=== PATIENT | male | born 1965 | race Hispanic/Latino ===

== ENCOUNTER 2017-06-21 22:48 | Inpatient (IN) | payer MEDICAID ==
[2017-06-21 22:48] VITALS: BMI 28.0
[2017-06-21 23:36] LABS: BASO # 0.1 K/uL (0.0-0.2); BASO % 0.6 % (0.0-2.0); EOS % 0.2 % (0.0-4.0); LYMPH # 0.5 K/uL (1.0-4.3); LYMPH % 6.6 % (20.0-40.0); MEAN CORPUSCULAR HEMOGLOBIN 33.7 pg (27.0-31.0); MEAN CORPUSCULAR HGB CONC 35.4 g/dL (33.0-37.0); MEAN PLATELET VOLUME 6.6 fL (7.2-11.7); MONO # 1.3 K/uL (0.0-0.8); MONO % 16.1 % (0.0-10.0); NEUT # 6.1 K/uL (1.8-7.0); NEUT % 76.5 % (50.0-75.0); RBC 3.86 Mil/uL (4.40-5.90); RED CELL DISTRIBUTION WIDTH 14.9 % (11.5-14.5)
[2017-06-21 23:37] LABS: MEAN CELL VOLUME 95.1 fL (80.0-94.0); PLATELET COUNT 182 K/uL (130-400)
[2017-06-21 23:51] LABS: ALBUMIN 4.1 g/dL (3.5-5.0); ALT/SGPT 106 U/L (21-72); AST/SGOT 154 U/L (17-59); BLOOD UREA NITROGEN 6 mg/dL (9-20); CALCIUM 9.6 mg/dl (8.6-10.4); GFR AFRICAN-AMERICAN > 60; GFR NON-AFRICAN AMERICAN > 60
--- NOTE | 2017-06-22 01:36 | C.PDOC ---
History Of Present Illness 51 year old male presents to the ER via EMS after patient was found by mother to have bizarre behavior and ripping up sofa cushions at home. When questioned, patient states he does not feel well, states he feels lightheaded and dizzy but denies pain, suicidal ideation, or homicidal ideation. Chief Complaint (Nursing): Psychiatric Evaluation History Per: Patient History/Exam Limitations: no limitations Onset/Duration Of Symptoms: Hrs Current Symptoms Are (Timing): Still Present Suicide/Self Injury Attempted (Context): None Associated Symptoms: Other (Bizarre behavior). denies: Depression, Suicidal Thoughts, Suicidal Plan Involuntary Hold By: None Recent travel outside of the [place]: No Past Medical History Reviewed: Historical Data, Nursing Documentation, Vital Signs Vital Signs: Last Vital Signs Temp 98.1 F 06/22/17 02:29 Pulse 93 H 06/22/17 02:29 Resp 20 06/22/17 02:29 BP 134/81 06/22/17 02:29 Pulse Ox 97 06/22/17 05:40 - Medical History PMH: Asthma, Bipolar Disorder, Depression, HTN, Hypercholesterolemia - [facility] ALCOHOL DETOXIFICATION (02/24/14) Family History: States: Unknown Family Hx - Social History Hx Tobacco Use: No Hx Alcohol Use: Yes Hx Substance Use: No - Immunization History Hx Tetanus Toxoid Vaccination: No Hx Influenza Vaccination: No Hx Pneumococcal Vaccination: No Review Of Systems Constitutional: Negative for: Fever, Chills Cardiovascular: Positive for: Light Headedness. Negative for: Chest Pain, Palpitations Respiratory: Negative for: Shortness of Breath Gastrointestinal: Negative for: Abdominal Pain Neurological: Positive for: Dizziness Psych: Negative for: Suicidal ideation, Other (Homicidal ideation) Physical Exam - Physical Exam Appears: Non-toxic, No Acute Distress Skin: Normal Color, Warm, Dry Head: Atraumatic, Normacephalic Eye(s): bilateral: Normal Inspection Oral Mucosa: Moist Neck: Normal, Supple Chest: Symmetrical, No Tenderness Cardiovascular: Rhythm Regular Respiratory: Normal Breath Sounds, No Rales, No Rhonchi, No Wheezing Gastrointestinal/Abdominal: Soft, No Tenderness Neurological/Psych: Oriented x3, Normal Speech ED Course And Treatment - Laboratory Results Result Diagrams: 06/21/17 23:33 06/22/17 05:11 O2 Sat by Pulse Oximetry: 97 (room air) Pulse Ox Interpretation: Normal Progress Note: Blood work and urinalysis ordered. Crisis notified. Patient noted to be more confused with tremors. Disposition Discussed With .: Estevan Agustin Doctor Will See Patient In The: Hospital Counseled Patient/Family Regarding: Diagnosis - Disposition Disposition: HOSPITALIZED Disposition Time: 05:39 Condition: STABLE Forms: [facility] ([facility]) - Clinical Impression Clinical Impression: Benzodiazepine abuse, Withdrawal from benzodiazepine, Acute confusion - Scribe Statement The provider has reviewed the documentation as recorded by the Scribjose miguel Bai All medical record entries made by the Chrisibe were at my direction and personally dictated by me. I have reviewed the chart and agree that the record accurately reflects my personal performance of the history, physical exam, medical decision making, and the department course for this patient. I have also personally directed, reviewed, and agree with the discharge instructions and disposition.
[2017-06-22 02:43] LABS: SQUAMOUS EPITHIAL < 1 /hpf (0-5); URINE BILIRUBIN NEGATIVE (NEGATIVE); URINE BLOOD NEGATIVE (NEGATIVE); URINE CLARITY Clear (Clear); URINE COLOR Yellow (YELLOW); URINE GLUCOSE (UA) 1+ mg/dL (Normal); URINE LEUKOCYTE ESTERASE NEG Leu/uL (Negative); URINE NITRATE NEGATIVE (NEGATIVE); URINE PROTEIN 1+ mg/dL (NEGATIVE)
[2017-06-22 02:47] LABS: BARBITURATES, UR NEGATIVE (NEGATIVE); OPIATES, UR NEGATIVE (NEGATIVE); PHENCYCLIDINE, UR NEGATIVE (NEGATIVE)
[2017-06-22 02:51] LABS: BENZODIAZEPINES, UR POSITIVE (NEGATIVE)
[2017-06-22 03:33] LABS: EOSINOPHIL 1 % (0-4); LYMPHOCYTE 7 % (20-40); MONOCYTE 17 % (0-10); NEUTROPHIL 75 % (50-75); TOTAL CELLS COUNTED 100
[2017-06-22 03:34] LABS: PLATELET ESTIMATE NORMAL (NORMAL)
[2017-06-22] MEDS ORDERED: Sodium Chloride 0.9% 1,000 ML IV ONE (03:48)
--- NOTE | 2017-06-22 05:22 | CT ---
EXAM: CT Head Without Intravenous Contrast CLINICAL HISTORY: 51 years old, male; Pain; Other: Acute confusion; Patient HX: 04-01-13 TECHNIQUE: Axial computed tomography images of the head/brain without intravenous contrast. All CT scans at this facility use one or more dose reduction techniques, viz.: automated exposure control; ma/kV adjustment per patient size (including targeted exams where dose is matched to indication; i.e. head); or iterative reconstruction technique. Coronal and sagittal reformatted images were created and reviewed. COMPARISON: CT - HEAD W/O CONTRAST 2013-04-01 08:40 FINDINGS: Brain: Moderate atrophy. No intracranial hemorrhage. No mass. No definite edema. Ventricles: No hydrocephalus. Bones/joints: No acute fracture. Soft tissues: Unremarkable. Vasculature: Minimal atherosclerotic disease of intracranial arteries. Sinuses: Mild mucosal thickening of maxillary sinuses. Mastoid air cells: No mastoid effusion. Orbits: Unremarkable as visualized. IMPRESSION: 1. No definite acute intracranial abnormality. Acute infarction may be CT occult within first 24 hours. If a focal deficit persists, consider followup CT or MRI for further evaluation. 2. Incidental/non-acute findings are described above.
[2017-06-22 05:30] LABS: BLOOD UREA NITROGEN 8 mg/dL (9-20); CALCIUM 8.9 mg/dl (8.6-10.4); GFR AFRICAN-AMERICAN > 60; GFR NON-AFRICAN AMERICAN > 60
[2017-06-22] MEDS ORDERED: Multivitamin (MVI) 10 ML, Thiamine 100 MG, Folic Acid 1 MG in Sodium Chloride 0.9% 1,00... IV ONE (05:59)
--- NOTE | 2017-06-22 11:38 | PCM.PSYCH ---
Initial Psychiatric Evaluation - Initial Psychiatric Evaluation Type of Admission: Voluntary Legal Status: Capacity Chief Complaint (in patient's own words): " I have anxiety" History of Present Illness and Precipitating Events: The patient is a 51 male with two children. Per ED report that patient was brought to the hospital after his mother found him ripping up couch cushions and demonstrating bizarre behavior. The patient reports I have anxiety and that it woke him up this morning. He states that he does not know what is causing his anxiety but he feels like his heart is beating too fast and that he is sweating profusely. The patient reports feeling fine last night when he went to bed and that the anxiety occurred out of the blue. He reports that he started getting anxiety when he was 13 and its only getting worse, occurring 15-20 times a month. The patient reports drinking alcohol. The patient denies taking any medications, psych history, and psychiatric hospitalizations in the past. Patient chart displays a history of bipolar disorder substance abuse and previous psychiatric and detox hospitalizations. The patient is sitting naked in his bed and is very anxious and agitated. He appears very flushed and delirious. His speech is loud with anger in his tone. He demonstrated perseveration, repeating I have anxiety for a greater part of the patient encounter.The patient has poor insight and lacks judgment and attention. The patient is clearly confused and appears to be high on a combination of substances. Current Medications: Active Medications Generic Name Dose Route Start Last Admin Trade Name Freq PRN Reason Stop Dose Admin Chlordiazepoxide 25 mg 06/22/17 05:59 Librium PO Q4 PRN Anxiety Heparin Sodium (Porcine) 5,000 units 06/22/17 06:00 06/22/17 06:25 Heparin SC 5,000 units Q8 EDIN Administration Multivitamins/Vitamin C 10 ml/ 1,011.2 mls @ 80 mls/hr 06/22/17 05:59 06:40 Thiamine HCl 100 mg/ Folic IV 06/22/17 18:37 80 mls/hr Acid 1 mg/ Sodium Chloride .[id number] ONE Administration Past Psychiatric History - Past Psychiatric History Previous Treatment History: Inpatient Pertinent Medical Hx (Current Medical&Sleep Prob, Allergies): Allergies Allergy/AdvReac Type Severity Reaction Status Date / Time peanut Allergy SWELLING Verified 02/06/18 04:18 Unobtainable [Unobtainable] 07/19/13 Review of Systems - Review of Systems Systems not reviewed;Unavailable: Altered Mental Status - Constitutional Constitutional: Sweats - Neurological Neurological: Behavioral Changes, Confusion - Psychiatric Psychiatric: Anxiety, Behavioral Changes, Confusion, Difficulty Concentrating, Hallucinations, Irritability, Mood Swings Mental Status Examination - Personal Presentation Personal Presentation: Looks stated age - Affect Affect: Broad - Motor Activity Motor Activity: Psychomotor Agitation - Reliability in Providing Information Reliability in Providing Information: Poor, due to alteration in thoughts, Poor , due to altered mood, Poor, due to cognitve impairment - Speech Speech: Disorganized - Mood Mood: Anxious - Formal Thought Process Formal Thought Process: Hallucinations, Loosening of associations - Obsessions/Compulsions Obsessions: None Compulsions: None - Cognitive Functions Orientation: Person, Place Sensorium: Alert Attention/Concentration: Easily distracted Estimate of Intelligence: Average Judgement: Imparied, as evidence by: Poor judgement, Imparied, as evidence by: Lack of insight into illness Memory: Recent impaired, as evidence by: Inability to recall events of the day, Remote impaired as evidenced by: Inability to recall sig life events - Risk Risk: Withdrawal DSM 5 DX - DSM 5 DSM 5 Diagnosis: Delirium secondary to drug intoxication Alcohol Use Disorder Benzodiazepine Use Disorder - Recommended/Plan of Treatment Treatment Recommendations and Plan of Treatment: Monitor patient's vital signs Monitor patient's mood and behavior Ativan taper
--- NOTE | 2017-06-22 23:07 | CP.PCM.HP ---
History of Present Illness - History of Present Illness History of Present Illness: CC: over dosage of xanax to fell asleep HPI: 51 year old male PMH of anxiety and depression presents to the ER via EMS after patient was found by mother to have bizarre behavior and ripping up sofa cushions at home. When questioned, patient states he does not feel well, states he feels lightheaded and dizzy but denies pain, suicidal ideation, or homicidal ideation, he states he took large qaunttites of xanax just to sleep Present on Admission - Present on Admission Any Indicators Present on Admission: Yes Review of Systems - Review of Systems Systems not reviewed;Unavailable: Acuity of Condition, Unstable Vital Signs - Constitutional Constitutional: Fatigue, Lethargy, Malaise. absent: As Per HPI, Anorexia, Chills, Daytime Sleepiness, Excessive Sweating, Fever, Frequent Falls, Headache , Increased Appetite, Night Sweats, Snoring, Sleep Apnea, Weight Gain, Weight Loss, Weakness, Other - EENT Nose/Mouth/Throat: absent: As Per HPI, Epistaxis, Nasal Congestion, Nasal Discharge, Nasal Obstruction, Nasal Trauma, Nose Pain, Post Nasal Drip, Sinus Pain, Sinus Pressure, Bleeding Gums, Change in Voice, Dental Pain, Dry Mouth, Dysphagia, Halitosis, Hoarsness, Lip Swelling, Mouth Lesions, Mouth Pain, Odynophagia, Sore Throat, Throat Swelling, Tongue Swelling, Facial Pain, Neck Pain, Neck Mass, Other - Cardiovascular Cardiovascular: absent: As Per HPI, Acrocyanosis, Chest Pain, Chest Pain at Rest , Chest Pain with Activity, Claudication, Diaphoresis, Dyspnea, Dyspnea on Exertion, Edema, Irregular Heart Rhythm, Pain Radiating to Arm/Neck/Jaw, Leg Edema, Leg Ulcers, Lightheadedness, Orthopnea, Palpitations, Paroxysmal Nocturnal Dyspnea, Pedal Edema, Radiating Pain, Rapid Heart Rate, Slow Heart Rate, Syncope, Other - Gastrointestinal Gastrointestinal: absent: As Per HPI, Abdominal Pain, Belching, Bloating, Change in Bowel Habits, Change in Stool Character, Coffee Ground Emesis, Constipation, Cramping, Diarrhea, Dyspepsia, Dysphagia, Early Satiety, Excessive Flatus, Fecal Incontinence, Heartburn, Hematemesis, Hematochezia, Loose Stools, Melena, Nausea, Odynophagia, Temesmus, Vomiting, Other - Genitourinary Genitourinary: absent: As Per HPI, Change in Urinary Stream, Difficulty Urinating, Dysuria, Flank Pain, Hematuria, Pyuria, Nocturia, Urinary Incontinence, Urinary Frequency, Urinary Hesitance, Urinary Urgency, Voiding Freq/Small Amts, Freq UTI, Hx Renal/Bladder Calculi, Hx /Renal Surgery, Bladder Distension, Other - Musculoskeletal Musculoskeletal: Abnormal Gait - Integumentary Integumentary: absent: As Per HPI, Acne, Alopecia, Bleeding Lesions, Change in Hair, Change in Nails, Change in Pigmentation, Changing Lesions, Dry Skin, Erythema, Furuncle, Hirsutism, Lesions, New Lesions, Non-Healing Lesions, Photosensitivity, Pruritus, Rash, Skin Pain, Skin Ulcer, Sores, Striae, Swelling , Unusual Bruising, Wounds, Jaundice, Other - Neurological Neurological: Confusion, Dizziness, Weakness - Psychiatric Psychiatric: Abnormal Sleep Pattern, Anxiety, Depression, Irritability - Endocrine Endocrine: absent: As Per HPI, Change in Body Appearance, Change in Libido, Cold Intolorance, Deepening of Voice, Excessive Sweating, Fatigue, Flushing, Heat Intolorance, Increase in Ring/Shoe/Hat Size, Palpitations, Polydipsia, Polyphagia, Polyuria, Other Past Patient History - Past Medical History & Family History Past Medical History?: Yes - Past Social History Smoking Status: Never Smoked - CARDIAC Hx Hypercholesterolemia: Yes Hx Hypertension: Yes - PULMONARY Hx Asthma: Yes - NEUROLOGICAL Hx Seizures: No - HEENT Hx HEENT Problems: No - RENAL Hx Chronic Kidney Disease: No - ENDOCRINE/METABOLIC Hx Endocrine Disorders: No - HEMATOLOGICAL/ONCOLOGICAL Hx Human Immunodeficiency Virus (HIV): No - INTEGUMENTARY Hx Eczema: Yes - MUSCULOSKELETAL/RHEUMATOLOGICAL Hx Falls: Yes Hx Unsteady Gait: Yes - GASTROINTESTINAL Hx Gastrointestinal Disorders: No Hx Fatty Liver Disease: Yes - GENITOURINARY/GYNECOLOGICAL Hx Sexually Transmitted Disorders: No - PSYCHIATRIC Hx Bipolar Disorder: Yes Hx Depression: Yes Hx Substance Use: Yes - SURGICAL HISTORY Hx Surgeries: Yes (right pointer finger fixed due to deteriotion) - ANESTHESIA Hx Anesthesia: No Hx Anesthesia Reactions: No Meds Allergies/Adverse Reactions: Allergies Allergy/AdvReac Type Severity Reaction Status Date / Time peanut Allergy SWELLING Verified 06/22/17 04:18 Physical Exam - Constitutional Appears: No Acute Distress - Head Exam Head Exam: ATRAUMATIC, NORMAL INSPECTION, NORMOCEPHALIC - Eye Exam Eye Exam: EOMI, Normal appearance, PERRL Pupil Exam: NORMAL ACCOMODATION, PERRL - Respiratory Exam Respiratory Exam: Clear to Auscultation Bilateral, NORMAL BREATHING PATTERN - Cardiovascular Exam Cardiovascular Exam: REGULAR RHYTHM - GI/Abdominal Exam GI & Abdominal Exam: Normal Bowel Sounds, Soft. absent: Tenderness - Rectal Exam Rectal Exam: Deferred - Neurological Exam Neurological exam: Alert, Normal Gait, Oriented x3 - Psychiatric Exam Psychiatric exam: Anxious, Depressed Results - Vital Signs Recent Vital Signs: Last Vital Signs Temp 98.7 F 06/22/17 20:26 Pulse 88 06/22/17 20:40 Resp 18 06/22/17 20:26 BP 161/103 H 06/22/17 20:26 Pulse Ox 97 06/22/17 20:26 - Labs Result Diagrams: 06/21/17 23:33 06/22/17 05:11 Labs: Laboratory Results - last 24 hr 06/21/17 06/21/17 06/22/17 23:33 23:33 02:25 WBC 8.0 RBC 3.86 L Hgb 13.0 Hct 36.7 MCV 95.1 H D MCH 33.7 H MCHC 35.4 RDW 14.9 H Plt Count 182 D MPV 6.6 L Neut % (Auto) 76.5 H Lymph % (Auto) 6.6 L [place] % (Auto) 16.1 H Eos % (Auto) 0.2 Baso % (Auto) 0.6 Neut # (Auto) 6.1 Lymph # (Auto) 0.5 L [place] # (Auto) 1.3 H Eos # (Auto) 0.0 Baso # (Auto) 0.1 Neutrophils % (Manual) 75 Lymphocytes % (Manual) 7 L Monocytes % (Manual) 17 H Eosinophils % (Manual) 1 Platelet Estimate Normal Sodium 127 L Potassium 3.7 Chloride 85 L Carbon Dioxide 28 Anion Gap 17 BUN 6 L Creatinine 1.2 Est GFR ( Amer) > 60 Est GFR (Non-Af Amer) > 60 Random Glucose 112 H Calcium 9.6 Total Bilirubin 3.3 H AST 154 H ALT 106 H D Alkaline Phosphatase 80 Total Protein 8.1 Albumin 4.1 Globulin 4.0 H Albumin/Globulin Ratio 1.0 Urine Color Urine Clarity Urine pH Ur Specific [place] Urine Protein Urine Glucose (UA) Urine Ketones Urine Blood Urine Nitrate Urine Bilirubin Urine Urobilinogen Ur Leukocyte Esterase Urine WBC (Auto) Ur Squamous Epith Cells Urine Opiates Screen Negative Urine Methadone Screen Negative Ur Barbiturates Screen Negative Ur Phencyclidine Scrn Negative Ur Amphetamines Screen Negative U Benzodiazepines Scrn Positive U Oth Cocaine Metabols Negative U Cannabinoids Screen Negative Alcohol, Quantitative < 10 06/22/17 06/22/17 02:25 05:11 WBC RBC Hgb Hct MCV MCH MCHC RDW Plt Count MPV Neut % (Auto) Lymph % (Auto) [place] % (Auto) Eos % (Auto) Baso % (Auto) Neut # (Auto) Lymph # (Auto) [place] # (Auto) Eos # (Auto) Baso # (Auto) Neutrophils % (Manual) Lymphocytes % (Manual) Monocytes % (Manual) Eosinophils % (Manual) Platelet Estimate Sodium 130 L Potassium 4.0 Chloride 85 L Carbon Dioxide 30 Anion Gap 19 BUN 8 L Creatinine 1.2 Est GFR ( Amer) > 60 Est GFR (Non-Af Amer) > 60 Random Glucose 91 Calcium 8.9 Total Bilirubin AST ALT Alkaline Phosphatase Total Protein Albumin Globulin Albumin/Globulin Ratio Urine Color Yellow Urine Clarity Clear Urine pH 6.0 Ur Specific [place] 1.008 Urine Protein 1+ H Urine Glucose (UA) 1+ H Urine Ketones Trace Urine Blood Negative Urine Nitrate Negative Urine Bilirubin Negative Urine Urobilinogen 2.0 Ur Leukocyte Esterase Neg Urine WBC (Auto) 1 Ur Squamous Epith Cells < 1 Urine Opiates Screen Urine Methadone Screen Ur Barbiturates Screen Ur Phencyclidine Scrn Ur Amphetamines Screen U Benzodiazepines Scrn U Oth Cocaine Metabols U Cannabinoids Screen Alcohol, Quantitative Assessment & Plan (1) Acute confusion Status: Acute (2) Benzodiazepine abuse Status: Acute (3) Withdrawal from benzodiazepine Status: Acute
--- NOTE | 2017-06-23 13:55 | CARD ---
APPROVED REPORT EKG Measurement Heart [id number] <Conclusion> Normal sinus rhythm Inferior infarct, age undetermined Abnormal ECG
--- NOTE | 2017-06-23 23:44 | CP.PCM.PN ---
Subjective - Date & Time of Evaluation Date of Evaluation: 06/23/17 Time of Evaluation: 19:00 - Subjective Subjective: Pt is anxious and agitated, was also seen by psychiatry, i gave stat dose of ativan pt is able to cooperate trying her best to elax Objective - Vital Signs/Intake and Output Vital Signs (last 24 hours): Temp Pulse Resp BP Pulse Ox 98.4 F 81 20 185/105 H 96 06/23/17 16:21 06/23/17 16:21 06/23/17 16:21 06/23/17 16:21 06/23/17 16:21 - Medications Medications: Current Medications Alprazolam (Xanax) 0.5 mg PO TID [facility] Last Admin: 06/23/17 18:50 Dose: Not Given Ergocalciferol (Drisdol 50,000 Intl Units Cap) 1 cap PO QWK [facility] Folic Acid (Folic Acid) 1 mg PO DAILY [facility] Heparin Sodium (Porcine) (Heparin) 5,000 units SC Q8 [facility] Last Admin: 06/23/17 22:04 Dose: 5,000 units Lisinopril (Zestril) 20 mg PO DAILY [facility] Lorazepam (Ativan) 0.5 mg PO TID PRN PRN Reason: Agitation Last Admin: 06/23/17 14:36 Dose: 0.5 mg Metoprolol Tartrate (Lopressor) 50 mg PO DAILY [facility] Last Admin: 06/23/17 16:27 Dose: 50 mg Pneumococcal Polyvalent Vaccine (Pneumovax 23 Vaccine) 0.5 ml IM .ONCE ONE Stop: 06/25/17 10:01 Quetiapine Fumarate (Seroquel) 300 mg PO [facility] Last Admin: 06/23/17 22:04 Dose: 300 mg Thiamine HCl (Vitamin B1 Tab) 100 mg PO DAILY [facility] - Labs Labs: 06/21/17 23:33 06/22/17 05:11 - Constitutional Appears: No Acute Distress, Agitated - Head Exam Head Exam: ATRAUMATIC, NORMAL INSPECTION, NORMOCEPHALIC - Eye Exam Eye Exam: EOMI, Normal appearance, PERRL Pupil Exam: NORMAL ACCOMODATION, PERRL - Respiratory Exam Respiratory Exam: Clear to Ausculation Bilateral, NORMAL BREATHING PATTERN - Cardiovascular Exam Cardiovascular Exam: REGULAR RHYTHM, +S1, +S2. absent: Murmur - GI/Abdominal Exam GI & Abdominal Exam: Soft, Normal Bowel Sounds. absent: Tenderness - Rectal Exam Rectal Exam: Deferred - Neurological Exam Neurological Exam: Alert, Awake - Psychiatric Exam Psychiatric exam: Anxious - Skin Skin Exam: Dry, Intact, Normal Color, Warm Assessment and Plan (1) Acute confusion Status: Acute (2) Benzodiazepine abuse Status: Acute (3) Withdrawal from benzodiazepine Status: Acute
--- NOTE | 2017-06-24 11:57 | CARD ---
APPROVED REPORT EKG Measurement Heart [id number] <Conclusion> Sinus rhythm with 1st degree AV block Possible Left atrial enlargement Possible Inferior infarct, age undetermined Abnormal ECG
--- NOTE | 2017-06-24 23:45 | CP.PCM.PN ---
Subjective - Date & Time of Evaluation Date of Evaluation: 06/24/17 Time of Evaluation: 18:00 - Subjective Subjective: Pt seen & examined at bedside, doing well, calm, less anxious Objective - Vital Signs/Intake and Output Vital Signs (last 24 hours): Temp Pulse Resp BP Pulse Ox 98.3 F 75 20 181/120 H 125 H 06/24/17 15:00 06/24/17 15:00 06/24/17 15:00 06/24/17 15:00 06/24/17 15:00 Intake and Output: 06/24/17 06/25/17 18:59 06:59 Intake Total 480 Balance 480 - Medications Medications: Current Medications Ergocalciferol (Drisdol 50,000 Intl Units Cap) 1 cap PO QWK [facility] Folic Acid (Folic Acid) 1 mg PO DAILY [facility] Last Admin: 06/24/17 09:13 Dose: 1 mg Haloperidol Lactate (Haldol) 5 mg IM ONCE PRN PRN Reason: Agitation Heparin Sodium (Porcine) (Heparin) 5,000 units SC Q8 [facility] Last Admin: 06/24/17 22:05 Dose: Not Given Lisinopril (Zestril) 20 mg PO DAILY [facility] Last Admin: 06/24/17 09:13 Dose: 20 mg Lorazepam (Ativan) 1 mg PO Q6H [facility] Metoprolol Tartrate (Lopressor) 50 mg PO DAILY [facility] Last Admin: 06/24/17 09:03 Dose: 50 mg Pneumococcal Polyvalent Vaccine (Pneumovax 23 Vaccine) 0.5 ml IM .ONCE ONE Stop: 06/25/17 10:01 Quetiapine Fumarate (Seroquel) 300 mg PO HS [facility] Last Admin: 06/24/17 21:34 Dose: 300 mg Thiamine HCl (Vitamin B1 Tab) 100 mg PO DAILY [facility] Last Admin: 06/24/17 09:13 Dose: 100 mg - Labs Labs: 06/21/17 23:33 06/22/17 05:11 - Constitutional Appears: No Acute Distress - Head Exam Head Exam: ATRAUMATIC, NORMAL INSPECTION, NORMOCEPHALIC - Eye Exam Eye Exam: EOMI, Normal appearance, PERRL Pupil Exam: NORMAL ACCOMODATION, PERRL - Respiratory Exam Respiratory Exam: Clear to Ausculation Bilateral, NORMAL BREATHING PATTERN - Cardiovascular Exam Cardiovascular Exam: REGULAR RHYTHM, +S1, +S2. absent: Murmur - GI/Abdominal Exam GI & Abdominal Exam: Soft, Normal Bowel Sounds. absent: Tenderness - Rectal Exam Rectal Exam: Deferred Assessment and Plan (1) Acute confusion Status: Acute (2) Benzodiazepine abuse Status: Acute (3) Withdrawal from benzodiazepine Status: Acute
[2017-06-25 08:17] LABS: BASO # 0.1 K/uL (0.0-0.2); EOS # 0.2 K/uL (0.0-0.7); EOS % 3.1 % (0.0-4.0); HEMOGLOBIN 12.3 g/dL (12.0-18.0); LYMPH # 1.2 K/uL (1.0-4.3); LYMPH % 17.1 % (20.0-40.0); MEAN CELL VOLUME 99.2 fL (80.0-94.0); MEAN CORPUSCULAR HEMOGLOBIN 33.3 pg (27.0-31.0); MEAN CORPUSCULAR HGB CONC 33.6 g/dL (33.0-37.0); MEAN PLATELET VOLUME 6.7 fL (7.2-11.7); MONO # 1.6 K/uL (0.0-0.8); MONO % 23.3 % (0.0-10.0); NEUT # 3.8 K/uL (1.8-7.0); NEUT % 55.5 % (50.0-75.0); PLATELET COUNT 232 K/uL (130-400); RBC 3.68 Mil/uL (4.40-5.90); RED CELL DISTRIBUTION WIDTH 14.8 % (11.5-14.5); WHITE BLOOD COUNT 6.9 K/uL (4.8-10.8)
[2017-06-25 08:48] LABS: ALBUMIN 3.9 g/dL (3.5-5.0); ALT/SGPT 137 U/L (21-72); AST/SGOT 136 U/L (17-59); BLOOD UREA NITROGEN 15 mg/dL (9-20); GFR AFRICAN-AMERICAN > 60; GFR NON-AFRICAN AMERICAN > 60
[2017-06-25] MEDS ORDERED: Pneumococcal 23-Valent Vaccine IM ONE (10:00)
[2017-06-25 10:09] LABS: BANDS 1 % (0-2); BASOPHIL 2 % (0-2); EOSINOPHIL 5 % (0-4); LYMPHOCYTE 14 % (20-40); MONOCYTE 21 % (0-10); NEUTROPHIL 57 % (50-75); PLATELET ESTIMATE NORMAL (NORMAL); TOTAL CELLS COUNTED 100
--- NOTE | 2017-06-25 13:21 | PCM.PYCHPN ---
Psychiatric Progress Note - Psychiatric Progress Note Patient seen today, length of contact: 15 min Patient Chief Complaint: " I m feeling very anxious" Problems Identified/Issues Discussed: Patient seen and evaluated, chart reviewed and discussed with the nurse. Today patient appears much better than before. He is alert awake oriented to time place and person. However he remained irritable and agitated. He reports withdrawal symptoms including shakes, nausea, sweating, headaches and anxiety. He reports depressed mood and poor sleep. However he denies any auditory or visual hallucinations. He is compliant with the medications and denies any side effects. he needs more time for stabilization Medication Change: Yes (ativan taper) Medical Record Reviewed: Yes Mental Status Examination - Cognitive Function Orientation: Person, Place, Situation, Time Memory: Intact Attention: WNL Concentration: Poor Association: WNL Fund of Knowledge: Poor - Mood Mood: Depressed, Anxious - Affect Affect: Constricted, Depressed - Speech Speech: Soft - Formal Thought Process Formal Thought Process: No Impairment - Suicidal Ideation Suicidal Ideation: No - Homicidal Ideation Homicidal Ideation: No Goal/Treatment Plan - Goal/Treatment Plan Need for Continued Stay: Severe depression anxiety, Severe functional impairment Progress Toward Problem(s) and Goals/Treatment Plan: Monitor patient's vital signs Monitor patient's mood and behavior Ativan taper Neurontin 100 mg by mouth 3 times a day Trazodone 50 mg by mouth daily at bedtime Seroquel 300 mg PO QHS Patient will be transferred to psychiatry for stabilization.
[2017-06-26] MEDS: Multiple Vitamins Tab PO SCH (09:11)
--- NOTE | 2017-06-26 11:46 | PCM.PYCHPN ---
Psychiatric Progress Note - Psychiatric Progress Note Patient seen today, length of contact: 18 min Patient Chief Complaint: "I don't feel well" Problems Identified/Issues Discussed: The pt is seen, chart reviewed, case discussed with staff. Support given, CBT and OK used briefly He is very anxious, has depression Improving slowly and needs more time No SEs from medications, risks discussed. After care discussed Medication Change: Yes (ativan taper) Medical Record Reviewed: Yes Mental Status Examination - Cognitive Function Orientation: Person, Place, Situation, Time Memory: Intact Attention: WNL Concentration: Poor Association: WNL Fund of Knowledge: Poor - Mood Mood: Depressed, Anxious - Affect Affect: Constricted, Depressed - Speech Speech: Soft - Formal Thought Process Formal Thought Process: No Impairment - Suicidal Ideation Suicidal Ideation: No - Homicidal Ideation Homicidal Ideation: No Goal/Treatment Plan - Goal/Treatment Plan Need for Continued Stay: Severe depression anxiety, Severe functional impairment Progress Toward Problem(s) and Goals/Treatment Plan: Continue medications Support and psychoeducation daily Attend groups and activities daily After care planning by JUMA
[2017-06-27] MEDS: Multiple Vitamins Tab PO SCH (10:26)
[2017-06-27] MEDS: Hydrocortisone 1% Cream (30 GM) TOP SCH ×2 (10:28→17:03)
[2017-06-27] MEDS: Clotrimazole 1% Cream(30 gm) TOP SCH ×2 (10:33→17:03)
--- NOTE | 2017-06-27 13:25 | PCM.PYCHPN ---
Psychiatric Progress Note - Psychiatric Progress Note Patient seen today, length of contact: 16 min Patient Chief Complaint: "Better" Problems Identified/Issues Discussed: The pt is seen, chart reviewed, case discussed with staff. The pt is compliant with medications and reports no side-effects. Symptoms are improving but needs more time to stabilize. After care discussed, support and psychoeducation given. Medication Change: Yes (ativan taper) Medical Record Reviewed: Yes Mental Status Examination - Cognitive Function Orientation: Person, Place, Situation, Time Memory: Intact Attention: WNL Concentration: Poor Association: WNL Fund of Knowledge: Poor - Mood Mood: Depressed, Anxious - Affect Affect: Constricted, Depressed - Speech Speech: Soft - Formal Thought Process Formal Thought Process: No Impairment - Suicidal Ideation Suicidal Ideation: No - Homicidal Ideation Homicidal Ideation: No Goal/Treatment Plan - Goal/Treatment Plan Need for Continued Stay: Severe depression anxiety, Discharge may exacerbated symptoms, Severe functional impairment Progress Toward Problem(s) and Goals/Treatment Plan: Continue medications Support and psychoeducation daily Attend groups and activities daily After care planning by JUMA
[2017-06-28] MEDS: Hydrocortisone 1% Cream (30 GM) TOP SCH ×2 (09:49→18:15)
[2017-06-28] MEDS: Multiple Vitamins Tab PO SCH (09:49)
[2017-06-28] MEDS: Clotrimazole 1% Cream(30 gm) TOP SCH ×2 (09:49→18:15)
--- NOTE | 2017-06-28 10:26 | PCM.BM ---
<Amanda Raman - Last Filed: 06/28/17 10:24> Treatment Plan Problems - Problems identified on initial assessmt Anxiety Date Initiated: 06/28/17 Time Initiated: :25 Assessment reference: NA Status: Active Depression Date Initiated: 06/28/17 Time Initiated: :25 Assessment reference: NA Status: Active Treatment assets and liabiliti Patient Assests: cooperative, ADL independent, negotiates basic needs, other ( Confused at time) Patient Liabilities: live alone (Lives with mother), financial problems, substance abuse (ETOH) - Milieu Protocol Maintain good personal hygiene: daily Encourage regular showers, daily Remind patient to perform daily oral care, daily Assist patient to perform ADL's (Self) , other Assist patient to perform ADL's Maintain personal safety: every shift Educate patient to report safety concerns to staff, every shift Monitor environment for contraband/sharps Medication safety: Monitor for expected outcome, potential side effects: every shift, Assess barriers to learning: every shift, Assess readiness for medication education: every shift Milieu Narrative: Continue medications Support and psychoeducation daily Attend groups and activities daily After care planning by JUMA Discharge/Continuing Care - Treatment Team Participation Patient/Family/SO Statement: Continue medications Support and psychoeducation daily Attend groups and activities daily After care planning by JUMA <Jethro Mejia - Last Filed: 06/28/17 10:49> - Diagnosis (1) Bipolar 1 disorder Status: Acute Interventions: 06/28/17 10:50 * Assess/adjust medications daily and /or as needed * See patient on an individual basis 7x/week to assess level of manic behaviors and stability * Discuss risks, benefits, side effects and alternatives of medications * (2) Alcohol dependence Status: Acute Interventions: 06/28/17 10:50 * Assess 7x/week regarding severity of withdrawal * Educate regarding risks, benefits, side effects and alternatives of medications * Use Motivational Interviewing for abstinence * Use CBT for relapse prevention * Medication management for withdrawal symptoms * Encourage medication assisted treatment * <Myrna Acharya - Last Filed: 06/28/17 10:52> Family Contact Family involvement: Family/SO is involved Family contact: Patient declines to allow family contact at present - Goals for Treatment Patient goals for treatment: "I want to go home." Discharge/Continuing Care - Education Needs Education Needs: Patient Medication, Patient Coping Skills - Discharge Discharge Criteria: Tolerates medication w/o severe side effects, Reduction of target symptoms Discharge to:: Home, With Family - Treatment Team Participation Discussed with Family/SO: No Was Patient/Family/SO present at Treatment Team Meeting: Yes
--- NOTE | 2017-06-28 10:28 | PCM.PYCHPN ---
Psychiatric Progress Note - Psychiatric Progress Note Patient seen today, length of contact: 16 min Patient Chief Complaint: " I m feeling very anxious" Problems Identified/Issues Discussed: Patient seen and evaluated, chart reviewed and discussed with the nurse. Today patient appears much better than before. He is alert awake oriented to time place and person. However he remained irritable and agitated. He reports withdrawal symptoms including shakes, nausea, sweating, headaches and anxiety. He reports depressed mood and poor sleep. However he denies any auditory or visual hallucinations. He is compliant with the medications and denies any side effects. he needs more time for stabilization Medication Change: Yes (ativan taper, start [place]) Medical Record Reviewed: Yes Mental Status Examination - Cognitive Function Orientation: Person, Place, Situation, Time Memory: Intact Attention: WNL Concentration: Poor Association: WNL Fund of Knowledge: Poor - Mood Mood: Depressed, Anxious - Affect Affect: Constricted, Depressed - Speech Speech: Soft - Formal Thought Process Formal Thought Process: No Impairment - Suicidal Ideation Suicidal Ideation: No - Homicidal Ideation Homicidal Ideation: No Goal/Treatment Plan - Goal/Treatment Plan Need for Continued Stay: Severe depression anxiety, Discharge may exacerbated symptoms, Severe functional impairment Progress Toward Problem(s) and Goals/Treatment Plan: Monitor patient's vital signs Monitor patient's mood and behavior Ativan taper Neurontin 300 mg by mouth 3 times a day [place] 300 mg pO TID Trazodone 50 mg by mouth daily at bedtime Seroquel 300 mg PO QHS
[2017-06-29] MEDS: Clotrimazole 1% Cream(30 gm) TOP SCH ×2 (09:44→17:33)
[2017-06-29] MEDS: Hydrocortisone 1% Cream (30 GM) TOP SCH ×2 (09:45→17:32)
[2017-06-29] MEDS: Multiple Vitamins Tab PO SCH (09:48)
--- NOTE | 2017-06-29 15:05 | PCM.PYCHPN ---
Psychiatric Progress Note - Psychiatric Progress Note Patient seen today, length of contact: 16 min Patient Chief Complaint: "I'm need something for anxiety or else I'm going to rip this place apart." Problems Identified/Issues Discussed: Patient seen and evaluated, chart reviewed and discussed with the nurse. Today patient appears much better than before. He is alert awake oriented to time place and person. However he remained irritable and agitated. He reports withdrawal symptoms including shakes, nausea, sweating, headaches and anxiety. He reports depressed mood and poor sleep. However he denies any auditory or visual hallucinations. He is compliant with the medications and denies any side effects. he needs more time for stabilization Medication Change: Yes (ativan taper, start [place]) Medical Record Reviewed: Yes Mental Status Examination - Cognitive Function Orientation: Person, Place, Situation, Time Memory: Intact Attention: WNL Concentration: Poor Association: WNL Fund of Knowledge: Poor - Mood Mood: Depressed, Anxious - Affect Affect: Constricted, Depressed - Speech Speech: Loud, Pressured - Formal Thought Process Formal Thought Process: No Impairment - Suicidal Ideation Suicidal Ideation: No - Homicidal Ideation Homicidal Ideation: No Goal/Treatment Plan - Goal/Treatment Plan Need for Continued Stay: Severe depression anxiety, Discharge may exacerbated symptoms, Severe functional impairment Progress Toward Problem(s) and Goals/Treatment Plan: Monitor patient's vital signs Monitor patient's mood and behavior Ativan taper Neurontin 300 mg by mouth 3 times a day [place] 300 mg pO TID Trazodone 50 mg by mouth daily at bedtime Seroquel 300 mg PO QHS
[2017-06-30] MEDS: Multiple Vitamins Tab PO SCH (09:46)
[2017-06-30] MEDS: Clotrimazole 1% Cream(30 gm) TOP SCH ×2 (09:50→17:42)
[2017-06-30] MEDS: Hydrocortisone 1% Cream (30 GM) TOP SCH ×2 (09:50→17:42)
[2017-06-30] MEDS ORDERED: Ergocalciferol 50,000 Intl Units Cap PO SCH (10:00)
--- NOTE | 2017-06-30 10:46 | PCM.PYCHPN ---
Psychiatric Progress Note - Psychiatric Progress Note Patient seen today, length of contact: 16 min Patient Chief Complaint: "I'm very anxious, I'm not good- give me some xanax or something!" Problems Identified/Issues Discussed: Patient seen and evaluated, chart reviewed and discussed with the nurse. Patient is alert awake oriented to time place and person. Patient's self- reported symptoms are inconsistent with his presentation as monitored on CCTV. He is irritable, agitated, shaking and shouts about his anxiety. Via tv monitoring, the patient is seen to be without tremors and sleeps most of the day. Overnight and this morning, he complained of pruritis on his back and neck. He reports depressed mood and poor sleep. However he denies any auditory or visual hallucinations. He is compliant with the medications and denies any side effects. He needs more time for stabilization Medication Change: Yes (ativan taper, start [place]) Medical Record Reviewed: Yes Mental Status Examination - Cognitive Function Orientation: Person, Place, Situation, Time Memory: Intact Attention: WNL Concentration: Poor Association: WNL Fund of Knowledge: Poor - Mood Mood: Depressed, Anxious - Affect Affect: Constricted, Depressed - Speech Speech: Loud, Pressured - Formal Thought Process Formal Thought Process: No Impairment - Suicidal Ideation Suicidal Ideation: No - Homicidal Ideation Homicidal Ideation: No Goal/Treatment Plan - Goal/Treatment Plan Need for Continued Stay: Severe depression anxiety, Discharge may exacerbated symptoms, Severe functional impairment Progress Toward Problem(s) and Goals/Treatment Plan: Monitor patient's vital signs Monitor patient's mood and behavior Ativan taper Neurontin 300 mg by mouth 3 times a day [place] 300 mg pO TID Trazodone 50 mg by mouth daily at bedtime Seroquel 300 mg PO QHS
--- NOTE | 2017-06-30 18:16 | PCM.RRT ---
<Belkis Koroma - Last Filed: 06/30/17 19:12> BASE FILLER OPERATOR Nurses Assessment - Situation Date: 06/30/17 Time BASE FILLER OPERATOR was called: 17:55 BASE FILLER OPERATOR Responder Arrival Time:: 17:55 BASE FILLER OPERATOR Location:: [address] [place] [address] BASE FILLER OPERATOR Reason for Call: Looks Sicker BASE FILLER OPERATOR Called By: RN - IV IV Inserted during BASE FILLER OPERATOR?: No New IV Insertion Tolerance: Good - Respiratory BASE FILLER OPERATOR Delivery Method: Nasal Cannula @L/min (2L ) Received Nebulizer Treatments: No Was the Patient Ventilated with Bag/Mask 100% O2?: No Secretions Suctioned?: No Was the Patient Intubated?: No Was the Patient Placed on a Ventilator?: No - Diagnostic Test Ordered EKG: Yes Chest X-Ray: No CT Scan: Yes (HEAD) - Stat Labs Ordered BASE FILLER OPERATOR Stat Labs Ordered: CBC BASE FILLER OPERATOR Other Labs Ordered: CMP, mag, phos, ammonia, prolactin, VBG CPR started during BASE FILLER OPERATOR?: No - Time BASE FILLER OPERATOR Ended Time BASE FILLER OPERATOR Ended: 18:10 - Vital Signs at end of BASE FILLER OPERATOR Vital Signs at end of BASE FILLER OPERATOR: 140/ 80, 82, 98% NC @ 2L - Recommendations 5) BASE FILLER OPERATOR Level of Care Recommendations: Transfer to Telemetry Notifications: Attending Physician I.Reason for BASE FILLER OPERATOR - A) Acute Change in Patient: Subjective: BASE FILLER OPERATOR As per nurse, patient urinated in bed. Walked to the bathroom to urinate. He was assisted by nurses due to unsteady gait, to the floor. He did not experience syncope. Vitals were taken and pulse was 182, O2 was 88%. Patient was assisted to the floor repeat vitals - 147/84, pulse 86, pulse 96 on RA. Patient is AAO x 3. - Neurological Status (Select all that apply): Alert, Oriented, Verbal, Disoriented, Confused - Respiratory Oxygen Delivery Method: Nasal Cannula @L/min - Constitutional Appears: Confused - Head Head Exam: NORMAL INSPECTION, NORMOCEPHALIC - Eyes Eye Exam: EOMI, Normal appearance, PERRL - Respiratory Exam Respiratory Exam: Clear to Ausculation Bilateral, NORMAL BREATHING PATTERN - Cardiovascular Exam Cardiovascular Exam: REGULAR RHYTHM - GI/Abdominal Exam GI & Abdominal Exam: Soft, Normal Bowel Sounds. absent: Distended, Tenderness - Neurological Exam Neurological Exam: Alert, Awake, CN II-XII Intact, Oriented x3 - Extremities Exam Extremities Exam: Full ROM, Normal Capillary Refill, Normal Inspection. absent : Pedal Edema, Tenderness Plan - Assessment of Findings&Treatment Plan Head CT orders, EKG, CBC, CMP, Mag, Phos, Ammonia, Prolactin, VBG Spoke with Primary Attending - Dr. Middleton. Patient transferred to telemetry. Belkis Koroma DO, PGY-1 <Geoff Shaffer - Last Filed: 07/01/17 17:18> BASE FILLER OPERATOR Nurses Assessment - Vital Signs Vital Signs: Rapid Response Vital Sign Blood Pressure 148/65 Pulse Rate 162 Respiratory Rate 30 Temperature 97.8 F Attending/Attestation - Attestation I have personally seen and examined this patient.: Yes I have fully participated in the care of the patient.: Yes I have reviewed all pertinent clinical information, including history, physical exam and plan: Yes Notes (Text): Patient was seen and examined Transfer to med/surgery tele unit I agree with the documentation of the assessment and the plan 07/01/17 17:17
[2017-06-30 18:39] LABS: VENOUS BLOOD GAS BASE EXCESS -3.6 mmol/L (0.0-2.0); VENOUS BLOOD GAS PCO2 33 mmHg (40-60); VENOUS BLOOD GAS PO2 55 mm/Hg (30-55)
[2017-06-30 19:14] LABS: BASO # 0.1 K/uL (0.0-0.2); BASO % 0.7 % (0.0-2.0); EOS # 0.3 K/uL (0.0-0.7); EOS % 3.1 % (0.0-4.0); HEMOGLOBIN 13.8 g/dL (12.0-18.0); LYMPH # 1.8 K/uL (1.0-4.3); LYMPH % 16.5 % (20.0-40.0); MEAN CELL VOLUME 99.2 fL (80.0-94.0); MEAN CORPUSCULAR HGB CONC 33.3 g/dL (33.0-37.0); MEAN PLATELET VOLUME 7.6 fL (7.2-11.7); MONO # 1.6 K/uL (0.0-0.8); MONO % 14.5 % (0.0-10.0); NEUT % 65.2 % (50.0-75.0); NRBC % 0.1 % (0.0-2.0); RBC 4.18 Mil/uL (4.40-5.90); RED CELL DISTRIBUTION WIDTH 15.3 % (11.5-14.5)
[2017-06-30 19:23] LABS: WHITE BLOOD COUNT 10.7 K/uL (4.8-10.8)
[2017-06-30 19:43] LABS: ALB/GLOB RATIO 0.9 (1.0-2.1); ALT/SGPT 171 U/L (21-72); AST/SGOT 117 U/L (17-59); BLOOD UREA NITROGEN 21 mg/dL (9-20); CALCIUM 10.8 mg/dl (8.6-10.4); GFR AFRICAN-AMERICAN > 60; GFR NON-AFRICAN AMERICAN 53; MAGNESIUM 1.8 mg/dL (1.6-2.3)
[2017-06-30 19:55] LABS: PROLACTIN 13.8 ng/mL (3.7-17.9)
[2017-06-30] MEDS ORDERED: Thiamine 100 mg/ml Inj IV ONE (21:12)
[2017-06-30] MEDS ORDERED: MAGNESIUM SULFATE IV SCH (21:15)
[2017-06-30] MEDS ORDERED: THIAMINE IV SCH (21:15)
[2017-06-30] MEDS ORDERED: MULTIVITAMIN IV SCH (21:15)
[2017-06-30] MEDS ORDERED: [UNRECOGNIZED DRUG - OTHER] IV SCH (21:15)
[2017-06-30] MEDS ORDERED: FOLIC ACID IV SCH (21:15)
[2017-06-30] MEDS ORDERED: Thiamine 100 mg/ml Inj IV STA (21:15)
[2017-07-01 07:29] LABS: ABG ALLEN TEST POS; ARTERIAL BLOOD GAS O2 SAT 99.9 % (95-98); ARTERIAL BLOOD GAS PCO2 40 mm/Hg (35-45); ARTERIAL BLOOD GAS PH 7.34 (7.35-7.45); ARTERIAL BLOOD GAS PO2 256 mm/Hg (80-100); ARTERIAL BLOOD GAS TCO2 22.8 mmol/L (22-28)
[2017-07-01] MEDS ORDERED: Albuterol-Ipratrop 3 mg / 0.5 (3 ml) UD INH STA (07:36)
--- NOTE | 2017-07-01 08:15 | RAD ---
HISTORY: SOb COMPARISON: 02/25/2014 FINDINGS: LUNGS: Shallow lung volumes. Central pulmonary vessels prominence -in part to crowding. Probable concomitant mild pulmonary venous congestion PLEURA: No significant pleural effusion identified, no pneumothorax apparent. CARDIOVASCULAR: Mild cardiomegaly. Probable mild pulmonary venous congestion. OSSEOUS STRUCTURES: Thoracic spondylosis VISUALIZED UPPER ABDOMEN: Normal. OTHER FINDINGS: None. IMPRESSION: Probable mild pulmonary venous congestion. Shallow lung volumes- vasculature likely in part prominent due to crowding. Mild cardiomegaly No pleural effusion or infiltrate
[2017-07-01] MEDS ORDERED: Sodium Chloride 0.9% 500 ML IV ONE (08:18)
[2017-07-01 08:23] LABS: B-TYPE NATRIURETIC PEPTIDE 110 pg/mL (0-900)
--- NOTE | 2017-07-01 08:31 | CP.PCM.CON ---
<AndreasCleve - Last Filed: 07/05/17 08:32> History of Present Illness - History of Present Illness History of Present Illness: ICU Consult Note 51 year old male PMH of anxiety and depression presents to the ER via EMS after patient was found by mother to have bizarre behavior and ripping up sofa cushions at home. When questioned, patient states he does not feel well, states he feels lightheaded and dizzy but denies pain, suicidal ideation, or homicidal ideation, he states he took large qauntities of xananx in order to fall asleep. ICU was consulted after the patient became oxygen saturation dropped and the patient became tachycardic at a rate of 182. A rapid response was called as a result. Patient denies any chest pain Past medical history: HTN. thrombocytopenia, and alcohol abuse. Past surgical: None. Family history: Father had sarcoma. Social history: 12ppd x 25 years, drink 6-12 beers daily and few shots, denies illicit drug use. Allergies: NKDA. Review of Systems - Review of Systems Systems not reviewed;Unavailable: Acuity of Condition - Constitutional Constitutional: absent: Daytime Sleepiness, Frequent Falls, Snoring, Weakness Past Patient History - Past Medical History & Family History Past Medical History?: Yes - Past Social History Smoking Status: Never Smoked - CARDIAC Hx Hypercholesterolemia: Yes Hx Hypertension: Yes - PULMONARY Hx Asthma: Yes - NEUROLOGICAL Hx Seizures: No - HEENT Hx HEENT Problems: No - RENAL Hx Chronic Kidney Disease: No - ENDOCRINE/METABOLIC Hx Endocrine Disorders: No - HEMATOLOGICAL/ONCOLOGICAL Hx Human Immunodeficiency Virus (HIV): No - INTEGUMENTARY Hx Eczema: Yes - MUSCULOSKELETAL/RHEUMATOLOGICAL Hx Falls: Yes Hx Unsteady Gait: Yes - GASTROINTESTINAL Hx Gastrointestinal Disorders: No Hx Fatty Liver Disease: Yes - GENITOURINARY/GYNECOLOGICAL Hx Sexually Transmitted Disorders: No - PSYCHIATRIC Hx Substance Use: No - SURGICAL HISTORY Hx Surgeries: Yes (right pointer finger fixed due to deteriotion) - ANESTHESIA Hx Anesthesia: No Hx Anesthesia Reactions: No Meds Allergies/Adverse Reactions: Allergies Allergy/AdvReac Type Severity Reaction Status Date / Time peanut Allergy SWELLING Verified 06/22/17 04:18 - Medications Medications: Current Medications Clonidine HCl (Catapres) 0.1 mg PO Q4H PRN PRN Reason: Withdrawal Symptoms Last Admin: 06/29/17 19:14 Dose: 0.1 mg Clotrimazole (Lotrimin 1%) 0 gm TOP BID [facility] Last Admin: 06/30/17 17:42 Dose: Not Given Ergocalciferol (Drisdol 50,000 Intl Units Cap) 1 cap PO QWK [facility] Last Admin: 06/30/17 09:44 Dose: 1 cap Folic Acid (Folic Acid) 1 mg PO DAILY [facility] Last Admin: 06/30/17 09:46 Dose: 1 mg Gabapentin (Neurontin) 300 mg PO TID [facility] Last Admin: 06/30/17 17:40 Dose: 300 mg Hydrocortisone (Cortizone 1% Cream) 0 gm TOP BID [facility] Last Admin: 06/30/17 17:42 Dose: Not Given Hydroxyzine HCl (Atarax) 50 mg PO Q6 PRN PRN Reason: Anxiety Last Admin: 06/30/17 05:39 Dose: 50 mg Sodium Chloride (Sodium Chloride 0.9%) 500 mls @ 1,000 mls/hr IV .Q30M ONE Stop: 07/01/17 08:47 Piperacillin Sod/Tazobactam (Sod 3.375 gm/ Sodium Chloride) 100 mls @ 200 mls/ hr IVPB Q8H [facility] Thiamine HCl 100 mg/ Folic (Acid 1 mg/ Sodium Chloride) 1,001.2 mls @ 100 mls/ hr IV .Q10H1M [facility] Lisinopril (Zestril) 20 mg PO DAILY [facility] Last Admin: 06/30/17 09:46 Dose: 20 mg Hansell Carbonate (Hansell Carbonate 300mg) 600 mg PO TID [facility] Last Admin: 06/30/17 17:40 Dose: 600 mg Lorazepam (Ativan) 1 mg PO Q6 PRN PRN Reason: Symptoms of alcohol withdrawl Last Admin: 06/30/17 11:52 Dose: 1 mg Lorazepam (Ativan) 2 mg IVP Q6H [facility] Last Admin: 07/01/17 04:02 Dose: 2 mg Lorazepam (Ativan) 2 mg IVP Q2H PRN PRN Reason: Agitation Last Admin: 07/01/17 06:31 Dose: 2 mg Lorazepam (Ativan) 2 mg IVP Q4H PRN PRN Reason: Anxiety Metoprolol Tartrate (Lopressor) 50 mg PO DAILY [facility] Last Admin: 06/30/17 09:46 Dose: 50 mg Multivitamins (Hexavitamin) 1 tab PO DAILY [facility] Last Admin: 06/30/17 09:46 Dose: 1 tab Pantoprazole Sodium (Protonix Inj) 40 mg IVP DAILY [facility] Quetiapine Fumarate (Seroquel) 300 mg PO HS [facility] Last Admin: 06/30/17 22:07 Dose: 300 mg Thiamine HCl (Vitamin B1 Tab) 100 mg PO DAILY [facility] Last Admin: 06/30/17 09:47 Dose: 100 mg Trazodone HCl (Desyrel) 50 mg PO HS PRN PRN Reason: Insomnia Last Admin: 06/29/17 21:14 Dose: 50 mg Physical Exam - Head Exam Head Exam: ATRAUMATIC, NORMAL INSPECTION, NORMOCEPHALIC - Eye Exam Eye Exam: EOMI, Normal appearance, PERRL Pupil Exam: NORMAL ACCOMODATION, PERRL. absent: Irregular, Unequal - ENT Exam ENT Exam: Mucous Membranes Moist, Normal Oropharynx - Neck Exam Neck exam: Positive for: Full Rom. Negative for: Lymphadenopathy, Thyromegaly - Respiratory Exam Respiratory Exam: Clear to Auscultation Bilateral. absent: Prolonged Expiratory Phase, Respiratory Distress - Cardiovascular Exam Cardiovascular Exam: Tachycardia, +S1, +S2 - GI/Abdominal Exam GI & Abdominal Exam: Normal Bowel Sounds, Soft. absent: Organomegaly, Tenderness - Extremities Exam Extremities exam: Positive for: full ROM. Negative for: joint swelling, pedal edema - Back Exam Back exam: NORMAL INSPECTION. absent: CVA tenderness (L), CVA tenderness (R), paraspinal tenderness - Neurological Exam Neurological exam: Altered - Skin Skin Exam: Diaphoretic Results - Vital Signs Recent Vital Signs: Last Vital Signs Temp 97.8 F 07/01/17 06:47 Pulse 162 H 07/01/17 06:47 Resp 20 06/30/17 23:00 BP 148/65 07/01/17 06:47 Pulse Ox 96 06/30/17 23:00 - Labs Result Diagrams: 06/30/17 19:05 06/30/17 18:53 Labs: Laboratory Results - last 24 hr 06/30/17 06/30/17 06/30/17 18:03 18:35 18:53 WBC RBC Hgb Hct MCV MCH MCHC RDW Plt Count MPV Neut % (Auto) Lymph % (Auto) Mckean % (Auto) Eos % (Auto) Baso % (Auto) Neut # (Auto) Lymph # (Auto) Mckean # (Auto) Eos # (Auto) Baso # (Auto) Puncture Site Venous pCO2 pO2 55 HCO3 ABG pH ABG Total CO2 ABG O2 Saturation ABG Base Excess Chance Test Na ABG Potassium VBG pH 7.40 VBG pCO2 33 L VBG HCO3 21.9 VBG Total CO2 21.4 L VBG O2 Sat (Calc) 91.3 H VBG Base Excess -3.6 L VBG Potassium 2.8 L A-a O2 Difference Respiratory Index Sodium 141.0 Chloride 112.0 H Glucose 88 Lactate 1.0 Liter Flow FiO2 Potassium Carbon Dioxide Anion Gap BUN Creatinine Est GFR ( Amer) Est GFR (Non-Af Amer) POC Glucose (mg/dL) 102 Random Glucose Calcium Phosphorus Magnesium Total Bilirubin AST ALT Alkaline Phosphatase Ammonia 46 H D Total Creatine Kinase NT-Pro-B Natriuret Pep Total Protein Albumin Globulin Albumin/Globulin Ratio Prolactin Arterial Blood Potassium Venous Blood Potassium 2.8 L 06/30/17 06/30/17 07/01/17 18:53 19:05 07:21 WBC 10.7 D RBC 4.18 L Hgb 13.8 Hct 41.5 MCV 99.2 H MCH 33.0 H MCHC 33.3 RDW 15.3 H Plt Count 471 H D MPV 7.6 Neut % (Auto) 65.2 Lymph % (Auto) 16.5 L Mckean % (Auto) 14.5 H Eos % (Auto) 3.1 Baso % (Auto) 0.7 Neut # (Auto) 7.0 Lymph # (Auto) 1.8 Mckean # (Auto) 1.6 H Eos # (Auto) 0.3 Baso # (Auto) 0.1 Puncture Site pCO2 pO2 HCO3 ABG pH ABG Total CO2 ABG O2 Saturation ABG Base Excess Chance Test ABG Potassium VBG pH VBG pCO2 VBG HCO3 VBG Total CO2 VBG O2 Sat (Calc) VBG Base Excess VBG Potassium A-a O2 Difference Respiratory Index Sodium 136 Chloride 100 Glucose Lactate Liter Flow FiO2 Potassium 4.0 Carbon Dioxide 24 Anion Gap 16 BUN 21 H Creatinine 1.4 Est GFR ( Amer) > 60 Est GFR (Non-Af Amer) 53 POC Glucose (mg/dL) 88 Random Glucose 104 Calcium 10.8 H Phosphorus 4.9 H Magnesium 1.8 Total Bilirubin 1.5 H AST 117 H ALT 171 H D Alkaline Phosphatase 116 Ammonia Total Creatine Kinase NT-Pro-B Natriuret Pep Total Protein 8.4 H Albumin 4.0 Globulin 4.3 H Albumin/Globulin Ratio 0.9 L Prolactin 13.8 Arterial Blood Potassium Venous Blood Potassium 07/01/17 07/01/17 07/01/17 07:26 07:45 07:45 WBC RBC Hgb Hct MCV MCH MCHC RDW Plt Count MPV Neut % (Auto) Lymph % (Auto) Mckean % (Auto) Eos % (Auto) Baso % (Auto) Neut # (Auto) Lymph # (Auto) Mckean # (Auto) Eos # (Auto) Baso # (Auto) Puncture Site Lr pCO2 40 pO2 256 H HCO3 22.0 ABG pH 7.34 L ABG Total CO2 22.8 ABG O2 Saturation 99.9 H ABG Base Excess -3.9 L Chance Test Pos ABG Potassium 5.6 H VBG pH VBG pCO2 VBG HCO3 VBG Total CO2 VBG O2 Sat (Calc) VBG Base Excess VBG Potassium A-a O2 Difference 407.0 Respiratory Index 1.6 Sodium 139.0 Chloride 109.0 H Glucose 101 Lactate 3.8 H Liter Flow 15.0 FiO2 100.0 Potassium Carbon Dioxide Anion Gap BUN Creatinine Est GFR ( Amer) Est GFR (Non-Af Amer) POC Glucose (mg/dL) Random Glucose Calcium Phosphorus Magnesium Total Bilirubin AST ALT Alkaline Phosphatase Ammonia 60 H D Total Creatine Kinase 1247 H NT-Pro-B Natriuret Pep 110 Total Protein Albumin Globulin Albumin/Globulin Ratio Prolactin Arterial Blood Potassium 5.6 H Venous Blood Potassium Assessment & Plan - Assessment and Plan (Free Text) Assessment: 51 year old male with a past medical history of anxiety and depression who was transferred to ICU from med/surg floor after becoming acutely tachycardic and oxygen desaturation. Plan: -IV fluid bolus. -NS @100cc/hr -Thiamine Replacement -Folic acid replacement -ABG -Urine culture. Will f/u with results. -Blood culture. Will f/u with results. -Urinanalysis. -RPR ordered. Will f/u with results -Tylenol. -Zosyn 3.325 IV Q8 -Echo. Will f/u with results -BiPAP -NPO <KarsonSalomon - Last Filed: 07/05/17 17:08> Meds - Medications Medications: Current Medications Acetaminophen (Tylenol 650 Mg Supp) 650 mg W[place] Q6 PRN PRN Reason: Fever >100.4 F Last Admin: 07/04/17 01:37 Dose: 650 mg Albuterol/Ipratropium (Duoneb 3 Mg/0.5 Mg (3 Ml) Ud) 3 ml INH RQ4 [facility] Last Admin: 07/05/17 13:39 Dose: 3 ml Clotrimazole (Lotrimin 1%) 0 gm TOP BID [facility] Last Admin: 07/05/17 09:52 Dose: 1 applic Heparin Sodium (Porcine) (Heparin) 5,000 units SC Q8 [facility] Last Admin: 07/05/17 14:24 Dose: 5,000 units Hydrocortisone (Cortizone 1% Cream) 0 gm TOP BID [facility] Last Admin: 07/05/17 09:52 Dose: 1 applic Propofol (Diprivan) 1,000 mg in 100 mls @ 4.11 mls/hr IV .Q24H PRN; Protocol; 5 MCG/KG/MIN PRN Reason: TITRATE PER MD ORDER Last Titration: 07/05/17 15:59 Dose: 40 mcg/kg/min, 32.88 mls/hr Piperacillin Sod/Tazobactam Sod (Zosyn 3.375 Gm Iv Premix) 3.375 gm in 50 mls @ 100 mls/hr IVPB Q6H [facility] Stop: 07/05/17 18:00 Last Admin: 07/05/17 15:57 Dose: 100 mls/hr Lactated Ringer's (Lactated Ringer's) 1,000 mls @ 100 mls/hr IV .Q10H [facility] Last Admin: 07/05/17 16:32 Dose: Not Given Piperacillin Sod/Tazobactam (Sod 3.375 gm/ Sodium Chloride) 100 mls @ 100 mls/ hr IVPB Q6H [facility] Lorazepam (Ativan) 2 mg IVP Q2H PRN PRN Reason: Agitation Last Admin: 07/05/17 15:57 Dose: 2 mg Methylprednisolone (Solu-Medrol) 40 mg IVP Q12 [facility] Metoprolol Tartrate (Lopressor) 50 mg PO DAILY [facility] Last Admin: 07/05/17 09:50 Dose: 50 mg Pantoprazole Sodium (Protonix Inj) 40 mg IVP DAILY [facility] Last Admin: 07/05/17 09:50 Dose: 40 mg Quetiapine Fumarate (Seroquel Xr) 200 mg PO DAILY [facility] Last Admin: 07/05/17 09:50 Dose: 200 mg Thiamine HCl (Vitamin B1 Inj) 200 mg IV TID [facility] Last Admin: 07/05/17 14:24 Dose: 200 mg Results - Vital Signs Recent Vital Signs: Last Vital Signs Temp 99.3 F 07/05/17 16:00 Pulse 60 07/05/17 16:18 Resp 18 07/05/17 16:18 BP 154/78 H 07/05/17 16:18 Pulse Ox 99 07/05/17 16:18 - Labs Result Diagrams: 07/05/17 06:17 07/05/17 06:13 Labs: Laboratory Results - last 24 hr 07/04/17 07/05/17 07/05/17 17:46 00:39 05:09 WBC RBC Hgb Hct MCV MCH MCHC RDW Plt Count MPV Neut % (Auto) Lymph % (Auto) Mckean % (Auto) Eos % (Auto) Baso % (Auto) Neut # (Auto) Lymph # (Auto) Mckean # (Auto) Eos # (Auto) Baso # (Auto) Neutrophils % (Manual) Band Neutrophils % Lymphocytes % (Manual) Monocytes % (Manual) Platelet Estimate Macrocytosis (manual) Puncture Site Rb pCO2 35 pO2 107 H HCO3 26.6 ABG pH 7.47 H ABG Total CO2 26.6 ABG O2 Saturation 99.6 H ABG Base Excess 2.1 Chance Test Na ABG Potassium 3.4 L A-a O2 Difference 206.0 Respiratory Index 1.9 Sodium 146.0 Chloride 114.0 H Glucose 167 H Lactate 0.9 Vent Mode Prvc Mechanical Rate 20 FiO2 50.0 Tidal Volume 500 PEEP 5 Potassium Carbon Dioxide Anion Gap BUN Creatinine Est GFR ( Amer) Est GFR (Non-Af Amer) POC Glucose (mg/dL) 132 H 137 H Random Glucose Calcium Phosphorus Magnesium Total Bilirubin AST ALT Alkaline Phosphatase Total Creatine Kinase Total Protein Albumin Globulin Albumin/Globulin Ratio Arterial Blood Potassium 3.4 L Hansell 07/05/17 07/05/17 07/05/17 06:13 06:17 06:32 WBC 9.6 RBC 3.46 L Hgb 11.5 L Hct 34.5 L MCV 99.6 H MCH 33.2 H MCHC 33.3 RDW 14.8 H Plt Count 408 H MPV 8.3 Neut % (Auto) 89.4 H Lymph % (Auto) 5.3 L Mckean % (Auto) 5.0 Eos % (Auto) 0.1 Baso % (Auto) 0.2 Neut # (Auto) 8.6 H Lymph # (Auto) 0.5 L Mckean # (Auto) 0.5 Eos # (Auto) 0.0 Baso # (Auto) 0.0 Neutrophils % (Manual) 83 H Band Neutrophils % 4 H Lymphocytes % (Manual) 8 L Monocytes % (Manual) 5 Platelet Estimate Slightly increased H Macrocytosis (manual) Slight Puncture Site pCO2 pO2 HCO3 ABG pH ABG Total CO2 ABG O2 Saturation ABG Base Excess Chance Test ABG Potassium A-a O2 Difference Respiratory Index Sodium 143 Chloride 110 H Glucose Lactate Vent Mode Mechanical Rate FiO2 Tidal Volume PEEP Potassium 3.4 L Carbon Dioxide 26 Anion Gap 11 BUN 16 Creatinine 1.2 Est GFR ( Amer) > 60 Est GFR (Non-Af Amer) > 60 POC Glucose (mg/dL) 132 H Random Glucose 156 H Calcium 9.2 Phosphorus 2.7 Magnesium 2.1 Total Bilirubin 1.0 AST 94 H ALT 142 H Alkaline Phosphatase 111 Total Creatine Kinase Total Protein 6.4 Albumin 3.1 L Globulin 3.3 Albumin/Globulin Ratio 0.9 L Arterial Blood Potassium Hansell 07/05/17 07/05/17 07/05/17 11:54 12:07 13:55 WBC RBC Hgb Hct MCV MCH MCHC RDW Plt Count MPV Neut % (Auto) Lymph % (Auto) Mckean % (Auto) Eos % (Auto) Baso % (Auto) Neut # (Auto) Lymph # (Auto) Mckean # (Auto) Eos # (Auto) Baso # (Auto) Neutrophils % (Manual) Band Neutrophils % Lymphocytes % (Manual) Monocytes % (Manual) Platelet Estimate Macrocytosis (manual) Puncture Site pCO2 pO2 HCO3 ABG pH ABG Total CO2 ABG O2 Saturation ABG Base Excess Chance Test ABG Potassium A-a O2 Difference Respiratory Index Sodium Chloride Glucose Lactate Vent Mode Mechanical Rate FiO2 Tidal Volume PEEP Potassium Carbon Dioxide Anion Gap BUN Creatinine Est GFR ( Amer) Est GFR (Non-Af Amer) POC Glucose (mg/dL) 149 H Random Glucose Calcium Phosphorus Magnesium Total Bilirubin AST ALT Alkaline Phosphatase Total Creatine Kinase 89 Total Protein Albumin Globulin Albumin/Globulin Ratio Arterial Blood Potassium Hansell 1.0 Attending/Attestation - Attestation I have personally seen and examined this patient.: Yes I have fully participated in the care of the patient.: Yes I have reviewed all pertinent clinical information: Yes Notes (Text): Today: , July 01, 2017 The Patient was seen and examined at the bedside, Medical records reviewed, and management issues were discussed and formulated with the house staff. I have reviewed all the relevant clinical, laboratory, hemodynamic, radiographic data and medications Events reviewed Pain issues, skin care, head of the bed elevation, glycemic control were addressed. Agree with above resident's assessment and treatment plans of care as transcribed in Dr. Johns note.
--- NOTE | 2017-07-01 09:24 | PCM.RRT ---
<Jt Fierro - Last Filed: 07/01/17 09:21> STUDENT SERVICES COUNSELOR Nurses Assessment - Situation Date: 07/01/17 Time STUDENT SERVICES COUNSELOR was called: 07:08 STUDENT SERVICES COUNSELOR Responder Arrival Time:: 07:10 STUDENT SERVICES COUNSELOR Location:: Med/Surg Room Number: 556-B STUDENT SERVICES COUNSELOR Reason for Call: Tachycardia, Respiratory Distress, Looks Sicker STUDENT SERVICES COUNSELOR Called By: RN - IV IV Inserted during STUDENT SERVICES COUNSELOR?: No New IV Insertion Tolerance: Good - Respiratory STUDENT SERVICES COUNSELOR Delivery Method: Nasal Cannula @L/min Oxygen Flow Rate: 2 Received Nebulizer Treatments: No Was the Patient Ventilated with Bag/Mask 100% O2?: No Secretions Suctioned?: No Was the Patient Intubated?: No Was the Patient Placed on a Ventilator?: No - Medication Medications Administered During STUDENT SERVICES COUNSELOR: Ativan 2MG IVP - Diagnostic Test Ordered EKG: No Chest X-Ray: Yes CT Scan: No - Stat Labs Ordered STUDENT SERVICES COUNSELOR Stat Labs Ordered: TROPONIN, BLOOD C&S X2, ABG STUDENT SERVICES COUNSELOR Other Labs Ordered: Ammonia, Urinalysis CPR started during STUDENT SERVICES COUNSELOR?: No - Vital Signs Vital Signs: Rapid Response Vital Sign Blood Pressure 148/65 Pulse Rate 162 Respiratory Rate 30 Temperature 97.8 F - Time STUDENT SERVICES COUNSELOR Ended Time STUDENT SERVICES COUNSELOR Ended: 18:10 - Recommendations 5) STUDENT SERVICES COUNSELOR Level of Care Recommendations: Transfer to Telemetry Notifications: Attending Physician I.Reason for STUDENT SERVICES COUNSELOR - A) Acute Change in Patient: (Select all that apply): Staff member or family is worried about patient Subjective: STUDENT SERVICES COUNSELOR was called due to patient experiencing uncontrollable total body jerking moving. He was responsive and answered questions clearly. Patient states that he was feeling well and that he had no difficulty breathing. Patient was breathing very quickly with an audible wheeze heard without a stethoscope. - Neurological Status (Select all that apply): Responsive, Oriented, Verbal Other (Please specify): uncontrollable jerking movement - Respiratory Oxygen Delivery Method: Nasal Cannula @L/min Oxygen Flow Rate: 2 - Constitutional Appears: In Acute Distress Additional Comments: uncontrollable total body jerking movements - Head Head Exam: ATRAUMATIC - Eyes Eye Exam: EOMI, Normal appearance - Respiratory Exam Respiratory Exam: Accessory Muscle Use, Wheezes (audible wheeze), Respiratory Distress. absent: Rales - Cardiovascular Exam Cardiovascular Exam: REGULAR RHYTHM, +S1, +S2 - GI/Abdominal Exam GI & Abdominal Exam: Soft. absent: Distended, Firm, Guarding, Rigid, Tenderness , Rebound - Neurological Exam Neurological Exam: Alert, Awake. absent: Oriented x3 Plan - Assessment of Findings&Treatment Plan Patient given 2mg of Ativan IVP. This did not improve the total body movement. HIV, Hep panel, CPK, Ammonia level, lactate, blood cultures, UA, ECHO and CXR ordered. CXR - Probable mild pulmonary venous congestion. Shallow lung volumes- vasculature likely in part prominent due to crowding. Mild cardiomegaly. No pleural effusion or infiltrate. ICU consult placed due to hypoxia, AMS and drug withdrawls. Patient transferred to ICU. tJ Fierro PGY1 <Geoff Shaffer - Last Filed: 07/01/17 17:30> STUDENT SERVICES COUNSELOR Nurses Assessment - Vital Signs Vital Signs: Rapid Response Vital Sign Blood Pressure 148/65 Pulse Rate 162 Respiratory Rate 30 Temperature 97.8 F Attending/Attestation - Attestation I have personally seen and examined this patient.: Yes I have fully participated in the care of the patient.: Yes I have reviewed all pertinent clinical information, including history, physical exam and plan: Yes Notes (Text): Patient was seen and examined STUDENT SERVICES COUNSELOR was called for hypoxia and tachycardia with shaking Patient was shaking like epilepsy,responsive,awake and oriented. He was given Ativan 2 mg IV. No response noted. ABG done,chest x amaury with mild congestion. d/w Boiler Mechanic patient was transferred to ICU d/w resident at bedside Dr Agustin was notified
[2017-07-01 09:33] LABS: TROPONIN I 0.181 ng/mL (0.00-0.120)
[2017-07-01 09:48] LABS: HEPATITIS B SURFACE AG Negative (NEGATIVE)
[2017-07-01 09:51] LABS: URINE BILIRUBIN NEGATIVE (NEGATIVE); URINE BLOOD NEGATIVE (NEGATIVE); URINE CLARITY Hazy (Clear); URINE COLOR Amber (YELLOW); URINE GLUCOSE (UA) NORMAL (Normal); URINE HYALINE CAST >20 /lpf (0-2); URINE NITRATE NEGATIVE (NEGATIVE); URINE PROTEIN 1+ mg/dL (NEGATIVE); URINE UROBILINOGEN NORMAL mg/dL (0.2-1.0)
[2017-07-01 09:52] LABS: URINE LEUKOCYTE ESTERASE 1+ Leu/uL (Negative)
[2017-07-01 09:54] LABS: HEPATITIS A IGM NEGATIVE (NEGATIVE); HEPATITIS B CORE AB NEGATIVE (NEGATIVE)
[2017-07-01 10:06] LABS: HEPATITIS C ANTIBODY NEGATIVE (NEGATIVE)
[2017-07-01] MEDS: Piperacillin/Tazobact 3.375 GM in Sodium Chloride 100 ML IVPB SCH ×2 (10:49→19:26)
[2017-07-01] MEDS: Hydrocortisone 1% Cream (30 GM) TOP SCH ×2 (11:00→17:44)
[2017-07-01] MEDS: Clotrimazole 1% Cream(30 gm) TOP SCH ×2 (12:28→17:08)
[2017-07-01] MEDS: Multivitamin (MVI) 10 ML, Thiamine 100 MG, Folic Acid 1 MG in Sodium Chloride 0.9% 1,00... IV SCH (12:28)
[2017-07-01 12:30] LABS: ALB/GLOB RATIO 0.8 (1.0-2.1); ALBUMIN 2.5 g/dL (3.5-5.0); CALCIUM 7.2 mg/dl (8.6-10.4); MAGNESIUM 1.5 mg/dL (1.6-2.3)
[2017-07-01] MEDS: Multiple Vitamins Tab PO SCH (14:28)
[2017-07-01] MEDS: Magnesium Sulfate 1 gm in D5W 1 GM/100 ML BAG IVPB SCH ×2 (14:40→15:57)
[2017-07-01] MEDS ORDERED: Potassium Chloride 20 mEq/15 ml LIQ UD PO ONE (15:00)
--- NOTE | 2017-07-01 17:54 | CP.CCUPN ---
<Cleve Johns - Last Filed: 07/01/17 18:41> CCU Subjective - Physician Review Events Since Last Encounter (Free Text): 07/01/17 17:53 Patient became acutely agitated and began shaking uncontrollably in the morning. A rapid was called and the patient was transferred to the ICU. Subjective (Free Text): 07/01/17 17:53 Patient seen and examined at bedside. Per nursing no other events besides the stated event above occurred. Critical Care Time Spent (in minutes): 45 CCU Objective - Vital Signs / Intake & Output Vital Signs (Last 4 hours): Vital Signs Temp Pulse Resp BP Pulse Ox 07/01/17 17:00 89 29 H 99 07/01/17 16:50 90 21 99 07/01/17 16:40 91 H 16 98 07/01/17 16:23 120/54 L 07/01/17 16:20 92 H 20 98 07/01/17 16:00 99.3 F 92 H 20 98 07/01/17 15:50 91 H 21 97 07/01/17 15:40 91 H 18 97 07/01/17 15:30 91 H 21 98 07/01/17 15:23 90 28 H 112/55 L 97 07/01/17 15:00 90 18 97 07/01/17 14:40 89 19 97 07/01/17 14:30 89 18 98 07/01/17 14:22 88 18 104/65 97 07/01/17 14:20 89 17 98 07/01/17 14:10 88 17 99 07/01/17 14:00 88 16 99 Intake and Output (Last 8hrs): Intake & Output 07/01/17 07/01/17 07/01/17 06:59 14:59 22:59 Intake Total 1300 300 Output Total 350 125 Balance 950 175 Intake: Intake, IV Amount 1300 300 Left Forearm 1300 300 Output: Urine 350 125 Urethral ([place]) 350 125 - Physical Exam Physical Exam Limitations: Positive for: Altered Mental Status - Medications Active Medications: Active Medications Generic Name Dose Route Start Last Admin Trade Name Freq PRN Reason Stop Dose Admin Acetaminophen 650 mg 07/01/17 09:28 07/01/17 09:36 Tylenol 650 Mg Supp VT 650 mg Q6 PRN Administration Fever >100.4 F Clonidine HCl 0.1 mg 06/26/17 10:25 06/29/17 19:14 Catapres PO 0.1 mg Q4H PRN Administration Withdrawal Symptoms Clotrimazole 0 gm 06/27/17 10:00 07/01/17 17:08 Lotrimin 1% TOP 1 applic BID EDIN Administration Ergocalciferol 1 cap 06/30/17 10:00 06/30/17 09:44 Drisdol 50,000 Intl Units Cap PO 1 cap QWK EDIN Administration Gabapentin 300 mg 06/28/17 14:00 07/01/17 17:10 Neurontin PO 300 mg TID EDIN Administration Heparin Sodium (Porcine) 5,000 units 07/01/17 22:00 Heparin SC Q8 EDIN Hydrocortisone 0 gm 06/27/17 10:00 07/01/17 17:44 Cortizone 1% Cream TOP 1 applic BID EDIN Administration Hydroxyzine HCl 50 mg 06/27/17 12:23 06/30/17 05:39 Atarax PO 50 mg Q6 PRN Administration Anxiety Piperacillin Sod/Tazobactam 100 mls @ 200 mls/hr 07/01/17 11:00 07/01/17 10: 49 Sod 3.375 gm/ Sodium Chloride IVPB 200 mls/hr Q8H EDIN Administration Multivitamins/Vitamin C 10 ml/ 1,011.2 mls @ 101.12 mls/hr 07/01/17 12:00 12:28 Thiamine HCl 100 mg/ Folic IV 101.12 mls/hr Acid 1 mg/ Sodium Chloride Q24H EDIN Administration Lisinopril 20 mg 06/24/17 10:00 07/01/17 12:29 Zestril PO Not Given DAILY [facility] [place] Carbonate 600 mg 06/29/17 14:00 07/01/17 17:07 [place] Carbonate 300mg PO 600 mg TID [facility] Administration Lorazepam 1 mg 06/25/17 13:15 06/30/17 11:52 Ativan PO 1 mg Q6 PRN Administration Symptoms of alcohol withdrawl Lorazepam 2 mg 06/30/17 21:30 07/01/17 17:44 Ativan IVP Not Given Q6H EDIN Lorazepam 2 mg 06/30/17 21:25 07/01/17 06:31 Ativan IVP 2 mg Q2H PRN Administration Agitation Lorazepam 2 mg 07/01/17 09:25 Ativan IVP Q4H PRN Anxiety Metoprolol Tartrate 50 mg 06/23/17 16:12 07/01/17 14:28 Lopressor PO Not Given DAILY EDIN Pantoprazole Sodium 40 mg 07/01/17 10:00 07/01/17 09:36 Protonix Inj IVP 40 mg DAILY EDIN Administration Quetiapine Fumarate 300 mg 06/23/17 22:00 06/30/17 22:07 Seroquel PO 300 mg HS EDIN Administration Thiamine HCl 100 mg 06/24/17 10:00 07/01/17 14:28 Vitamin B1 Tab PO Not Given DAILY EDIN Trazodone HCl 50 mg 06/25/17 13:15 06/29/17 21:14 Desyrel PO 50 mg HS PRN Administration Insomnia - Patient Studies Lab Studies: Lab Studies 07/01/17 07/01/17 07/01/17 Range/Units 09:36 09:00 09:00 WBC (4.8-10.8) K/uL RBC (4.40-5.90) Mil/uL Hgb (12.0-18.0) g/dL Hct (35.0-51.0) % MCV (80.0-94.0) fL MCH (27.0-31.0) pg MCHC (33.0-37.0) g/dL RDW (11.5-14.5) % Plt Count (130-400) K/uL MPV (7.2-11.7) fL Neut % (Auto) (50.0-75.0) % Lymph % (Auto) (20.0-40.0) % Haines % (Auto) (0.0-10.0) % Eos % (Auto) (0.0-4.0) % Baso % (Auto) (0.0-2.0) % Neut # (Auto) (1.8-7.0) K/uL Lymph # (Auto) (1.0-4.3) K/uL Haines # (Auto) (0.0-0.8) K/uL Eos # (Auto) (0.0-0.7) K/uL Baso # (Auto) (0.0-0.2) K/uL Puncture Site pCO2 (35-45) mm/Hg pO2 (30-55) mm/Hg HCO3 (21-28) mmol/L ABG pH (7.35-7.45) ABG Total CO2 (22-28) mmol/L ABG O2 Saturation (95-98) % ABG Base Excess (-2.0-3.0) mmol/L Chance Test ABG Potassium (3.6-5.2) mmol/L VBG pH (7.32-7.43) VBG pCO2 (40-60) mmHg VBG HCO3 mmol/L VBG Total CO2 (22-28) mmol/L VBG O2 Sat (Calc) (40-65) % VBG Base Excess (0.0-2.0) mmol/L VBG Potassium (3.6-5.2) mmol/L A-a O2 Difference mm/Hg Respiratory Index Sodium 139 (132-148) mmol/l Chloride 114 H (98-107) mmol/L Glucose (75-110) mg/dl Lactate (0.7-2.1) mmol/L Liter Flow FiO2 % Potassium 3.5 L (3.6-5.2) mmol/L Carbon Dioxide 17 L (22-30) mmol/L Anion Gap 12 (10-20) BUN 22 H (9-20) mg/dL Creatinine 2.3 H (0.8-1.5) mg/dL Est GFR ( Amer) 36 Est GFR (Non-Af Amer) 30 POC Glucose (mg/dL) (65-110) mg/dL Random Glucose 80 (75-110) mg/dL Calcium 7.2 L (8.6-10.4) mg/dl Phosphorus 3.6 (2.5-4.5) mg/dL Magnesium 1.5 L (1.6-2.3) mg/dL Total Bilirubin 0.8 (0.2-1.3) mg/dL AST 109 H (17-59) U/L ALT 120 H D (21-72) U/L Alkaline Phosphatase 70 (38-126) U/L Ammonia (9-33) umol/L Total Creatine Kinase (55-170) U/L Troponin I 0.1810 H* (0.00-0.120) ng/mL NT-Pro-B Natriuret Pep (0-900) pg/mL Total Protein 5.5 L (6.3-8.3) g/dL Albumin 2.5 L D (3.5-5.0) g/dL Globulin 3.0 (2.2-3.9) gm/dL Albumin/Globulin Ratio 0.8 L (1.0-2.1) Prolactin (3.7-17.9) ng/mL Arterial Blood Potassium (3.6-5.2) mmol/L Venous Blood Potassium (3.6-5.2) mmol/L Urine Color Lauren (YELLOW) Urine Clarity Hazy (Clear) Urine pH 5.0 (5.0-8.0) Ur Specific [place] 1.014 (1.003-1.030) Urine Protein 1+ H (NEGATIVE) mg/dL Urine Glucose (UA) Normal (Normal) mg/dL Urine Ketones Negative (NEGATIVE) mg/dL Urine Blood Negative (NEGATIVE) Urine Nitrate Negative (NEGATIVE) Urine Bilirubin Negative (NEGATIVE) Urine Urobilinogen Normal (0.2-1.0) mg/dL Ur Leukocyte Esterase 1+ H (Negative) Donn/uL Urine WBC (Auto) 11 H (0-5) /hpf Urine RBC (Auto) < 1 (0-3) /hpf Hyaline Casts >20 H (0-2) /lpf [place] (0.6-1.2) mmol/L RPR Nonreactive (NONREACTIVE) Hepatitis A IgM Ab (NEGATIVE) Hep Bs Antigen (NEGATIVE) Hep B Core IgM Ab (NEGATIVE) Hepatitis C Antibody (NEGATIVE) HIV 1&2 Antibody Screen (NEGATIVE) 07/01/17 07/01/17 07/01/17 Range/Units 09:00 08:53 08:53 WBC (4.8-10.8) K/uL RBC (4.40-5.90) Mil/uL Hgb (12.0-18.0) g/dL Hct (35.0-51.0) % MCV (80.0-94.0) fL MCH (27.0-31.0) pg MCHC (33.0-37.0) g/dL RDW (11.5-14.5) % Plt Count (130-400) K/uL MPV (7.2-11.7) fL Neut % (Auto) (50.0-75.0) % Lymph % (Auto) (20.0-40.0) % Haines % (Auto) (0.0-10.0) % Eos % (Auto) (0.0-4.0) % Baso % (Auto) (0.0-2.0) % Neut # (Auto) (1.8-7.0) K/uL Lymph # (Auto) (1.0-4.3) K/uL Haines # (Auto) (0.0-0.8) K/uL Eos # (Auto) (0.0-0.7) K/uL Baso # (Auto) (0.0-0.2) K/uL Puncture Site pCO2 (35-45) mm/Hg pO2 (30-55) mm/Hg HCO3 (21-28) mmol/L ABG pH (7.35-7.45) ABG Total CO2 (22-28) mmol/L ABG O2 Saturation (95-98) % ABG Base Excess (-2.0-3.0) mmol/L Chance Test ABG Potassium (3.6-5.2) mmol/L VBG pH (7.32-7.43) VBG pCO2 (40-60) mmHg VBG HCO3 mmol/L VBG Total CO2 (22-28) mmol/L VBG O2 Sat (Calc) (40-65) % VBG Base Excess (0.0-2.0) mmol/L VBG Potassium (3.6-5.2) mmol/L A-a O2 Difference mm/Hg Respiratory Index Sodium (132-148) mmol/l Chloride (98-107) mmol/L Glucose (75-110) mg/dl Lactate (0.7-2.1) mmol/L Liter Flow FiO2 % Potassium (3.6-5.2) mmol/L Carbon Dioxide (22-30) mmol/L Anion Gap (10-20) BUN (9-20) mg/dL Creatinine (0.8-1.5) mg/dL Est GFR ( Amer) Est GFR (Non-Af Amer) POC Glucose (mg/dL) (65-110) mg/dL Random Glucose (75-110) mg/dL Calcium (8.6-10.4) mg/dl Phosphorus (2.5-4.5) mg/dL Magnesium (1.6-2.3) mg/dL Total Bilirubin (0.2-1.3) mg/dL AST (17-59) U/L ALT (21-72) U/L Alkaline Phosphatase (38-126) U/L Ammonia (9-33) umol/L Total Creatine Kinase (55-170) U/L Troponin I (0.00-0.120) ng/mL NT-Pro-B Natriuret Pep (0-900) pg/mL Total Protein (6.3-8.3) g/dL Albumin (3.5-5.0) g/dL Globulin (2.2-3.9) gm/dL Albumin/Globulin Ratio (1.0-2.1) Prolactin (3.7-17.9) ng/mL Arterial Blood Potassium (3.6-5.2) mmol/L Venous Blood Potassium (3.6-5.2) mmol/L Urine Color (YELLOW) Urine Clarity (Clear) Urine pH (5.0-8.0) Ur Specific [place] (1.003-1.030) Urine Protein (NEGATIVE) mg/dL Urine Glucose (UA) (Normal) mg/dL Urine Ketones (NEGATIVE) mg/dL Urine Blood (NEGATIVE) Urine Nitrate (NEGATIVE) Urine Bilirubin (NEGATIVE) Urine Urobilinogen (0.2-1.0) mg/dL Ur Leukocyte Esterase (Negative) Donn/uL Urine WBC (Auto) (0-5) /hpf Urine RBC (Auto) (0-3) /hpf Hyaline Casts (0-2) /lpf [place] 0.9 (0.6-1.2) mmol/L RPR (NONREACTIVE) Hepatitis A IgM Ab Negative (NEGATIVE) Hep Bs Antigen Negative (NEGATIVE) Hep B Core IgM Ab Negative (NEGATIVE) Hepatitis C Antibody Negative (NEGATIVE) HIV 1&2 Antibody Screen Negative (NEGATIVE) 07/01/17 07/01/17 07/01/17 Range/Units 07:45 07:45 07:26 WBC (4.8-10.8) K/uL RBC (4.40-5.90) Mil/uL Hgb (12.0-18.0) g/dL Hct (35.0-51.0) % MCV (80.0-94.0) fL MCH (27.0-31.0) pg MCHC (33.0-37.0) g/dL RDW (11.5-14.5) % Plt Count (130-400) K/uL MPV (7.2-11.7) fL Neut % (Auto) (50.0-75.0) % Lymph % (Auto) (20.0-40.0) % Haines % (Auto) (0.0-10.0) % Eos % (Auto) (0.0-4.0) % Baso % (Auto) (0.0-2.0) % Neut # (Auto) (1.8-7.0) K/uL Lymph # (Auto) (1.0-4.3) K/uL Haines # (Auto) (0.0-0.8) K/uL Eos # (Auto) (0.0-0.7) K/uL Baso # (Auto) (0.0-0.2) K/uL Puncture Site Lr pCO2 40 (35-45) mm/Hg pO2 256 H (30-55) mm/Hg HCO3 22.0 (21-28) mmol/L ABG pH 7.34 L (7.35-7.45) ABG Total CO2 22.8 (22-28) mmol/L ABG O2 Saturation 99.9 H (95-98) % ABG Base Excess -3.9 L (-2.0-3.0) mmol/L Chance Test Pos ABG Potassium 5.6 H (3.6-5.2) mmol/L VBG pH (7.32-7.43) VBG pCO2 (40-60) mmHg VBG HCO3 mmol/L VBG Total CO2 (22-28) mmol/L VBG O2 Sat (Calc) (40-65) % VBG Base Excess (0.0-2.0) mmol/L VBG Potassium (3.6-5.2) mmol/L A-a O2 Difference 407.0 mm/Hg Respiratory Index 1.6 Sodium 139.0 (132-148) mmol/l Chloride 109.0 H (98-107) mmol/L Glucose 101 (75-110) mg/dl Lactate 3.8 H (0.7-2.1) mmol/L Liter Flow 15.0 FiO2 100.0 % Potassium (3.6-5.2) mmol/L Carbon Dioxide (22-30) mmol/L Anion Gap (10-20) BUN (9-20) mg/dL Creatinine (0.8-1.5) mg/dL Est GFR ( Amer) Est GFR (Non-Af Amer) POC Glucose (mg/dL) (65-110) mg/dL Random Glucose (75-110) mg/dL Calcium (8.6-10.4) mg/dl Phosphorus (2.5-4.5) mg/dL Magnesium (1.6-2.3) mg/dL Total Bilirubin (0.2-1.3) mg/dL AST (17-59) U/L ALT (21-72) U/L Alkaline Phosphatase (38-126) U/L Ammonia 60 H D (9-33) umol/L Total Creatine Kinase 1247 H (55-170) U/L Troponin I (0.00-0.120) ng/mL NT-Pro-B Natriuret Pep 110 (0-900) pg/mL Total Protein (6.3-8.3) g/dL Albumin (3.5-5.0) g/dL Globulin (2.2-3.9) gm/dL Albumin/Globulin Ratio (1.0-2.1) Prolactin (3.7-17.9) ng/mL Arterial Blood Potassium 5.6 H (3.6-5.2) mmol/L Venous Blood Potassium (3.6-5.2) mmol/L Urine Color (YELLOW) Urine Clarity (Clear) Urine pH (5.0-8.0) Ur Specific [place] (1.003-1.030) Urine Protein (NEGATIVE) mg/dL Urine Glucose (UA) (Normal) mg/dL Urine Ketones (NEGATIVE) mg/dL Urine Blood (NEGATIVE) Urine Nitrate (NEGATIVE) Urine Bilirubin (NEGATIVE) Urine Urobilinogen (0.2-1.0) mg/dL Ur Leukocyte Esterase (Negative) Donn/uL Urine WBC (Auto) (0-5) /hpf Urine RBC (Auto) (0-3) /hpf Hyaline Casts (0-2) /lpf [place] (0.6-1.2) mmol/L RPR (NONREACTIVE) Hepatitis A IgM Ab (NEGATIVE) Hep Bs Antigen (NEGATIVE) Hep B Core IgM Ab (NEGATIVE) Hepatitis C Antibody (NEGATIVE) HIV 1&2 Antibody Screen (NEGATIVE) 07/01/17 06/30/17 06/30/17 Range/Units 07:21 19:05 18:53 WBC 10.7 D (4.8-10.8) K/uL RBC 4.18 L (4.40-5.90) Mil/uL Hgb 13.8 (12.0-18.0) g/dL Hct 41.5 (35.0-51.0) % MCV 99.2 H (80.0-94.0) fL MCH 33.0 H (27.0-31.0) pg MCHC 33.3 (33.0-37.0) g/dL RDW 15.3 H (11.5-14.5) % Plt Count 471 H D (130-400) K/uL MPV 7.6 (7.2-11.7) fL Neut % (Auto) 65.2 (50.0-75.0) % Lymph % (Auto) 16.5 L (20.0-40.0) % Haines % (Auto) 14.5 H (0.0-10.0) % Eos % (Auto) 3.1 (0.0-4.0) % Baso % (Auto) 0.7 (0.0-2.0) % Neut # (Auto) 7.0 (1.8-7.0) K/uL Lymph # (Auto) 1.8 (1.0-4.3) K/uL Haines # (Auto) 1.6 H (0.0-0.8) K/uL Eos # (Auto) 0.3 (0.0-0.7) K/uL Baso # (Auto) 0.1 (0.0-0.2) K/uL Puncture Site pCO2 (35-45) mm/Hg pO2 (30-55) mm/Hg HCO3 (21-28) mmol/L ABG pH (7.35-7.45) ABG Total CO2 (22-28) mmol/L ABG O2 Saturation (95-98) % ABG Base Excess (-2.0-3.0) mmol/L Chance Test ABG Potassium (3.6-5.2) mmol/L VBG pH (7.32-7.43) VBG pCO2 (40-60) mmHg VBG HCO3 mmol/L VBG Total CO2 (22-28) mmol/L VBG O2 Sat (Calc) (40-65) % VBG Base Excess (0.0-2.0) mmol/L VBG Potassium (3.6-5.2) mmol/L A-a O2 Difference mm/Hg Respiratory Index Sodium 136 (132-148) mmol/l Chloride 100 (98-107) mmol/L Glucose (75-110) mg/dl Lactate (0.7-2.1) mmol/L Liter Flow FiO2 % Potassium 4.0 (3.6-5.2) mmol/L Carbon Dioxide 24 (22-30) mmol/L Anion Gap 16 (10-20) BUN 21 H (9-20) mg/dL Creatinine 1.4 (0.8-1.5) mg/dL Est GFR ( Amer) > 60 Est GFR (Non-Af Amer) 53 POC Glucose (mg/dL) 88 (65-110) mg/dL Random Glucose 104 (75-110) mg/dL Calcium 10.8 H (8.6-10.4) mg/dl Phosphorus 4.9 H (2.5-4.5) mg/dL Magnesium 1.8 (1.6-2.3) mg/dL Total Bilirubin 1.5 H (0.2-1.3) mg/dL AST 117 H (17-59) U/L ALT 171 H D (21-72) U/L Alkaline Phosphatase 116 (38-126) U/L Ammonia (9-33) umol/L Total Creatine Kinase (55-170) U/L Troponin I (0.00-0.120) ng/mL NT-Pro-B Natriuret Pep (0-900) pg/mL Total Protein 8.4 H (6.3-8.3) g/dL Albumin 4.0 (3.5-5.0) g/dL Globulin 4.3 H (2.2-3.9) gm/dL Albumin/Globulin Ratio 0.9 L (1.0-2.1) Prolactin 13.8 (3.7-17.9) ng/mL Arterial Blood Potassium (3.6-5.2) mmol/L Venous Blood Potassium (3.6-5.2) mmol/L Urine Color (YELLOW) Urine Clarity (Clear) Urine pH (5.0-8.0) Ur Specific [place] (1.003-1.030) Urine Protein (NEGATIVE) mg/dL Urine Glucose (UA) (Normal) mg/dL Urine Ketones (NEGATIVE) mg/dL Urine Blood (NEGATIVE) Urine Nitrate (NEGATIVE) Urine Bilirubin (NEGATIVE) Urine Urobilinogen (0.2-1.0) mg/dL Ur Leukocyte Esterase (Negative) Donn/uL Urine WBC (Auto) (0-5) /hpf Urine RBC (Auto) (0-3) /hpf Hyaline Casts (0-2) /lpf [place] (0.6-1.2) mmol/L RPR (NONREACTIVE) Hepatitis A IgM Ab (NEGATIVE) Hep Bs Antigen (NEGATIVE) Hep B Core IgM Ab (NEGATIVE) Hepatitis C Antibody (NEGATIVE) HIV 1&2 Antibody Screen (NEGATIVE) 06/30/17 06/30/17 06/30/17 Range/Units 18:53 18:35 18:03 WBC (4.8-10.8) K/uL RBC (4.40-5.90) Mil/uL Hgb (12.0-18.0) g/dL Hct (35.0-51.0) % MCV (80.0-94.0) fL MCH (27.0-31.0) pg MCHC (33.0-37.0) g/dL RDW (11.5-14.5) % Plt Count (130-400) K/uL MPV (7.2-11.7) fL Neut % (Auto) (50.0-75.0) % Lymph % (Auto) (20.0-40.0) % Haines % (Auto) (0.0-10.0) % Eos % (Auto) (0.0-4.0) % Baso % (Auto) (0.0-2.0) % Neut # (Auto) (1.8-7.0) K/uL Lymph # (Auto) (1.0-4.3) K/uL Haines # (Auto) (0.0-0.8) K/uL Eos # (Auto) (0.0-0.7) K/uL Baso # (Auto) (0.0-0.2) K/uL Puncture Site Venous pCO2 (35-45) mm/Hg pO2 55 (30-55) mm/Hg HCO3 (21-28) mmol/L ABG pH (7.35-7.45) ABG Total CO2 (22-28) mmol/L ABG O2 Saturation (95-98) % ABG Base Excess (-2.0-3.0) mmol/L Chance Test Na ABG Potassium (3.6-5.2) mmol/L VBG pH 7.40 (7.32-7.43) VBG pCO2 33 L (40-60) mmHg VBG HCO3 21.9 mmol/L VBG Total CO2 21.4 L (22-28) mmol/L VBG O2 Sat (Calc) 91.3 H (40-65) % VBG Base Excess -3.6 L (0.0-2.0) mmol/L VBG Potassium 2.8 L (3.6-5.2) mmol/L A-a O2 Difference mm/Hg Respiratory Index Sodium 141.0 (132-148) mmol/l Chloride 112.0 H (98-107) mmol/L Glucose 88 (75-110) mg/dl Lactate 1.0 (0.7-2.1) mmol/L Liter Flow FiO2 % Potassium (3.6-5.2) mmol/L Carbon Dioxide (22-30) mmol/L Anion Gap (10-20) BUN (9-20) mg/dL Creatinine (0.8-1.5) mg/dL Est GFR ( Amer) Est GFR (Non-Af Amer) POC Glucose (mg/dL) 102 (65-110) mg/dL Random Glucose (75-110) mg/dL Calcium (8.6-10.4) mg/dl Phosphorus (2.5-4.5) mg/dL Magnesium (1.6-2.3) mg/dL Total Bilirubin (0.2-1.3) mg/dL AST (17-59) U/L ALT (21-72) U/L Alkaline Phosphatase (38-126) U/L Ammonia 46 H D (9-33) umol/L Total Creatine Kinase (55-170) U/L Troponin I (0.00-0.120) ng/mL NT-Pro-B Natriuret Pep (0-900) pg/mL Total Protein (6.3-8.3) g/dL Albumin (3.5-5.0) g/dL Globulin (2.2-3.9) gm/dL Albumin/Globulin Ratio (1.0-2.1) Prolactin (3.7-17.9) ng/mL Arterial Blood Potassium (3.6-5.2) mmol/L Venous Blood Potassium 2.8 L (3.6-5.2) mmol/L Urine Color (YELLOW) Urine Clarity (Clear) Urine pH (5.0-8.0) Ur Specific [place] (1.003-1.030) Urine Protein (NEGATIVE) mg/dL Urine Glucose (UA) (Normal) mg/dL Urine Ketones (NEGATIVE) mg/dL Urine Blood (NEGATIVE) Urine Nitrate (NEGATIVE) Urine Bilirubin (NEGATIVE) Urine Urobilinogen (0.2-1.0) mg/dL Ur Leukocyte Esterase (Negative) Donn/uL Urine WBC (Auto) (0-5) /hpf Urine RBC (Auto) (0-3) /hpf Hyaline Casts (0-2) /lpf [place] (0.6-1.2) mmol/L RPR (NONREACTIVE) Hepatitis A IgM Ab (NEGATIVE) Hep Bs Antigen (NEGATIVE) Hep B Core IgM Ab (NEGATIVE) Hepatitis C Antibody (NEGATIVE) HIV 1&2 Antibody Screen (NEGATIVE) Laboratory Results - last 24 hr 06/30/17 06/30/17 06/30/17 18:03 18:35 18:53 WBC RBC Hgb Hct MCV MCH MCHC RDW Plt Count MPV Neut % (Auto) Lymph % (Auto) Haines % (Auto) Eos % (Auto) Baso % (Auto) Neut # (Auto) Lymph # (Auto) Haines # (Auto) Eos # (Auto) Baso # (Auto) Puncture Site Venous pCO2 pO2 55 HCO3 ABG pH ABG Total CO2 ABG O2 Saturation ABG Base Excess Chance Test Na ABG Potassium VBG pH 7.40 VBG pCO2 33 L VBG HCO3 21.9 VBG Total CO2 21.4 L VBG O2 Sat (Calc) 91.3 H VBG Base Excess -3.6 L VBG Potassium 2.8 L A-a O2 Difference Respiratory Index Sodium 141.0 Chloride 112.0 H Glucose 88 Lactate 1.0 Liter Flow FiO2 Potassium Carbon Dioxide Anion Gap BUN Creatinine Est GFR ( Amer) Est GFR (Non-Af Amer) POC Glucose (mg/dL) 102 Random Glucose Calcium Phosphorus Magnesium Total Bilirubin AST ALT Alkaline Phosphatase Ammonia 46 H D Total Creatine Kinase Troponin I NT-Pro-B Natriuret Pep Total Protein Albumin Globulin Albumin/Globulin Ratio Prolactin Arterial Blood Potassium Venous Blood Potassium 2.8 L Urine Color Urine Clarity Urine pH Ur Specific [place] Urine Protein Urine Glucose (UA) Urine Ketones Urine Blood Urine Nitrate Urine Bilirubin Urine Urobilinogen Ur Leukocyte Esterase Urine WBC (Auto) Urine RBC (Auto) Hyaline Casts [place] RPR Hepatitis A IgM Ab Hep Bs Antigen Hep B Core IgM Ab Hepatitis C Antibody HIV 1&2 Antibody Screen 06/30/17 06/30/17 07/01/17 18:53 19:05 07:21 WBC 10.7 D RBC 4.18 L Hgb 13.8 Hct 41.5 MCV 99.2 H MCH 33.0 H MCHC 33.3 RDW 15.3 H Plt Count 471 H D MPV 7.6 Neut % (Auto) 65.2 Lymph % (Auto) 16.5 L Haines % (Auto) 14.5 H Eos % (Auto) 3.1 Baso % (Auto) 0.7 Neut # (Auto) 7.0 Lymph # (Auto) 1.8 Haines # (Auto) 1.6 H Eos # (Auto) 0.3 Baso # (Auto) 0.1 Puncture Site pCO2 pO2 HCO3 ABG pH ABG Total CO2 ABG O2 Saturation ABG Base Excess Chance Test ABG Potassium VBG pH VBG pCO2 VBG HCO3 VBG Total CO2 VBG O2 Sat (Calc) VBG Base Excess VBG Potassium A-a O2 Difference Respiratory Index Sodium 136 Chloride 100 Glucose Lactate Liter Flow FiO2 Potassium 4.0 Carbon Dioxide 24 Anion Gap 16 BUN 21 H Creatinine 1.4 Est GFR ( Amer) > 60 Est GFR (Non-Af Amer) 53 POC Glucose (mg/dL) 88 Random Glucose 104 Calcium 10.8 H Phosphorus 4.9 H Magnesium 1.8 Total Bilirubin 1.5 H AST 117 H ALT 171 H D Alkaline Phosphatase 116 Ammonia Total Creatine Kinase Troponin I NT-Pro-B Natriuret Pep Total Protein 8.4 H Albumin 4.0 Globulin 4.3 H Albumin/Globulin Ratio 0.9 L Prolactin 13.8 Arterial Blood Potassium Venous Blood Potassium Urine Color Urine Clarity Urine pH Ur Specific [place] Urine Protein Urine Glucose (UA) Urine Ketones Urine Blood Urine Nitrate Urine Bilirubin Urine Urobilinogen Ur Leukocyte Esterase Urine WBC (Auto) Urine RBC (Auto) Hyaline Casts [place] RPR Hepatitis A IgM Ab Hep Bs Antigen Hep B Core IgM Ab Hepatitis C Antibody HIV 1&2 Antibody Screen 07/01/17 07/01/17 07/01/17 07:26 07:45 07:45 WBC RBC Hgb Hct MCV MCH MCHC RDW Plt Count MPV Neut % (Auto) Lymph % (Auto) Haines % (Auto) Eos % (Auto) Baso % (Auto) Neut # (Auto) Lymph # (Auto) Haines # (Auto) Eos # (Auto) Baso # (Auto) Puncture Site Lr pCO2 40 pO2 256 H HCO3 22.0 ABG pH 7.34 L ABG Total CO2 22.8 ABG O2 Saturation 99.9 H ABG Base Excess -3.9 L Chance Test Pos ABG Potassium 5.6 H VBG pH VBG pCO2 VBG HCO3 VBG Total CO2 VBG O2 Sat (Calc) VBG Base Excess VBG Potassium A-a O2 Difference 407.0 Respiratory Index 1.6 Sodium 139.0 Chloride 109.0 H Glucose 101 Lactate 3.8 H Liter Flow 15.0 FiO2 100.0 Potassium Carbon Dioxide Anion Gap BUN Creatinine Est GFR ( Amer) Est GFR (Non-Af Amer) POC Glucose (mg/dL) Random Glucose Calcium Phosphorus Magnesium Total Bilirubin AST ALT Alkaline Phosphatase Ammonia 60 H D Total Creatine Kinase 1247 H Troponin I NT-Pro-B Natriuret Pep 110 Total Protein Albumin Globulin Albumin/Globulin Ratio Prolactin Arterial Blood Potassium 5.6 H Venous Blood Potassium Urine Color Urine Clarity Urine pH Ur Specific [place] Urine Protein Urine Glucose (UA) Urine Ketones Urine Blood Urine Nitrate Urine Bilirubin Urine Urobilinogen Ur Leukocyte Esterase Urine WBC (Auto) Urine RBC (Auto) Hyaline Casts [place] RPR Hepatitis A IgM Ab Hep Bs Antigen Hep B Core IgM Ab Hepatitis C Antibody HIV 1&2 Antibody Screen 07/01/17 07/01/17 07/01/17 08:53 08:53 09:00 WBC RBC Hgb Hct MCV MCH MCHC RDW Plt Count MPV Neut % (Auto) Lymph % (Auto) Haines % (Auto) Eos % (Auto) Baso % (Auto) Neut # (Auto) Lymph # (Auto) Haines # (Auto) Eos # (Auto) Baso # (Auto) Puncture Site pCO2 pO2 HCO3 ABG pH ABG Total CO2 ABG O2 Saturation ABG Base Excess Chance Test ABG Potassium VBG pH VBG pCO2 VBG HCO3 VBG Total CO2 VBG O2 Sat (Calc) VBG Base Excess VBG Potassium A-a O2 Difference Respiratory Index Sodium Chloride Glucose Lactate Liter Flow FiO2 Potassium Carbon Dioxide Anion Gap BUN Creatinine Est GFR ( Amer) Est GFR (Non-Af Amer) POC Glucose (mg/dL) Random Glucose Calcium Phosphorus Magnesium Total Bilirubin AST ALT Alkaline Phosphatase Ammonia Total Creatine Kinase Troponin I NT-Pro-B Natriuret Pep Total Protein Albumin Globulin Albumin/Globulin Ratio Prolactin Arterial Blood Potassium Venous Blood Potassium Urine Color Urine Clarity Urine pH Ur Specific [place] Urine Protein Urine Glucose (UA) Urine Ketones Urine Blood Urine Nitrate Urine Bilirubin Urine Urobilinogen Ur Leukocyte Esterase Urine WBC (Auto) Urine RBC (Auto) Hyaline Casts [place] 0.9 RPR Hepatitis A IgM Ab Negative Hep Bs Antigen Negative Hep B Core IgM Ab Negative Hepatitis C Antibody Negative HIV 1&2 Antibody Screen Negative 07/01/17 07/01/17 07/01/17 09:00 09:00 09:36 WBC RBC Hgb Hct MCV MCH MCHC RDW Plt Count MPV Neut % (Auto) Lymph % (Auto) Haines % (Auto) Eos % (Auto) Baso % (Auto) Neut # (Auto) Lymph # (Auto) Haines # (Auto) Eos # (Auto) Baso # (Auto) Puncture Site pCO2 pO2 HCO3 ABG pH ABG Total CO2 ABG O2 Saturation ABG Base Excess Chance Test ABG Potassium VBG pH VBG pCO2 VBG HCO3 VBG Total CO2 VBG O2 Sat (Calc) VBG Base Excess VBG Potassium A-a O2 Difference Respiratory Index Sodium 139 Chloride 114 H Glucose Lactate Liter Flow FiO2 Potassium 3.5 L Carbon Dioxide 17 L Anion Gap 12 BUN 22 H Creatinine 2.3 H Est GFR ( Amer) 36 Est GFR (Non-Af Amer) 30 POC Glucose (mg/dL) Random Glucose 80 Calcium 7.2 L Phosphorus 3.6 Magnesium 1.5 L Total Bilirubin 0.8 AST 109 H ALT 120 H D Alkaline Phosphatase 70 Ammonia Total Creatine Kinase Troponin I 0.1810 H* NT-Pro-B Natriuret Pep Total Protein 5.5 L Albumin 2.5 L D Globulin 3.0 Albumin/Globulin Ratio 0.8 L Prolactin Arterial Blood Potassium Venous Blood Potassium Urine Color Lauren Urine Clarity Hazy Urine pH 5.0 Ur Specific [place] 1.014 Urine Protein 1+ H Urine Glucose (UA) Normal Urine Ketones Negative Urine Blood Negative Urine Nitrate Negative Urine Bilirubin Negative Urine Urobilinogen Normal Ur Leukocyte Esterase 1+ H Urine WBC (Auto) 11 H Urine RBC (Auto) < 1 Hyaline Casts >20 H [place] RPR Nonreactive Hepatitis A IgM Ab Hep Bs Antigen Hep B Core IgM Ab Hepatitis C Antibody HIV 1&2 Antibody Screen EKG/Cardiology Studies: Cardiology / EKG Studies 06/30/17 18:15 EKG [ELECTROCARDIOGRAM] Stat Comment: Mode Of Transportation: Reason For Exam: syncope Isolation: Contact Review of Systems - Review of Systems Systems not reviewed;Unavailable: Acuity of Condition Critical Care Progress Note - Nutrition Nutrition: Nutrition Category Date Time Status NPO Diet [DIET] Diets 07/01/17 Breakfast Active Assessment/Plan - Assessment and Plan (Free Text) Assessment: 51 year old male with a past medical history of anxiety and depression who was transferred to ICU from med/surg floor after becoming acutely tachycardic and oxygen desaturation. Plan: -IV fluid bolus. -NS @100cc/hr maintenance fluid. -Thiamine Replacement -Folic acid replacement -ABG -Urine culture. Will f/u with results. -Blood culture. Will f/u with results. -Urinalysis. -RPR ordered. Will f/u with results -Tylenol. -Zosyn 3.325 IV Q8 -Echo. Will f/u with results -BiPAP -NPO -HIV screen. Will f/u with results. -Hepatitis panel. Will f/u with results. -RPR ordered .Will f/u with results. -Tylenol PRN for temperature. <Salomon Ty - Last Filed: 07/01/17 18:51> CCU Objective - Vital Signs / Intake & Output Vital Signs (Last 4 hours): Vital Signs Temp Pulse Resp BP Pulse Ox 07/01/17 17:00 89 29 H 99 07/01/17 16:50 90 21 99 07/01/17 16:40 91 H 16 98 07/01/17 16:23 120/54 L 07/01/17 16:20 92 H 20 98 07/01/17 16:00 99.3 F 92 H 20 98 07/01/17 15:50 91 H 21 97 07/01/17 15:40 91 H 18 97 07/01/17 15:30 91 H 21 98 07/01/17 15:23 90 28 H 112/55 L 97 07/01/17 15:00 90 18 97 Intake and Output (Last 8hrs): Intake & Output 07/01/17 07/01/17 07/01/17 06:59 14:59 22:59 Intake Total 1300 300 Output Total 350 125 Balance 950 175 Intake: Intake, IV Amount 1300 300 Left Forearm 1300 300 Output: Urine 350 125 Urethral (Acosta) 350 125 - Medications Active Medications: Active Medications Generic Name Dose Route Start Last Admin Trade Name Freq PRN Reason Stop Dose Admin Acetaminophen 650 mg 07/01/17 09:28 07/01/17 09:36 Tylenol 650 Mg Supp VT 650 mg Q6 PRN Administration Fever >100.4 F Clonidine HCl 0.1 mg 06/26/17 10:25 06/29/17 19:14 Catapres PO 0.1 mg Q4H PRN Administration Withdrawal Symptoms Clotrimazole 0 gm 06/27/17 10:00 07/01/17 17:08 Lotrimin 1% TOP 1 applic BID EDIN Administration Ergocalciferol 1 cap 06/30/17 10:00 06/30/17 09:44 Drisdol 50,000 Intl Units Cap PO 1 cap QWK EDIN Administration Gabapentin 300 mg 06/28/17 14:00 07/01/17 17:10 Neurontin PO 300 mg TID EDIN Administration Heparin Sodium (Porcine) 5,000 units 07/01/17 22:00 Heparin SC Q8 EDIN Hydrocortisone 0 gm 06/27/17 10:00 07/01/17 17:44 Cortizone 1% Cream TOP 1 applic BID EDIN Administration Hydroxyzine HCl 50 mg 06/27/17 12:23 06/30/17 05:39 Atarax PO 50 mg Q6 PRN Administration Anxiety Piperacillin Sod/Tazobactam 100 mls @ 200 mls/hr 07/01/17 11:00 07/01/17 10: 49 Sod 3.375 gm/ Sodium Chloride IVPB 200 mls/hr Q8H EDIN Administration Multivitamins/Vitamin C 10 ml/ 1,011.2 mls @ 101.12 mls/hr 07/01/17 12:00 12:28 Thiamine HCl 100 mg/ Folic IV 101.12 mls/hr Acid 1 mg/ Sodium Chloride Q24H EDIN Administration Lisinopril 20 mg 06/24/17 10:00 07/01/17 12:29 Zestril PO Not Given DAILY EDIN [place] Carbonate 600 mg 06/29/17 14:00 07/01/17 17:07 [place] Carbonate 300mg PO 600 mg TID EDIN Administration Lorazepam 1 mg 06/25/17 13:15 06/30/17 11:52 Ativan PO 1 mg Q6 PRN Administration Symptoms of alcohol withdrawl Lorazepam 2 mg 06/30/17 21:30 07/01/17 17:44 Ativan IVP Not Given Q6H EDIN Lorazepam 2 mg 06/30/17 21:25 07/01/17 06:31 Ativan IVP 2 mg Q2H PRN Administration Agitation Lorazepam 2 mg 07/01/17 09:25 Ativan IVP Q4H PRN Anxiety Metoprolol Tartrate 50 mg 06/23/17 16:12 07/01/17 14:28 Lopressor PO Not Given DAILY [facility] Pantoprazole Sodium 40 mg 07/01/17 10:00 07/01/17 09:36 Protonix Inj IVP 40 mg DAILY EDIN Administration Quetiapine Fumarate 300 mg 06/23/17 22:00 06/30/17 22:07 Seroquel PO 300 mg HS EDIN Administration Thiamine HCl 100 mg 06/24/17 10:00 07/01/17 14:28 Vitamin B1 Tab PO Not Given DAILY [facility] Trazodone HCl 50 mg 06/25/17 13:15 06/29/17 21:14 Desyrel PO 50 mg HS PRN Administration Insomnia - Patient Studies Lab Studies: Lab Studies 07/01/17 07/01/17 07/01/17 Range/Units 09:36 09:00 09:00 WBC (4.8-10.8) K/uL RBC (4.40-5.90) Mil/uL Hgb (12.0-18.0) g/dL Hct (35.0-51.0) % MCV (80.0-94.0) fL MCH (27.0-31.0) pg MCHC (33.0-37.0) g/dL RDW (11.5-14.5) % Plt Count (130-400) K/uL MPV (7.2-11.7) fL Neut % (Auto) (50.0-75.0) % Lymph % (Auto) (20.0-40.0) % Haines % (Auto) (0.0-10.0) % Eos % (Auto) (0.0-4.0) % Baso % (Auto) (0.0-2.0) % Neut # (Auto) (1.8-7.0) K/uL Lymph # (Auto) (1.0-4.3) K/uL Haines # (Auto) (0.0-0.8) K/uL Eos # (Auto) (0.0-0.7) K/uL Baso # (Auto) (0.0-0.2) K/uL Puncture Site pCO2 (35-45) mm/Hg pO2 (80-100) mm/Hg HCO3 (21-28) mmol/L ABG pH (7.35-7.45) ABG Total CO2 (22-28) mmol/L ABG O2 Saturation (95-98) % ABG Base Excess (-2.0-3.0) mmol/L Chance Test ABG Potassium (3.6-5.2) mmol/L A-a O2 Difference mm/Hg Respiratory Index Glucose (75-110) mg/dl Lactate (0.7-2.1) mmol/L Liter Flow FiO2 % Sodium 139 (132-148) mmol/L Potassium 3.5 L (3.6-5.2) mmol/L Chloride 114 H (98-107) mmol/L Carbon Dioxide 17 L (22-30) mmol/L Anion Gap 12 (10-20) BUN 22 H (9-20) mg/dL Creatinine 2.3 H (0.8-1.5) mg/dL Est GFR ( Amer) 36 Est GFR (Non-Af Amer) 30 POC Glucose (mg/dL) (65-110) mg/dL Random Glucose 80 (75-110) mg/dL Calcium 7.2 L (8.6-10.4) mg/dl Phosphorus 3.6 (2.5-4.5) mg/dL Magnesium 1.5 L (1.6-2.3) mg/dL Total Bilirubin 0.8 (0.2-1.3) mg/dL AST 109 H (17-59) U/L ALT 120 H D (21-72) U/L Alkaline Phosphatase 70 (38-126) U/L Ammonia (9-33) umol/L Total Creatine Kinase (55-170) U/L Troponin I 0.1810 H* (0.00-0.120) ng/mL NT-Pro-B Natriuret Pep (0-900) pg/mL Total Protein 5.5 L (6.3-8.3) g/dL Albumin 2.5 L D (3.5-5.0) g/dL Globulin 3.0 (2.2-3.9) gm/dL Albumin/Globulin Ratio 0.8 L (1.0-2.1) Prolactin (3.7-17.9) ng/mL Arterial Blood Potassium (3.6-5.2) mmol/L Urine Color Lauren (YELLOW) Urine Clarity Hazy (Clear) Urine pH 5.0 (5.0-8.0) Ur Specific Mcandrews 1.014 (1.003-1.030) Urine Protein 1+ H (NEGATIVE) mg/dL Urine Glucose (UA) Normal (Normal) mg/dL Urine Ketones Negative (NEGATIVE) mg/dL Urine Blood Negative (NEGATIVE) Urine Nitrate Negative (NEGATIVE) Urine Bilirubin Negative (NEGATIVE) Urine Urobilinogen Normal (0.2-1.0) mg/dL Ur Leukocyte Esterase 1+ H (Negative) Donn/uL Urine WBC (Auto) 11 H (0-5) /hpf Urine RBC (Auto) < 1 (0-3) /hpf Hyaline Casts >20 H (0-2) /lpf [place] (0.6-1.2) mmol/L RPR Nonreactive (NONREACTIVE) Hepatitis A IgM Ab (NEGATIVE) Hep Bs Antigen (NEGATIVE) Hep B Core IgM Ab (NEGATIVE) Hepatitis C Antibody (NEGATIVE) HIV 1&2 Antibody Screen (NEGATIVE) 07/01/17 07/01/17 07/01/17 Range/Units 09:00 08:53 08:53 WBC (4.8-10.8) K/uL RBC (4.40-5.90) Mil/uL Hgb (12.0-18.0) g/dL Hct (35.0-51.0) % MCV (80.0-94.0) fL MCH (27.0-31.0) pg MCHC (33.0-37.0) g/dL RDW (11.5-14.5) % Plt Count (130-400) K/uL MPV (7.2-11.7) fL Neut % (Auto) (50.0-75.0) % Lymph % (Auto) (20.0-40.0) % Haines % (Auto) (0.0-10.0) % Eos % (Auto) (0.0-4.0) % Baso % (Auto) (0.0-2.0) % Neut # (Auto) (1.8-7.0) K/uL Lymph # (Auto) (1.0-4.3) K/uL Haines # (Auto) (0.0-0.8) K/uL Eos # (Auto) (0.0-0.7) K/uL Baso # (Auto) (0.0-0.2) K/uL Puncture Site pCO2 (35-45) mm/Hg pO2 (80-100) mm/Hg HCO3 (21-28) mmol/L ABG pH (7.35-7.45) ABG Total CO2 (22-28) mmol/L ABG O2 Saturation (95-98) % ABG Base Excess (-2.0-3.0) mmol/L Chance Test ABG Potassium (3.6-5.2) mmol/L A-a O2 Difference mm/Hg Respiratory Index Glucose (75-110) mg/dl Lactate (0.7-2.1) mmol/L Liter Flow FiO2 % Sodium (132-148) mmol/L Potassium (3.6-5.2) mmol/L Chloride (98-107) mmol/L Carbon Dioxide (22-30) mmol/L Anion Gap (10-20) BUN (9-20) mg/dL Creatinine (0.8-1.5) mg/dL Est GFR ( Amer) Est GFR (Non-Af Amer) POC Glucose (mg/dL) (65-110) mg/dL Random Glucose (75-110) mg/dL Calcium (8.6-10.4) mg/dl Phosphorus (2.5-4.5) mg/dL Magnesium (1.6-2.3) mg/dL Total Bilirubin (0.2-1.3) mg/dL AST (17-59) U/L ALT (21-72) U/L Alkaline Phosphatase (38-126) U/L Ammonia (9-33) umol/L Total Creatine Kinase (55-170) U/L Troponin I (0.00-0.120) ng/mL NT-Pro-B Natriuret Pep (0-900) pg/mL Total Protein (6.3-8.3) g/dL Albumin (3.5-5.0) g/dL Globulin (2.2-3.9) gm/dL Albumin/Globulin Ratio (1.0-2.1) Prolactin (3.7-17.9) ng/mL Arterial Blood Potassium (3.6-5.2) mmol/L Urine Color (YELLOW) Urine Clarity (Clear) Urine pH (5.0-8.0) Ur Specific Mcandrews (1.003-1.030) Urine Protein (NEGATIVE) mg/dL Urine Glucose (UA) (Normal) mg/dL Urine Ketones (NEGATIVE) mg/dL Urine Blood (NEGATIVE) Urine Nitrate (NEGATIVE) Urine Bilirubin (NEGATIVE) Urine Urobilinogen (0.2-1.0) mg/dL Ur Leukocyte Esterase (Negative) Donn/uL Urine WBC (Auto) (0-5) /hpf Urine RBC (Auto) (0-3) /hpf Hyaline Casts (0-2) /lpf [place] 0.9 (0.6-1.2) mmol/L RPR (NONREACTIVE) Hepatitis A IgM Ab Negative (NEGATIVE) Hep Bs Antigen Negative (NEGATIVE) Hep B Core IgM Ab Negative (NEGATIVE) Hepatitis C Antibody Negative (NEGATIVE) HIV 1&2 Antibody Screen Negative (NEGATIVE) 07/01/17 07/01/17 07/01/17 Range/Units 07:45 07:45 07:26 WBC (4.8-10.8) K/uL RBC (4.40-5.90) Mil/uL Hgb (12.0-18.0) g/dL Hct (35.0-51.0) % MCV (80.0-94.0) fL MCH (27.0-31.0) pg MCHC (33.0-37.0) g/dL RDW (11.5-14.5) % Plt Count (130-400) K/uL MPV (7.2-11.7) fL Neut % (Auto) (50.0-75.0) % Lymph % (Auto) (20.0-40.0) % Haines % (Auto) (0.0-10.0) % Eos % (Auto) (0.0-4.0) % Baso % (Auto) (0.0-2.0) % Neut # (Auto) (1.8-7.0) K/uL Lymph # (Auto) (1.0-4.3) K/uL Haines # (Auto) (0.0-0.8) K/uL Eos # (Auto) (0.0-0.7) K/uL Baso # (Auto) (0.0-0.2) K/uL Puncture Site Lr pCO2 40 (35-45) mm/Hg pO2 256 H (80-100) mm/Hg HCO3 22.0 (21-28) mmol/L ABG pH 7.34 L (7.35-7.45) ABG Total CO2 22.8 (22-28) mmol/L ABG O2 Saturation 99.9 H (95-98) % ABG Base Excess -3.9 L (-2.0-3.0) mmol/L Chance Test Pos ABG Potassium 5.6 H (3.6-5.2) mmol/L A-a O2 Difference 407.0 mm/Hg Respiratory Index 1.6 Glucose 101 (75-110) mg/dl Lactate 3.8 H (0.7-2.1) mmol/L Liter Flow 15.0 FiO2 100.0 % Sodium 139.0 (132-148) mmol/L Potassium (3.6-5.2) mmol/L Chloride 109.0 H (98-107) mmol/L Carbon Dioxide (22-30) mmol/L Anion Gap (10-20) BUN (9-20) mg/dL Creatinine (0.8-1.5) mg/dL Est GFR ( Amer) Est GFR (Non-Af Amer) POC Glucose (mg/dL) (65-110) mg/dL Random Glucose (75-110) mg/dL Calcium (8.6-10.4) mg/dl Phosphorus (2.5-4.5) mg/dL Magnesium (1.6-2.3) mg/dL Total Bilirubin (0.2-1.3) mg/dL AST (17-59) U/L ALT (21-72) U/L Alkaline Phosphatase (38-126) U/L Ammonia 60 H D (9-33) umol/L Total Creatine Kinase 1247 H (55-170) U/L Troponin I (0.00-0.120) ng/mL NT-Pro-B Natriuret Pep 110 (0-900) pg/mL Total Protein (6.3-8.3) g/dL Albumin (3.5-5.0) g/dL Globulin (2.2-3.9) gm/dL Albumin/Globulin Ratio (1.0-2.1) Prolactin (3.7-17.9) ng/mL Arterial Blood Potassium 5.6 H (3.6-5.2) mmol/L Urine Color (YELLOW) Urine Clarity (Clear) Urine pH (5.0-8.0) Ur Specific [place] (1.003-1.030) Urine Protein (NEGATIVE) mg/dL Urine Glucose (UA) (Normal) mg/dL Urine Ketones (NEGATIVE) mg/dL Urine Blood (NEGATIVE) Urine Nitrate (NEGATIVE) Urine Bilirubin (NEGATIVE) Urine Urobilinogen (0.2-1.0) mg/dL Ur Leukocyte Esterase (Negative) Donn/uL Urine WBC (Auto) (0-5) /hpf Urine RBC (Auto) (0-3) /hpf Hyaline Casts (0-2) /lpf [place] (0.6-1.2) mmol/L RPR (NONREACTIVE) Hepatitis A IgM Ab (NEGATIVE) Hep Bs Antigen (NEGATIVE) Hep B Core IgM Ab (NEGATIVE) Hepatitis C Antibody (NEGATIVE) HIV 1&2 Antibody Screen (NEGATIVE) 07/01/17 06/30/17 06/30/17 Range/Units 07:21 19:05 18:53 WBC 10.7 D (4.8-10.8) K/uL RBC 4.18 L (4.40-5.90) Mil/uL Hgb 13.8 (12.0-18.0) g/dL Hct 41.5 (35.0-51.0) % MCV 99.2 H (80.0-94.0) fL MCH 33.0 H (27.0-31.0) pg MCHC 33.3 (33.0-37.0) g/dL RDW 15.3 H (11.5-14.5) % Plt Count 471 H D (130-400) K/uL MPV 7.6 (7.2-11.7) fL Neut % (Auto) 65.2 (50.0-75.0) % Lymph % (Auto) 16.5 L (20.0-40.0) % Haines % (Auto) 14.5 H (0.0-10.0) % Eos % (Auto) 3.1 (0.0-4.0) % Baso % (Auto) 0.7 (0.0-2.0) % Neut # (Auto) 7.0 (1.8-7.0) K/uL Lymph # (Auto) 1.8 (1.0-4.3) K/uL Haines # (Auto) 1.6 H (0.0-0.8) K/uL Eos # (Auto) 0.3 (0.0-0.7) K/uL Baso # (Auto) 0.1 (0.0-0.2) K/uL Puncture Site pCO2 (35-45) mm/Hg pO2 (80-100) mm/Hg HCO3 (21-28) mmol/L ABG pH (7.35-7.45) ABG Total CO2 (22-28) mmol/L ABG O2 Saturation (95-98) % ABG Base Excess (-2.0-3.0) mmol/L Chance Test ABG Potassium (3.6-5.2) mmol/L A-a O2 Difference mm/Hg Respiratory Index Glucose (75-110) mg/dl Lactate (0.7-2.1) mmol/L Liter Flow FiO2 % Sodium 136 (132-148) mmol/L Potassium 4.0 (3.6-5.2) mmol/L Chloride 100 (98-107) mmol/L Carbon Dioxide 24 (22-30) mmol/L Anion Gap 16 (10-20) BUN 21 H (9-20) mg/dL Creatinine 1.4 (0.8-1.5) mg/dL Est GFR ( Amer) > 60 Est GFR (Non-Af Amer) 53 POC Glucose (mg/dL) 88 (65-110) mg/dL Random Glucose 104 (75-110) mg/dL Calcium 10.8 H (8.6-10.4) mg/dl Phosphorus 4.9 H (2.5-4.5) mg/dL Magnesium 1.8 (1.6-2.3) mg/dL Total Bilirubin 1.5 H (0.2-1.3) mg/dL AST 117 H (17-59) U/L ALT 171 H D (21-72) U/L Alkaline Phosphatase 116 (38-126) U/L Ammonia (9-33) umol/L Total Creatine Kinase (55-170) U/L Troponin I (0.00-0.120) ng/mL NT-Pro-B Natriuret Pep (0-900) pg/mL Total Protein 8.4 H (6.3-8.3) g/dL Albumin 4.0 (3.5-5.0) g/dL Globulin 4.3 H (2.2-3.9) gm/dL Albumin/Globulin Ratio 0.9 L (1.0-2.1) Prolactin 13.8 (3.7-17.9) ng/mL Arterial Blood Potassium (3.6-5.2) mmol/L Urine Color (YELLOW) Urine Clarity (Clear) Urine pH (5.0-8.0) Ur Specific [place]andrews (1.003-1.030) Urine Protein (NEGATIVE) mg/dL Urine Glucose (UA) (Normal) mg/dL Urine Ketones (NEGATIVE) mg/dL Urine Blood (NEGATIVE) Urine Nitrate (NEGATIVE) Urine Bilirubin (NEGATIVE) Urine Urobilinogen (0.2-1.0) mg/dL Ur Leukocyte Esterase (Negative) Donn/uL Urine WBC (Auto) (0-5) /hpf Urine RBC (Auto) (0-3) /hpf Hyaline Casts (0-2) /lpf [place] (0.6-1.2) mmol/L RPR (NONREACTIVE) Hepatitis A IgM Ab (NEGATIVE) Hep Bs Antigen (NEGATIVE) Hep B Core IgM Ab (NEGATIVE) Hepatitis C Antibody (NEGATIVE) HIV 1&2 Antibody Screen (NEGATIVE) 06/30/17 Range/Units 18:53 WBC (4.8-10.8) K/uL RBC (4.40-5.90) Mil/uL Hgb (12.0-18.0) g/dL Hct (35.0-51.0) % MCV (80.0-94.0) fL MCH (27.0-31.0) pg MCHC (33.0-37.0) g/dL RDW (11.5-14.5) % Plt Count (130-400) K/uL MPV (7.2-11.7) fL Neut % (Auto) (50.0-75.0) % Lymph % (Auto) (20.0-40.0) % Haines % (Auto) (0.0-10.0) % Eos % (Auto) (0.0-4.0) % Baso % (Auto) (0.0-2.0) % Neut # (Auto) (1.8-7.0) K/uL Lymph # (Auto) (1.0-4.3) K/uL Haines # (Auto) (0.0-0.8) K/uL Eos # (Auto) (0.0-0.7) K/uL Baso # (Auto) (0.0-0.2) K/uL Puncture Site pCO2 (35-45) mm/Hg pO2 (80-100) mm/Hg HCO3 (21-28) mmol/L ABG pH (7.35-7.45) ABG Total CO2 (22-28) mmol/L ABG O2 Saturation (95-98) % ABG Base Excess (-2.0-3.0) mmol/L Chance Test ABG Potassium (3.6-5.2) mmol/L A-a O2 Difference mm/Hg Respiratory Index Glucose (75-110) mg/dl Lactate (0.7-2.1) mmol/L Liter Flow FiO2 % Sodium (132-148) mmol/L Potassium (3.6-5.2) mmol/L Chloride (98-107) mmol/L Carbon Dioxide (22-30) mmol/L Anion Gap (10-20) BUN (9-20) mg/dL Creatinine (0.8-1.5) mg/dL Est GFR ( Amer) Est GFR (Non-Af Amer) POC Glucose (mg/dL) (65-110) mg/dL Random Glucose (75-110) mg/dL Calcium (8.6-10.4) mg/dl Phosphorus (2.5-4.5) mg/dL Magnesium (1.6-2.3) mg/dL Total Bilirubin (0.2-1.3) mg/dL AST (17-59) U/L ALT (21-72) U/L Alkaline Phosphatase (38-126) U/L Ammonia 46 H D (9-33) umol/L Total Creatine Kinase (55-170) U/L Troponin I (0.00-0.120) ng/mL NT-Pro-B Natriuret Pep (0-900) pg/mL Total Protein (6.3-8.3) g/dL Albumin (3.5-5.0) g/dL Globulin (2.2-3.9) gm/dL Albumin/Globulin Ratio (1.0-2.1) Prolactin (3.7-17.9) ng/mL Arterial Blood Potassium (3.6-5.2) mmol/L Urine Color (YELLOW) Urine Clarity (Clear) Urine pH (5.0-8.0) Ur Specific Mcandrews (1.003-1.030) Urine Protein (NEGATIVE) mg/dL Urine Glucose (UA) (Normal) mg/dL Urine Ketones (NEGATIVE) mg/dL Urine Blood (NEGATIVE) Urine Nitrate (NEGATIVE) Urine Bilirubin (NEGATIVE) Urine Urobilinogen (0.2-1.0) mg/dL Ur Leukocyte Esterase (Negative) Donn/uL Urine WBC (Auto) (0-5) /hpf Urine RBC (Auto) (0-3) /hpf Hyaline Casts (0-2) /lpf [place] (0.6-1.2) mmol/L RPR (NONREACTIVE) Hepatitis A IgM Ab (NEGATIVE) Hep Bs Antigen (NEGATIVE) Hep B Core IgM Ab (NEGATIVE) Hepatitis C Antibody (NEGATIVE) HIV 1&2 Antibody Screen (NEGATIVE) Laboratory Results - last 24 hr 06/30/17 06/30/1706/30/18 18:53 18:53 19:05 WBC 10.7 D RBC 4.18 L Hgb 13.8 Hct 41.5 MCV 99.2 H MCH 33.0 H MCHC 33.3 RDW 15.3 H Plt Count 471 H D MPV 7.6 Neut % (Auto) 65.2 Lymph % (Auto) 16.5 L Haines % (Auto) 14.5 H Eos % (Auto) 3.1 Baso % (Auto) 0.7 Neut # (Auto) 7.0 Lymph # (Auto) 1.8 Haines # (Auto) 1.6 H Eos # (Auto) 0.3 Baso # (Auto) 0.1 Puncture Site pCO2 pO2 HCO3 ABG pH ABG Total CO2 ABG O2 Saturation ABG Base Excess Chance Test ABG Potassium A-a O2 Difference Respiratory Index Glucose Lactate Liter Flow FiO2 Sodium 136 Potassium 4.0 Chloride 100 Carbon Dioxide 24 Anion Gap 16 BUN 21 H Creatinine 1.4 Est GFR ( Amer) > 60 Est GFR (Non-Af Amer) 53 POC Glucose (mg/dL) Random Glucose 104 Calcium 10.8 H Phosphorus 4.9 H Magnesium 1.8 Total Bilirubin 1.5 H AST 117 H ALT 171 H D Alkaline Phosphatase 116 Ammonia 46 H D Total Creatine Kinase Troponin I NT-Pro-B Natriuret Pep Total Protein 8.4 H Albumin 4.0 Globulin 4.3 H Albumin/Globulin Ratio 0.9 L Prolactin 13.8 Arterial Blood Potassium Urine Color Urine Clarity Urine pH Ur Specific Mcandrews Urine Protein Urine Glucose (UA) Urine Ketones Urine Blood Urine Nitrate Urine Bilirubin Urine Urobilinogen Ur Leukocyte Esterase Urine WBC (Auto) Urine RBC (Auto) Hyaline Casts [place] RPR Hepatitis A IgM Ab Hep Bs Antigen Hep B Core IgM Ab Hepatitis C Antibody HIV 1&2 Antibody Screen 07/01/17 07/01/17 07/01/17 07:21 07:26 07:45 WBC RBC Hgb Hct MCV MCH MCHC RDW Plt Count MPV Neut % (Auto) Lymph % (Auto) Haines % (Auto) Eos % (Auto) Baso % (Auto) Neut # (Auto) Lymph # (Auto) Haines # (Auto) Eos # (Auto) Baso # (Auto) Puncture Site Lr pCO2 40 pO2 256 H HCO3 22.0 ABG pH 7.34 L ABG Total CO2 22.8 ABG O2 Saturation 99.9 H ABG Base Excess -3.9 L Chance Test Pos ABG Potassium 5.6 H A-a O2 Difference 407.0 Respiratory Index 1.6 Glucose 101 Lactate 3.8 H Liter Flow 15.0 FiO2 100.0 Sodium 139.0 Potassium Chloride 109.0 H Carbon Dioxide Anion Gap BUN Creatinine Est GFR ( Amer) Est GFR (Non-Af Amer) POC Glucose (mg/dL) 88 Random Glucose Calcium Phosphorus Magnesium Total Bilirubin AST ALT Alkaline Phosphatase Ammonia Total Creatine Kinase 1247 H Troponin I NT-Pro-B Natriuret Pep 110 Total Protein Albumin Globulin Albumin/Globulin Ratio Prolactin Arterial Blood Potassium 5.6 H Urine Color Urine Clarity Urine pH Ur Specific Mcandrews Urine Protein Urine Glucose (UA) Urine Ketones Urine Blood Urine Nitrate Urine Bilirubin Urine Urobilinogen Ur Leukocyte Esterase Urine WBC (Auto) Urine RBC (Auto) Hyaline Casts [place] RPR Hepatitis A IgM Ab Hep Bs Antigen Hep B Core IgM Ab Hepatitis C Antibody HIV 1&2 Antibody Screen 07/01/17 07/01/17 07/01/17 07:45 08:53 08:53 WBC RBC Hgb Hct MCV MCH MCHC RDW Plt Count MPV Neut % (Auto) Lymph % (Auto) Haines % (Auto) Eos % (Auto) Baso % (Auto) Neut # (Auto) Lymph # (Auto) Haines # (Auto) Eos # (Auto) Baso # (Auto) Puncture Site pCO2 pO2 HCO3 ABG pH ABG Total CO2 ABG O2 Saturation ABG Base Excess Chance Test ABG Potassium A-a O2 Difference Respiratory Index Glucose Lactate Liter Flow FiO2 Sodium Potassium Chloride Carbon Dioxide Anion Gap BUN Creatinine Est GFR ( Amer) Est GFR (Non-Af Amer) POC Glucose (mg/dL) Random Glucose Calcium Phosphorus Magnesium Total Bilirubin AST ALT Alkaline Phosphatase Ammonia 60 H D Total Creatine Kinase Troponin I NT-Pro-B Natriuret Pep Total Protein Albumin Globulin Albumin/Globulin Ratio Prolactin Arterial Blood Potassium Urine Color Urine Clarity Urine pH Ur Specific [place] Urine Protein Urine Glucose (UA) Urine Ketones Urine Blood Urine Nitrate Urine Bilirubin Urine Urobilinogen Ur Leukocyte Esterase Urine WBC (Auto) Urine RBC (Auto) Hyaline Casts [place] 0.9 RPR Hepatitis A IgM Ab Hep Bs Antigen Hep B Core IgM Ab Hepatitis C Antibody HIV 1&2 Antibody Screen Negative 07/01/17 07/01/1718 09:00 09:00 09:00 WBC RBC Hgb Hct MCV MCH MCHC RDW Plt Count MPV Neut % (Auto) Lymph % (Auto) Haines % (Auto) Eos % (Auto) Baso % (Auto) Neut # (Auto) Lymph # (Auto) [place]aines # (Auto) Eos # (Auto) Baso # (Auto) Puncture Site pCO2 pO2 HCO3 ABG pH ABG Total CO2 ABG O2 Saturation ABG Base Excess Chance Test ABG Potassium A-a O2 Difference Respiratory Index Glucose Lactate Liter Flow FiO2 Sodium 139 Potassium 3.5 L Chloride 114 H Carbon Dioxide 17 L Anion Gap 12 BUN 22 H Creatinine 2.3 H Est GFR ( Amer) 36 Est GFR (Non-Af Amer) 30 POC Glucose (mg/dL) Random Glucose 80 Calcium 7.2 L Phosphorus 3.6 Magnesium 1.5 L Total Bilirubin 0.8 AST 109 H ALT 120 H D Alkaline Phosphatase 70 Ammonia Total Creatine Kinase Troponin I 0.1810 H* NT-Pro-B Natriuret Pep Total Protein 5.5 L Albumin 2.5 L D Globulin 3.0 Albumin/Globulin Ratio 0.8 L Prolactin Arterial Blood Potassium Urine Color Urine Clarity Urine pH Ur Specific [place] Urine Protein Urine Glucose (UA) Urine Ketones Urine Blood Urine Nitrate Urine Bilirubin Urine Urobilinogen Ur Leukocyte Esterase Urine WBC (Auto) Urine RBC (Auto) Hyaline Casts [place] RPR Nonreactive Hepatitis A IgM Ab Negative Hep Bs Antigen Negative Hep B Core IgM Ab Negative Hepatitis C Antibody Negative HIV 1&2 Antibody Screen 07/01/17 09:36 WBC RBC Hgb Hct MCV MCH MCHC RDW Plt Count MPV Neut % (Auto) Lymph % (Auto) [place]aines % (Auto) Eos % (Auto) Baso % (Auto) Neut # (Auto) Lymph # (Auto) Haines # (Auto) Eos # (Auto) Baso # (Auto) Puncture Site pCO2 pO2 HCO3 ABG pH ABG Total CO2 ABG O2 Saturation ABG Base Excess Chance Test ABG Potassium A-a O2 Difference Respiratory Index Glucose Lactate Liter Flow FiO2 Sodium Potassium Chloride Carbon Dioxide Anion Gap BUN Creatinine Est GFR ( Amer) Est GFR (Non-Af Amer) POC Glucose (mg/dL) Random Glucose Calcium Phosphorus Magnesium Total Bilirubin AST ALT Alkaline Phosphatase Ammonia Total Creatine Kinase Troponin I NT-Pro-B Natriuret Pep Total Protein Albumin Globulin Albumin/Globulin Ratio Prolactin Arterial Blood Potassium Urine Color Lauren Urine Clarity Hazy Urine pH 5.0 Ur Specific [place] 1.014 Urine Protein 1+ H Urine Glucose (UA) Normal Urine Ketones Negative Urine Blood Negative Urine Nitrate Negative Urine Bilirubin Negative Urine Urobilinogen Normal Ur Leukocyte Esterase 1+ H Urine WBC (Auto) 11 H Urine RBC (Auto) < 1 Hyaline Casts >20 H [place] RPR Hepatitis A IgM Ab Hep Bs Antigen Hep B Core IgM Ab Hepatitis C Antibody HIV 1&2 Antibody Screen EKG/Cardiology Studies: Cardiology / EKG Studies 06/30/17 18:15 EKG [ELECTROCARDIOGRAM] Stat Comment: Mode Of Transportation: Reason For Exam: syncope Isolation: Contact Critical Care Progress Note - Nutrition Nutrition: Nutrition Category Date Time Status NPO Diet [DIET] Diets 07/01/17 Breakfast Active Attending/Attestation - Attestation I have personally seen and examined this patient.: Yes I have fully participated in the care of the patient.: Yes I have reviewed all pertinent clinical information: Yes Notes (Text): 07/01/17 18:51 Today: June The Patient was seen and examined at the bedside, Medical records reviewed, and management issues were discussed and formulated with the house staff. I have reviewed all the relevant clinical, laboratory, hemodynamic, radiographic data and medications Events reviewed Pain issues, skin care, head of the bed elevation, glycemic control were addressed. Agree with above resident's assessment and treatment plans of care as transcribed in Dr. Johns note.
--- NOTE | 2017-07-01 22:58 | CP.PCM.PN ---
Subjective - Date & Time of Evaluation Date of Evaluation: 07/01/17 Time of Evaluation: 22:30 - Subjective Subjective: Patient seen and examined at bedside , extremely agitated and restless so given ativan now sedated . Per nursing the patient was agitated overnight. Given Ativan.pt is dehydrated and BUN/creatinine elevated due to pre renal aotemia Objective - Vital Signs/Intake and Output Vital Signs (last 24 hours): Temp Pulse Resp BP Pulse Ox 99.3 F 101 H 17 123/59 L 97 07/01/17 16:00 07/01/17 22:40 07/01/17 22:40 07/01/17 22:34 07/01/17 22:40 Intake and Output: 07/01/17 07/02/17 18:59 06:59 Intake Total 1700 400 Output Total 475 0 Balance 1225 400 - Medications Medications: Current Medications Acetaminophen (Tylenol 650 Mg Supp) 650 mg [place] Q6 PRN PRN Reason: Fever >100.4 F Last Admin: 07/01/17 09:36 Dose: 650 mg Clonidine HCl (Catapres) 0.1 mg PO Q4H PRN PRN Reason: Withdrawal Symptoms Last Admin: 06/29/17 19:14 Dose: 0.1 mg Clotrimazole (Lotrimin 1%) 0 gm TOP BID [facility] Last Admin: 07/01/17 17:08 Dose: 1 applic Ergocalciferol (Drisdol 50,000 Intl Units Cap) 1 cap PO QWK [facility] Last Admin: 06/30/17 09:44 Dose: 1 cap Gabapentin (Neurontin) 300 mg PO TID [facility] Last Admin: 07/01/17 17:10 Dose: 300 mg Heparin Sodium (Porcine) (Heparin) 5,000 units SC Q8 [facility] Last Admin: 07/01/17 21:27 Dose: 5,000 units Hydrocortisone (Cortizone 1% Cream) 0 gm TOP BID [facility] Last Admin: 07/01/17 17:44 Dose: 1 applic Hydroxyzine HCl (Atarax) 50 mg PO Q6 PRN PRN Reason: Anxiety Last Admin: 06/30/17 05:39 Dose: 50 mg Piperacillin Sod/Tazobactam (Sod 3.375 gm/ Sodium Chloride) 100 mls @ 200 mls/ hr IVPB Q8H [facility] Last Admin: 07/01/17 19:26 Dose: 200 mls/hr Multivitamins/Vitamin C 10 ml/Thiamine HCl 100 mg/ Folic Acid 1 mg/ Sodium Chloride 1,011.2 mls @ 101.12 mls/hr IV Q24H [facility] Last Admin: 07/01/17 12:28 Dose: 101.12 mls/hr Lisinopril (Zestril) 20 mg PO DAILY [facility] Last Admin: 07/01/17 12:29 Dose: Not Given [place] Carbonate ([place] Carbonate 300mg) 600 mg PO TID [facility] Last Admin: 07/01/17 17:07 Dose: 600 mg Lorazepam (Ativan) 1 mg PO Q6 PRN PRN Reason: Symptoms of alcohol withdrawl Last Admin: 06/30/17 11:52 Dose: 1 mg Lorazepam (Ativan) 2 mg IVP Q6H [facility] Last Admin: 07/01/17 22:42 Dose: Not Given Lorazepam (Ativan) 2 mg IVP Q2H PRN PRN Reason: Agitation Last Admin: 07/01/17 22:28 Dose: 2 mg Lorazepam (Ativan) 2 mg IVP Q4H PRN PRN Reason: Anxiety Metoprolol Tartrate (Lopressor) 50 mg PO DAILY [facility] Last Admin: 07/01/17 14:28 Dose: Not Given Pantoprazole Sodium (Protonix Inj) 40 mg IVP DAILY [facility] Last Admin: 07/01/17 09:36 Dose: 40 mg Quetiapine Fumarate (Seroquel) 300 mg PO HS [facility] Last Admin: 07/01/17 22:41 Dose: 300 mg Thiamine HCl (Vitamin B1 Tab) 100 mg PO DAILY [facility] Last Admin: 07/01/17 14:28 Dose: Not Given Trazodone HCl (Desyrel) 50 mg PO HS PRN PRN Reason: Insomnia Last Admin: 06/29/17 21:14 Dose: 50 mg - Labs Labs: 06/30/17 19:05 07/01/17 09:00 Assessment and Plan (1) Acute confusion Status: Acute (2) Benzodiazepine abuse Status: Acute (3) Withdrawal from benzodiazepine Status: Acute
[2017-07-02] MEDS: Piperacillin/Tazobact 3.375 GM in Sodium Chloride 100 ML IVPB SCH ×2 (02:00→10:28)
[2017-07-02] MEDS: Multivitamin (MVI) 10 ML, Thiamine 100 MG, Folic Acid 1 MG in Sodium Chloride 0.9% 1,00... IV SCH ×2 (02:50→13:08)
[2017-07-02 06:44] LABS: BASO # 0.1 K/uL (0.0-0.2); BASO % 1.1 % (0.0-2.0); EOS # 0.3 K/uL (0.0-0.7); EOS % 3.2 % (0.0-4.0); HEMOGLOBIN 11.7 g/dL (12.0-18.0); LYMPH # 1.5 K/uL (1.0-4.3); LYMPH % 14.1 % (20.0-40.0); MEAN CELL VOLUME 100.2 fL (80.0-94.0); MEAN CORPUSCULAR HEMOGLOBIN 34.2 pg (27.0-31.0); MEAN CORPUSCULAR HGB CONC 34.1 g/dL (33.0-37.0); MEAN PLATELET VOLUME 7.6 fL (7.2-11.7); MONO # 1.2 K/uL (0.0-0.8); MONO % 11.2 % (0.0-10.0); NEUT # 7.5 K/uL (1.8-7.0); NEUT % 70.4 % (50.0-75.0); RBC 3.43 Mil/uL (4.40-5.90); RED CELL DISTRIBUTION WIDTH 15.4 % (11.5-14.5); WHITE BLOOD COUNT 10.6 K/uL (4.8-10.8)
[2017-07-02 07:08] LABS: ALB/GLOB RATIO 0.9 (1.0-2.1); ALBUMIN 3.4 g/dL (3.5-5.0); CALCIUM 9.2 mg/dl (8.6-10.4); MAGNESIUM 2.4 mg/dL (1.6-2.3)
[2017-07-02] MEDS: Clotrimazole 1% Cream(30 gm) TOP SCH ×2 (09:24→18:05)
[2017-07-02] MEDS: Hydrocortisone 1% Cream (30 GM) TOP SCH ×2 (09:24→18:06)
[2017-07-02] MEDS: Lactated Ringer's 1,000 ML IV SCH ×3 (10:27→22:32)
[2017-07-02] MEDS ORDERED: Dexmedetomidine Hydrochloride 200 MCG in Sodium Chloride 0.9% 48 ML IV PRN (10:30)
[2017-07-02] MEDS: Thiamine 100 mg/ml Inj IV SCH ×3 (12:16→18:15)
[2017-07-02] MEDS: Dexmedetomidine Hydrochloride 400 MCG in Sodium Chloride 0.9% 96 ML IV PRN ×4 (12:22→19:41)
--- NOTE | 2017-07-02 12:35 | CP.CCUPN ---
<Cleve Johns - Last Filed: 07/02/17 12:32> CCU Subjective - Physician Review Events Since Last Encounter (Free Text): 07/02/17 12:32 Patient seen and examined at bedside this A.m. Per nursing the patient was agitated overnight. Given Ativan. 07/02/17 12:33 Subjective (Free Text): 07/01/17 17:53 Patient seen and examined at bedside. Per nursing no other events besides the stated event above occurred. Critical Care Time Spent (in minutes): 40 CCU Objective - Vital Signs / Intake & Output Vital Signs (Last 4 hours): Vital Signs Temp Pulse Resp BP Pulse Ox 07/02/17 12:20 110 H 26 H 07/02/17 12:00 98.5 F 80 17 98 07/02/17 11:00 93 H 25 H 07/02/17 10:37 96 H 16 178/152 H 07/02/17 10:30 94 H 26 H 07/02/17 10:20 95 H 19 07/02/17 10:10 113 H 15 07/02/17 10:00 102 H 22 07/02/17 09:50 114 H 15 83 L 07/02/17 09:43 97 H 11 L 96/69 L 83 L 07/02/17 09:40 101 H 26 H 07/02/17 09:38 91/71 L 07/02/17 09:30 103 H 24 07/02/17 09:00 88 15 07/02/17 08:50 94 H 12 07/02/17 08:41 95 H 11 L 137/72 07/02/17 08:40 97 H 20 97 Intake and Output (Last 8hrs): Intake & Output 07/01/17 07/02/17 07/02/17 22:59 06:59 14:59 Intake Total 669 013 8539.8 Output Total 325 1000 675 Balance 475 -200 373.8 Intake: Intake, IV Amount 800 800 848.8 Left Antecubital 48.8 Left Forearm 800 800 100 Left Hand 500 Left hand 2 200 Oral 200 Output: Urine 325 1000 675 Urethral (Acosta) 325 1000 675 Stool 0 0 0 - Physical Exam Head: Positive for: Atraumatic, Normocephalic Pupils: Positive for: PERRL Extroacular Muscles: Positive for: EOMI Conjunctiva: Positive for: Normal Mouth: Positive for: Moist Mucous Membranes Neck: Positive for: Normal Range of Motion. Negative for: Meningeal Signs, JVD Respiratory/Chest: Positive for: Clear to Auscultation Cardiovascular: Positive for: Regular Rate and Rhythm, Normal S1, S2 Abdomen: Positive for: Normal Bowel Sounds Upper Extremity: Positive for: Normal Inspection. Negative for: Edema Lower Extremity: Positive for: Edema Skin: Positive for: Warm, Dry - Medications Active Medications: Active Medications Generic Name Dose Route Start Last Admin Trade Name Freq PRN Reason Stop Dose Admin Acetaminophen 650 mg 07/01/17 09:28 07/01/17 09:36 Tylenol 650 Mg Supp LA 650 mg Q6 PRN Administration Fever >100.4 F Clotrimazole 0 gm 06/27/17 10:00 07/02/17 09:24 Lotrimin 1% TOP 1 applic BID EDIN Administration Ergocalciferol 1 cap 06/30/17 10:00 06/30/17 09:44 Drisdol 50,000 Intl Units Cap PO 1 cap QWK [facility]IN Administration Gabapentin 300 mg 06/28/17 14:00 07/02/17 09:18 Neurontin PO 300 mg TID EDIN Administration Heparin Sodium (Porcine) 5,000 units 07/01/17 22:00 07/02/17 07:00 Heparin SC 5,000 units Q8 EDIN Administration Hydrocortisone 0 gm 06/27/17 10:00 07/02/17 09:24 Cortizone 1% Cream TOP 1 applic BID EDIN Administration Piperacillin Sod/Tazobactam 100 mls @ 200 mls/hr 07/01/17 11:00 07/02/17 10: 28 Sod 3.375 gm/ Sodium Chloride IVPB 200 mls/hr Q8H [facility] Administration Multivitamins/Vitamin C 10 ml/ 1,011.2 mls @ 101.12 mls/hr 07/01/17 12:00 02:50 Thiamine HCl 100 mg/ Folic IV 101.12 mls/hr Acid 1 mg/ Sodium Chloride Q24H [facility] Administration Lactated Ringer's 1,000 mls @ 100 mls/hr 07/02/17 10:00 07/02/17 10:27 Lactated Ringer's IV 100 mls/hr .Q10H [facility]IN Administration Dexmedetomidine HCl 400 mcg/ 100 mls @ 6.85 mls/hr 07/02/17 11:30 07/02/17 12 :22 Sodium Chloride IV 1 mcg/kg/hr TITR PRN 34.25 mls/hr Agitation Administration Protocol 0.2 MCG/KG/HR Lisinopril 20 mg 06/24/17 10:00 07/02/17 10:06 Zestril PO Not Given DAILY EDIN [place] Carbonate 600 mg 06/29/17 14:00 07/02/17 09:18 [place] Carbonate 300mg PO 600 mg TID EDIN Administration Lorazepam 2 mg 06/30/17 21:30 07/02/17 08:35 Ativan IVP 2 mg Q6H EDIN Administration Lorazepam 2 mg 06/30/17 21:25 07/02/17 11:50 Ativan IVP 2 mg Q2H PRN Administration Agitation Metoprolol Tartrate 50 mg 06/23/17 16:12 07/02/17 10:06 Lopressor PO Not Given DAILY EDIN Pantoprazole Sodium 40 mg 07/01/17 10:00 07/02/17 09:18 Protonix Inj IVP 40 mg DAILY [facility] Administration Quetiapine Fumarate 300 mg 06/23/17 22:00 07/01/17 22:41 Seroquel PO 300 mg HS EDIN Administration Temazepam 15 mg 07/02/17 11:30 07/02/17 12:04 Restoril PO 15 mg Q12 [facility]IN Administration Thiamine HCl 200 mg 07/02/17 10:00 07/02/17 12:16 Vitamin B1 Inj IV 200 mg TID EDIN Administration Trazodone HCl 50 mg 06/25/17 13:15 06/29/17 21:14 Desyrel PO 50 mg HS PRN Administration Insomnia - Patient Studies Lab Studies: Microbiology Studies 07/01/17 09:26 Urine Culture - Final Urine,Catheterized No Growth (<1,000 CFU/ML) 07/01/17 07:33 Blood Culture - Preliminary Blood-Venous NO GROWTH AFTER 24 HOURS 07/01/17 07:33 Blood Culture - Preliminary Blood-Venous NO GROWTH AFTER 24 HOURS Lab Studies 07/02/17 07/02/17 07/01/17 Range/Units 06:32 06:30 09:00 WBC 10.6 (4.8-10.8) K/uL RBC 3.43 L (4.40-5.90) Mil/uL Hgb 11.7 L D (12.0-18.0) g/dL Hct 34.4 L (35.0-51.0) % MCV 100.2 H (80.0-94.0) fL MCH 34.2 H (27.0-31.0) pg MCHC 34.1 (33.0-37.0) g/dL RDW 15.4 H (11.5-14.5) % Plt Count 376 (130-400) K/uL MPV 7.6 (7.2-11.7) fL Neut % (Auto) 70.4 (50.0-75.0) % Lymph % (Auto) 14.1 L (20.0-40.0) % Stewart % (Auto) 11.2 H (0.0-10.0) % Eos % (Auto) 3.2 (0.0-4.0) % Baso % (Auto) 1.1 (0.0-2.0) % Neut # (Auto) 7.5 H (1.8-7.0) K/uL Lymph # (Auto) 1.5 (1.0-4.3) K/uL Stewart # (Auto) 1.2 H (0.0-0.8) K/uL Eos # (Auto) 0.3 (0.0-0.7) K/uL Baso # (Auto) 0.1 (0.0-0.2) K/uL Sodium 138 (132-148) mmol/L Potassium 4.4 (3.6-5.2) mmol/L Chloride 106 (98-107) mmol/L Carbon Dioxide 24 (22-30) mmol/L Anion Gap 13 (10-20) BUN 24 H (9-20) mg/dL Creatinine 2.0 H (0.8-1.5) mg/dL Est GFR ( Amer) 43 Est GFR (Non-Af Amer) 35 Random Glucose 100 (75-110) mg/dL Calcium 9.2 (8.6-10.4) mg/dl Phosphorus 4.0 (2.5-4.5) mg/dL Magnesium 2.4 H (1.6-2.3) mg/dL Total Bilirubin 1.9 H (0.2-1.3) mg/dL AST 304 H D (17-59) U/L ALT 170 H D (21-72) U/L Alkaline Phosphatase 88 (38-126) U/L Total Protein 7.1 (6.3-8.3) g/dL Albumin 3.4 L D (3.5-5.0) g/dL Globulin 3.7 (2.2-3.9) gm/dL Albumin/Globulin Ratio 0.9 L (1.0-2.1) RPR Nonreactive (NONREACTIVE) Laboratory Results - last 24 hr 07/01/17 07/02/17 07/02/17 09:00 06:30 06:32 WBC 10.6 RBC 3.43 L Hgb 11.7 L D Hct 34.4 L MCV 100.2 H MCH 34.2 H MCHC 34.1 RDW 15.4 H Plt Count 376 MPV 7.6 Neut % (Auto) 70.4 Lymph % (Auto) 14.1 L Stewart % (Auto) 11.2 H Eos % (Auto) 3.2 Baso % (Auto) 1.1 Neut # (Auto) 7.5 H Lymph # (Auto) 1.5 Stewart # (Auto) 1.2 H Eos # (Auto) 0.3 Baso # (Auto) 0.1 Sodium 138 Potassium 4.4 Chloride 106 Carbon Dioxide 24 Anion Gap 13 BUN 24 H Creatinine 2.0 H Est GFR ( Amer) 43 Est GFR (Non-Af Amer) 35 Random Glucose 100 Calcium 9.2 Phosphorus 4.0 Magnesium 2.4 H Total Bilirubin 1.9 H AST 304 H D ALT 170 H D Alkaline Phosphatase 88 Total Protein 7.1 Albumin 3.4 L D Globulin 3.7 Albumin/Globulin Ratio 0.9 L RPR Nonreactive Critical Care Progress Note - Nutrition Nutrition: Nutrition Category Date Time Status Cardiac [Heart Healthy Diet] [DIET] Diets 07/02/17 Lunch Active Assessment/Plan - Assessment and Plan (Free Text) Assessment: Patient is a 51 year-old male with a past medical history of anxiety and depression who presented to the ER via EMS after being found with an altered mental status at home. He was transferred to ICU from the medical/surgical floor after becoming acutely tachycardic and hypoxemic. Plan: Neuro/Psych: Anxiety, Depression, BZD/etOH w/d, sz precautions - Seroquel 300mg PO qhs - Haldol 5mg, not given - Desyrel 50mg PO qhs PRN - Gabapentin 300 mg PO TID - [place] Carbonate 300mg x2; 600mg PO TID ([Li] = 0.9 on 07/01) - Ativan 2mg IVP q2h PRN for anxiety - Ativan 2mg IVP q6h - APAP 650mg LA q6h PRN - Precedex 200mcg in 0.9%NaCl @ titrated dose 0.2mcg/kg/hr to 6.85 ml/hr; cross- titrate precedex with tempazepam to therapeutic range before d/c-ing precedex ( use lorazepam if temazepam unavailable) - Temazepam 15mg PO q12 instead of Ativan for w/d s/sx 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 - ASA 81mg PO qd ID: ?sepsis - Zosyn 3.375g in 0.9%NaCl @ 200ml/hr IVPB q8h - UA/UC - negative for growth - Blood (venous) culture negative x2 at 24h - RPR nonreactive; Hep panel negative; HIV negative PPx: skin care; vitamin nutrition/diet - Cortizone 1% cream - Lotrimin 1% - Drisdol 50,000IU PO qwk - Protonix 40mg IVP qd - Multivitamin VitB1 100mg, Folic Acid 1mg in 0.9%NaCl @ 101.12 ml/hr IV qd - Heparin 5000u sc q8h - LR @ 100ml/hr IV q10h - HOB @ 30" <Russell Gruber - Last Filed: 07/02/17 18:57> CCU Objective - Vital Signs / Intake & Output Vital Signs (Last 4 hours): Vital Signs Temp Pulse Resp BP Pulse Ox 07/02/17 18:20 61 21 98 07/02/17 18:10 55 L 26 H 98 07/02/17 18:00 59 L 20 97 07/02/17 17:34 58 L 22 148/83 97 07/02/17 17:10 60 23 97 07/02/17 16:40 60 24 96 07/02/17 16:34 130/95 H 07/02/17 16:30 62 25 H 96 07/02/17 16:00 99.3 F 97 07/02/17 15:50 60 24 96 07/02/17 15:40 60 22 96 07/02/17 15:34 61 22 154/91 H 97 07/02/17 15:30 60 21 96 07/02/17 15:20 67 15 96 07/02/17 15:10 73 22 95 07/02/17 15:00 63 21 96 Intake and Output (Last 8hrs): Intake & Output 07/02/17 07/02/17 07/02/17 06:59 14:59 22:59 Intake Total 800 1601.6 1858.4 Output Total 1000 1000 300 Balance -200 601.6 1558.4 Intake: IV 240 Intake, IV Amount 800 1281.6 898.4 Left Antecubital 81.6 98.4 Left Forearm 800 100 Left Hand 700 400 Left hand 2 400 400 Oral 320 720 Output: Urine 1000 1000 300 Urethral (Acosta) 1000 1000 300 Stool 0 0 - Medications Active Medications: Active Medications Generic Name Dose Route Start Last Admin Trade Name Freq PRN Reason Stop Dose Admin Acetaminophen 650 mg 07/01/17 09:28 07/01/17 09:36 Tylenol 650 Mg Supp LA 650 mg Q6 PRN Administration Fever >100.4 F Clotrimazole 0 gm 06/27/17 10:00 07/02/17 18:05 Lotrimin 1% TOP 1 applic BID EDIN Administration Ergocalciferol 1 cap 06/30/17 10:00 06/30/17 09:44 Drisdol 50,000 Intl Units Cap PO 1 cap QWK EDIN Administration Heparin Sodium (Porcine) 5,000 units 07/01/17 22:00 07/02/17 13:18 Heparin SC 5,000 units Q8 EDIN Administration Hydrocortisone 0 gm 06/27/17 10:00 07/02/17 18:06 Cortizone 1% Cream TOP 1 applic BID EDIN Administration Multivitamins/Vitamin C 10 ml/ 1,011.2 mls @ 101.12 mls/hr 07/01/17 12:00 13:08 Thiamine HCl 100 mg/ Folic IV 101.12 mls/hr Acid 1 mg/ Sodium Chloride Q24H EDIN Administration Lactated Ringer's 1,000 mls @ 100 mls/hr 07/02/17 10:00 07/02/17 10:27 Lactated Ringer's IV 100 mls/hr .Q10H EDIN Administration Dexmedetomidine HCl 400 mcg/ 100 mls @ 6.85 mls/hr 07/02/17 11:30 07/02/17 17 :47 Sodium Chloride IV 1 mcg/kg/hr TITR PRN 34.25 mls/hr Agitation Titration Protocol 0.2 MCG/KG/HR Piperacillin Sod/Tazobactam Sod 3.375 gm in 50 mls @ 100 mls/hr 07/02/17 19: 00 Zosyn 3.375 Gm Iv Premix IVPB Q8H EDIN Lisinopril 20 mg 06/24/17 10:00 07/02/17 10:06 Zestril PO Not Given DAILY [facility] [place] Carbonate 600 mg 06/29/17 14:00 07/02/17 18:06 [place] Carbonate 300mg PO 600 mg TID EDIN Administration Lorazepam 2 mg 06/30/17 21:25 07/02/17 18:31 Ativan IVP 2 mg Q2H PRN Administration Agitation Metoprolol Tartrate 50 mg 06/23/17 16:12 07/02/17 10:06 Lopressor PO Not Given DAILY EDIN Pantoprazole Sodium 40 mg 07/01/17 10:00 07/02/17 09:18 Protonix Inj IVP 40 mg DAILY [facility] Administration Temazepam 15 mg 07/02/17 11:30 07/02/17 12:04 Restoril PO 15 mg Q12 EDIN Administration Thiamine HCl 200 mg 07/02/17 10:00 07/02/17 18:15 Vitamin B1 Inj IV 200 mg TID EDIN Administration - Patient Studies Lab Studies: Microbiology Studies 07/01/17 09:26 Urine Culture - Final Urine,Catheterized No Growth (<1,000 CFU/ML) 07/01/17 07:33 Blood Culture - Preliminary Blood-Venous NO GROWTH AFTER 24 HOURS 07/01/17 07:33 Blood Culture - Preliminary Blood-Venous NO GROWTH AFTER 24 HOURS Lab Studies 07/02/17 07/02/17 07/02/17 Range/Units 12:32 06:32 06:30 WBC 10.6 (4.8-10.8) K/uL RBC 3.43 L (4.40-5.90) Mil/uL Hgb 11.7 L D (12.0-18.0) g/dL Hct 34.4 L (35.0-51.0) % MCV 100.2 H (80.0-94.0) fL MCH 34.2 H (27.0-31.0) pg MCHC 34.1 (33.0-37.0) g/dL RDW 15.4 H (11.5-14.5) % Plt Count 376 (130-400) K/uL MPV 7.6 (7.2-11.7) fL Neut % (Auto) 70.4 (50.0-75.0) % Lymph % (Auto) 14.1 L (20.0-40.0) % Stewart % (Auto) 11.2 H (0.0-10.0) % Eos % (Auto) 3.2 (0.0-4.0) % Baso % (Auto) 1.1 (0.0-2.0) % Neut # (Auto) 7.5 H (1.8-7.0) K/uL Lymph # (Auto) 1.5 (1.0-4.3) K/uL Stewart # (Auto) 1.2 H (0.0-0.8) K/uL Eos # (Auto) 0.3 (0.0-0.7) K/uL Baso # (Auto) 0.1 (0.0-0.2) K/uL Sodium 138 (132-148) mmol/L Potassium 4.4 (3.6-5.2) mmol/L Chloride 106 (98-107) mmol/L Carbon Dioxide 24 (22-30) mmol/L Anion Gap 13 (10-20) BUN 24 H (9-20) mg/dL Creatinine 2.0 H (0.8-1.5) mg/dL Est GFR ( Amer) 43 Est GFR (Non-Af Amer) 35 Random Glucose 100 (75-110) mg/dL Calcium 9.2 (8.6-10.4) mg/dl Phosphorus 4.0 (2.5-4.5) mg/dL Magnesium 2.4 H (1.6-2.3) mg/dL Total Bilirubin 1.9 H (0.2-1.3) mg/dL AST 304 H D (17-59) U/L ALT 170 H D (21-72) U/L Alkaline Phosphatase 88 (38-126) U/L Total Protein 7.1 (6.3-8.3) g/dL Albumin 3.4 L D (3.5-5.0) g/dL Globulin 3.7 (2.2-3.9) gm/dL Albumin/Globulin Ratio 0.9 L (1.0-2.1) Urine Osmolality 612 (300-1000) mosm/kg Ur Random Sodium 163 mmol/L Laboratory Results - last 24 hr 07/02/17 07/02/17 07/02/17 06:30 06:32 12:32 WBC 10.6 RBC 3.43 L Hgb 11.7 L D Hct 34.4 L MCV 100.2 H MCH 34.2 H MCHC 34.1 RDW 15.4 H Plt Count 376 MPV 7.6 Neut % (Auto) 70.4 Lymph % (Auto) 14.1 L Stewart % (Auto) 11.2 H Eos % (Auto) 3.2 Baso % (Auto) 1.1 Neut # (Auto) 7.5 H Lymph # (Auto) 1.5 Stewart # (Auto) 1.2 H Eos # (Auto) 0.3 Baso # (Auto) 0.1 Sodium 138 Potassium 4.4 Chloride 106 Carbon Dioxide 24 Anion Gap 13 BUN 24 H Creatinine 2.0 H Est GFR ( Amer) 43 Est GFR (Non-Af Amer) 35 Random Glucose 100 Calcium 9.2 Phosphorus 4.0 Magnesium 2.4 H Total Bilirubin 1.9 H AST 304 H D ALT 170 H D Alkaline Phosphatase 88 Total Protein 7.1 Albumin 3.4 L D Globulin 3.7 Albumin/Globulin Ratio 0.9 L Urine Osmolality 612 Ur Random Sodium 163 Critical Care Progress Note - Nutrition Nutrition: Nutrition Category Date Time Status Cardiac [Heart Healthy Diet] [DIET] Diets 07/02/17 Lunch Active Assessment/Plan - Assessment and Plan (Free Text) Plan: Patient withdrawing from ETOH use/abue. -ASt ASLT high -replaced all electrolytes -provide high dose thiamine 200 mg q8hrs -add long acting benzo (not metablized in liver) and titrate off precedex -aspiration precautions -continue to monitor -Patient remains in DTs, will load with long acting benzo -continue bananna bag. - Date & Time Date: 07/02/17 Time: 16:00
[2017-07-02 13:06] LABS: OSMOLALITY,URINE 612 mosm/kg (300-1000)
--- NOTE | 2017-07-02 16:35 | PCM.PYCHPN ---
Psychiatric Progress Note - Psychiatric Progress Note Patient seen today, length of contact: 16 min Patient Chief Complaint: "I'm very anxious, I'm not good- give me some xanax or something!" Problems Identified/Issues Discussed: Patient seen and evaluated, chart reviewed and discussed with the nurse. Patient remained disoriented to time place and person. He was transferred to the ICU because of worsening of delirium. He had shakes and tremors. Pt was under the effects of the meds. However he denies any auditory or visual hallucinations. He is compliant with the medications and denies any side effects. He needs more time for stabilization Medication Change: Yes (ativan taper, start Orr) Medical Record Reviewed: Yes Mental Status Examination - Cognitive Function Orientation: Person, Place, Situation, Time Memory: Intact Attention: WNL Concentration: Poor Association: WNL Fund of Knowledge: Poor - Mood Mood: Depressed, Anxious - Affect Affect: Constricted, Depressed - Speech Speech: Loud, Pressured - Formal Thought Process Formal Thought Process: No Impairment - Suicidal Ideation Suicidal Ideation: No - Homicidal Ideation Homicidal Ideation: No Goal/Treatment Plan - Goal/Treatment Plan Need for Continued Stay: Severe depression anxiety, Discharge may exacerbated symptoms, Severe functional impairment Progress Toward Problem(s) and Goals/Treatment Plan: Monitor patient's vital signs Monitor patient's mood and behavior Ativan taper hold Neurontin 300 mg by mouth 3 times a day Orr 300 mg pO TID hold Trazodone 50 mg by mouth daily at bedtime hold Seroquel 300 mg PO QHS
[2017-07-02] MEDS: Piperacill/Tazo 3.375gm in Dex 3.375 GM/50 ML BAG IVPB SCH (18:56)
--- NOTE | 2017-07-02 19:24 | CP.PCM.CON ---
History of Present Illness - History of Present Illness History of Present Illness: pt is seen and examined, full consult is dictated #[id number] Past Patient History - Past Medical History & Family History Past Medical History?: Yes - Past Social History Smoking Status: Never Smoked - CARDIAC Hx Hypercholesterolemia: Yes Hx Hypertension: Yes - PULMONARY Hx Asthma: Yes - NEUROLOGICAL Hx Seizures: No - HEENT Hx HEENT Problems: No - RENAL Hx Chronic Kidney Disease: No - ENDOCRINE/METABOLIC Hx Endocrine Disorders: No - HEMATOLOGICAL/ONCOLOGICAL Hx Human Immunodeficiency Virus (HIV): No - INTEGUMENTARY Hx Eczema: Yes - MUSCULOSKELETAL/RHEUMATOLOGICAL Hx Falls: Yes Hx Unsteady Gait: Yes - GASTROINTESTINAL Hx Gastrointestinal Disorders: No Hx Fatty Liver Disease: Yes - GENITOURINARY/GYNECOLOGICAL Hx Sexually Transmitted Disorders: No - PSYCHIATRIC Hx Substance Use: No - SURGICAL HISTORY Hx Surgeries: Yes (right pointer finger fixed due to deteriotion) - ANESTHESIA Hx Anesthesia: No Hx Anesthesia Reactions: No Meds Allergies/Adverse Reactions: Allergies Allergy/AdvReac Type Severity Reaction Status Date / Time peanut Allergy SWELLING Verified 06/22/17 04:18 - Medications Medications: Current Medications Acetaminophen (Tylenol 650 Mg Supp) 650 mg AR Q6 PRN PRN Reason: Fever >100.4 F Last Admin: 07/01/17 09:36 Dose: 650 mg Clotrimazole (Lotrimin 1%) 0 gm TOP BID [facility] Last Admin: 07/02/17 18:05 Dose: 1 applic Ergocalciferol (Drisdol 50,000 Intl Units Cap) 1 cap PO QWK [facility] Last Admin: 06/30/17 09:44 Dose: 1 cap Heparin Sodium (Porcine) (Heparin) 5,000 units SC Q8 [facility] Last Admin: 07/02/17 13:18 Dose: 5,000 units Hydrocortisone (Cortizone 1% Cream) 0 gm TOP BID [facility] Last Admin: 07/02/17 18:06 Dose: 1 applic Multivitamins/Vitamin C 10 ml/Thiamine HCl 100 mg/ Folic Acid 1 mg/ Sodium Chloride 1,011.2 mls @ 101.12 mls/hr IV Q24H [facility] Last Admin: 07/02/17 13:08 Dose: 101.12 mls/hr Lactated Ringer's (Lactated Ringer's) 1,000 mls @ 100 mls/hr IV .Q10H [facility] Last Admin: 07/02/17 10:27 Dose: 100 mls/hr Dexmedetomidine HCl 400 mcg/ (Sodium Chloride) 100 mls @ 6.85 mls/hr IV TITR PRN; Protocol; 0.2 MCG/KG/HR PRN Reason: Agitation Last Titration: 07/02/17 17:47 Dose: 1 mcg/kg/hr, 34.25 mls/hr Piperacillin Sod/Tazobactam Sod (Zosyn 3.375 Gm Iv Premix) 3.375 gm in 50 mls @ 100 mls/hr IVPB Q8H [facility] Last Admin: 07/02/17 18:56 Dose: 100 mls/hr Lisinopril (Zestril) 20 mg PO DAILY [facility] Last Admin: 07/02/17 10:06 Dose: Not Given [place] Carbonate ([place] Carbonate 300mg) 600 mg PO TID [facility] Last Admin: 07/02/17 18:06 Dose: 600 mg Lorazepam (Ativan) 2 mg IVP Q2H PRN PRN Reason: Agitation Last Admin: 07/02/17 18:31 Dose: 2 mg Metoprolol Tartrate (Lopressor) 50 mg PO DAILY [facility] Last Admin: 07/02/17 10:06 Dose: Not Given Pantoprazole Sodium (Protonix Inj) 40 mg IVP DAILY [facility] Last Admin: 07/02/17 09:18 Dose: 40 mg Temazepam (Restoril) 15 mg PO Q12 [facility] Last Admin: 07/02/17 12:04 Dose: 15 mg Thiamine HCl (Vitamin B1 Inj) 200 mg IV TID [facility] Last Admin: 07/02/17 18:15 Dose: 200 mg Results - Vital Signs Recent Vital Signs: Last Vital Signs Temp 99.3 F 07/02/17 16:00 Pulse 60 07/02/17 18:30 Resp 22 07/02/17 18:30 BP 166/99 H 07/02/17 18:34 Pulse Ox 97 07/02/17 18:30 - Labs Result Diagrams: 07/02/17 06:32 07/02/17 06:30 Labs: Laboratory Results - last 24 hr 07/02/17 07/02/17 07/02/17 06:30 06:32 12:32 WBC 10.6 RBC 3.43 L Hgb 11.7 L D Hct 34.4 L MCV 100.2 H MCH 34.2 H MCHC 34.1 RDW 15.4 H Plt Count 376 MPV 7.6 Neut % (Auto) 70.4 Lymph % (Auto) 14.1 L [place] % (Auto) 11.2 H Eos % (Auto) 3.2 Baso % (Auto) 1.1 Neut # (Auto) 7.5 H Lymph # (Auto) 1.5 [place] # (Auto) 1.2 H Eos # (Auto) 0.3 Baso # (Auto) 0.1 Sodium 138 Potassium 4.4 Chloride 106 Carbon Dioxide 24 Anion Gap 13 BUN 24 H Creatinine 2.0 H Est GFR ( Amer) 43 Est GFR (Non-Af Amer) 35 Random Glucose 100 Calcium 9.2 Phosphorus 4.0 Magnesium 2.4 H Total Bilirubin 1.9 H AST 304 H D ALT 170 H D Alkaline Phosphatase 88 Total Protein 7.1 Albumin 3.4 L D Globulin 3.7 Albumin/Globulin Ratio 0.9 L Urine Osmolality 612 Ur Random Sodium 163
[2017-07-03] MEDS: Piperacill/Tazo 3.375gm in Dex 3.375 GM/50 ML BAG IVPB SCH ×4 (02:38→21:32)
[2017-07-03] MEDS: Lactated Ringer's 1,000 ML IV SCH ×3 (06:00→16:00)
[2017-07-03 06:26] LABS: BASO # 0.1 K/uL (0.0-0.2); BASO % 0.9 % (0.0-2.0); EOS # 0.4 K/uL (0.0-0.7); LYMPH % 10.5 % (20.0-40.0); MEAN CELL VOLUME 99.9 fL (80.0-94.0); MEAN CORPUSCULAR HEMOGLOBIN 33.6 pg (27.0-31.0); MEAN CORPUSCULAR HGB CONC 33.6 g/dL (33.0-37.0); MEAN PLATELET VOLUME 7.2 fL (7.2-11.7); MONO # 1.3 K/uL (0.0-0.8); MONO % 12.7 % (0.0-10.0); NEUT # 7.1 K/uL (1.8-7.0); NEUT % 71.9 % (50.0-75.0); RBC 3.57 Mil/uL (4.40-5.90); RED CELL DISTRIBUTION WIDTH 14.9 % (11.5-14.5); WHITE BLOOD COUNT 9.9 K/uL (4.8-10.8)
[2017-07-03 06:53] LABS: ALBUMIN 3.4 g/dL (3.5-5.0); ALT/SGPT 146 U/L (21-72); AST/SGOT 212 U/L (17-59); BLOOD UREA NITROGEN 16 mg/dL (9-20); CALCIUM 9.4 mg/dl (8.6-10.4); GFR AFRICAN-AMERICAN > 60; GFR NON-AFRICAN AMERICAN 53
[2017-07-03] MEDS: Dexmedetomidine Hydrochloride 400 MCG in Sodium Chloride 0.9% 96 ML IV PRN (08:07)
[2017-07-03] MEDS ORDERED: DiphenhydrAMINE 50 mg/ml Inj IVP STA ×2 (09:40→09:47)
[2017-07-03] MEDS: Thiamine 100 mg/ml Inj IV SCH ×3 (09:54→17:30)
[2017-07-03] MEDS: Clotrimazole 1% Cream(30 gm) TOP SCH ×2 (10:23→17:32)
[2017-07-03] MEDS: Hydrocortisone 1% Cream (30 GM) TOP SCH ×2 (10:23→17:32)
[2017-07-03 10:28] LABS: ABG ALLEN TEST PO; ARTERIAL BLOOD GAS HCO3 17.4 mmol/L (21-28); ARTERIAL BLOOD GAS O2 SAT 73.7 % (95-98); ARTERIAL BLOOD GAS PCO2 18 mm/Hg (35-45); ARTERIAL BLOOD GAS PH 7.46 (7.35-7.45); ARTERIAL BLOOD GAS PO2 29 mm/Hg (80-100); ARTERIAL BLOOD GAS TCO2 13.4 mmol/L (22-28)
[2017-07-03] MEDS: QUEtiapine 200 mg XR Tab PO SCH (10:45)
--- NOTE | 2017-07-03 10:54 | RAD ---
HISTORY: eval lungs COMPARISON: Comparison is made with 07/01/2017 FINDINGS: LUNGS: No evidence of new infiltrate or consolidation in the lungs. PLEURA: No significant pleural effusion identified, no pneumothorax apparent. CARDIOVASCULAR: Normal. OSSEOUS STRUCTURES: No significant abnormalities. VISUALIZED UPPER ABDOMEN: Normal. OTHER FINDINGS: None. IMPRESSION: No significant interval change in the lungs.
[2017-07-03] MEDS: Albuterol-Ipratrop 3 mg / 0.5 (3 ml) UD INH SCH ×3 (11:27→20:03)
[2017-07-03] MEDS ORDERED: diaZEpam 10 mg/2 ml Inj IVP ONE (11:40)
[2017-07-03] MEDS ORDERED: Propofol 10 mg/ml 1,000 MG/100 ML VIAL IV PRN (11:47)
[2017-07-03] MEDS ORDERED: Propofol 10 mg/ml Inj (20 ML) ONE (11:52)
[2017-07-03] MEDS ORDERED: Sodium Chloride 0.9% 1,000 ML IV ONE ×2 (12:00→12:42)
[2017-07-03] MEDS ORDERED: Lactated Ringer's 1,000 ML IV ONE ×2 (12:10→12:11)
[2017-07-03] MEDS: Propofol 10 mg/ml 1,000 MG/100 ML VIAL IV PRN ×4 (12:15→23:18)
--- NOTE | 2017-07-03 12:20 | CP.CCUPN ---
CCU Subjective - Physician Review Subjective (Free Text): Patient had withdrawal in AM, despite as per nursing patient received 2 mg of ativan q2hrs Critical Care Time Spent (in minutes): 40 CCU Objective - Vital Signs / Intake & Output Vital Signs (Last 4 hours): Vital Signs Pulse Resp BP Pulse Ox 07/03/17 10:30 89 43 H 97 07/03/17 10:00 75 33 H 100 07/03/17 09:46 68 43 H 153/81 H 100 07/03/17 09:35 115 H 33 H 155/74 H 100 07/03/17 09:00 84 26 H 98 07/03/17 08:36 82 18 121/97 H 100 Intake and Output (Last 8hrs): Intake & Output 07/02/17 07/03/17 07/03/17 22:59 06:59 14:59 Intake Total 3202.5 1705.6 773.7 Output Total 580 1440 1500 Balance 2622.5 265.6 -726.3 Intake: IV 300 0 113 Intake, IV Amount 1782.5 1075.6 420.7 Left Antecubital 182.5 75.6 20.7 Left Hand 800 200 Left hand 2 800 800 400 Oral 1120 630 240 Output: Urine 580 1440 1500 Urethral (Acosta) 580 1440 1500 Other: # Bowel Movements 0 0 0 - Physical Exam Physical Exam Limitations: Positive for: Altered Mental Status, Uncooperative Head: Positive for: Atraumatic, Normocephalic Pupils: Positive for: PERRL Extroacular Muscles: Positive for: EOMI Conjunctiva: Positive for: Normal Mouth: Positive for: Moist Mucous Membranes Neck: Positive for: Normal Range of Motion. Negative for: Meningeal Signs, JVD Respiratory/Chest: Positive for: Clear to Auscultation Cardiovascular: Positive for: Regular Rate and Rhythm, Normal S1, S2 Abdomen: Positive for: Normal Bowel Sounds Upper Extremity: Positive for: Normal Inspection. Negative for: Edema Lower Extremity: Positive for: Edema Skin: Positive for: Warm, Dry - Medications Active Medications: Active Medications Generic Name Dose Route Start Last Admin Trade Name Freq PRN Reason Stop Dose Admin Acetaminophen 650 mg 07/01/17 09:28 07/01/17 09:36 Tylenol 650 Mg Supp [place] 650 mg Q6 PRN Administration Fever >100.4 F Albuterol/Ipratropium 3 ml 07/03/17 12:00 Duoneb 3 Mg/0.5 Mg (3 Ml) Ud INH RQ4 EDIN Clotrimazole 0 gm 06/27/17 10:00 07/03/17 10:23 Lotrimin 1% TOP 1 applic BID EDIN Administration Ergocalciferol 1 cap 06/30/17 10:00 06/30/17 09:44 Drisdol 50,000 Intl Units Cap PO 1 cap QWK EDIN Administration Heparin Sodium (Porcine) 5,000 units 07/01/17 22:00 07/03/17 05:04 Heparin SC 5,000 units Q8 EDIN Administration Hydrocortisone 0 gm 06/27/17 10:00 07/03/17 10:23 Cortizone 1% Cream TOP 1 applic BID EDIN Administration Multivitamins/Vitamin C 10 ml/ 1,011.2 mls @ 101.12 mls/hr 07/01/17 12:00 13:08 Thiamine HCl 100 mg/ Folic IV 101.12 mls/hr Acid 1 mg/ Sodium Chloride Q24H EDIN Administration Lactated Ringer's 1,000 mls @ 100 mls/hr 07/02/17 10:00 07/03/17 06:00 Lactated Ringer's IV Not Given .Q10H EDIN Piperacillin Sod/Tazobactam Sod 3.375 gm in 50 mls @ 100 mls/hr 07/02/17 19: 00 07/03/17 10:10 Zosyn 3.375 Gm Iv Premix IVPB 100 mls/hr Q8H EDIN Administration Propofol 1,000 mg in 100 mls @ 4.11 mls/hr 07/03/17 11:47 Diprivan IV 07/10/17 11:48 .Q24H PRN Agitation Protocol 5 MCG/KG/MIN Propofol 1,000 mg in 100 mls @ 4.11 mls/hr 07/03/17 12:07 Diprivan IV .Q24H PRN TITRATE PER MD ORDER Protocol 5 MCG/KG/MIN Lactated Ringer's 1,000 mls @ 1,000 mls/hr 07/03/17 12:10 Lactated Ringer's IV 07/03/17 13:09 .Q1H ONE Lactated Ringer's 1,000 mls @ 1,000 mls/hr 07/03/17 12:11 Lactated Ringer's IV 07/03/17 13:10 .Q1H ONE [place] Carbonate 600 mg 06/29/17 14:00 07/03/17 10:22 [place] Carbonate 300mg PO 600 mg TID EDIN Administration Lorazepam 2 mg 06/30/17 21:25 07/03/17 08:06 Ativan IVP 2 mg Q2H PRN Administration Agitation Lorazepam 4 mg 07/03/17 11:41 Ativan IVP 07/03/17 11:42 STAT STA Lorazepam 4 mg 07/03/17 11:45 Ativan IVP 07/03/17 11:46 ONCE ONE Methylprednisolone 60 mg 07/03/17 12:00 Solu-Medrol IVP Q6 EDIN Metoprolol Tartrate 50 mg 06/23/17 16:12 07/03/17 10:22 Lopressor PO 50 mg DAILY EDIN Administration Pantoprazole Sodium 40 mg 07/01/17 10:00 07/03/17 09:53 Protonix Inj IVP 40 mg DAILY EDIN Administration Quetiapine Fumarate 200 mg 07/03/17 10:15 07/03/17 10:45 Seroquel Xr PO 200 mg DAILY EDIN Administration Temazepam 15 mg 07/02/17 11:30 07/03/17 10:22 Restoril PO 15 mg Q12 EDIN Administration Thiamine HCl 200 mg 07/02/17 10:00 07/03/17 09:54 Vitamin B1 Inj IV 200 mg TID EDIN Administration - Patient Studies Lab Studies: Microbiology Studies 07/01/17 07:33 Blood Culture - Preliminary Blood-Venous NO GROWTH AFTER 48 HOURS 07/01/17 07:33 Blood Culture - Preliminary Blood-Venous NO GROWTH AFTER 48 HOURS 07/01/17 09:26 Urine Culture - Final Urine,Catheterized No Growth (<1,000 CFU/ML) Lab Studies 07/03/17 07/03/17 07/03/17 Range/Units 10:12 06:21 06:21 WBC 9.9 (4.8-10.8) K/uL RBC 3.57 L (4.40-5.90) Mil/uL Hgb 12.0 (12.0-18.0) g/dL Hct 35.7 (35.0-51.0) % MCV 99.9 H (80.0-94.0) fL MCH 33.6 H (27.0-31.0) pg MCHC 33.6 (33.0-37.0) g/dL RDW 14.9 H (11.5-14.5) % Plt Count 356 (130-400) K/uL MPV 7.2 (7.2-11.7) fL Neut % (Auto) 71.9 (50.0-75.0) % Lymph % (Auto) 10.5 L (20.0-40.0) % Wallace % (Auto) 12.7 H (0.0-10.0) % Eos % (Auto) 4.0 (0.0-4.0) % Baso % (Auto) 0.9 (0.0-2.0) % Neut # (Auto) 7.1 H (1.8-7.0) K/uL Lymph # (Auto) 1.0 (1.0-4.3) K/uL Wallace # (Auto) 1.3 H (0.0-0.8) K/uL Eos # (Auto) 0.4 (0.0-0.7) K/uL Baso # (Auto) 0.1 (0.0-0.2) K/uL Puncture Site Lra pCO2 18 L* (35-45) mm/Hg pO2 29 L* (80-100) mm/Hg HCO3 17.4 L (21-28) mmol/L ABG pH 7.46 H (7.35-7.45) ABG Total CO2 13.4 L (22-28) mmol/L ABG O2 Saturation 73.7 L (95-98) % ABG Base Excess -8.4 L (-2.0-3.0) mmol/L Chance Test Po ABG Potassium 2.2 L* (3.6-5.2) mmol/L A-a O2 Difference 98.0 mm/Hg Respiratory Index 3.4 Glucose 45 L (75-110) mg/dl Lactate 1.7 (0.7-2.1) mmol/L FiO2 21.0 % Crit Value Called To Dr.pater Crit Value Called By Compa mckeon,special police Crit Value Read Back Y Blood Gas Notified Time 1030 Sodium 149.0 H 135 (132-148) mmol/L Potassium 4.6 (3.6-5.2) mmol/L Chloride 123.0 H 103 (98-107) mmol/L Carbon Dioxide 27 (22-30) mmol/L Anion Gap 9 L (10-20) BUN 16 (9-20) mg/dL Creatinine 1.4 (0.8-1.5) mg/dL Est GFR ( Amer) > 60 Est GFR (Non-Af Amer) 53 Random Glucose 106 (75-110) mg/dL Calcium 9.4 (8.6-10.4) mg/dl Phosphorus 2.9 (2.5-4.5) mg/dL Magnesium 2.0 (1.6-2.3) mg/dL Total Bilirubin 1.8 H (0.2-1.3) mg/dL AST 212 H D (17-59) U/L ALT 146 H (21-72) U/L Alkaline Phosphatase 88 (38-126) U/L Total Creatine Kinase 2733 H (55-170) U/L CK-MB (Mass) 2.10 (0.0-3.38) ng/mL Troponin I < 0.0120 (0.00-0.120) ng/mL Total Protein 6.9 (6.3-8.3) g/dL Albumin 3.4 L (3.5-5.0) g/dL Globulin 3.5 (2.2-3.9) gm/dL Albumin/Globulin Ratio 1.0 (1.0-2.1) Arterial Blood Potassium 2.2 L* (3.6-5.2) mmol/L Urine Osmolality (300-1000) mosm/kg Ur Random Sodium mmol/L Urine Chloride (32-290) mmol/L 07/02/17 07/02/17 Range/Units 12:32 12:32 WBC (4.8-10.8) K/uL RBC (4.40-5.90) Mil/uL Hgb (12.0-18.0) g/dL Hct (35.0-51.0) % MCV (80.0-94.0) fL MCH (27.0-31.0) pg MCHC (33.0-37.0) g/dL RDW (11.5-14.5) % Plt Count (130-400) K/uL MPV (7.2-11.7) fL Neut % (Auto) (50.0-75.0) % Lymph % (Auto) (20.0-40.0) % Wallace % (Auto) (0.0-10.0) % Eos % (Auto) (0.0-4.0) % Baso % (Auto) (0.0-2.0) % Neut # (Auto) (1.8-7.0) K/uL Lymph # (Auto) (1.0-4.3) K/uL Wallace # (Auto) (0.0-0.8) K/uL Eos # (Auto) (0.0-0.7) K/uL Baso # (Auto) (0.0-0.2) K/uL Puncture Site pCO2 (35-45) mm/Hg pO2 (80-100) mm/Hg HCO3 (21-28) mmol/L ABG pH (7.35-7.45) ABG Total CO2 (22-28) mmol/L ABG O2 Saturation (95-98) % ABG Base Excess (-2.0-3.0) mmol/L Chance Test ABG Potassium (3.6-5.2) mmol/L A-a O2 Difference mm/Hg Respiratory Index Glucose (75-110) mg/dl Lactate (0.7-2.1) mmol/L FiO2 % Crit Value Called To Crit Value Called By Crit Value Read Back Blood Gas Notified Time Sodium (132-148) mmol/L Potassium (3.6-5.2) mmol/L Chloride (98-107) mmol/L Carbon Dioxide (22-30) mmol/L Anion Gap (10-20) BUN (9-20) mg/dL Creatinine (0.8-1.5) mg/dL Est GFR ( Amer) Est GFR (Non-Af Amer) Random Glucose (75-110) mg/dL Calcium (8.6-10.4) mg/dl Phosphorus (2.5-4.5) mg/dL Magnesium (1.6-2.3) mg/dL Total Bilirubin (0.2-1.3) mg/dL AST (17-59) U/L ALT (21-72) U/L Alkaline Phosphatase (38-126) U/L Total Creatine Kinase (55-170) U/L CK-MB (Mass) (0.0-3.38) ng/mL Troponin I (0.00-0.120) ng/mL Total Protein (6.3-8.3) g/dL Albumin (3.5-5.0) g/dL Globulin (2.2-3.9) gm/dL Albumin/Globulin Ratio (1.0-2.1) Arterial Blood Potassium (3.6-5.2) mmol/L Urine Osmolality 612 (300-1000) mosm/kg Ur Random Sodium 163 mmol/L Urine Chloride 161 (32-290) mmol/L Laboratory Results - last 24 hr 07/02/17 07/02/17 07/03/17 12:32 12:32 06:21 WBC RBC Hgb Hct MCV MCH MCHC RDW Plt Count MPV Neut % (Auto) Lymph % (Auto) Wallace % (Auto) Eos % (Auto) Baso % (Auto) Neut # (Auto) Lymph # (Auto) Wallace # (Auto) Eos # (Auto) Baso # (Auto) Puncture Site pCO2 pO2 HCO3 ABG pH ABG Total CO2 ABG O2 Saturation ABG Base Excess Chance Test ABG Potassium A-a O2 Difference Respiratory Index Glucose Lactate FiO2 Crit Value Called To Crit Value Called By Crit Value Read Back Blood Gas Notified Time Sodium 135 Potassium 4.6 Chloride 103 Carbon Dioxide 27 Anion Gap 9 L BUN 16 Creatinine 1.4 Est GFR ( Amer) > 60 Est GFR (Non-Af Amer) 53 Random Glucose 106 Calcium 9.4 Phosphorus 2.9 Magnesium 2.0 Total Bilirubin 1.8 H AST 212 H D ALT 146 H Alkaline Phosphatase 88 Total Creatine Kinase 2733 H CK-MB (Mass) 2.10 Troponin I < 0.0120 Total Protein 6.9 Albumin 3.4 L Globulin 3.5 Albumin/Globulin Ratio 1.0 Arterial Blood Potassium Urine Osmolality 612 Ur Random Sodium 163 Urine Chloride 161 07/03/17 07/03/17 06:21 10:12 WBC 9.9 RBC 3.57 L Hgb 12.0 Hct 35.7 MCV 99.9 H MCH 33.6 H MCHC 33.6 RDW 14.9 H Plt Count 356 MPV 7.2 Neut % (Auto) 71.9 Lymph % (Auto) 10.5 L Wallace % (Auto) 12.7 H Eos % (Auto) 4.0 Baso % (Auto) 0.9 Neut # (Auto) 7.1 H Lymph # (Auto) 1.0 Wallace # (Auto) 1.3 H Eos # (Auto) 0.4 Baso # (Auto) 0.1 Puncture Site Lra pCO2 18 L* pO2 29 L* HCO3 17.4 L ABG pH 7.46 H ABG Total CO2 13.4 L ABG O2 Saturation 73.7 L ABG Base Excess -8.4 L Chance Test Po ABG Potassium 2.2 L* A-a O2 Difference 98.0 Respiratory Index 3.4 Glucose 45 L Lactate 1.7 FiO2 21.0 Crit Value Called To Dr.pater Crit Value Called By Compa mckeon,prosper Crit Value Read Back Y Blood Gas Notified Time 1030 Sodium 149.0 H Potassium Chloride 123.0 H Carbon Dioxide Anion Gap BUN Creatinine Est GFR ( Amer) Est GFR (Non-Af Amer) Random Glucose Calcium Phosphorus Magnesium Total Bilirubin AST ALT Alkaline Phosphatase Total Creatine Kinase CK-MB (Mass) Troponin I Total Protein Albumin Globulin Albumin/Globulin Ratio Arterial Blood Potassium 2.2 L* Urine Osmolality Ur Random Sodium Urine Chloride Critical Care Progress Note - Nutrition Nutrition: Nutrition Category Date Time Status Cardiac [Heart Healthy Diet] [DIET] Diets 07/02/17 Lunch Active Assessment/Plan - Assessment and Plan (Free Text) Plan: Acute withdrawal: pushed total of 8 mg of ativan and patient was still with withdrawal, pushed 10 ml of popofol to stop the signs of withdrawal. -unable to provide oral long acting benzo via NG tube while in active withdrawal. -decision made to place a new IV access and start IV propofol -Rhabdo: IV NS x2, continue LR, reepat ck -Fever: suspect aspiration, obtain sputum culture and stat vanco + zosyn cxr epnding, serial lactic -continue NG tube feeds -continue MVi supplementation -Patient reamins calm on ventilator -continue dvt/pud ppx cc time 40 minutes - Date & Time Date: 07/03/17 Time: 12:22
[2017-07-03] MEDS: MethylPREDNISolone 40 mg Vial IVP SCH ×2 (12:38→17:40)
[2017-07-03] MEDS ORDERED: Propofol 10 mg/ml Inj (20 ML) IV ONE (12:41)
[2017-07-03] MEDS ORDERED: Rocuronium 10 mg/ml (5 ml) IV ONE (12:41)
[2017-07-03 12:43] LABS: ABG ALLEN TEST PO; ARTERIAL BLOOD GAS HCO3 21.8 mmol/L (21-28); ARTERIAL BLOOD GAS O2 SAT 99.6 % (95-98); ARTERIAL BLOOD GAS PCO2 41 mm/Hg (35-45); ARTERIAL BLOOD GAS PH 7.33 (7.35-7.45); ARTERIAL BLOOD GAS PO2 211 mm/Hg (80-100); ARTERIAL BLOOD GAS TCO2 22.9 mmol/L (22-28)
[2017-07-03 13:00] LABS: ALB/GLOB RATIO 0.9 (1.0-2.1); ALBUMIN 3.4 g/dL (3.5-5.0); ALT/SGPT 140 U/L (21-72); AST/SGOT 191 U/L (17-59); BLOOD UREA NITROGEN 15 mg/dL (9-20); CALCIUM 9.2 mg/dl (8.6-10.4); GFR AFRICAN-AMERICAN > 60; GFR NON-AFRICAN AMERICAN 53; MAGNESIUM 1.6 mg/dL (1.6-2.3)
[2017-07-03] MEDS ORDERED: Vancomycin 1 gm/NS 200 ml 1 GM/200 ML BAG IVPB ONE (13:00)
[2017-07-03] MEDS: Multivitamin (MVI) 10 ML, Thiamine 100 MG, Folic Acid 1 MG in Sodium Chloride 0.9% 1,00... IV SCH (13:14)
[2017-07-03 13:17] LABS: SQUAMOUS EPITHIAL < 1 /hpf (0-5); URINE BILIRUBIN NEGATIVE (NEGATIVE); URINE BLOOD 1+ (NEGATIVE); URINE CLARITY Hazy (Clear); URINE COLOR Yellow (YELLOW); URINE GLUCOSE (UA) NORMAL (Normal); URINE LEUKOCYTE ESTERASE NEG Leu/uL (Negative); URINE NITRATE NEGATIVE (NEGATIVE); URINE PROTEIN NEGATIVE (NEGATIVE); URINE UROBILINOGEN NORMAL mg/dL (0.2-1.0)
--- NOTE | 2017-07-03 13:43 | RAD ---
HISTORY: intubation COMPARISON: Comparison is made with 07/03/2017 FINDINGS: LUNGS: The patient is status post intubation. Interval worsening of perihilar opacities and bilateral lower lobe opacities since the previous exam. The ET tube is seen at appropriate position. PLEURA: Blunting of the left costophrenic angle which could be due to small pleural effusion. CARDIOVASCULAR: Normal. OSSEOUS STRUCTURES: No significant abnormalities. VISUALIZED UPPER ABDOMEN: The NG tube seen extending to the abdomen. OTHER FINDINGS: None. IMPRESSION: Appropriate position of the ETT. Interval worsening of perihilar and lower lobes opacities since the previous exam.
--- NOTE | 2017-07-03 16:17 | US ---
HISTORY: increase T. lauri COMPARISON: Comparison is made with the previous study dated 02/24/2014 TECHNIQUE: Sonographic evaluation of the abdomen. FINDINGS: LIVER: Measures 21.5 cm. Heterogeneous increased echogenicity of the liver parenchyma. No mass. No intrahepatic bile duct dilatation. GALLBLADDER: Unremarkable. No gallstones. COMMON BILE DUCT: Measures 5 mm. No stones. No dilatation. PANCREAS: The pancreas is not well visualized due to overlying bowel gas. RIGHT KIDNEY: Measures 11.6 x 6 x 5.3cm. Normal echogenicity. No calculus, mass, or hydronephrosis. LEFT KIDNEY: Measures 12.6 x 5.7 x 5.9cm. Normal echogenicity. No calculus, mass, or hydronephrosis. SPLEEN: The spleen is not visualized. AORTA: The aorta is not well visualized. IVC: Unremarkable. OTHER FINDINGS: None. IMPRESSION: Heterogeneous increased echogenicity of the liver suggestive of liver parenchymal disease or steatosis. No evidence of cholelithiasis or cholecystitis. No evidence of biliary obstruction. The pancreas and spleen are not visualized due to overlying bowel gas.
--- NOTE | 2017-07-03 18:20 | CP.PCM.PN ---
Subjective - Date & Time of Evaluation Date of Evaluation: 07/03/17 Time of Evaluation: 18:19 - Subjective Subjective: pt is seen and examined, follow up consult is dictated #[id number] s/p intubation Objective - Vital Signs/Intake and Output Vital Signs (last 24 hours): Temp Pulse Resp BP Pulse Ox 100.1 F H 83 24 119/70 96 07/03/17 17:00 07/03/17 17:18 07/03/17 17:18 07/03/17 17:18 07/03/17 17:18 Intake and Output: 07/03/17 07/03/17 06:59 18:59 Intake Total 3049.7 4964.2 Output Total 1720 1500 Balance 1329.7 3464.2 - Medications Medications: Current Medications Acetaminophen (Tylenol 650 Mg Supp) 650 mg IL Q6 PRN PRN Reason: Fever >100.4 F Last Admin: 07/03/17 12:38 Dose: 650 mg Albuterol/Ipratropium (Duoneb 3 Mg/0.5 Mg (3 Ml) Ud) 3 ml INH RQ4 [facility] Last Admin: 07/03/17 16:32 Dose: 3 ml Clotrimazole (Lotrimin 1%) 0 gm TOP BID [facility] Last Admin: 07/03/17 17:32 Dose: 1 applic Ergocalciferol (Drisdol 50,000 Intl Units Cap) 1 cap PO QWK [facility] Last Admin: 06/30/17 09:44 Dose: 1 cap Heparin Sodium (Porcine) (Heparin) 5,000 units SC Q8 [facility] Last Admin: 07/03/17 13:39 Dose: 5,000 units Hydrocortisone (Cortizone 1% Cream) 0 gm TOP BID [facility] Last Admin: 07/03/17 17:32 Dose: 1 applic Multivitamins/Vitamin C 10 ml/Thiamine HCl 100 mg/ Folic Acid 1 mg/ Sodium Chloride 1,011.2 mls @ 101.12 mls/hr IV Q24H [facility] Last Admin: 07/03/17 13:14 Dose: 101.12 mls/hr Lactated Ringer's (Lactated Ringer's) 1,000 mls @ 100 mls/hr IV .Q10H [facility] Last Admin: 07/03/17 14:07 Dose: 100 mls/hr Piperacillin Sod/Tazobactam Sod (Zosyn 3.375 Gm Iv Premix) 3.375 gm in 50 mls @ 100 mls/hr IVPB Q8H [facility] Last Admin: 07/03/17 10:10 Dose: 100 mls/hr Propofol (Diprivan) 1,000 mg in 100 mls @ 4.11 mls/hr IV .Q24H PRN; Protocol; 5 MCG/KG/MIN PRN Reason: Agitation Stop: 07/10/17 11:48 Last Admin: 07/03/17 14:01 Dose: 40 mcg/kg/min, 32.88 mls/hr Propofol (Diprivan) 1,000 mg in 100 mls @ 4.11 mls/hr IV .Q24H PRN; Protocol; 5 MCG/KG/MIN PRN Reason: TITRATE PER MD ORDER Last Admin: 07/03/17 17:42 Dose: 40 mcg/kg/min, 32.88 mls/hr Piperacillin Sod/Tazobactam Sod (Zosyn 3.375 Gm Iv Premix) 3.375 gm in 50 mls @ 100 mls/hr IVPB Q6H [facility] Last Admin: 07/03/17 17:31 Dose: 100 mls/hr [place] Carbonate ([place] Carbonate 300mg) 600 mg PO TID [facility] Last Admin: 07/03/17 17:31 Dose: 600 mg Lorazepam (Ativan) 2 mg IVP Q2H PRN PRN Reason: Agitation Last Admin: 07/03/17 17:40 Dose: 2 mg Methylprednisolone (Solu-Medrol) 60 mg IVP Q6 [facility] Last Admin: 07/03/17 17:40 Dose: 60 mg Metoprolol Tartrate (Lopressor) 50 mg PO DAILY [facility] Last Admin: 07/03/17 10:22 Dose: 50 mg Pantoprazole Sodium (Protonix Inj) 40 mg IVP DAILY [facility] Last Admin: 07/03/17 09:53 Dose: 40 mg Quetiapine Fumarate (Seroquel Xr) 200 mg PO DAILY [facility] Last Admin: 07/03/17 10:45 Dose: 200 mg Temazepam (Restoril) 15 mg PO Q12 [facility] Last Admin: 07/03/17 10:22 Dose: 15 mg Thiamine HCl (Vitamin B1 Inj) 200 mg IV TID [facility] Last Admin: 07/03/17 13:39 Dose: 200 mg - Labs Labs: 07/03/17 06:21 07/03/17 12:30
--- NOTE | 2017-07-03 21:56 | CP.PCM.PN ---
Subjective - Date & Time of Evaluation Date of Evaluation: 07/02/17 Time of Evaluation: 17:00 - Subjective Subjective: Patient seen and examined at bedside , extremely agitated and restless so given ativan now sedated . Per nursing the patient was agitated overnight. Given Ativan.pt is dehydrated and BUN/creatinine elevated due to pre renal aotemia Objective - Vital Signs/Intake and Output Vital Signs (last 24 hours): Temp Pulse Resp BP Pulse Ox 99.8 F H 65 23 121/78 94 L 07/03/17 21:00 07/03/17 21:18 07/03/17 21:18 07/03/17 21:19 07/03/17 21:18 Intake and Output: 07/03/17 07/04/17 18:59 06:59 Intake Total 5398.1 700.7 Output Total 2900 220 Balance 2498.1 480.7 - Medications Medications: Current Medications Acetaminophen (Tylenol 650 Mg Supp) 650 mg IN Q6 PRN PRN Reason: Fever >100.4 F Last Admin: 07/03/17 12:38 Dose: 650 mg Albuterol/Ipratropium (Duoneb 3 Mg/0.5 Mg (3 Ml) Ud) 3 ml INH RQ4 [facility] Last Admin: 07/03/17 20:03 Dose: 3 ml Clotrimazole (Lotrimin 1%) 0 gm TOP BID [facility] Last Admin: 07/03/17 17:32 Dose: 1 applic Ergocalciferol (Drisdol 50,000 Intl Units Cap) 1 cap PO QWK [facility] Last Admin: 06/30/17 09:44 Dose: 1 cap Heparin Sodium (Porcine) (Heparin) 5,000 units SC Q8 [facility] Last Admin: 07/03/17 21:32 Dose: 5,000 units Hydrocortisone (Cortizone 1% Cream) 0 gm TOP BID [facility] Last Admin: 07/03/17 17:32 Dose: 1 applic Multivitamins/Vitamin C 10 ml/Thiamine HCl 100 mg/ Folic Acid 1 mg/ Sodium Chloride 1,011.2 mls @ 101.12 mls/hr IV Q24H [facility] Last Admin: 07/03/17 13:14 Dose: 101.12 mls/hr Lactated Ringer's (Lactated Ringer's) 1,000 mls @ 100 mls/hr IV .Q10H [facility] Last Admin: 07/03/17 16:00 Dose: Not Given Propofol (Diprivan) 1,000 mg in 100 mls @ 4.11 mls/hr IV .Q24H PRN; Protocol; 5 MCG/KG/MIN PRN Reason: TITRATE PER MD ORDER Last Admin: 07/03/17 20:11 Dose: 40 mcg/kg/min, 32.88 mls/hr Piperacillin Sod/Tazobactam Sod (Zosyn 3.375 Gm Iv Premix) 3.375 gm in 50 mls @ 100 mls/hr IVPB Q6H [facility] Last Admin: 07/03/17 21:32 Dose: 100 mls/hr [place] Carbonate ([place] Carbonate 300mg) 600 mg PO TID [facility] Last Admin: 07/03/17 17:31 Dose: 600 mg Lorazepam (Ativan) 2 mg IVP Q2H PRN PRN Reason: Agitation Last Admin: 07/03/17 20:17 Dose: 2 mg Methylprednisolone (Solu-Medrol) 60 mg IVP Q6 [facility] Last Admin: 07/03/17 17:40 Dose: 60 mg Metoprolol Tartrate (Lopressor) 50 mg PO DAILY [facility] Last Admin: 07/03/17 10:22 Dose: 50 mg Pantoprazole Sodium (Protonix Inj) 40 mg IVP DAILY [facility] Last Admin: 07/03/17 09:53 Dose: 40 mg Quetiapine Fumarate (Seroquel Xr) 200 mg PO DAILY [facility] Last Admin: 07/03/17 10:45 Dose: 200 mg Temazepam (Restoril) 15 mg PO Q12 [facility] Last Admin: 07/03/17 21:33 Dose: Not Given Thiamine HCl (Vitamin B1 Inj) 200 mg IV TID [facility] Last Admin: 07/03/17 17:30 Dose: 200 mg - Labs Labs: 07/03/17 06:21 07/03/17 12:30 - Constitutional Appears: No Acute Distress - Head Exam Head Exam: ATRAUMATIC, NORMAL INSPECTION, NORMOCEPHALIC - Eye Exam Eye Exam: EOMI, Normal appearance, PERRL Pupil Exam: NORMAL ACCOMODATION, PERRL - Respiratory Exam Respiratory Exam: Clear to Ausculation Bilateral, NORMAL BREATHING PATTERN - Cardiovascular Exam Cardiovascular Exam: REGULAR RHYTHM, +S1, +S2. absent: Murmur - GI/Abdominal Exam GI & Abdominal Exam: Soft, Normal Bowel Sounds. absent: Tenderness Assessment and Plan (1) Acute confusion Status: Acute (2) Benzodiazepine abuse Status: Acute (3) Withdrawal from benzodiazepine Status: Acute (4) Prerenal azotemia Status: Acute
--- NOTE | 2017-07-03 21:57 | CP.PCM.PN ---
Subjective - Date & Time of Evaluation Date of Evaluation: 07/03/17 Time of Evaluation: 18:00 - Subjective Subjective: Patient seen and examined at bedside , s/p intubation, has been hydtrated his BUN/ CReatinne went down, he is feeling better Objective - Vital Signs/Intake and Output Vital Signs (last 24 hours): Temp Pulse Resp BP Pulse Ox 99.8 F H 65 23 121/78 94 L 07/03/17 21:00 07/03/17 21:18 07/03/17 21:18 07/03/17 21:19 07/03/17 21:18 Intake and Output: 07/03/17 07/04/17 18:59 06:59 Intake Total 5398.1 700.7 Output Total 2900 220 Balance 2498.1 480.7 - Medications Medications: Current Medications Acetaminophen (Tylenol 650 Mg Supp) 650 mg ND Q6 PRN PRN Reason: Fever >100.4 F Last Admin: 07/03/17 12:38 Dose: 650 mg Albuterol/Ipratropium (Duoneb 3 Mg/0.5 Mg (3 Ml) Ud) 3 ml INH RQ4 [facility] Last Admin: 07/03/17 20:03 Dose: 3 ml Clotrimazole (Lotrimin 1%) 0 gm TOP BID [facility] Last Admin: 07/03/17 17:32 Dose: 1 applic Ergocalciferol (Drisdol 50,000 Intl Units Cap) 1 cap PO QWK [facility] Last Admin: 06/30/17 09:44 Dose: 1 cap Heparin Sodium (Porcine) (Heparin) 5,000 units SC Q8 [facility] Last Admin: 07/03/17 21:32 Dose: 5,000 units Hydrocortisone (Cortizone 1% Cream) 0 gm TOP BID [facility] Last Admin: 07/03/17 17:32 Dose: 1 applic Multivitamins/Vitamin C 10 ml/Thiamine HCl 100 mg/ Folic Acid 1 mg/ Sodium Chloride 1,011.2 mls @ 101.12 mls/hr IV Q24H [facility] Last Admin: 07/03/17 13:14 Dose: 101.12 mls/hr Lactated Ringer's (Lactated Ringer's) 1,000 mls @ 100 mls/hr IV .Q10H [facility] Last Admin: 07/03/17 16:00 Dose: Not Given Propofol (Diprivan) 1,000 mg in 100 mls @ 4.11 mls/hr IV .Q24H PRN; Protocol; 5 MCG/KG/MIN PRN Reason: TITRATE PER MD ORDER Last Admin: 07/03/17 20:11 Dose: 40 mcg/kg/min, 32.88 mls/hr Piperacillin Sod/Tazobactam Sod (Zosyn 3.375 Gm Iv Premix) 3.375 gm in 50 mls @ 100 mls/hr IVPB Q6H [facility] Last Admin: 07/03/17 21:32 Dose: 100 mls/hr [place] Carbonate ([place] Carbonate 300mg) 600 mg PO TID [facility] Last Admin: 07/03/17 17:31 Dose: 600 mg Lorazepam (Ativan) 2 mg IVP Q2H PRN PRN Reason: Agitation Last Admin: 07/03/17 20:17 Dose: 2 mg Methylprednisolone (Solu-Medrol) 60 mg IVP Q6 [facility] Last Admin: 07/03/17 17:40 Dose: 60 mg Metoprolol Tartrate (Lopressor) 50 mg PO DAILY [facility] Last Admin: 07/03/17 10:22 Dose: 50 mg Pantoprazole Sodium (Protonix Inj) 40 mg IVP DAILY [facility] Last Admin: 07/03/17 09:53 Dose: 40 mg Quetiapine Fumarate (Seroquel Xr) 200 mg PO DAILY [facility] Last Admin: 07/03/17 10:45 Dose: 200 mg Temazepam (Restoril) 15 mg PO Q12 [facility] Last Admin: 07/03/17 21:33 Dose: Not Given Thiamine HCl (Vitamin B1 Inj) 200 mg IV TID [facility] Last Admin: 07/03/17 17:30 Dose: 200 mg - Labs Labs: 07/03/17 06:21 07/03/17 12:30 - Constitutional Appears: No Acute Distress - Head Exam Head Exam: ATRAUMATIC, NORMAL INSPECTION, NORMOCEPHALIC - Eye Exam Eye Exam: EOMI, Normal appearance, PERRL Pupil Exam: NORMAL ACCOMODATION, PERRL - Respiratory Exam Respiratory Exam: Clear to Ausculation Bilateral, NORMAL BREATHING PATTERN - Cardiovascular Exam Cardiovascular Exam: REGULAR RHYTHM, +S1, +S2. absent: Murmur - GI/Abdominal Exam GI & Abdominal Exam: Soft, Normal Bowel Sounds. absent: Tenderness Assessment and Plan (1) Acute confusion Status: Acute (2) Benzodiazepine abuse Status: Acute (3) Withdrawal from benzodiazepine Status: Acute (4) Prerenal azotemia Status: Acute
[2017-07-04] MEDS: Albuterol-Ipratrop 3 mg / 0.5 (3 ml) UD INH SCH ×7 (00:27→23:53)
[2017-07-04] MEDS: MethylPREDNISolone 40 mg Vial IVP SCH ×4 (00:53→17:04)
[2017-07-04] MEDS: Propofol 10 mg/ml 1,000 MG/100 ML VIAL IV PRN ×9 (01:43→22:08)
[2017-07-04] MEDS: Lactated Ringer's 1,000 ML IV SCH ×3 (02:12→22:30)
[2017-07-04] MEDS: Piperacill/Tazo 3.375gm in Dex 3.375 GM/50 ML BAG IVPB SCH ×4 (04:28→22:32)
[2017-07-04 05:57] LABS: ABG ALLEN TEST POS; ARTERIAL BLOOD GAS HCO3 24.7 mmol/L (21-28); ARTERIAL BLOOD GAS HEMOGLOBIN 11.4 g/dL (11.7-17.4); ARTERIAL BLOOD GAS O2 SAT 100.1 % (95-98); ARTERIAL BLOOD GAS PCO2 37 mm/Hg (35-45); ARTERIAL BLOOD GAS PH 7.42 (7.35-7.45); ARTERIAL BLOOD GAS PO2 173 mm/Hg (80-100); ARTERIAL BLOOD GAS TCO2 25.1 mmol/L (22-28)
[2017-07-04 06:27] LABS: BASO % 0.2 % (0.0-2.0); HEMOGLOBIN 11.2 g/dL (12.0-18.0); LYMPH # 0.6 K/uL (1.0-4.3); LYMPH % 5.8 % (20.0-40.0); MEAN CELL VOLUME 98.7 fL (80.0-94.0); MEAN CORPUSCULAR HEMOGLOBIN 33.5 pg (27.0-31.0); MEAN CORPUSCULAR HGB CONC 33.9 g/dL (33.0-37.0); MEAN PLATELET VOLUME 7.7 fL (7.2-11.7); MONO # 0.1 K/uL (0.0-0.8); MONO % 1.3 % (0.0-10.0); NEUT # 9.4 K/uL (1.8-7.0); NEUT % 92.7 % (50.0-75.0); NRBC % 0.1 % (0.0-2.0); PLATELET COUNT 374 K/uL (130-400); RBC 3.34 Mil/uL (4.40-5.90); WHITE BLOOD COUNT 10.1 K/uL (4.8-10.8)
[2017-07-04 06:47] LABS: ALB/GLOB RATIO 0.9 (1.0-2.1); ALT/SGPT 127 U/L (21-72); AST/SGOT 109 U/L (17-59); BLOOD UREA NITROGEN 15 mg/dL (9-20); CALCIUM 8.7 mg/dl (8.6-10.4); GFR AFRICAN-AMERICAN > 60; GFR NON-AFRICAN AMERICAN > 60; MAGNESIUM 1.9 mg/dL (1.6-2.3)
[2017-07-04 08:42] LABS: ANISOCYTOSIS SLIGHT; BANDS 1 % (0-2); LARGE PLATELETS PRESENT; LYMPHOCYTE 2 % (20-40); MONOCYTE 1 % (0-10); NEUTROPHIL 96 % (50-75); PLATELET ESTIMATE NORMAL (NORMAL); TOTAL CELLS COUNTED 100
[2017-07-04 08:43] LABS: OVALOCYTES SLIGHT
[2017-07-04] MEDS: Thiamine 100 mg/ml Inj IV SCH ×3 (09:00→17:04)
[2017-07-04] MEDS: QUEtiapine 200 mg XR Tab PO SCH (09:03)
[2017-07-04] MEDS: Clotrimazole 1% Cream(30 gm) TOP SCH ×2 (09:15→18:13)
[2017-07-04] MEDS: Hydrocortisone 1% Cream (30 GM) TOP SCH ×2 (09:15→18:13)
--- NOTE | 2017-07-04 10:47 | RAD ---
HISTORY: ff-up COMPARISON: Comparison is made with 07/03/2017 FINDINGS: LUNGS: Interval improvement in the lungs since the previous exam. Residual opacities at the right lower lung. The ET tube is seen in place with the tip above the cipriano by 6 centimeter. PLEURA: No significant pleural effusion identified, no pneumothorax apparent. CARDIOVASCULAR: The cardiac silhouette is enlarged. OSSEOUS STRUCTURES: No significant abnormalities. VISUALIZED UPPER ABDOMEN: The NG tube seen extending to the abdomen OTHER FINDINGS: None. IMPRESSION: Interval improvement in the lungs since the previous exam. Appropriate position of the support devices.
[2017-07-04] MEDS: Multivitamin (MVI) 10 ML, Thiamine 100 MG, Folic Acid 1 MG in Sodium Chloride 0.9% 1,00... IV SCH (11:30)
--- NOTE | 2017-07-04 12:43 | CP.CCUPN ---
CCU Subjective - Physician Review Subjective (Free Text): Patient remains intubated on high dose of propofol, still agitated, LFTs decreasing, CK improving. Patient's urine output good. Critical Care Time Spent (in minutes): 32 CCU Objective - Vital Signs / Intake & Output Vital Signs (Last 4 hours): Vital Signs Temp Pulse Resp BP Pulse Ox 07/04/17 11:00 55 L 24 97 07/04/17 10:18 59 L 24 104/52 L 96 07/04/17 10:00 60 24 96 07/04/17 09:18 75 16 137/83 98 07/04/17 09:00 99 F 83 11 L 98 Intake and Output (Last 8hrs): Intake & Output 07/03/17 07/04/17 07/04/17 22:59 06:59 14:59 Intake Total 2085.3 1950 951.4 Output Total 1740 1085 750 Balance 345.3 865 201.4 Intake: IV 145 400 200 Intake, IV Amount 1840.3 1550 751.4 Left Wrist 267.3 296 201.4 Left hand 2 770 850 500 Right Antecubital 500 50 right lower arm 303 404 Other 100 Output: Urine 1740 1085 750 Urethral ([place]) 1740 1085 750 Other: # Bowel Movements 0 0 - Physical Exam Head: Positive for: Atraumatic, Normocephalic, Other (intubated) Pupils: Positive for: PERRL Extroacular Muscles: Positive for: EOMI Conjunctiva: Positive for: Normal Mouth: Positive for: Moist Mucous Membranes Neck: Positive for: Normal Range of Motion. Negative for: Meningeal Signs, JVD Respiratory/Chest: Positive for: Clear to Auscultation, Good Air Exchange, Respiratory Distress Cardiovascular: Positive for: Regular Rate and Rhythm, Normal S1, S2 Abdomen: Positive for: Normal Bowel Sounds. Negative for: Tenderness Upper Extremity: Positive for: Normal Inspection. Negative for: Edema Lower Extremity: Positive for: Edema Skin: Positive for: Warm, Dry - Medications Active Medications: Active Medications Generic Name Dose Route Start Last Admin Trade Name Freq PRN Reason Stop Dose Admin Acetaminophen 650 mg 07/01/17 09:28 07/04/17 01:37 Tylenol 650 Mg Supp [place] 650 mg Q6 PRN Administration Fever >100.4 F Albuterol/Ipratropium 3 ml 07/03/17 12:00 07/04/17 11:27 Duoneb 3 Mg/0.5 Mg (3 Ml) Ud INH 3 ml RQ4 EDIN Administration Clotrimazole 0 gm 06/27/17 10:00 07/04/17 09:15 Lotrimin 1% TOP 1 applic BID EDIN Administration Ergocalciferol 1 cap 06/30/17 10:00 06/30/17 09:44 Drisdol 50,000 Intl Units Cap PO 1 cap QWK EDIN Administration Heparin Sodium (Porcine) 5,000 units 07/01/17 22:00 07/04/17 05:19 Heparin SC 5,000 units Q8 EDIN Administration Hydrocortisone 0 gm 06/27/17 10:00 07/04/17 09:15 Cortizone 1% Cream TOP 1 applic BID EDIN Administration Multivitamins/Vitamin C 10 ml/ 1,011.2 mls @ 101.12 mls/hr 07/01/17 12:00 11:30 Thiamine HCl 100 mg/ Folic IV 101.12 mls/hr Acid 1 mg/ Sodium Chloride Q24H EDIN Administration Lactated Ringer's 1,000 mls @ 100 mls/hr 07/02/17 10:00 07/04/17 11:32 Lactated Ringer's IV 100 mls/hr .Q10H EDIN Administration Propofol 1,000 mg in 100 mls @ 4.11 mls/hr 07/03/17 12:07 07/04/17 11:47 Diprivan IV 50 mcg/kg/min .Q24H PRN 41.1 mls/hr TITRATE PER MD ORDER Administration Protocol 5 MCG/KG/MIN Piperacillin Sod/Tazobactam Sod 3.375 gm in 50 mls @ 100 mls/hr 07/03/17 16: 30 07/04/17 09:31 Zosyn 3.375 Gm Iv Premix IVPB 100 mls/hr Q6H EDIN Administration [place] Carbonate 600 mg 06/29/17 14:00 07/04/17 09:00 [place] Carbonate 300mg PO 600 mg TID EDIN Administration Lorazepam 2 mg 06/30/17 21:25 07/04/17 10:49 Ativan IVP 2 mg Q2H PRN Administration Agitation Methylprednisolone 60 mg 07/03/17 12:00 07/04/17 05:19 Solu-Medrol IVP 60 mg Q6 EDIN Administration Metoprolol Tartrate 50 mg 06/23/17 16:12 07/04/17 09:01 Lopressor PO 50 mg DAILY EDIN Administration Pantoprazole Sodium 40 mg 07/01/17 10:00 07/04/17 09:02 Protonix Inj IVP 40 mg DAILY EDIN Administration Quetiapine Fumarate 200 mg 07/03/17 10:15 07/04/17 09:03 Seroquel Xr PO 200 mg DAILY EDIN Administration Temazepam 15 mg 07/02/17 11:30 07/04/17 09:00 Restoril PO 15 mg Q12 EDIN Administration Thiamine HCl 200 mg 07/02/17 10:00 07/04/17 09:00 Vitamin B1 Inj IV 200 mg TID EDIN Administration - Patient Studies Lab Studies: Microbiology Studies 07/03/17 12:26 Urine Culture - Final Urine,Catheterized No Growth (<1,000 CFU/ML) 07/01/17 07:33 Blood Culture - Preliminary Blood-Venous NO GROWTH AFTER 3 DAYS 07/01/17 07:33 Blood Culture - Preliminary Blood-Venous NO GROWTH AFTER 3 DAYS 07/03/17 12:26 Gram Stain - Final Trachasp Lab Studies 07/04/17 07/04/17 07/04/17 Range/Units 11:52 06:21 06:21 WBC 10.1 (4.8-10.8) K/uL RBC 3.34 L (4.40-5.90) Mil/uL Hgb 11.2 L (12.0-18.0) g/dL Hct 33.0 L (35.0-51.0) % MCV 98.7 H (80.0-94.0) fL MCH 33.5 H (27.0-31.0) pg MCHC 33.9 (33.0-37.0) g/dL RDW 15.0 H (11.5-14.5) % Plt Count 374 (130-400) K/uL MPV 7.7 (7.2-11.7) fL Neut % (Auto) 92.7 H (50.0-75.0) % Lymph % (Auto) 5.8 L (20.0-40.0) % [place] % (Auto) 1.3 (0.0-10.0) % Eos % (Auto) 0.0 (0.0-4.0) % Baso % (Auto) 0.2 (0.0-2.0) % Neut # (Auto) 9.4 H (1.8-7.0) K/uL Lymph # (Auto) 0.6 L (1.0-4.3) K/uL [place] # (Auto) 0.1 (0.0-0.8) K/uL Eos # (Auto) 0.0 (0.0-0.7) K/uL Baso # (Auto) 0.0 (0.0-0.2) K/uL Neutrophils % (Manual) 96 H (50-75) % Band Neutrophils % 1 (0-2) % Lymphocytes % (Manual) 2 L (20-40) % Monocytes % (Manual) 1 (0-10) % Platelet Estimate Normal (NORMAL) Large Platelets Present Anisocytosis (manual) Slight Macrocytosis (manual) Slight Ovalocytes Slight Puncture Site pCO2 (35-45) mm/Hg pO2 (80-100) mm/Hg HCO3 (21-28) mmol/L ABG pH (7.35-7.45) ABG Total CO2 (22-28) mmol/L ABG O2 Saturation (95-98) % ABG Base Excess (-2.0-3.0) mmol/L ABG Hemoglobin (11.7-17.4) g/dL ABG Carboxyhemoglobin (0.5-1.5) % POC ABG HHb (Measured) (0.0-5.0) % ABG Methemoglobin (0.0-3.0) % Chance Test ABG Potassium (3.6-5.2) mmol/L A-a O2 Difference mm/Hg Respiratory Index Hgb O2 Saturation (95.0-98.0) % Glucose (75-110) mg/dl Lactate (0.7-2.1) mmol/L Vent Mode Mechanical Rate FiO2 % Tidal Volume PEEP Sodium 138 (132-148) mmol/L Potassium 3.8 (3.6-5.2) mmol/L Chloride 106 (98-107) mmol/L Carbon Dioxide 21 L (22-30) mmol/L Anion Gap 15 (10-20) BUN 15 (9-20) mg/dL Creatinine 1.1 (0.8-1.5) mg/dL Est GFR ( Amer) > 60 Est GFR (Non-Af Amer) > 60 POC Glucose (mg/dL) 133 H (65-110) mg/dL Random Glucose 136 H (75-110) mg/dL Lactic Acid (0.7-2.1) mmol/L Calcium 8.7 (8.6-10.4) mg/dl Phosphorus 3.7 (2.5-4.5) mg/dL Magnesium 1.9 (1.6-2.3) mg/dL Total Bilirubin 1.2 (0.2-1.3) mg/dL AST 109 H D (17-59) U/L ALT 127 H (21-72) U/L Alkaline Phosphatase 91 (38-126) U/L Total Creatine Kinase 556 H (55-170) U/L Troponin I (0.00-0.120) ng/mL Total Protein 6.3 (6.3-8.3) g/dL Albumin 3.0 L (3.5-5.0) g/dL Globulin 3.3 (2.2-3.9) gm/dL Albumin/Globulin Ratio 0.9 L (1.0-2.1) Arterial Blood Potassium (3.6-5.2) mmol/L Urine Color (YELLOW) Urine Clarity (Clear) Urine pH (5.0-8.0) Ur Specific [place] (1.003-1.030) Urine Protein (NEGATIVE) mg/dL Urine Glucose (UA) (Normal) mg/dL Urine Ketones (NEGATIVE) mg/dL Urine Blood (NEGATIVE) Urine Nitrate (NEGATIVE) Urine Bilirubin (NEGATIVE) Urine Urobilinogen (0.2-1.0) mg/dL Ur Leukocyte Esterase (Negative) Donn/uL Urine WBC (Auto) (0-5) /hpf Urine RBC (Auto) (0-3) /hpf Ur Squamous Epith Cells (0-5) /hpf 07/04/17 07/03/17 07/03/17 Range/Units 05:47 20:37 17:18 WBC (4.8-10.8) K/uL RBC (4.40-5.90) Mil/uL Hgb (12.0-18.0) g/dL Hct (35.0-51.0) % MCV (80.0-94.0) fL MCH (27.0-31.0) pg MCHC (33.0-37.0) g/dL RDW (11.5-14.5) % Plt Count (130-400) K/uL MPV (7.2-11.7) fL Neut % (Auto) (50.0-75.0) % Lymph % (Auto) (20.0-40.0) % [place] % (Auto) (0.0-10.0) % Eos % (Auto) (0.0-4.0) % Baso % (Auto) (0.0-2.0) % Neut # (Auto) (1.8-7.0) K/uL Lymph # (Auto) (1.0-4.3) K/uL [place] # (Auto) (0.0-0.8) K/uL Eos # (Auto) (0.0-0.7) K/uL Baso # (Auto) (0.0-0.2) K/uL Neutrophils % (Manual) (50-75) % Band Neutrophils % (0-2) % Lymphocytes % (Manual) (20-40) % Monocytes % (Manual) (0-10) % Platelet Estimate (NORMAL) Large Platelets Anisocytosis (manual) Macrocytosis (manual) Ovalocytes Puncture Site Rr pCO2 37 (35-45) mm/Hg pO2 173 H (80-100) mm/Hg HCO3 24.7 (21-28) mmol/L ABG pH 7.42 (7.35-7.45) ABG Total CO2 25.1 (22-28) mmol/L ABG O2 Saturation 100.1 H (95-98) % ABG Base Excess -0.3 (-2.0-3.0) mmol/L ABG Hemoglobin 11.4 L (11.7-17.4) g/dL ABG Carboxyhemoglobin 1.7 H (0.5-1.5) % POC ABG HHb (Measured) -0.1 L (0.0-5.0) % ABG Methemoglobin 1.0 (0.0-3.0) % Chance Test Pos ABG Potassium (3.6-5.2) mmol/L A-a O2 Difference 209.0 mm/Hg Respiratory Index 1.2 Hgb O2 Saturation 97.4 (95.0-98.0) % Glucose (75-110) mg/dl Lactate (0.7-2.1) mmol/L Vent Mode Prvc Mechanical Rate 24 FiO2 60.0 % Tidal Volume 500 PEEP 5 Sodium (132-148) mmol/L Potassium (3.6-5.2) mmol/L Chloride (98-107) mmol/L Carbon Dioxide (22-30) mmol/L Anion Gap (10-20) BUN (9-20) mg/dL Creatinine (0.8-1.5) mg/dL Est GFR ( Amer) Est GFR (Non-Af Amer) POC Glucose (mg/dL) (65-110) mg/dL Random Glucose (75-110) mg/dL Lactic Acid 0.8 0.7 (0.7-2.1) mmol/L Calcium (8.6-10.4) mg/dl Phosphorus (2.5-4.5) mg/dL Magnesium (1.6-2.3) mg/dL Total Bilirubin (0.2-1.3) mg/dL AST (17-59) U/L ALT (21-72) U/L Alkaline Phosphatase (38-126) U/L Total Creatine Kinase (55-170) U/L Troponin I (0.00-0.120) ng/mL Total Protein (6.3-8.3) g/dL Albumin (3.5-5.0) g/dL Globulin (2.2-3.9) gm/dL Albumin/Globulin Ratio (1.0-2.1) Arterial Blood Potassium (3.6-5.2) mmol/L Urine Color (YELLOW) Urine Clarity (Clear) Urine pH (5.0-8.0) Ur Specific [place] (1.003-1.030) Urine Protein (NEGATIVE) mg/dL Urine Glucose (UA) (Normal) mg/dL Urine Ketones (NEGATIVE) mg/dL Urine Blood (NEGATIVE) Urine Nitrate (NEGATIVE) Urine Bilirubin (NEGATIVE) Urine Urobilinogen (0.2-1.0) mg/dL Ur Leukocyte Esterase (Negative) Donn/uL Urine WBC (Auto) (0-5) /hpf Urine RBC (Auto) (0-3) /hpf Ur Squamous Epith Cells (0-5) /hpf 02/17/18 02/17/18 02/17/18 Range/Units 13:07 13:07 12:40 WBC (4.8-10.8) K/uL RBC (4.40-5.90) Mil/uL Hgb (12.0-18.0) g/dL Hct (35.0-51.0) % MCV (80.0-94.0) fL MCH (27.0-31.0) pg MCHC (33.0-37.0) g/dL RDW (11.5-14.5) % Plt Count (130-400) K/uL MPV (7.2-11.7) fL Neut % (Auto) (50.0-75.0) % Lymph % (Auto) (20.0-40.0) % [place] % (Auto) (0.0-10.0) % Eos % (Auto) (0.0-4.0) % Baso % (Auto) (0.0-2.0) % Neut # (Auto) (1.8-7.0) K/uL Lymph # (Auto) (1.0-4.3) K/uL [place] # (Auto) (0.0-0.8) K/uL Eos # (Auto) (0.0-0.7) K/uL Baso # (Auto) (0.0-0.2) K/uL Neutrophils % (Manual) (50-75) % Band Neutrophils % (0-2) % Lymphocytes % (Manual) (20-40) % Monocytes % (Manual) (0-10) % Platelet Estimate (NORMAL) Large Platelets Anisocytosis (manual) Macrocytosis (manual) Ovalocytes Puncture Site Rra pCO2 41 (35-45) mm/Hg pO2 211 H (80-100) mm/Hg HCO3 21.8 (21-28) mmol/L ABG pH 7.33 L (7.35-7.45) ABG Total CO2 22.9 (22-28) mmol/L ABG O2 Saturation 99.6 H (95-98) % ABG Base Excess -4.1 L (-2.0-3.0) mmol/L ABG Hemoglobin (11.7-17.4) g/dL ABG Carboxyhemoglobin (0.5-1.5) % POC ABG HHb (Measured) (0.0-5.0) % ABG Methemoglobin (0.0-3.0) % Chance Test Po ABG Potassium 4.1 (3.6-5.2) mmol/L A-a O2 Difference 451.0 mm/Hg Respiratory Index 2.1 Hgb O2 Saturation (95.0-98.0) % Glucose 107 (75-110) mg/dl Lactate 0.9 (0.7-2.1) mmol/L Vent Mode Prvc Mechanical Rate FiO2 100.0 % Tidal Volume 500 PEEP 5 Sodium 139.0 (132-148) mmol/L Potassium (3.6-5.2) mmol/L Chloride 109.0 H (98-107) mmol/L Carbon Dioxide (22-30) mmol/L Anion Gap (10-20) BUN (9-20) mg/dL Creatinine (0.8-1.5) mg/dL Est GFR ( Amer) Est GFR (Non-Af Amer) POC Glucose (mg/dL) (65-110) mg/dL Random Glucose (75-110) mg/dL Lactic Acid 0.9 (0.7-2.1) mmol/L Calcium (8.6-10.4) mg/dl Phosphorus (2.5-4.5) mg/dL Magnesium (1.6-2.3) mg/dL Total Bilirubin (0.2-1.3) mg/dL AST (17-59) U/L ALT (21-72) U/L Alkaline Phosphatase (38-126) U/L Total Creatine Kinase (55-170) U/L Troponin I (0.00-0.120) ng/mL Total Protein (6.3-8.3) g/dL Albumin (3.5-5.0) g/dL Globulin (2.2-3.9) gm/dL Albumin/Globulin Ratio (1.0-2.1) Arterial Blood Potassium 4.1 (3.6-5.2) mmol/L Urine Color Yellow (YELLOW) Urine Clarity Hazy (Clear) Urine pH 5.0 (5.0-8.0) Ur Specific [place] 1.021 (1.003-1.030) Urine Protein Negative (NEGATIVE) mg/dL Urine Glucose (UA) Normal (Normal) mg/dL Urine Ketones Negative (NEGATIVE) mg/dL Urine Blood 1+ H (NEGATIVE) Urine Nitrate Negative (NEGATIVE) Urine Bilirubin Negative (NEGATIVE) Urine Urobilinogen Normal (0.2-1.0) mg/dL Ur Leukocyte Esterase Neg (Negative) Donn/uL Urine WBC (Auto) 4 (0-5) /hpf Urine RBC (Auto) 9 H (0-3) /hpf Ur Squamous Epith Cells < 1 (0-5) /hpf 07/03/17 Range/Units 12:30 WBC (4.8-10.8) K/uL RBC (4.40-5.90) Mil/uL Hgb (12.0-18.0) g/dL Hct (35.0-51.0) % MCV (80.0-94.0) fL MCH (27.0-31.0) pg MCHC (33.0-37.0) g/dL RDW (11.5-14.5) % Plt Count (130-400) K/uL MPV (7.2-11.7) fL Neut % (Auto) (50.0-75.0) % Lymph % (Auto) (20.0-40.0) % [place] % (Auto) (0.0-10.0) % Eos % (Auto) (0.0-4.0) % Baso % (Auto) (0.0-2.0) % Neut # (Auto) (1.8-7.0) K/uL Lymph # (Auto) (1.0-4.3) K/uL [place] # (Auto) (0.0-0.8) K/uL Eos # (Auto) (0.0-0.7) K/uL Baso # (Auto) (0.0-0.2) K/uL Neutrophils % (Manual) (50-75) % Band Neutrophils % (0-2) % Lymphocytes % (Manual) (20-40) % Monocytes % (Manual) (0-10) % Platelet Estimate (NORMAL) Large Platelets Anisocytosis (manual) Macrocytosis (manual) Ovalocytes Puncture Site pCO2 (35-45) mm/Hg pO2 (80-100) mm/Hg HCO3 (21-28) mmol/L ABG pH (7.35-7.45) ABG Total CO2 (22-28) mmol/L ABG O2 Saturation (95-98) % ABG Base Excess (-2.0-3.0) mmol/L ABG Hemoglobin (11.7-17.4) g/dL ABG Carboxyhemoglobin (0.5-1.5) % POC ABG HHb (Measured) (0.0-5.0) % ABG Methemoglobin (0.0-3.0) % Chance Test ABG Potassium (3.6-5.2) mmol/L A-a O2 Difference mm/Hg Respiratory Index Hgb O2 Saturation (95.0-98.0) % Glucose (75-110) mg/dl Lactate (0.7-2.1) mmol/L Vent Mode Mechanical Rate FiO2 % Tidal Volume PEEP Sodium 136 (132-148) mmol/L Potassium 4.3 (3.6-5.2) mmol/L Chloride 105 (98-107) mmol/L Carbon Dioxide 23 (22-30) mmol/L Anion Gap 12 (10-20) BUN 15 (9-20) mg/dL Creatinine 1.4 (0.8-1.5) mg/dL Est GFR ( Amer) > 60 Est GFR (Non-Af Amer) 53 POC Glucose (mg/dL) (65-110) mg/dL Random Glucose 101 (75-110) mg/dL Lactic Acid (0.7-2.1) mmol/L Calcium 9.2 (8.6-10.4) mg/dl Phosphorus 2.5 (2.5-4.5) mg/dL Magnesium 1.6 (1.6-2.3) mg/dL Total Bilirubin 2.0 H (0.2-1.3) mg/dL AST 191 H (17-59) U/L ALT 140 H (21-72) U/L Alkaline Phosphatase 102 (38-126) U/L Total Creatine Kinase (55-170) U/L Troponin I < 0.0120 (0.00-0.120) ng/mL Total Protein 7.2 (6.3-8.3) g/dL Albumin 3.4 L (3.5-5.0) g/dL Globulin 3.8 (2.2-3.9) gm/dL Albumin/Globulin Ratio 0.9 L (1.0-2.1) Arterial Blood Potassium (3.6-5.2) mmol/L Urine Color (YELLOW) Urine Clarity (Clear) Urine pH (5.0-8.0) Ur Specific [place] (1.003-1.030) Urine Protein (NEGATIVE) mg/dL Urine Glucose (UA) (Normal) mg/dL Urine Ketones (NEGATIVE) mg/dL Urine Blood (NEGATIVE) Urine Nitrate (NEGATIVE) Urine Bilirubin (NEGATIVE) Urine Urobilinogen (0.2-1.0) mg/dL Ur Leukocyte Esterase (Negative) Donn/uL Urine WBC (Auto) (0-5) /hpf Urine RBC (Auto) (0-3) /hpf Ur Squamous Epith Cells (0-5) /hpf Laboratory Results - last 24 hr 07/03/17 07/03/17 07/03/17 12:30 12:40 13:07 WBC RBC Hgb Hct MCV MCH MCHC RDW Plt Count MPV Neut % (Auto) Lymph % (Auto) [place] % (Auto) Eos % (Auto) Baso % (Auto) Neut # (Auto) Lymph # (Auto) [place] # (Auto) Eos # (Auto) Baso # (Auto) Neutrophils % (Manual) Band Neutrophils % Lymphocytes % (Manual) Monocytes % (Manual) Platelet Estimate Large Platelets Anisocytosis (manual) Macrocytosis (manual) Ovalocytes Puncture Site Rra pCO2 41 pO2 211 H HCO3 21.8 ABG pH 7.33 L ABG Total CO2 22.9 ABG O2 Saturation 99.6 H ABG Base Excess -4.1 L ABG Hemoglobin ABG Carboxyhemoglobin POC ABG HHb (Measured) ABG Methemoglobin Chance Test Po ABG Potassium 4.1 A-a O2 Difference 451.0 Respiratory Index 2.1 Hgb O2 Saturation Glucose 107 Lactate 0.9 Vent Mode Prvc Mechanical Rate FiO2 100.0 Tidal Volume 500 PEEP 5 Sodium 136 139.0 Potassium 4.3 Chloride 105 109.0 H Carbon Dioxide 23 Anion Gap 12 BUN 15 Creatinine 1.4 Est GFR ( Amer) > 60 Est GFR (Non-Af Amer) 53 POC Glucose (mg/dL) Random Glucose 101 Lactic Acid 0.9 Calcium 9.2 Phosphorus 2.5 Magnesium 1.6 Total Bilirubin 2.0 H AST 191 H ALT 140 H Alkaline Phosphatase 102 Total Creatine Kinase Troponin I < 0.0120 Total Protein 7.2 Albumin 3.4 L Globulin 3.8 Albumin/Globulin Ratio 0.9 L Arterial Blood Potassium 4.1 Urine Color Urine Clarity Urine pH Ur Specific [place] Urine Protein Urine Glucose (UA) Urine Ketones Urine Blood Urine Nitrate Urine Bilirubin Urine Urobilinogen Ur Leukocyte Esterase Urine WBC (Auto) Urine RBC (Auto) Ur Squamous Epith Cells 07/03/17 07/03/17 07/03/17 13:07 17:18 20:37 WBC RBC Hgb Hct MCV MCH MCHC RDW Plt Count MPV Neut % (Auto) Lymph % (Auto) [place] % (Auto) Eos % (Auto) Baso % (Auto) Neut # (Auto) Lymph # (Auto) [place] # (Auto) Eos # (Auto) Baso # (Auto) Neutrophils % (Manual) Band Neutrophils % Lymphocytes % (Manual) Monocytes % (Manual) Platelet Estimate Large Platelets Anisocytosis (manual) Macrocytosis (manual) Ovalocytes Puncture Site pCO2 pO2 HCO3 ABG pH ABG Total CO2 ABG O2 Saturation ABG Base Excess ABG Hemoglobin ABG Carboxyhemoglobin POC ABG HHb (Measured) ABG Methemoglobin Chance Test ABG Potassium A-a O2 Difference Respiratory Index Hgb O2 Saturation Glucose Lactate Vent Mode Mechanical Rate FiO2 Tidal Volume PEEP Sodium Potassium Chloride Carbon Dioxide Anion Gap BUN Creatinine Est GFR ( Amer) Est GFR (Non-Af Amer) POC Glucose (mg/dL) Random Glucose Lactic Acid 0.7 0.8 Calcium Phosphorus Magnesium Total Bilirubin AST ALT Alkaline Phosphatase Total Creatine Kinase Troponin I Total Protein Albumin Globulin Albumin/Globulin Ratio Arterial Blood Potassium Urine Color Yellow Urine Clarity Hazy Urine pH 5.0 Ur Specific [place] 1.021 Urine Protein Negative Urine Glucose (UA) Normal Urine Ketones Negative Urine Blood 1+ H Urine Nitrate Negative Urine Bilirubin Negative Urine Urobilinogen Normal Ur Leukocyte Esterase Neg Urine WBC (Auto) 4 Urine RBC (Auto) 9 H Ur Squamous Epith Cells < 1 07/04/17 07/04/17 07/04/17 05:47 06:21 06:21 WBC 10.1 RBC 3.34 L Hgb 11.2 L Hct 33.0 L MCV 98.7 H MCH 33.5 H MCHC 33.9 RDW 15.0 H Plt Count 374 MPV 7.7 Neut % (Auto) 92.7 H Lymph % (Auto) 5.8 L [place] % (Auto) 1.3 Eos % (Auto) 0.0 Baso % (Auto) 0.2 Neut # (Auto) 9.4 H Lymph # (Auto) 0.6 L [place] # (Auto) 0.1 Eos # (Auto) 0.0 Baso # (Auto) 0.0 Neutrophils % (Manual) 96 H Band Neutrophils % 1 Lymphocytes % (Manual) 2 L Monocytes % (Manual) 1 Platelet Estimate Normal Large Platelets Present Anisocytosis (manual) Slight Macrocytosis (manual) Slight Ovalocytes Slight Puncture Site Rr pCO2 37 pO2 173 H HCO3 24.7 ABG pH 7.42 ABG Total CO2 25.1 ABG O2 Saturation 100.1 H ABG Base Excess -0.3 ABG Hemoglobin 11.4 L ABG Carboxyhemoglobin 1.7 H POC ABG HHb (Measured) -0.1 L ABG Methemoglobin 1.0 Chance Test Pos ABG Potassium A-a O2 Difference 209.0 Respiratory Index 1.2 Hgb O2 Saturation 97.4 Glucose Lactate Vent Mode Prvc Mechanical Rate 24 FiO2 60.0 Tidal Volume 500 PEEP 5 Sodium 138 Potassium 3.8 Chloride 106 Carbon Dioxide 21 L Anion Gap 15 BUN 15 Creatinine 1.1 Est GFR ( Amer) > 60 Est GFR (Non-Af Amer) > 60 POC Glucose (mg/dL) Random Glucose 136 H Lactic Acid Calcium 8.7 Phosphorus 3.7 Magnesium 1.9 Total Bilirubin 1.2 AST 109 H D ALT 127 H Alkaline Phosphatase 91 Total Creatine Kinase 556 H Troponin I Total Protein 6.3 Albumin 3.0 L Globulin 3.3 Albumin/Globulin Ratio 0.9 L Arterial Blood Potassium Urine Color Urine Clarity Urine pH Ur Specific [place] Urine Protein Urine Glucose (UA) Urine Ketones Urine Blood Urine Nitrate Urine Bilirubin Urine Urobilinogen Ur Leukocyte Esterase Urine WBC (Auto) Urine RBC (Auto) Ur Squamous Epith Cells 07/04/17 11:52 WBC RBC Hgb Hct MCV MCH MCHC RDW Plt Count MPV Neut % (Auto) Lymph % (Auto) [place] % (Auto) Eos % (Auto) Baso % (Auto) Neut # (Auto) Lymph # (Auto) [place] # (Auto) Eos # (Auto) Baso # (Auto) Neutrophils % (Manual) Band Neutrophils % Lymphocytes % (Manual) Monocytes % (Manual) Platelet Estimate Large Platelets Anisocytosis (manual) Macrocytosis (manual) Ovalocytes Puncture Site pCO2 pO2 HCO3 ABG pH ABG Total CO2 ABG O2 Saturation ABG Base Excess ABG Hemoglobin ABG Carboxyhemoglobin POC ABG HHb (Measured) ABG Methemoglobin Chance Test ABG Potassium A-a O2 Difference Respiratory Index Hgb O2 Saturation Glucose Lactate Vent Mode Mechanical Rate FiO2 Tidal Volume PEEP Sodium Potassium Chloride Carbon Dioxide Anion Gap BUN Creatinine Est GFR ( Amer) Est GFR (Non-Af Amer) POC Glucose (mg/dL) 133 H Random Glucose Lactic Acid Calcium Phosphorus Magnesium Total Bilirubin AST ALT Alkaline Phosphatase Total Creatine Kinase Troponin I Total Protein Albumin Globulin Albumin/Globulin Ratio Arterial Blood Potassium Urine Color Urine Clarity Urine pH Ur Specific [place] Urine Protein Urine Glucose (UA) Urine Ketones Urine Blood Urine Nitrate Urine Bilirubin Urine Urobilinogen Ur Leukocyte Esterase Urine WBC (Auto) Urine RBC (Auto) Ur Squamous Epith Cells Critical Care Progress Note - Ventilator Checklist Head of Bed 30 Degrees: Yes Daily Sedation Vacation: Yes Daily Assessment of Readiness to Wean: Yes Daily Spontaneous Breathing Trial: Yes PUD Prophalyxis: Yes DVT Prophylaxis: Yes Oral Care with Chlorhexidine Gluconate {CHG}: Yes Assessment/Plan - Assessment and Plan (Free Text) Plan: -Acute withdrawal:continue intubation, continue sedation, start loading with librium when alt decreases -Rhabdo:resolving with IVF -Fever: f/u sputum culture and continue vanco + zosyn, not in shock -continue NG tube feeds -continue MVi supplementation -Patient reamins calm on ventilator -continue dvt/pud ppx cc time 32 minutes - Date & Time Date: 07/04/17 Time: 12:46
--- NOTE | 2017-07-04 15:21 | CP.PCM.PN ---
Subjective - Date & Time of Evaluation Date of Evaluation: 07/04/17 Time of Evaluation: 15:21 - Subjective Subjective: pt is seen and examined, follow up consult is dictated #[id number] Objective - Vital Signs/Intake and Output Vital Signs (last 24 hours): Temp Pulse Resp BP Pulse Ox 99.2 F 64 19 127/67 97 07/04/17 13:00 07/04/17 13:18 07/04/17 13:18 07/04/17 13:18 07/04/17 13:18 Intake and Output: 07/04/17 07/04/17 06:59 18:59 Intake Total 2938.7 1797.7 Output Total 1425 1100 Balance 1513.7 697.7 - Medications Medications: Current Medications Acetaminophen (Tylenol 650 Mg Supp) 650 mg [place] Q6 PRN PRN Reason: Fever >100.4 F Last Admin: 07/04/17 01:37 Dose: 650 mg Albuterol/Ipratropium (Duoneb 3 Mg/0.5 Mg (3 Ml) Ud) 3 ml INH RQ4 [facility] Last Admin: 07/04/17 11:27 Dose: 3 ml Clotrimazole (Lotrimin 1%) 0 gm TOP BID [facility] Last Admin: 07/04/17 09:15 Dose: 1 applic Ergocalciferol (Drisdol 50,000 Intl Units Cap) 1 cap PO QWK [facility] Last Admin: 06/30/17 09:44 Dose: 1 cap Heparin Sodium (Porcine) (Heparin) 5,000 units SC Q8 [facility] Last Admin: 07/04/17 13:06 Dose: 5,000 units Hydrocortisone (Cortizone 1% Cream) 0 gm TOP BID [facility] Last Admin: 07/04/17 09:15 Dose: 1 applic Lactated Ringer's (Lactated Ringer's) 1,000 mls @ 100 mls/hr IV .Q10H [facility] Last Admin: 07/04/17 11:32 Dose: 100 mls/hr Propofol (Diprivan) 1,000 mg in 100 mls @ 4.11 mls/hr IV .Q24H PRN; Protocol; 5 MCG/KG/MIN PRN Reason: TITRATE PER MD ORDER Last Admin: 07/04/17 15:12 Dose: 55 mcg/kg/min, 45.21 mls/hr Piperacillin Sod/Tazobactam Sod (Zosyn 3.375 Gm Iv Premix) 3.375 gm in 50 mls @ 100 mls/hr IVPB Q6H [facility] Last Admin: 07/04/17 09:31 Dose: 100 mls/hr [place] Carbonate ([place] Carbonate 300mg) 600 mg PO TID [facility] Last Admin: 07/04/17 13:17 Dose: 600 mg Lorazepam (Ativan) 2 mg IVP Q2H PRN PRN Reason: Agitation Last Admin: 07/04/17 13:19 Dose: 2 mg Methylprednisolone (Solu-Medrol) 60 mg IVP Q6 [facility] Last Admin: 07/04/17 13:17 Dose: 60 mg Metoprolol Tartrate (Lopressor) 50 mg PO DAILY [facility] Last Admin: 07/04/17 09:01 Dose: 50 mg Pantoprazole Sodium (Protonix Inj) 40 mg IVP DAILY [facility] Last Admin: 07/04/17 09:02 Dose: 40 mg Quetiapine Fumarate (Seroquel Xr) 200 mg PO DAILY [facility] Last Admin: 07/04/17 09:03 Dose: 200 mg Temazepam (Restoril) 15 mg PO Q12 [facility] Last Admin: 07/04/17 09:00 Dose: 15 mg Thiamine HCl (Vitamin B1 Inj) 200 mg IV TID [facility] Last Admin: 07/04/17 13:05 Dose: 200 mg - Labs Labs: 07/04/17 06:21 07/04/17 06:21
--- NOTE | 2017-07-04 21:58 | CP.PCM.PN ---
Subjective - Date & Time of Evaluation Date of Evaluation: 07/04/17 Time of Evaluation: 18:00 - Subjective Subjective: Pt is seen & examined, he is doing well, gets agitated at time, awake and alert now Objective - Vital Signs/Intake and Output Vital Signs (last 24 hours): Temp Pulse Resp BP Pulse Ox 98.8 F 77 17 152/70 H 99 07/04/17 21:00 07/04/17 21:18 07/04/17 21:18 07/04/17 21:18 07/04/17 21:18 Intake and Output: 07/04/17 07/05/17 18:59 06:59 Intake Total 1897.7 584.2 Output Total 1100 275 Balance 797.7 309.2 - Medications Medications: Current Medications Acetaminophen (Tylenol 650 Mg Supp) 650 mg UT Q6 PRN PRN Reason: Fever >100.4 F Last Admin: 07/04/17 01:37 Dose: 650 mg Albuterol/Ipratropium (Duoneb 3 Mg/0.5 Mg (3 Ml) Ud) 3 ml INH RQ4 [facility] Last Admin: 07/04/17 19:08 Dose: 3 ml Clotrimazole (Lotrimin 1%) 0 gm TOP BID [facility] Last Admin: 07/04/17 18:13 Dose: 1 applic Ergocalciferol (Drisdol 50,000 Intl Units Cap) 1 cap PO QWK [facility] Last Admin: 06/30/17 09:44 Dose: 1 cap Heparin Sodium (Porcine) (Heparin) 5,000 units SC Q8 [facility] Last Admin: 07/04/17 21:15 Dose: 5,000 units Hydrocortisone (Cortizone 1% Cream) 0 gm TOP BID [facility] Last Admin: 07/04/17 18:13 Dose: 1 applic Lactated Ringer's (Lactated Ringer's) 1,000 mls @ 100 mls/hr IV .Q10H [facility] Last Admin: 07/04/17 11:32 Dose: 100 mls/hr Propofol (Diprivan) 1,000 mg in 100 mls @ 4.11 mls/hr IV .Q24H PRN; Protocol; 5 MCG/KG/MIN PRN Reason: TITRATE PER MD ORDER Last Admin: 07/04/17 19:46 Dose: 50 mcg/kg/min, 41.1 mls/hr Piperacillin Sod/Tazobactam Sod (Zosyn 3.375 Gm Iv Premix) 3.375 gm in 50 mls @ 100 mls/hr IVPB Q6H [facility] Last Admin: 07/04/17 17:07 Dose: 100 mls/hr [place] Carbonate ([place] Carbonate 300mg) 600 mg PO TID [facility] Last Admin: 07/04/17 18:14 Dose: 600 mg Lorazepam (Ativan) 2 mg IVP Q2H PRN PRN Reason: Agitation Last Admin: 07/04/17 21:15 Dose: 2 mg Methylprednisolone (Solu-Medrol) 60 mg IVP Q6 [facility] Last Admin: 07/04/17 17:04 Dose: 60 mg Metoprolol Tartrate (Lopressor) 50 mg PO DAILY [facility] Last Admin: 07/04/17 09:01 Dose: 50 mg Pantoprazole Sodium (Protonix Inj) 40 mg IVP DAILY [facility] Last Admin: 07/04/17 09:02 Dose: 40 mg Quetiapine Fumarate (Seroquel Xr) 200 mg PO DAILY [facility] Last Admin: 07/04/17 09:03 Dose: 200 mg Temazepam (Restoril) 15 mg PO Q12 [facility] Last Admin: 07/04/17 21:16 Dose: 15 mg Thiamine HCl (Vitamin B1 Inj) 200 mg IV TID [facility] Last Admin: 07/04/17 17:04 Dose: 200 mg - Labs Labs: 07/04/17 06:21 07/04/17 06:21 - Constitutional Appears: No Acute Distress - Eye Exam Eye Exam: EOMI, Normal appearance, PERRL Pupil Exam: NORMAL ACCOMODATION, PERRL - Respiratory Exam Respiratory Exam: Clear to Ausculation Bilateral - Cardiovascular Exam Cardiovascular Exam: REGULAR RHYTHM, +S1, +S2. absent: Murmur - GI/Abdominal Exam GI & Abdominal Exam: Soft, Normal Bowel Sounds. absent: Tenderness Assessment and Plan (1) Acute confusion Status: Acute (2) Benzodiazepine abuse Status: Acute (3) Withdrawal from benzodiazepine Status: Acute
[2017-07-05] MEDS: Propofol 10 mg/ml 1,000 MG/100 ML VIAL IV PRN ×10 (00:33→23:04)
[2017-07-05] MEDS: MethylPREDNISolone 40 mg Vial IVP SCH ×3 (00:33→21:42)
[2017-07-05] MEDS: Albuterol-Ipratrop 3 mg / 0.5 (3 ml) UD INH SCH ×6 (03:08→23:48)
[2017-07-05] MEDS: Piperacill/Tazo 3.375gm in Dex 3.375 GM/50 ML BAG IVPB SCH ×3 (03:58→15:57)
[2017-07-05 05:28] LABS: ARTERIAL BLOOD GAS HCO3 26.6 mmol/L (21-28); ARTERIAL BLOOD GAS O2 SAT 99.6 % (95-98); ARTERIAL BLOOD GAS PCO2 35 mm/Hg (35-45); ARTERIAL BLOOD GAS PH 7.47 (7.35-7.45); ARTERIAL BLOOD GAS PO2 107 mm/Hg (80-100); ARTERIAL BLOOD GAS TCO2 26.6 mmol/L (22-28)
[2017-07-05 06:25] LABS: BASO % 0.2 % (0.0-2.0); EOS % 0.1 % (0.0-4.0); HEMOGLOBIN 11.5 g/dL (12.0-18.0); LYMPH # 0.5 K/uL (1.0-4.3); LYMPH % 5.3 % (20.0-40.0); MEAN CELL VOLUME 99.6 fL (80.0-94.0); MEAN CORPUSCULAR HEMOGLOBIN 33.2 pg (27.0-31.0); MEAN CORPUSCULAR HGB CONC 33.3 g/dL (33.0-37.0); MEAN PLATELET VOLUME 8.3 fL (7.2-11.7); MONO # 0.5 K/uL (0.0-0.8); NEUT # 8.6 K/uL (1.8-7.0); NEUT % 89.4 % (50.0-75.0); PLATELET COUNT 408 K/uL (130-400); RBC 3.46 Mil/uL (4.40-5.90); RED CELL DISTRIBUTION WIDTH 14.8 % (11.5-14.5); WHITE BLOOD COUNT 9.6 K/uL (4.8-10.8)
[2017-07-05 06:45] LABS: ALB/GLOB RATIO 0.9 (1.0-2.1); ALBUMIN 3.1 g/dL (3.5-5.0); ALT/SGPT 142 U/L (21-72); AST/SGOT 94 U/L (17-59); BLOOD UREA NITROGEN 16 mg/dL (9-20); CALCIUM 9.2 mg/dl (8.6-10.4); GFR AFRICAN-AMERICAN > 60; GFR NON-AFRICAN AMERICAN > 60; MAGNESIUM 2.1 mg/dL (1.6-2.3)
--- NOTE | 2017-07-05 07:31 | PN ---
DATE: 07/03/2017 FOLLOWUP RENAL CONSULTATION LOCATION: The patient is located in ICU, bed 15 REQUESTED BY: Estevan Agustin MD. REASON FOR FOLLOWUP: Acute renal failure. HISTORY OF PRESENT ILLNESS: Mr. Holcomb is a 51 years old obese, middle-aged male with a past medical history significant for anxiety, depression, bipolar disorder, asthma, and hyperlipidemia, was admitted with a bizarre behavior, not feeling well. The patient was treated initially with IV Ativan and requiring multiple medications, and also Precedex to keep him calm. The patient was hyperventilating today and also shaking. Subsequently, the patient was intubated for airway protection. The patient is under sedation. The patient was also found to have elevated BUN and creatinine, elevated CPK levels. The patient is under sedation, not in distress. PHYSICAL EXAMINATION: VITAL SIGNS: As follows, blood pressure 116/67, pulse 59, respirations 24, saturation 93% to 94%, and T-max 101. GENERAL: Mr. Holcomb is a 51 years obese male, well-built, well-nourished, on ventilator with height 5 feet 11 inches and weight is 302 pounds. HEENT: Pupils normal and reactive to light and accommodation. Conjunctivae pink. Sclerae anicteric, on ventilator. No thyroid enlargement. LUNGS: Symmetric on both sides. Bilateral breath sounds present. Clear on auscultation. CVS: [place] at the fifth intercostal space, midclavicular line. S1, S2 audible. No murmur or gallop. ABDOMEN: Normal in appearance. Soft, tympanic. No guarding. No rigidity. No hepatosplenomegaly. CORPORATE HEALTH CONSULTANT: The patient is on ventilator. EXTREMITIES: No cyanosis, no clubbing, no edema. MEDICATIONS: Current medications include as follows: Ativan 2 mg IV q.2 hours and propofol 5 mcg/kg/min, ergocalciferol 50,000 units 1 capsule p.o. weekly, DuoNeb inhaler, subcu heparin 5000 q.8 hours, Ringer's lactate 100 mL/hour, [place] carbonate 600 mg p.o. t.i.d., Lopressor 50 mg p.o. daily, multivitamin with IV fluids 100 mL/hour, Protonix 40 mg IV daily, Restoril 15 mg p.o. q.12 hours, Seroquel 200 mg p.o. daily, Solu-Medrol 60 mg IV q.6 hours, Tylenol, thiamine 200 mg IV t.i.d., Zosyn 3.375 gm IV q.6 hours. Blood culture as of 07/01/2017 x2 negative day 1. Urine culture is negative and sputum culture is pending as of 07/03/2017. Abdominal ultrasound as of 07/03/2017, right kidney 11.6 x 6 x 5.3 cm, and the left kidney 12.6 x 5.7 x 5.9 cm. Spleen is not visualized. Aorta is not well visualized. Increased echogenicity of the liver suggestive of liver parenchymal disease or steatosis. No evidence of cholelithiasis or cholecystitis. No evidence of biliary obstruction. Pancreas and spleen not visualized due to overlying bowel gas. Chest x-ray as of 07/03/2017, impression, appropriate position of the ET tube, interval worsening of the perihilar and lower lobe opacity since the previous examination. His other laboratory data include as follows. As of 07/03/2017, WBC 9.9, hemoglobin 12, hematocrit is 35.7, platelets 356. Sodium 135, potassium 4.6, chloride 103, CO2 of 27, anion gap is 9, BUN 16, creatinine 1.4, glucose 106, calcium 9.4, phosphorus 2.9, magnesium is 2, total bili 1.8, AST 212, ALT 146, alkaline phosphatase 88, CPK 2733, CK-MB is 2.1. Troponin 0.01 and 0.012. Total protein 6.9 and albumin is 3.4. Repeat labs, ABG, pH 7.33, pCO2 of 41, pO2 of 211, bicarb is 21.8, and saturation is 99.6. Vent setting AC, tidal volume is 500, FiO2 100% and PEEP of 5. Sodium 136, potassium is 4.3, chloride 105, CO2 of 23, BUN 15, creatinine 1.4, glucose 101. Lactic acid 0.9, calcium is 9.2, phosphorus 2.5, magnesium 1.6, total bili 2.0, AST 191, ALT 140, alkaline phos is 102, total protein 7.12, albumin is 3.4. Urine is yellow, hazy, pH 5, specific gravity 1.021, protein negative, glucose normal, ketones negative, blood 1+, nitrites negative, bilirubin negative, urobilinogen normal, leukocyte esterase negative, wbc 4, rbc 9. His intake and output in the last 24 hours, intake is 6098 mL and output 3020. IMPRESSION: In summary, Mr. Holcomb is a 51 years old obese male with a history of hypertension, hyperlipidemia, depression, bipolar disorder, and asthma who was admitted with not feeling well with bizarre behavior and on admitted on 06/22/2017, and the patient is admitted to ICU with agitation and required multiple medication to keep him calm down, and the patient was hyperventilating and restless this afternoon and requiring intubation for airway protection and increased BUN and creatinine and increased CPK levels and abnormal LFTs. 1. Nonoliguric acute renal failure, most likely secondary to intravascular volume depletion. 2. Rhabdomyolysis. 3. Hypertension. 4. Abnormal LFTs, most likely secondary to medication and hypotension. Continue his IV fluids and Ringer's lactate and normal saline IV fluids. Renal function is improving. Continue to monitor vent settings and respiratory status. Repeat CPK levels and BMP in a.m. We will follow with you. Thank you for allowing me to participate in your patient's care. Continue his antipsychotic medications. Nicolasa Farooq MD
--- NOTE | 2017-07-05 07:36 | PN ---
DATE: 07/04/2017 FOLLOWUP RENAL CONSULTATION LOCATION: The patient is located in ICU, bed 15. REQUESTED BY: Estevan Agustin MD. REASON FOR FOLLOWUP: Acute renal failure, rhabdomyolysis, for further evaluation. HISTORY OF PRESENT ILLNESS: Mr. Holcomb is a 51 years old middle-aged obese male with history of asthma, bipolar disorder, depression, hypertension, hyperlipidemia, was admitted with bizarre behavior, and subsequently, the patient was admitted to ICU for agitation and requiring multiple medication. Subsequently, the patient was intubated for hyperventilation and questionable withdrawals for possible airway protection, and the patient was also found to have elevated CPK levels. The patient was started on IV hydration normal saline with multivitamins, and also Ringer's lactate 200 mL/hour total. The patient remains intubated under sedation. PHYSICAL EXAMINATION: VITAL SIGNS: As follows: Blood pressure 130/62, pulse 73, respirations 20, temperature 98.8, saturation 97%. Height 5 feet 11 inches and weight is 302 pounds. GENERAL: Mr. Holcomb is a 51 years old obese male, well-built, well-nourished, on ventilator. HEENT: Pupils normal and reactive to light and accommodation. Conjunctivae pink. Sclerae anicteric. Trachea is midline. No thyroid alignment. LUNGS: Symmetric on both sides. Bilateral breath sounds present. Clear on auscultation. CVS: [place] at the fifth intercostal space, midclavicular line, half inch medial to midclavicular area. S1, S2 audible. No murmur or gallop. ABDOMEN: Normal in appearance, soft, tympanic. No guarding. No rigidity. No hepatosplenomegaly. ANIMATION ARTIST: The patient is on ventilator under sedation. EXTREMITIES: No cyanosis, no clubbing, no edema. SKIN: [place] is normal. MEDICATIONS: His current medications include as follows: Ativan 2 mg IV q.2 hours, cortisone cream, propofol, ergocalciferol 50,000 units 1 capsule weekly, DuoNeb inhaler, Ringer's lactate 100 mL/hour, [place] carbonate 600 mg p.o. t.i.d., Lopressor 50 mg p.o. daily, Lotrimin cream, Protonix 40 mg IV daily, Restoril 15 mg p.o. q.12 hours, Seroquel 200 mg p.o. daily, Solu-Medrol 60 mg IV q.6 hours, Tylenol 650 mg q.6 hours, thiamine 200 mg IV t.i.d., Zosyn 3.375 gm IV q.6 hours. His I's and O's in the last 24 hours, intake is 8336 and output is 4325. The patient is positive about 9 liters in the last 3 days. LABORATORY DATA: His current lab data include as follows. As of 07/04/2017, WBC 10.1, hemoglobin 11, hematocrit is 33, platelets 374, neutrophils 96, bands 1, lymph 2, monos 1. ABG, pH 7.42, pCO2 of 37, pO2 of 173, bicarb is 24.7, saturation 100%. His vent settings, AC 24, title volume 500, FiO2 60%, PEEP of 5, sodium 138, potassium 3.8, chloride 106, CO2 of 21, BUN 15, creatinine 1.1, glucose is 136, calcium 8.7, phosphorus 3.7, magnesium 1.9, total bili 1.2, AST 109, ALT 127, alkaline phosphatase 91, CPK 556, total protein 6.3, albumin is 3.0. His chest x-ray as of 07/04/2017, interval improvement in the lungs since previous exam and appropriate position of the supportive devices. IMPRESSION: In summary again, Mr. Holcomb is a 51 years obese male with a history of depression, bipolar disorder, hypertension, hyperlipidemia, asthma with questionable withdrawals with hyperventilation and agitation and increased CPK levels and increased BUN and creatinine, was intubated for possible airway protection, on IV hydration. 1. Status post acute renal failure, most likely secondary to intravascular depletion and dehydration. Renal function is back to his baseline. 2. Rhabdomyolysis. CPK levels are improving. Continue IV hydration. 3. Hypertension. Blood pressure is under control. Continue his current medications, and continue vent support as per ICU team. We will follow with you. Thank you for allowing me to participate in your patient's care. We will follow up as needed. Nicolasa Farooq MD
--- NOTE | 2017-07-05 08:28 | RAD ---
HISTORY: et tube COMPARISON: 07/04/2017 7:15 a.m. FINDINGS: LUNGS: Right basilar bandlike opacity, possibly atelectasis. Followup to rule out pneumonia. PLEURA: Small left pleural effusion. No right pleural effusion. No pneumothorax. CARDIOVASCULAR: Endotracheal tube and nasogastric tube unchanged. Normal heart size. OSSEOUS STRUCTURES: No significant abnormalities. VISUALIZED UPPER ABDOMEN: Normal. OTHER FINDINGS: None. IMPRESSION: Suspect platelike atelectasis at right base. Small left pleural effusion. ET tube and NG tube unchanged.
[2017-07-05 08:39] LABS: BANDS 4 % (0-2); LYMPHOCYTE 8 % (20-40); MONOCYTE 5 % (0-10); NEUTROPHIL 83 % (50-75); PLATELET ESTIMATE SLIGHTLY INCREASED (NORMAL); TOTAL CELLS COUNTED 100
[2017-07-05] MEDS: QUEtiapine 200 mg XR Tab PO SCH (09:50)
[2017-07-05] MEDS: Thiamine 100 mg/ml Inj IV SCH ×3 (09:50→17:48)
[2017-07-05] MEDS: Clotrimazole 1% Cream(30 gm) TOP SCH ×2 (09:52→17:48)
[2017-07-05] MEDS: Hydrocortisone 1% Cream (30 GM) TOP SCH ×2 (09:52→17:48)
[2017-07-05] MEDS: Lactated Ringer's 1,000 ML IV SCH ×2 (09:53→16:32)
--- NOTE | 2017-07-05 12:08 | CP.CCUPN ---
<AndreasMerlinn - Last Filed: 07/05/17 17:30> CCU Subjective - Physician Review Events Since Last Encounter (Free Text): 07/05/17 12:07 Patient seen and examined at bedside. Per nursing no acute events overnight. Subjective (Free Text): 07/01/17 17:53 Patient seen and examined at bedside. Per nursing no other events besides the stated event above occurred. Critical Care Time Spent (in minutes): 45 CCU Objective - Vital Signs / Intake & Output Vital Signs (Last 4 hours): Vital Signs Pulse Resp BP Pulse Ox 07/05/17 10:10 80 23 146/84 99 07/05/17 09:18 88 10 L 143/78 99 07/05/17 08:17 69 20 142/80 95 Intake and Output (Last 8hrs): Intake & Output 07/04/17 07/05/17 07/05/17 22:59 06:59 14:59 Intake Total 1126.3 1529.8 934.4 Output Total 395 780 300 Balance 731.3 749.8 634.4 Weight 286 lb Intake: IV 400 300 200 Intake, IV Amount 726.3 1229.8 564.4 Left Wrist 123.3 328.8 164.4 Left hand 2 300 800 400 right lower arm 303 101 Tube Feeding 170 Output: Urine 395 780 300 Urethral ([place]) 395 780 300 - Physical Exam Head: Positive for: Atraumatic, Normocephalic, Other (intubated) Pupils: Positive for: PERRL Extroacular Muscles: Positive for: EOMI Conjunctiva: Positive for: Normal Mouth: Positive for: Moist Mucous Membranes Neck: Positive for: Normal Range of Motion. Negative for: Meningeal Signs, JVD Respiratory/Chest: Positive for: Clear to Auscultation, Good Air Exchange, Respiratory Distress Cardiovascular: Positive for: Regular Rate and Rhythm, Normal S1, S2 Abdomen: Positive for: Normal Bowel Sounds. Negative for: Tenderness Upper Extremity: Positive for: Normal Inspection. Negative for: Edema Lower Extremity: Positive for: Edema Skin: Positive for: Warm, Dry - Medications Active Medications: Active Medications Generic Name Dose Route Start Last Admin Trade Name Freq PRN Reason Stop Dose Admin Acetaminophen 650 mg 07/01/17 09:28 07/04/17 01:37 Tylenol 650 Mg Supp [place] 650 mg Q6 PRN Administration Fever >100.4 F Albuterol/Ipratropium 3 ml 07/03/17 12:00 07/05/17 07:31 Duoneb 3 Mg/0.5 Mg (3 Ml) Ud INH 3 ml RQ4 EDIN Administration Clotrimazole 0 gm 06/27/17 10:00 07/05/17 09:52 Lotrimin 1% TOP 1 applic BID EDIN Administration Hydrocortisone 0 gm 06/27/17 10:00 07/05/17 09:52 Cortizone 1% Cream TOP 1 applic BID EDIN Administration Propofol 1,000 mg in 100 mls @ 4.11 mls/hr 07/03/17 12:07 07/05/17 10:33 Diprivan IV 60 mcg/kg/min .Q24H PRN 49.32 mls/hr TITRATE PER MD ORDER Administration Protocol 5 MCG/KG/MIN Piperacillin Sod/Tazobactam Sod 3.375 gm in 50 mls @ 100 mls/hr 07/03/17 16: 30 07/05/17 09:51 Zosyn 3.375 Gm Iv Premix IVPB 100 mls/hr Q6H EDIN Administration [place] Carbonate 600 mg 06/29/17 14:00 07/05/17 09:50 [place] Carbonate 300mg PO 600 mg TID EDIN Administration Lorazepam 2 mg 06/30/17 21:25 07/05/17 11:47 Ativan IVP 2 mg Q2H PRN Administration Agitation Methylprednisolone 40 mg 07/05/17 22:00 Solu-Medrol IVP Q12 EDIN Metoprolol Tartrate 50 mg 06/23/17 16:12 07/05/17 09:50 Lopressor PO 50 mg DAILY EDIN Administration Pantoprazole Sodium 40 mg 07/01/17 10:00 07/05/17 09:50 Protonix Inj IVP 40 mg DAILY EDIN Administration Quetiapine Fumarate 200 mg 07/03/17 10:15 07/05/17 09:50 Seroquel Xr PO 200 mg DAILY EDIN Administration Thiamine HCl 200 mg 07/02/17 10:00 07/05/17 09:50 Vitamin B1 Inj IV 200 mg TID EDIN Administration - Patient Studies Lab Studies: Microbiology Studies 07/03/17 12:26 Gram Stain - Final Trachasp Sputum Culture - Final No growth. 07/01/17 07:33 Blood Culture - Preliminary Blood-Venous NO GROWTH AFTER 4 DAYS 07/01/17 07:33 Blood Culture - Preliminary Blood-Venous NO GROWTH AFTER 4 DAYS 07/03/17 12:55 Blood Culture - Preliminary Blood NO GROWTH AFTER 24 HOURS 07/03/17 13:25 Blood Culture - Preliminary Blood NO GROWTH AFTER 24 HOURS 07/03/17 12:26 Urine Culture - Final Urine,Catheterized No Growth (<1,000 CFU/ML) Lab Studies 07/05/17 07/05/17 07/05/17 Range/Units 11:54 06:32 06:17 WBC 9.6 (4.8-10.8) K/uL RBC 3.46 L (4.40-5.90) Mil/uL Hgb 11.5 L (12.0-18.0) g/dL Hct 34.5 L (35.0-51.0) % MCV 99.6 H (80.0-94.0) fL MCH 33.2 H (27.0-31.0) pg MCHC 33.3 (33.0-37.0) g/dL RDW 14.8 H (11.5-14.5) % Plt Count 408 H (130-400) K/uL MPV 8.3 (7.2-11.7) fL Neut % (Auto) 89.4 H (50.0-75.0) % Lymph % (Auto) 5.3 L (20.0-40.0) % [place] % (Auto) 5.0 (0.0-10.0) % Eos % (Auto) 0.1 (0.0-4.0) % Baso % (Auto) 0.2 (0.0-2.0) % Neut # (Auto) 8.6 H (1.8-7.0) K/uL Lymph # (Auto) 0.5 L (1.0-4.3) K/uL [place] # (Auto) 0.5 (0.0-0.8) K/uL Eos # (Auto) 0.0 (0.0-0.7) K/uL Baso # (Auto) 0.0 (0.0-0.2) K/uL Neutrophils % (Manual) 83 H (50-75) % Band Neutrophils % 4 H (0-2) % Lymphocytes % (Manual) 8 L (20-40) % Monocytes % (Manual) 5 (0-10) % Platelet Estimate Slightly increased H (NORMAL) Macrocytosis (manual) Slight Puncture Site pCO2 (35-45) mm/Hg pO2 (80-100) mm/Hg HCO3 (21-28) mmol/L ABG pH (7.35-7.45) ABG Total CO2 (22-28) mmol/L ABG O2 Saturation (95-98) % ABG Base Excess (-2.0-3.0) mmol/L Chance Test ABG Potassium (3.6-5.2) mmol/L A-a O2 Difference mm/Hg Respiratory Index Sodium (132-148) mmol/l Chloride (98-107) mmol/L Glucose (75-110) mg/dl Lactate (0.7-2.1) mmol/L Vent Mode Mechanical Rate FiO2 % Tidal Volume PEEP Potassium (3.6-5.2) mmol/L Carbon Dioxide (22-30) mmol/L Anion Gap (10-20) BUN (9-20) mg/dL Creatinine (0.8-1.5) mg/dL Est GFR ( Amer) Est GFR (Non-Af Amer) POC Glucose (mg/dL) 149 H 132 H (65-110) mg/dL Random Glucose (75-110) mg/dL Calcium (8.6-10.4) mg/dl Phosphorus (2.5-4.5) mg/dL Magnesium (1.6-2.3) mg/dL Total Bilirubin (0.2-1.3) mg/dL AST (17-59) U/L ALT (21-72) U/L Alkaline Phosphatase (38-126) U/L Total Protein (6.3-8.3) g/dL Albumin (3.5-5.0) g/dL Globulin (2.2-3.9) gm/dL Albumin/Globulin Ratio (1.0-2.1) Arterial Blood Potassium (3.6-5.2) mmol/L 07/05/17 07/05/17 07/05/17 Range/Units 06:13 05:09 00:39 WBC (4.8-10.8) K/uL RBC (4.40-5.90) Mil/uL Hgb (12.0-18.0) g/dL Hct (35.0-51.0) % MCV (80.0-94.0) fL MCH (27.0-31.0) pg MCHC (33.0-37.0) g/dL RDW (11.5-14.5) % Plt Count (130-400) K/uL MPV (7.2-11.7) fL Neut % (Auto) (50.0-75.0) % Lymph % (Auto) (20.0-40.0) % [place] % (Auto) (0.0-10.0) % Eos % (Auto) (0.0-4.0) % Baso % (Auto) (0.0-2.0) % Neut # (Auto) (1.8-7.0) K/uL Lymph # (Auto) (1.0-4.3) K/uL [place] # (Auto) (0.0-0.8) K/uL Eos # (Auto) (0.0-0.7) K/uL Baso # (Auto) (0.0-0.2) K/uL Neutrophils % (Manual) (50-75) % Band Neutrophils % (0-2) % Lymphocytes % (Manual) (20-40) % Monocytes % (Manual) (0-10) % Platelet Estimate (NORMAL) Macrocytosis (manual) Puncture Site Rb pCO2 35 (35-45) mm/Hg pO2 107 H (80-100) mm/Hg HCO3 26.6 (21-28) mmol/L ABG pH 7.47 H (7.35-7.45) ABG Total CO2 26.6 (22-28) mmol/L ABG O2 Saturation 99.6 H (95-98) % ABG Base Excess 2.1 (-2.0-3.0) mmol/L Chance Test Na ABG Potassium 3.4 L (3.6-5.2) mmol/L A-a O2 Difference 206.0 mm/Hg Respiratory Index 1.9 Sodium 143 146.0 (132-148) mmol/l Chloride 110 H 114.0 H (98-107) mmol/L Glucose 167 H (75-110) mg/dl Lactate 0.9 (0.7-2.1) mmol/L Vent Mode Prvc Mechanical Rate 20 FiO2 50.0 % Tidal Volume 500 PEEP 5 Potassium 3.4 L (3.6-5.2) mmol/L Carbon Dioxide 26 (22-30) mmol/L Anion Gap 11 (10-20) BUN 16 (9-20) mg/dL Creatinine 1.2 (0.8-1.5) mg/dL Est GFR ( Amer) > 60 Est GFR (Non-Af Amer) > 60 POC Glucose (mg/dL) 137 H (65-110) mg/dL Random Glucose 156 H (75-110) mg/dL Calcium 9.2 (8.6-10.4) mg/dl Phosphorus 2.7 (2.5-4.5) mg/dL Magnesium 2.1 (1.6-2.3) mg/dL Total Bilirubin 1.0 (0.2-1.3) mg/dL AST 94 H (17-59) U/L ALT 142 H (21-72) U/L Alkaline Phosphatase 111 (38-126) U/L Total Protein 6.4 (6.3-8.3) g/dL Albumin 3.1 L (3.5-5.0) g/dL Globulin 3.3 (2.2-3.9) gm/dL Albumin/Globulin Ratio 0.9 L (1.0-2.1) Arterial Blood Potassium 3.4 L (3.6-5.2) mmol/L 07/04/17 Range/Units 17:46 WBC (4.8-10.8) K/uL RBC (4.40-5.90) Mil/uL Hgb (12.0-18.0) g/dL Hct (35.0-51.0) % MCV (80.0-94.0) fL MCH (27.0-31.0) pg MCHC (33.0-37.0) g/dL RDW (11.5-14.5) % Plt Count (130-400) K/uL MPV (7.2-11.7) fL Neut % (Auto) (50.0-75.0) % Lymph % (Auto) (20.0-40.0) % [place] % (Auto) (0.0-10.0) % Eos % (Auto) (0.0-4.0) % Baso % (Auto) (0.0-2.0) % Neut # (Auto) (1.8-7.0) K/uL Lymph # (Auto) (1.0-4.3) K/uL [place] # (Auto) (0.0-0.8) K/uL Eos # (Auto) (0.0-0.7) K/uL Baso # (Auto) (0.0-0.2) K/uL Neutrophils % (Manual) (50-75) % Band Neutrophils % (0-2) % Lymphocytes % (Manual) (20-40) % Monocytes % (Manual) (0-10) % Platelet Estimate (NORMAL) Macrocytosis (manual) Puncture Site pCO2 (35-45) mm/Hg pO2 (80-100) mm/Hg HCO3 (21-28) mmol/L ABG pH (7.35-7.45) ABG Total CO2 (22-28) mmol/L ABG O2 Saturation (95-98) % ABG Base Excess (-2.0-3.0) mmol/L Chance Test ABG Potassium (3.6-5.2) mmol/L A-a O2 Difference mm/Hg Respiratory Index Sodium (132-148) mmol/l Chloride (98-107) mmol/L Glucose (75-110) mg/dl Lactate (0.7-2.1) mmol/L Vent Mode Mechanical Rate FiO2 % Tidal Volume PEEP Potassium (3.6-5.2) mmol/L Carbon Dioxide (22-30) mmol/L Anion Gap (10-20) BUN (9-20) mg/dL Creatinine (0.8-1.5) mg/dL Est GFR ( Amer) Est GFR (Non-Af Amer) POC Glucose (mg/dL) 132 H (65-110) mg/dL Random Glucose (75-110) mg/dL Calcium (8.6-10.4) mg/dl Phosphorus (2.5-4.5) mg/dL Magnesium (1.6-2.3) mg/dL Total Bilirubin (0.2-1.3) mg/dL AST (17-59) U/L ALT (21-72) U/L Alkaline Phosphatase (38-126) U/L Total Protein (6.3-8.3) g/dL Albumin (3.5-5.0) g/dL Globulin (2.2-3.9) gm/dL Albumin/Globulin Ratio (1.0-2.1) Arterial Blood Potassium (3.6-5.2) mmol/L Laboratory Results - last 24 hr 07/04/17 07/05/17 07/05/17 17:46 00:39 05:09 WBC RBC Hgb Hct MCV MCH MCHC RDW Plt Count MPV Neut % (Auto) Lymph % (Auto) [place] % (Auto) Eos % (Auto) Baso % (Auto) Neut # (Auto) Lymph # (Auto) [place] # (Auto) Eos # (Auto) Baso # (Auto) Neutrophils % (Manual) Band Neutrophils % Lymphocytes % (Manual) Monocytes % (Manual) Platelet Estimate Macrocytosis (manual) Puncture Site Rb pCO2 35 pO2 107 H HCO3 26.6 ABG pH 7.47 H ABG Total CO2 26.6 ABG O2 Saturation 99.6 H ABG Base Excess 2.1 Chance Test Na ABG Potassium 3.4 L A-a O2 Difference 206.0 Respiratory Index 1.9 Sodium 146.0 Chloride 114.0 H Glucose 167 H Lactate 0.9 Vent Mode Prvc Mechanical Rate 20 FiO2 50.0 Tidal Volume 500 PEEP 5 Potassium Carbon Dioxide Anion Gap BUN Creatinine Est GFR ( Amer) Est GFR (Non-Af Amer) POC Glucose (mg/dL) 132 H 137 H Random Glucose Calcium Phosphorus Magnesium Total Bilirubin AST ALT Alkaline Phosphatase Total Protein Albumin Globulin Albumin/Globulin Ratio Arterial Blood Potassium 3.4 L 07/05/17 07/05/17 07/05/17 06:13 06:17 06:32 WBC 9.6 RBC 3.46 L Hgb 11.5 L Hct 34.5 L MCV 99.6 H MCH 33.2 H MCHC 33.3 RDW 14.8 H Plt Count 408 H MPV 8.3 Neut % (Auto) 89.4 H Lymph % (Auto) 5.3 L [place] % (Auto) 5.0 Eos % (Auto) 0.1 Baso % (Auto) 0.2 Neut # (Auto) 8.6 H Lymph # (Auto) 0.5 L [place] # (Auto) 0.5 Eos # (Auto) 0.0 Baso # (Auto) 0.0 Neutrophils % (Manual) 83 H Band Neutrophils % 4 H Lymphocytes % (Manual) 8 L Monocytes % (Manual) 5 Platelet Estimate Slightly increased H Macrocytosis (manual) Slight Puncture Site pCO2 pO2 HCO3 ABG pH ABG Total CO2 ABG O2 Saturation ABG Base Excess Chance Test ABG Potassium A-a O2 Difference Respiratory Index Sodium 143 Chloride 110 H Glucose Lactate Vent Mode Mechanical Rate FiO2 Tidal Volume PEEP Potassium 3.4 L Carbon Dioxide 26 Anion Gap 11 BUN 16 Creatinine 1.2 Est GFR ( Amer) > 60 Est GFR (Non-Af Amer) > 60 POC Glucose (mg/dL) 132 H Random Glucose 156 H Calcium 9.2 Phosphorus 2.7 Magnesium 2.1 Total Bilirubin 1.0 AST 94 H ALT 142 H Alkaline Phosphatase 111 Total Protein 6.4 Albumin 3.1 L Globulin 3.3 Albumin/Globulin Ratio 0.9 L Arterial Blood Potassium 07/05/17 11:54 WBC RBC Hgb Hct MCV MCH MCHC RDW Plt Count MPV Neut % (Auto) Lymph % (Auto) [place] % (Auto) Eos % (Auto) Baso % (Auto) Neut # (Auto) Lymph # (Auto) [place] # (Auto) Eos # (Auto) Baso # (Auto) Neutrophils % (Manual) Band Neutrophils % Lymphocytes % (Manual) Monocytes % (Manual) Platelet Estimate Macrocytosis (manual) Puncture Site pCO2 pO2 HCO3 ABG pH ABG Total CO2 ABG O2 Saturation ABG Base Excess Chance Test ABG Potassium A-a O2 Difference Respiratory Index Sodium Chloride Glucose Lactate Vent Mode Mechanical Rate FiO2 Tidal Volume PEEP Potassium Carbon Dioxide Anion Gap BUN Creatinine Est GFR ( Amer) Est GFR (Non-Af Amer) POC Glucose (mg/dL) 149 H Random Glucose Calcium Phosphorus Magnesium Total Bilirubin AST ALT Alkaline Phosphatase Total Protein Albumin Globulin Albumin/Globulin Ratio Arterial Blood Potassium Fingerstick Blood Sugar Results: 137 Review of Systems - Review of Systems Systems not reviewed;Unavailable: Acuity of Condition Assessment/Plan - Assessment and Plan (Free Text) Assessment: Patient is a 51 year-old male with a past medical history of anxiety and depression who presented to the ER via EMS after being found with an altered mental status at home. He was transferred to ICU from the medical/surgical floor after becoming acutely tachycardic and hypoxemic. Plan: Neuro/Psych: Anxiety, Depression, BZD/etOH w/d, sz precautions - Seroquel 300mg PO qhs - Haldol 5mg, not given - Desyrel 50mg PO qhs PRN - Gabapentin 300 mg PO TID - [place] Carbonate 300mg x2; 600mg PO TID ([Li] = 0.9 on 07/01) - Ativan 2mg IVP q2h PRN for anxiety - APAP 650mg [place] q6h PRN -Temazepem discontinued. 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 - ASA 81mg PO qd ID: ?sepsis - Zosyn 3.375g in 0.9%NaCl @ 200ml/hr IVPB q8h - UA/UC - negative for growth - Blood (venous) culture negative x2 at 24h - RPR nonreactive; Hep panel negative; HIV negative PPx: skin care; vitamin nutrition/diet - Cortizone 1% cream - Lotrimin 1% - Drisdol 50,000IU PO qwk - Protonix 40mg IVP qd - Multivitamin VitB1 100mg, Folic Acid 1mg in 0.9%NaCl @ 101.12 ml/hr IV qd - Heparin 5000u sc q8h - LR @ 100ml/hr IV q10h - HOB @ 30" <Bell Peter - Last Filed: 07/05/17 19:41> CCU Objective - Vital Signs / Intake & Output Vital Signs (Last 4 hours): Vital Signs Temp Pulse Resp BP Pulse Ox 07/05/17 18:00 68 18 97 07/05/17 17:18 61 20 155/87 H 97 07/05/17 16:18 60 18 154/78 H 99 07/05/17 16:00 99.3 F 61 19 99 Intake and Output (Last 8hrs): Intake & Output 07/05/17 07/05/17 07/05/17 06:59 14:59 22:59 Intake Total 1529.8 1964.6 1210.5 Output Total 780 600 350 Balance 749.8 1364.6 860.5 Weight 286 lb Intake: IV 300 300 205 Intake, IV Amount 1229.8 1094.6 655.5 Left Wrist 328.8 344.6 205.5 Left hand 2 800 750 450 right lower arm 101 Tube Feeding 370 250 Other 200 100 Output: Urine 780 600 350 Urethral ([place]) 780 600 350 - Medications Active Medications: Active Medications Generic Name Dose Route Start Last Admin Trade Name Freq PRN Reason Stop Dose Admin Acetaminophen 650 mg 07/01/17 09:28 07/04/17 01:37 Tylenol 650 Mg Supp [place] 650 mg Q6 PRN Administration Fever >100.4 F Albuterol/Ipratropium 3 ml 07/03/17 12:00 07/05/17 17:50 Duoneb 3 Mg/0.5 Mg (3 Ml) Ud INH 3 ml RQ4 EDIN Administration Clotrimazole 0 gm 06/27/17 10:00 07/05/17 17:48 Lotrimin 1% TOP 1 applic BID EDIN Administration Heparin Sodium (Porcine) 5,000 units 07/05/17 14:00 07/05/17 14:24 Heparin SC 5,000 units Q8 EDIN Administration Hydrocortisone 0 gm 06/27/17 10:00 07/05/17 17:48 Cortizone 1% Cream TOP 1 applic BID EDIN Administration Propofol 1,000 mg in 100 mls @ 4.11 mls/hr 07/03/17 12:07 07/05/17 18:00 Diprivan IV 40 mcg/kg/min .Q24H PRN 32.88 mls/hr TITRATE PER MD ORDER Titration Protocol 5 MCG/KG/MIN Lactated Ringer's 1,000 mls @ 100 mls/hr 07/05/17 15:15 07/05/17 16:32 Lactated Ringer's IV Not Given .Q10H EDIN Piperacillin Sod/Tazobactam 100 mls @ 100 mls/hr 07/05/17 23:00 Sod 3.375 gm/ Sodium Chloride IVPB Q6H EDIN Lorazepam 2 mg 06/30/17 21:25 07/05/17 15:57 Ativan IVP 2 mg Q2H PRN Administration Agitation Methylprednisolone 40 mg 07/05/17 22:00 Solu-Medrol IVP Q12 EDIN Metoprolol Tartrate 50 mg 06/23/17 16:12 07/05/17 09:50 Lopressor PO 50 mg DAILY EDIN Administration Pantoprazole Sodium 40 mg 07/01/17 10:00 07/05/17 09:50 Protonix Inj IVP 40 mg DAILY EDIN Administration Quetiapine Fumarate 200 mg 07/03/17 10:15 07/05/17 09:50 Seroquel Xr PO 200 mg DAILY EDIN Administration Thiamine HCl 200 mg 07/02/17 10:00 07/05/17 17:48 Vitamin B1 Inj IV 200 mg TID EDIN Administration - Patient Studies Lab Studies: Microbiology Studies 07/03/17 13:25 Blood Culture - Preliminary Blood NO GROWTH AFTER 48 HOURS 07/03/17 12:55 Blood Culture - Preliminary Blood NO GROWTH AFTER 48 HOURS 07/03/17 12:26 Gram Stain - Final Trachasp Sputum Culture - Final No growth. 07/01/17 07:33 Blood Culture - Preliminary Blood-Venous NO GROWTH AFTER 4 DAYS 07/01/17 07:33 Blood Culture - Preliminary Blood-Venous NO GROWTH AFTER 4 DAYS Lab Studies 07/05/17 07/05/17 07/05/17 Range/Units 17:52 13:55 12:07 WBC (4.8-10.8) K/uL RBC (4.40-5.90) Mil/uL Hgb (12.0-18.0) g/dL Hct (35.0-51.0) % MCV (80.0-94.0) fL MCH (27.0-31.0) pg MCHC (33.0-37.0) g/dL RDW (11.5-14.5) % Plt Count (130-400) K/uL MPV (7.2-11.7) fL Neut % (Auto) (50.0-75.0) % Lymph % (Auto) (20.0-40.0) % [place] % (Auto) (0.0-10.0) % Eos % (Auto) (0.0-4.0) % Baso % (Auto) (0.0-2.0) % Neut # (Auto) (1.8-7.0) K/uL Lymph # (Auto) (1.0-4.3) K/uL [place] # (Auto) (0.0-0.8) K/uL Eos # (Auto) (0.0-0.7) K/uL Baso # (Auto) (0.0-0.2) K/uL Neutrophils % (Manual) (50-75) % Band Neutrophils % (0-2) % Lymphocytes % (Manual) (20-40) % Monocytes % (Manual) (0-10) % Platelet Estimate (NORMAL) Macrocytosis (manual) Puncture Site pCO2 (35-45) mm/Hg pO2 (80-100) mm/Hg HCO3 (21-28) mmol/L ABG pH (7.35-7.45) ABG Total CO2 (22-28) mmol/L ABG O2 Saturation (95-98) % ABG Base Excess (-2.0-3.0) mmol/L Chance Test ABG Potassium (3.6-5.2) mmol/L A-a O2 Difference mm/Hg Respiratory Index Sodium (132-148) mmol/l Chloride (98-107) mmol/L Glucose (75-110) mg/dl Lactate (0.7-2.1) mmol/L Vent Mode Mechanical Rate FiO2 % Tidal Volume PEEP Potassium (3.6-5.2) mmol/L Carbon Dioxide (22-30) mmol/L Anion Gap (10-20) BUN (9-20) mg/dL Creatinine (0.8-1.5) mg/dL Est GFR ( Amer) Est GFR (Non-Af Amer) POC Glucose (mg/dL) 136 H (65-110) mg/dL Random Glucose (75-110) mg/dL Calcium (8.6-10.4) mg/dl Phosphorus (2.5-4.5) mg/dL Magnesium (1.6-2.3) mg/dL Total Bilirubin (0.2-1.3) mg/dL AST (17-59) U/L ALT (21-72) U/L Alkaline Phosphatase (38-126) U/L Total Creatine Kinase 89 (55-170) U/L Total Protein (6.3-8.3) g/dL Albumin (3.5-5.0) g/dL Globulin (2.2-3.9) gm/dL Albumin/Globulin Ratio (1.0-2.1) Arterial Blood Potassium (3.6-5.2) mmol/L [place] 1.0 (0.6-1.2) mmol/L 02/07/05/17 07/05/17 Range/Units 11:54 06:32 06:17 WBC 9.6 (4.8-10.8) K/uL RBC 3.46 L (4.40-5.90) Mil/uL Hgb 11.5 L (12.0-18.0) g/dL Hct 34.5 L (35.0-51.0) % MCV 99.6 H (80.0-94.0) fL MCH 33.2 H (27.0-31.0) pg MCHC 33.3 (33.0-37.0) g/dL RDW 14.8 H (11.5-14.5) % Plt Count 408 H (130-400) K/uL MPV 8.3 (7.2-11.7) fL Neut % (Auto) 89.4 H (50.0-75.0) % Lymph % (Auto) 5.3 L (20.0-40.0) % [place] % (Auto) 5.0 (0.0-10.0) % Eos % (Auto) 0.1 (0.0-4.0) % Baso % (Auto) 0.2 (0.0-2.0) % Neut # (Auto) 8.6 H (1.8-7.0) K/uL Lymph # (Auto) 0.5 L (1.0-4.3) K/uL [place] # (Auto) 0.5 (0.0-0.8) K/uL Eos # (Auto) 0.0 (0.0-0.7) K/uL Baso # (Auto) 0.0 (0.0-0.2) K/uL Neutrophils % (Manual) 83 H (50-75) % Band Neutrophils % 4 H (0-2) % Lymphocytes % (Manual) 8 L (20-40) % Monocytes % (Manual) 5 (0-10) % Platelet Estimate Slightly increased H (NORMAL) Macrocytosis (manual) Slight Puncture Site pCO2 (35-45) mm/Hg pO2 (80-100) mm/Hg HCO3 (21-28) mmol/L ABG pH (7.35-7.45) ABG Total CO2 (22-28) mmol/L ABG O2 Saturation (95-98) % ABG Base Excess (-2.0-3.0) mmol/L Chance Test ABG Potassium (3.6-5.2) mmol/L A-a O2 Difference mm/Hg Respiratory Index Sodium (132-148) mmol/l Chloride (98-107) mmol/L Glucose (75-110) mg/dl Lactate (0.7-2.1) mmol/L Vent Mode Mechanical Rate FiO2 % Tidal Volume PEEP Potassium (3.6-5.2) mmol/L Carbon Dioxide (22-30) mmol/L Anion Gap (10-20) BUN (9-20) mg/dL Creatinine (0.8-1.5) mg/dL Est GFR ( Amer) Est GFR (Non-Af Amer) POC Glucose (mg/dL) 149 H 132 H (65-110) mg/dL Random Glucose (75-110) mg/dL Calcium (8.6-10.4) mg/dl Phosphorus (2.5-4.5) mg/dL Magnesium (1.6-2.3) mg/dL Total Bilirubin (0.2-1.3) mg/dL AST (17-59) U/L ALT (21-72) U/L Alkaline Phosphatase (38-126) U/L Total Creatine Kinase (55-170) U/L Total Protein (6.3-8.3) g/dL Albumin (3.5-5.0) g/dL Globulin (2.2-3.9) gm/dL Albumin/Globulin Ratio (1.0-2.1) Arterial Blood Potassium (3.6-5.2) mmol/L [place] (0.6-1.2) mmol/L 07/05/17 07/05/17 07/05/17 Range/Units 06:13 05:09 00:39 WBC (4.8-10.8) K/uL RBC (4.40-5.90) Mil/uL Hgb (12.0-18.0) g/dL Hct (35.0-51.0) % MCV (80.0-94.0) fL MCH (27.0-31.0) pg MCHC (33.0-37.0) g/dL RDW (11.5-14.5) % Plt Count (130-400) K/uL MPV (7.2-11.7) fL Neut % (Auto) (50.0-75.0) % Lymph % (Auto) (20.0-40.0) % [place] % (Auto) (0.0-10.0) % Eos % (Auto) (0.0-4.0) % Baso % (Auto) (0.0-2.0) % Neut # (Auto) (1.8-7.0) K/uL Lymph # (Auto) (1.0-4.3) K/uL [place] # (Auto) (0.0-0.8) K/uL Eos # (Auto) (0.0-0.7) K/uL Baso # (Auto) (0.0-0.2) K/uL Neutrophils % (Manual) (50-75) % Band Neutrophils % (0-2) % Lymphocytes % (Manual) (20-40) % Monocytes % (Manual) (0-10) % Platelet Estimate (NORMAL) Macrocytosis (manual) Puncture Site Rb pCO2 35 (35-45) mm/Hg pO2 107 H (80-100) mm/Hg HCO3 26.6 (21-28) mmol/L ABG pH 7.47 H (7.35-7.45) ABG Total CO2 26.6 (22-28) mmol/L ABG O2 Saturation 99.6 H (95-98) % ABG Base Excess 2.1 (-2.0-3.0) mmol/L Chance Test Na ABG Potassium 3.4 L (3.6-5.2) mmol/L A-a O2 Difference 206.0 mm/Hg Respiratory Index 1.9 Sodium 143 146.0 (132-148) mmol/l Chloride 110 H 114.0 H (98-107) mmol/L Glucose 167 H (75-110) mg/dl Lactate 0.9 (0.7-2.1) mmol/L Vent Mode Prvc Mechanical Rate 20 FiO2 50.0 % Tidal Volume 500 PEEP 5 Potassium 3.4 L (3.6-5.2) mmol/L Carbon Dioxide 26 (22-30) mmol/L Anion Gap 11 (10-20) BUN 16 (9-20) mg/dL Creatinine 1.2 (0.8-1.5) mg/dL Est GFR ( Amer) > 60 Est GFR (Non-Af Amer) > 60 POC Glucose (mg/dL) 137 H (65-110) mg/dL Random Glucose 156 H (75-110) mg/dL Calcium 9.2 (8.6-10.4) mg/dl Phosphorus 2.7 (2.5-4.5) mg/dL Magnesium 2.1 (1.6-2.3) mg/dL Total Bilirubin 1.0 (0.2-1.3) mg/dL AST 94 H (17-59) U/L ALT 142 H (21-72) U/L Alkaline Phosphatase 111 (38-126) U/L Total Creatine Kinase (55-170) U/L Total Protein 6.4 (6.3-8.3) g/dL Albumin 3.1 L (3.5-5.0) g/dL Globulin 3.3 (2.2-3.9) gm/dL Albumin/Globulin Ratio 0.9 L (1.0-2.1) Arterial Blood Potassium 3.4 L (3.6-5.2) mmol/L [place] (0.6-1.2) mmol/L Laboratory Results - last 24 hr 07/05/17 07/05/17 07/05/17 00:39 05:09 06:13 WBC RBC Hgb Hct MCV MCH MCHC RDW Plt Count MPV Neut % (Auto) Lymph % (Auto) [place] % (Auto) Eos % (Auto) Baso % (Auto) Neut # (Auto) Lymph # (Auto) [place] # (Auto) Eos # (Auto) Baso # (Auto) Neutrophils % (Manual) Band Neutrophils % Lymphocytes % (Manual) Monocytes % (Manual) Platelet Estimate Macrocytosis (manual) Puncture Site Rb pCO2 35 pO2 107 H HCO3 26.6 ABG pH 7.47 H ABG Total CO2 26.6 ABG O2 Saturation 99.6 H ABG Base Excess 2.1 Chance Test Na ABG Potassium 3.4 L A-a O2 Difference 206.0 Respiratory Index 1.9 Sodium 146.0 143 Chloride 114.0 H 110 H Glucose 167 H Lactate 0.9 Vent Mode Prvc Mechanical Rate 20 FiO2 50.0 Tidal Volume 500 PEEP 5 Potassium 3.4 L Carbon Dioxide 26 Anion Gap 11 BUN 16 Creatinine 1.2 Est GFR ( Amer) > 60 Est GFR (Non-Af Amer) > 60 POC Glucose (mg/dL) 137 H Random Glucose 156 H Calcium 9.2 Phosphorus 2.7 Magnesium 2.1 Total Bilirubin 1.0 AST 94 H ALT 142 H Alkaline Phosphatase 111 Total Creatine Kinase Total Protein 6.4 Albumin 3.1 L Globulin 3.3 Albumin/Globulin Ratio 0.9 L Arterial Blood Potassium 3.4 L [place] 07/05/17 07/05/17 07/05/17 06:17 06:32 11:54 WBC 9.6 RBC 3.46 L Hgb 11.5 L Hct 34.5 L MCV 99.6 H MCH 33.2 H MCHC 33.3 RDW 14.8 H Plt Count 408 H MPV 8.3 Neut % (Auto) 89.4 H Lymph % (Auto) 5.3 L [place] % (Auto) 5.0 Eos % (Auto) 0.1 Baso % (Auto) 0.2 Neut # (Auto) 8.6 H Lymph # (Auto) 0.5 L [place] # (Auto) 0.5 Eos # (Auto) 0.0 Baso # (Auto) 0.0 Neutrophils % (Manual) 83 H Band Neutrophils % 4 H Lymphocytes % (Manual) 8 L Monocytes % (Manual) 5 Platelet Estimate Slightly increased H Macrocytosis (manual) Slight Puncture Site pCO2 pO2 HCO3 ABG pH ABG Total CO2 ABG O2 Saturation ABG Base Excess Chance Test ABG Potassium A-a O2 Difference Respiratory Index Sodium Chloride Glucose Lactate Vent Mode Mechanical Rate FiO2 Tidal Volume PEEP Potassium Carbon Dioxide Anion Gap BUN Creatinine Est GFR ( Amer) Est GFR (Non-Af Amer) POC Glucose (mg/dL) 132 H 149 H Random Glucose Calcium Phosphorus Magnesium Total Bilirubin AST ALT Alkaline Phosphatase Total Creatine Kinase Total Protein Albumin Globulin Albumin/Globulin Ratio Arterial Blood Potassium [place] 07/05/17 07/05/17 07/05/17 12:07 13:55 17:52 WBC RBC Hgb Hct MCV MCH MCHC RDW Plt Count MPV Neut % (Auto) Lymph % (Auto) [place] % (Auto) Eos % (Auto) Baso % (Auto) Neut # (Auto) Lymph # (Auto) [place] # (Auto) Eos # (Auto) Baso # (Auto) Neutrophils % (Manual) Band Neutrophils % Lymphocytes % (Manual) Monocytes % (Manual) Platelet Estimate Macrocytosis (manual) Puncture Site pCO2 pO2 HCO3 ABG pH ABG Total CO2 ABG O2 Saturation ABG Base Excess Chance Test ABG Potassium A-a O2 Difference Respiratory Index Sodium Chloride Glucose Lactate Vent Mode Mechanical Rate FiO2 Tidal Volume PEEP Potassium Carbon Dioxide Anion Gap BUN Creatinine Est GFR ( Amer) Est GFR (Non-Af Amer) POC Glucose (mg/dL) 136 H Random Glucose Calcium Phosphorus Magnesium Total Bilirubin AST ALT Alkaline Phosphatase Total Creatine Kinase 89 Total Protein Albumin Globulin Albumin/Globulin Ratio Arterial Blood Potassium [place] 1.0 Attending/Attestation - Attestation I have personally seen and examined this patient.: Yes I have fully participated in the care of the patient.: Yes I have reviewed all pertinent clinical information: Yes Notes (Text): 07/05/17 19:41 patient with alcoholism. Severe delirium. Patient intubated, on ventilator. Continue the supportive treatment. Patient is not ready for weaning
--- NOTE | 2017-07-05 14:42 | VASCLAB ---
PROCEDURE: Lower Extremity Venous Duplex Exam. HISTORY: r/o DVT PRIORS: None. TECHNIQUE: Bilateral common femoral, femoral, popliteal and posterior tibial, peroneal and great saphenous veins were evaluated. Flow was assessed with color Doppler, compressibility, assessment of phasic flow and augmentation response. Report prepared by JOANIE Heller FINDINGS: RIGHT: 1. Common Femoral Vein: 1.1. Compressibility - Fully compressible: Thrombus - None : Flow - Phasic: Augmentation -Normal: Reflux - None. 2. Femoral Vein: 2.1. Compressibility - Fully compressible: Thrombus - None : Flow - Phasic: Augmentation -Normal: Reflux - None. 3. Popliteal Vein: 3.1. Compressibility - Fully compressible: Thrombus - None : Flow - Phasic: Augmentation -Normal: Reflux - None. 4. Posterior Tibial Vein: 4.1. Compressibility - Fully compressible: Thrombus - None: Flow - Phasic: Augmentation -Normal: Reflux - None. 5. Peroneal Vein: 5.1. Compressibility - : Thrombus - : Flow - : Augmentation -: Reflux - . 6. Great Saphenous Vein: 6.1. Compressibility - Fully compressible: Thrombus - None: Flow - Phasic: Augmentation - Normal: Reflux - None. LEFT: 1. Common Femoral Vein: 1.1. Compressibility - Fully compressible: Thrombus - None: Flow - Phasic: Augmentation -Normal: Reflux - None. 2. Femoral Vein: 2.1. Compressibility - Fully compressible: Thrombus - None: Flow - Phasic: Augmentation -Normal: Reflux - None. 3. Popliteal Vein: 3.1. Compressibility - Fully compressible: Thrombus - None : Flow - Phasic: Augmentation -Normal: Reflux - None. 4. Posterior Tibial Vein: 4.1. Compressibility - Fully compressible: Thrombus - None: Flow - Phasic: Augmentation -Normal: Reflux - None. 5. Peroneal Vein: 5.1. Compressibility - : Thrombus - : Flow - : Augmentation -: Reflux - . 6. Great Saphenous Vein: 6.1. Compressibility - Fully compressible: Thrombus - None: Flow - Phasic: Augmentation - Normal: Reflux - None. OTHER FINDINGS: Right: The peroneal veins were not clearly visualized due to body habitus. Left: The peroneal veins were not clearly visualized due to body habitus. IMPRESSION: Right: No evidence of deep or superficial vein thrombosis of the right lower extremity in those veins visualized. Normal valve function noted of the right side. Left: No evidence of deep or superficial vein thrombosis of the left lower extremity in those veins visualized. Normal valve function noted of the left side.
--- NOTE | 2017-07-05 22:41 | CP.PCM.PN ---
Subjective - Date & Time of Evaluation Date of Evaluation: 07/05/17 Time of Evaluation: 17:00 Objective - Vital Signs/Intake and Output Vital Signs (last 24 hours): Temp Pulse Resp BP Pulse Ox 99.4 F 55 L 18 145/78 98 07/05/17 20:00 07/05/17 22:00 07/05/17 22:00 07/05/17 21:18 07/05/17 22:00 Intake and Output: 07/05/17 07/06/17 18:59 06:59 Intake Total 2992.2 826.6 Output Total 950 220 Balance 2042.2 606.6 - Medications Medications: Current Medications Acetaminophen (Tylenol 650 Mg Supp) 650 mg SD Q6 PRN PRN Reason: Fever >100.4 F Last Admin: 07/04/17 01:37 Dose: 650 mg Albuterol/Ipratropium (Duoneb 3 Mg/0.5 Mg (3 Ml) Ud) 3 ml INH RQ4 [facility] Last Admin: 07/05/17 20:26 Dose: 3 ml Clotrimazole (Lotrimin 1%) 0 gm TOP BID [facility] Last Admin: 07/05/17 17:48 Dose: 1 applic Heparin Sodium (Porcine) (Heparin) 5,000 units SC Q8 [facility] Last Admin: 07/05/17 21:42 Dose: 5,000 units Hydrocortisone (Cortizone 1% Cream) 0 gm TOP BID [facility] Last Admin: 07/05/17 17:48 Dose: 1 applic Propofol (Diprivan) 1,000 mg in 100 mls @ 4.11 mls/hr IV .Q24H PRN; Protocol; 5 MCG/KG/MIN PRN Reason: TITRATE PER MD ORDER Last Admin: 07/05/17 20:35 Dose: 40 mcg/kg/min, 32.88 mls/hr Lactated Ringer's (Lactated Ringer's) 1,000 mls @ 100 mls/hr IV .Q10H [facility] Last Admin: 07/05/17 16:32 Dose: Not Given Piperacillin Sod/Tazobactam (Sod 3.375 gm/ Sodium Chloride) 100 mls @ 100 mls/ hr IVPB Q6H EDIN Lorazepam (Ativan) 2 mg IVP Q2H PRN PRN Reason: Agitation Last Admin: 07/05/17 15:57 Dose: 2 mg Methylprednisolone (Solu-Medrol) 40 mg IVP Q12 [facility] Last Admin: 07/05/17 21:42 Dose: 40 mg Metoprolol Tartrate (Lopressor) 50 mg PO DAILY [facility] Last Admin: 07/05/17 09:50 Dose: 50 mg Pantoprazole Sodium (Protonix Inj) 40 mg IVP DAILY [facility] Last Admin: 07/05/17 09:50 Dose: 40 mg Quetiapine Fumarate (Seroquel Xr) 200 mg PO DAILY [facility] Last Admin: 07/05/17 09:50 Dose: 200 mg Thiamine HCl (Vitamin B1 Inj) 200 mg IV TID [facility] Last Admin: 07/05/17 17:48 Dose: 200 mg - Labs Labs: 07/05/17 06:17 07/05/17 06:13 Assessment and Plan (1) Acute confusion Status: Acute (2) Benzodiazepine abuse Status: Acute (3) Withdrawal from benzodiazepine Status: Acute
[2017-07-05] MEDS: Piperacillin/Tazobact 3.375 GM in Sodium Chloride 100 ML IVPB SCH (23:01)
[2017-07-06] MEDS: Lactated Ringer's 1,000 ML IV SCH ×3 (01:56→21:36)
[2017-07-06] MEDS: Propofol 10 mg/ml 1,000 MG/100 ML VIAL IV PRN ×9 (02:10→23:13)
[2017-07-06] MEDS: Albuterol-Ipratrop 3 mg / 0.5 (3 ml) UD INH SCH ×5 (03:05→21:40)
[2017-07-06] MEDS: Piperacillin/Tazobact 3.375 GM in Sodium Chloride 100 ML IVPB SCH ×2 (04:56→11:28)
[2017-07-06 05:34] LABS: ABG ALLEN TEST POS; ARTERIAL BLOOD GAS HCO3 27.5 mmol/L (21-28); ARTERIAL BLOOD GAS O2 SAT 99.4 % (95-98); ARTERIAL BLOOD GAS PCO2 36 mm/Hg (35-45); ARTERIAL BLOOD GAS PH 7.48 (7.35-7.45); ARTERIAL BLOOD GAS PO2 124 mm/Hg (80-100); ARTERIAL BLOOD GAS TCO2 27.9 mmol/L (22-28)
[2017-07-06 06:26] LABS: BASO % 0.5 % (0.0-2.0); EOS % 0.1 % (0.0-4.0); HEMOGLOBIN 12.4 g/dL (12.0-18.0); LYMPH # 0.9 K/uL (1.0-4.3); LYMPH % 8.8 % (20.0-40.0); MEAN CELL VOLUME 98.9 fL (80.0-94.0); MEAN CORPUSCULAR HEMOGLOBIN 32.5 pg (27.0-31.0); MEAN CORPUSCULAR HGB CONC 32.9 g/dL (33.0-37.0); MEAN PLATELET VOLUME 8.3 fL (7.2-11.7); MONO % 9.6 % (0.0-10.0); NEUT # 8.5 K/uL (1.8-7.0); PLATELET COUNT 426 K/uL (130-400); RED CELL DISTRIBUTION WIDTH 14.8 % (11.5-14.5); WHITE BLOOD COUNT 10.5 K/uL (4.8-10.8)
[2017-07-06 06:39] LABS: ALB/GLOB RATIO 1.1 (1.0-2.1); ALBUMIN 3.2 g/dL (3.5-5.0); ALT/SGPT 152 U/L (21-72); AST/SGOT 68 U/L (17-59); BLOOD UREA NITROGEN 16 mg/dL (9-20); CALCIUM 8.1 mg/dl (8.6-10.4); GFR AFRICAN-AMERICAN > 60; GFR NON-AFRICAN AMERICAN > 60; MAGNESIUM 1.9 mg/dL (1.6-2.3)
--- NOTE | 2017-07-06 08:20 | RAD ---
HISTORY: f/up COMPARISON: 07/05/2017. FINDINGS: The endotracheal tube terminates 3.2 cm proximal to the cipriano. The nasogastric tube terminates in the stomach. LUNGS: There is moderate pulmonary venous congestion. There is also a left retrocardiac opacity. PLEURA: No significant pleural effusion identified, no pneumothorax apparent. CARDIOVASCULAR: Stable moderate cardiomegaly. OSSEOUS STRUCTURES: No significant abnormalities. VISUALIZED UPPER ABDOMEN: Normal. OTHER FINDINGS: None. IMPRESSION: Stable position of endotracheal and nasogastric tubes. Persistent pulmonary venous congestion and stable cardiomegaly. Left retrocardiac opacity may represent atelectasis however superimposed pneumonia and small effusion cannot be excluded.
[2017-07-06 09:18] LABS: LYMPHOCYTE 7 % (20-40); TOTAL CELLS COUNTED 100
[2017-07-06 09:19] LABS: MONOCYTE 8 % (0-10); NEUTROPHIL 85 % (50-75); PLATELET ESTIMATE NORMAL (NORMAL)
[2017-07-06] MEDS: QUEtiapine 200 mg XR Tab PO SCH ×2 (09:41→10:00)
[2017-07-06] MEDS: MethylPREDNISolone 40 mg Vial IVP SCH ×2 (09:42→21:40)
[2017-07-06] MEDS: Thiamine 100 mg/ml Inj IV SCH ×3 (09:42→17:48)
[2017-07-06] MEDS: Clotrimazole 1% Cream(30 gm) TOP SCH ×2 (09:43→17:49)
[2017-07-06] MEDS: Hydrocortisone 1% Cream (30 GM) TOP SCH ×2 (09:43→17:49)
--- NOTE | 2017-07-06 10:19 | CON ---
DATE: 07/02/2017 RENAL CONSULTATION LOCATION: The patient is located in ICU bed 15. REQUESTED BY: HISTORY OF PRESENT ILLNESS: Mr. Holcomb is a 51-years old obese male with past medical history significant for anxiety and depression who was brought in by the family after the patient was found by mother to have a bizarre behavior and ripping up sofa and cushions at home. When he cushioned, the patient stated he does not feel well. He states he feels lightheaded and dizzy, but denies pain and suicidal ideation or homicidal ideation. He states he took large quantity of Xanax just to sleep. The patient is resting comfortably after placing him on Precedex. The patient is not in distress. The patient wants to go home. PAST MEDICAL HISTORY: Significant for anxiety and depression. ALLERGIES: ALLERGIC TO PEANUT. CURRENT MEDICATIONS: Include as follows Ativan 2 mg IV q.2 hours p.r.n., hydrocortisone cream topical, Precedex IV, ergocalciferol 50,000 units one capsule p.o. q. weekly, subcu heparin 5000 q.8 hours, Ringer's lactate 100 mL per hour, also lithium carbonate 600 mg p.o. t.i.d., metoprolol 50 mg p.o. daily, banana bag with multivitamins in normal saline at 100 mL per hour, Protonix 40 mg IV daily, Restoril 15 mg at bedtime q.12 hours, Tylenol, Thiamine 200 mg IV t.i.d., 20 mg p.o. daily, and Zosyn 3.375 g q.8 hours. SOCIAL HISTORY: History of alcohol abuse. Never smoked. No drug abuse. FAMILY HISTORY: Not significant. REVIEW OF SYSTEMS: Significant for restlessness and combative from time to time. All other review of systems reviewed and negative as per HPI. PHYSICAL EXAMINATION: VITAL SIGNS: Blood pressure 152/85, pulse 57, respirations 20, temperature 98.2, and saturations 97%. Height 5 feet 11 inches and weight is 302 pounds. GENERAL: Mr. Holcomb is a 51-years old obese male, well-built, well-nourished, not in distress, resting comfortably. HEENT: Pupils are normal and reactive to light and accommodation. Conjunctivae pink. Sclerae anicteric. Tongue is moist and trachea is midline. LUNGS: Symmetric on both sides. Bilateral breath sounds present. Clear on auscultation. CVS: Victor at the fifth intercostal space, midclavicular line. S1 and S2 audible. No murmur, no gallop. ABDOMEN: Protuberant, soft, tympanic. No guarding. No rigidity. No hepatosplenomegaly. 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 EXTREMITIES: No cyanosis. No clubbing. No edema. Sensory and motor system is within normal limits. LABORATORY DATA: Include as follows: As of 07/02/2017, WBC 10.6, hemoglobin 11.7, hematocrit is 34.4, and platelets 376. Sodium 138, potassium is 4.4, chloride 106, CO2 of 24, BUN 24, creatinine 2.0, glucose 100, calcium is 9.2, phosphorus 4, and magnesium 2.4. Total bili 1.9, AST 304, ALT 170, alkaline phosphatase 88, total protein is 7.1, and albumin is 3.4. Urine osmolality is 612 and urine sodium is 163. Hepatitis A antibody is negative, B surface antigen negative and core antibody is negative, hepatitis C antibody is negative. HIV 1 and 2 antibody is negative. [place] level is as of 07/01/2017 is 0.9. Urinalysis, trudi color hazy, pH 5, specific gravity 1.014, protein 1+, glucose normal, ketones negative, blood negative, nitrites negative, bilirubin negative, urobilinogen normal, leukocyte esterase 1+, wbc 11, rbc 1, and hyaline cast more than 20. As of 07/01/2017, BUN and creatinine 22/2.3. As of 06/30/2017, BUN and creatinine 21/1.4. As of 07/01/2017, sodium 139, potassium is 3.5, chloride 114, CO2 of 17 with anion gap above 8, BUN 22, and creatinine 2.3. As of 06/25/2017, sodium 135, potassium is 3.5, chloride 95, CO2 of 30, BUN 15, creatinine 1.1, glucose 106, and calcium 9.0. Total bili 2.3, AST 136, ALT 137, alkaline phosphatase is 97, total protein 8.0, and albumin is 3.9. As of 06/21/2017, BUN is 6 and creatinine 1.2. Total bili 3.3, AST 154, ALT 106, alkaline phosphatase , total protein 8.1, and albumin is 4.1. Alcohol level is less than 10. Urine tox screen is positive for benzodiazepines. His CPK level is in 1247 as of 07/01/2017. ASSESSMENT AND PLAN: In summary, Mr. Holcomb is a 51-year-old obese male with history of hypertension, anxiety, and depression who was admitted after taking large quantity of Xanax as per the family and the patient is now anxious and combative from time to time requiring Precedex to keep him calm at this time, on IV fluids with elevated BUN and creatinine, elevated LFTs. 1. Nonoliguric acute renal failure, most likely secondary to acute tubular necrosis, secondary to hypotension, cannot rule out rhabdomyolysis also. 2. Depression and anxiety: Continue lithium as per the Psychiatry. Continue IV fluids normal saline at 100 mL per hour also with multivitamins and also Ringer's lactate at 100 mL per hour. Repeat CMP and CPK levels in a.m. Urine lytes and osmolality were done. Avoid nephrotoxic agents at this time and we will follow up with you. Discuss with in rounds. Thank you for allowing me to participate in your patient's care. Nicolasa Farooq MD
--- NOTE | 2017-07-06 11:18 | CP.CCUPN ---
<AndreasMerlinn - Last Filed: 07/06/17 16:54> CCU Subjective - Physician Review Events Since Last Encounter (Free Text): 07/06/17 11:16 Patient seen and examined at bedside. Per nursing no acute events occurred overnight. Subjective (Free Text): 07/01/17 17:53 Patient seen and examined at bedside. Per nursing no other events besides the stated event above occurred. Critical Care Time Spent (in minutes): 45 CCU Objective - Vital Signs / Intake & Output Vital Signs (Last 4 hours): Vital Signs Temp Pulse Ox 07/06/17 08:00 98.2 F 98 Intake and Output (Last 8hrs): Intake & Output 07/05/17 07/06/17 07/06/17 22:59 06:59 14:59 Intake Total 1854.2 1683.7 424 Output Total 570 460 50 Balance 1284.2 1223.7 374 Weight 285 lb Intake: IV 300 300 200 Intake, IV Amount 1054.2 983.7 174 Left Wrist 304.2 283.7 74 Left hand 2 750 700 100 Tube Feeding 400 400 50 Other 100 Output: Urine 570 460 50 Urethral ([place]) 570 460 50 Other: # Bowel Movements 0 1 - Physical Exam Head: Positive for: Atraumatic, Normocephalic, Other (intubated) Pupils: Positive for: PERRL Extroacular Muscles: Positive for: EOMI Conjunctiva: Positive for: Normal Mouth: Positive for: Moist Mucous Membranes Neck: Positive for: Normal Range of Motion. Negative for: Meningeal Signs, JVD Respiratory/Chest: Positive for: Clear to Auscultation, Good Air Exchange, Respiratory Distress Cardiovascular: Positive for: Regular Rate and Rhythm, Normal S1, S2 Abdomen: Positive for: Normal Bowel Sounds. Negative for: Tenderness Upper Extremity: Positive for: Normal Inspection. Negative for: Edema Lower Extremity: Positive for: Edema Skin: Positive for: Warm, Dry - Medications Active Medications: Active Medications Generic Name Dose Route Start Last Admin Trade Name Freq PRN Reason Stop Dose Admin Acetaminophen 650 mg 07/01/17 09:28 07/04/17 01:37 Tylenol 650 Mg Supp CA 650 mg Q6 PRN Administration Fever >100.4 F Albuterol/Ipratropium 3 ml 07/03/17 12:00 07/06/17 07:05 Duoneb 3 Mg/0.5 Mg (3 Ml) Ud INH 3 ml RQ4 EDIN Administration Clotrimazole 0 gm 06/27/17 10:00 07/06/17 09:43 Lotrimin 1% TOP 1 applic BID EDIN Administration Heparin Sodium (Porcine) 5,000 units 07/05/17 14:00 07/06/17 05:03 Heparin SC 5,000 units Q8 EDIN Administration Hydrocortisone 0 gm 06/27/17 10:00 07/06/17 09:43 Cortizone 1% Cream TOP 1 applic BID EDIN Administration Propofol 1,000 mg in 100 mls @ 4.11 mls/hr 07/03/17 12:07 07/06/17 10:13 Diprivan IV 50 mcg/kg/min .Q24H PRN 41.1 mls/hr TITRATE PER MD ORDER Administration Protocol 5 MCG/KG/MIN Lactated Ringer's 1,000 mls @ 100 mls/hr 07/05/17 15:15 07/06/17 01:56 Lactated Ringer's IV 100 mls/hr .Q10H EDIN Administration Piperacillin Sod/Tazobactam 100 mls @ 100 mls/hr 07/05/17 23:00 07/06/17 04: 56 Sod 3.375 gm/ Sodium Chloride IVPB 100 mls/hr Q6H EDIN Administration Lorazepam 2 mg 06/30/17 21:25 07/06/17 10:01 Ativan IVP 2 mg Q2H PRN Administration Agitation Methylprednisolone 40 mg 07/05/17 22:00 07/06/17 09:42 Solu-Medrol IVP 40 mg Q12 EDIN Administration Metoprolol Tartrate 50 mg 06/23/17 16:12 07/06/17 09:40 Lopressor PO 50 mg DAILY EDIN Administration Pantoprazole Sodium 40 mg 07/01/17 10:00 07/06/17 09:42 Protonix Inj IVP 40 mg DAILY EDIN Administration Quetiapine Fumarate 100 mg 07/07/17 10:45 Seroquel NG BID EDIN Thiamine HCl 200 mg 07/02/17 10:00 07/06/17 09:42 Vitamin B1 Inj IV 200 mg TID EDIN Administration - Patient Studies Lab Studies: Microbiology Studies 07/01/17 07:33 Blood Culture - Final Blood-Venous NO GROWTH AFTER 5 DAYS Gram Stain - Final TEST NOT PERFORMED 07/01/17 07:33 Blood Culture - Final Blood-Venous NO GROWTH AFTER 5 DAYS Gram Stain - Final TEST NOT PERFORMED 07/03/17 13:25 Blood Culture - Preliminary Blood NO GROWTH AFTER 48 HOURS 07/03/17 12:55 Blood Culture - Preliminary Blood NO GROWTH AFTER 48 HOURS 07/03/17 12:26 Gram Stain - Final Trachasp Sputum Culture - Final No growth. Lab Studies 07/06/17 07/06/17 07/06/17 Range/Units 07:18 06:17 06:16 WBC 10.5 (4.8-10.8) K/uL RBC 3.80 L (4.40-5.90) Mil/uL Hgb 12.4 (12.0-18.0) g/dL Hct 37.6 (35.0-51.0) % MCV 98.9 H (80.0-94.0) fL MCH 32.5 H (27.0-31.0) pg MCHC 32.9 L (33.0-37.0) g/dL RDW 14.8 H (11.5-14.5) % Plt Count 426 H (130-400) K/uL MPV 8.3 (7.2-11.7) fL Neut % (Auto) 81.0 H (50.0-75.0) % Lymph % (Auto) 8.8 L (20.0-40.0) % [place] % (Auto) 9.6 (0.0-10.0) % Eos % (Auto) 0.1 (0.0-4.0) % Baso % (Auto) 0.5 (0.0-2.0) % Neut # (Auto) 8.5 H (1.8-7.0) K/uL Lymph # (Auto) 0.9 L (1.0-4.3) K/uL [place] # (Auto) 1.0 H (0.0-0.8) K/uL Eos # (Auto) 0.0 (0.0-0.7) K/uL Baso # (Auto) 0.0 (0.0-0.2) K/uL Neutrophils % (Manual) 85 H (50-75) % Lymphocytes % (Manual) 7 L (20-40) % Monocytes % (Manual) 8 (0-10) % Platelet Estimate Normal (NORMAL) Puncture Site pCO2 (35-45) mm/Hg pO2 (80-100) mm/Hg HCO3 (21-28) mmol/L ABG pH (7.35-7.45) ABG Total CO2 (22-28) mmol/L ABG O2 Saturation (95-98) % ABG Base Excess (-2.0-3.0) mmol/L ABG Hemoglobin (11.7-17.4) g/dL ABG Carboxyhemoglobin (0.5-1.5) % POC ABG HHb (Measured) (0.0-5.0) % ABG Methemoglobin (0.0-3.0) % Chance Test A-a O2 Difference mm/Hg Respiratory Index Hgb O2 Saturation (95.0-98.0) % Vent Mode Mechanical Rate FiO2 % Tidal Volume PEEP Sodium 145 (132-148) mmol/L Potassium 3.4 L (3.6-5.2) mmol/L Chloride 109 H (98-107) mmol/L Carbon Dioxide 24 (22-30) mmol/L Anion Gap 15 (10-20) BUN 16 (9-20) mg/dL Creatinine 1.0 (0.8-1.5) mg/dL Est GFR ( Amer) > 60 Est GFR (Non-Af Amer) > 60 POC Glucose (mg/dL) 133 H (65-110) mg/dL Random Glucose 155 H (75-110) mg/dL Calcium 8.1 L (8.6-10.4) mg/dl Phosphorus 3.0 (2.5-4.5) mg/dL Magnesium 1.9 (1.6-2.3) mg/dL Total Bilirubin 1.0 (0.2-1.3) mg/dL AST 68 H D (17-59) U/L ALT 152 H (21-72) U/L Alkaline Phosphatase 111 (38-126) U/L Total Creatine Kinase (55-170) U/L Total Protein 6.1 L (6.3-8.3) g/dL Albumin 3.2 L (3.5-5.0) g/dL Globulin 3.0 (2.2-3.9) gm/dL Albumin/Globulin Ratio 1.1 (1.0-2.1) [place] (0.6-1.2) mmol/L 07/06/17 07/06/17 07/06/17 Range/Units 06:14 05:13 00:14 WBC (4.8-10.8) K/uL RBC (4.40-5.90) Mil/uL Hgb (12.0-18.0) g/dL Hct (35.0-51.0) % MCV (80.0-94.0) fL MCH (27.0-31.0) pg MCHC (33.0-37.0) g/dL RDW (11.5-14.5) % Plt Count (130-400) K/uL MPV (7.2-11.7) fL Neut % (Auto) (50.0-75.0) % Lymph % (Auto) (20.0-40.0) % [place] % (Auto) (0.0-10.0) % Eos % (Auto) (0.0-4.0) % Baso % (Auto) (0.0-2.0) % Neut # (Auto) (1.8-7.0) K/uL Lymph # (Auto) (1.0-4.3) K/uL [place] # (Auto) (0.0-0.8) K/uL Eos # (Auto) (0.0-0.7) K/uL Baso # (Auto) (0.0-0.2) K/uL Neutrophils % (Manual) (50-75) % Lymphocytes % (Manual) (20-40) % Monocytes % (Manual) (0-10) % Platelet Estimate (NORMAL) Puncture Site Rr pCO2 36 (35-45) mm/Hg pO2 124 H (80-100) mm/Hg HCO3 27.5 (21-28) mmol/L ABG pH 7.48 H (7.35-7.45) ABG Total CO2 27.9 (22-28) mmol/L ABG O2 Saturation 99.4 H (95-98) % ABG Base Excess 3.3 H (-2.0-3.0) mmol/L ABG Hemoglobin 12.0 (11.7-17.4) g/dL ABG Carboxyhemoglobin 1.5 (0.5-1.5) % POC ABG HHb (Measured) 0.6 (0.0-5.0) % ABG Methemoglobin 1.1 (0.0-3.0) % Chance Test Pos A-a O2 Difference 188.0 mm/Hg Respiratory Index 1.5 Hgb O2 Saturation 96.8 (95.0-98.0) % Vent Mode Prvc Mechanical Rate 20 FiO2 50.0 % Tidal Volume 500 PEEP 5 Sodium (132-148) mmol/L Potassium (3.6-5.2) mmol/L Chloride (98-107) mmol/L Carbon Dioxide (22-30) mmol/L Anion Gap (10-20) BUN (9-20) mg/dL Creatinine (0.8-1.5) mg/dL Est GFR ( Amer) Est GFR (Non-Af Amer) POC Glucose (mg/dL) 152 H 143 H (65-110) mg/dL Random Glucose (75-110) mg/dL Calcium (8.6-10.4) mg/dl Phosphorus (2.5-4.5) mg/dL Magnesium (1.6-2.3) mg/dL Total Bilirubin (0.2-1.3) mg/dL AST (17-59) U/L ALT (21-72) U/L Alkaline Phosphatase (38-126) U/L Total Creatine Kinase (55-170) U/L Total Protein (6.3-8.3) g/dL Albumin (3.5-5.0) g/dL Globulin (2.2-3.9) gm/dL Albumin/Globulin Ratio (1.0-2.1) [place] (0.6-1.2) mmol/L 07/05/17 07/05/17 07/05/17 Range/Units 17:52 13:55 12:07 WBC (4.8-10.8) K/uL RBC (4.40-5.90) Mil/uL Hgb (12.0-18.0) g/dL Hct (35.0-51.0) % MCV (80.0-94.0) fL MCH (27.0-31.0) pg MCHC (33.0-37.0) g/dL RDW (11.5-14.5) % Plt Count (130-400) K/uL MPV (7.2-11.7) fL Neut % (Auto) (50.0-75.0) % Lymph % (Auto) (20.0-40.0) % [place] % (Auto) (0.0-10.0) % Eos % (Auto) (0.0-4.0) % Baso % (Auto) (0.0-2.0) % Neut # (Auto) (1.8-7.0) K/uL Lymph # (Auto) (1.0-4.3) K/uL [place] # (Auto) (0.0-0.8) K/uL Eos # (Auto) (0.0-0.7) K/uL Baso # (Auto) (0.0-0.2) K/uL Neutrophils % (Manual) (50-75) % Lymphocytes % (Manual) (20-40) % Monocytes % (Manual) (0-10) % Platelet Estimate (NORMAL) Puncture Site pCO2 (35-45) mm/Hg pO2 (80-100) mm/Hg HCO3 (21-28) mmol/L ABG pH (7.35-7.45) ABG Total CO2 (22-28) mmol/L ABG O2 Saturation (95-98) % ABG Base Excess (-2.0-3.0) mmol/L ABG Hemoglobin (11.7-17.4) g/dL ABG Carboxyhemoglobin (0.5-1.5) % POC ABG HHb (Measured) (0.0-5.0) % ABG Methemoglobin (0.0-3.0) % Chance Test A-a O2 Difference mm/Hg Respiratory Index Hgb O2 Saturation (95.0-98.0) % Vent Mode Mechanical Rate FiO2 % Tidal Volume PEEP Sodium (132-148) mmol/L Potassium (3.6-5.2) mmol/L Chloride (98-107) mmol/L Carbon Dioxide (22-30) mmol/L Anion Gap (10-20) BUN (9-20) mg/dL Creatinine (0.8-1.5) mg/dL Est GFR ( Amer) Est GFR (Non-Af Amer) POC Glucose (mg/dL) 136 H (65-110) mg/dL Random Glucose (75-110) mg/dL Calcium (8.6-10.4) mg/dl Phosphorus (2.5-4.5) mg/dL Magnesium (1.6-2.3) mg/dL Total Bilirubin (0.2-1.3) mg/dL AST (17-59) U/L ALT (21-72) U/L Alkaline Phosphatase (38-126) U/L Total Creatine Kinase 89 (55-170) U/L Total Protein (6.3-8.3) g/dL Albumin (3.5-5.0) g/dL Globulin (2.2-3.9) gm/dL Albumin/Globulin Ratio (1.0-2.1) [place] 1.0 (0.6-1.2) mmol/L 07/05/17 Range/Units 11:54 WBC (4.8-10.8) K/uL RBC (4.40-5.90) Mil/uL Hgb (12.0-18.0) g/dL Hct (35.0-51.0) % MCV (80.0-94.0) fL MCH (27.0-31.0) pg MCHC (33.0-37.0) g/dL RDW (11.5-14.5) % Plt Count (130-400) K/uL MPV (7.2-11.7) fL Neut % (Auto) (50.0-75.0) % Lymph % (Auto) (20.0-40.0) % [place] % (Auto) (0.0-10.0) % Eos % (Auto) (0.0-4.0) % Baso % (Auto) (0.0-2.0) % Neut # (Auto) (1.8-7.0) K/uL Lymph # (Auto) (1.0-4.3) K/uL [place] # (Auto) (0.0-0.8) K/uL Eos # (Auto) (0.0-0.7) K/uL Baso # (Auto) (0.0-0.2) K/uL Neutrophils % (Manual) (50-75) % Lymphocytes % (Manual) (20-40) % Monocytes % (Manual) (0-10) % Platelet Estimate (NORMAL) Puncture Site pCO2 (35-45) mm/Hg pO2 (80-100) mm/Hg HCO3 (21-28) mmol/L ABG pH (7.35-7.45) ABG Total CO2 (22-28) mmol/L ABG O2 Saturation (95-98) % ABG Base Excess (-2.0-3.0) mmol/L ABG Hemoglobin (11.7-17.4) g/dL ABG Carboxyhemoglobin (0.5-1.5) % POC ABG HHb (Measured) (0.0-5.0) % ABG Methemoglobin (0.0-3.0) % Chance Test A-a O2 Difference mm/Hg Respiratory Index Hgb O2 Saturation (95.0-98.0) % Vent Mode Mechanical Rate FiO2 % Tidal Volume PEEP Sodium (132-148) mmol/L Potassium (3.6-5.2) mmol/L Chloride (98-107) mmol/L Carbon Dioxide (22-30) mmol/L Anion Gap (10-20) BUN (9-20) mg/dL Creatinine (0.8-1.5) mg/dL Est GFR ( Amer) Est GFR (Non-Af Amer) POC Glucose (mg/dL) 149 H (65-110) mg/dL Random Glucose (75-110) mg/dL Calcium (8.6-10.4) mg/dl Phosphorus (2.5-4.5) mg/dL Magnesium (1.6-2.3) mg/dL Total Bilirubin (0.2-1.3) mg/dL AST (17-59) U/L ALT (21-72) U/L Alkaline Phosphatase (38-126) U/L Total Creatine Kinase (55-170) U/L Total Protein (6.3-8.3) g/dL Albumin (3.5-5.0) g/dL Globulin (2.2-3.9) gm/dL Albumin/Globulin Ratio (1.0-2.1) [place] (0.6-1.2) mmol/L Laboratory Results - last 24 hr 07/05/17 07/05/17 07/05/17 11:54 12:07 13:55 WBC RBC Hgb Hct MCV MCH MCHC RDW Plt Count MPV Neut % (Auto) Lymph % (Auto) [place] % (Auto) Eos % (Auto) Baso % (Auto) Neut # (Auto) Lymph # (Auto) [place] # (Auto) Eos # (Auto) Baso # (Auto) Neutrophils % (Manual) Lymphocytes % (Manual) Monocytes % (Manual) Platelet Estimate Puncture Site pCO2 pO2 HCO3 ABG pH ABG Total CO2 ABG O2 Saturation ABG Base Excess ABG Hemoglobin ABG Carboxyhemoglobin POC ABG HHb (Measured) ABG Methemoglobin Chance Test A-a O2 Difference Respiratory Index Hgb O2 Saturation Vent Mode Mechanical Rate FiO2 Tidal Volume PEEP Sodium Potassium Chloride Carbon Dioxide Anion Gap BUN Creatinine Est GFR ( Amer) Est GFR (Non-Af Amer) POC Glucose (mg/dL) 149 H Random Glucose Calcium Phosphorus Magnesium Total Bilirubin AST ALT Alkaline Phosphatase Total Creatine Kinase 89 Total Protein Albumin Globulin Albumin/Globulin Ratio [place] 1.0 07/05/17 07/06/17 07/06/17 17:52 00:14 05:13 WBC RBC Hgb Hct MCV MCH MCHC RDW Plt Count MPV Neut % (Auto) Lymph % (Auto) [place] % (Auto) Eos % (Auto) Baso % (Auto) Neut # (Auto) Lymph # (Auto) [place] # (Auto) Eos # (Auto) Baso # (Auto) Neutrophils % (Manual) Lymphocytes % (Manual) Monocytes % (Manual) Platelet Estimate Puncture Site Rr pCO2 36 pO2 124 H HCO3 27.5 ABG pH 7.48 H ABG Total CO2 27.9 ABG O2 Saturation 99.4 H ABG Base Excess 3.3 H ABG Hemoglobin 12.0 ABG Carboxyhemoglobin 1.5 POC ABG HHb (Measured) 0.6 ABG Methemoglobin 1.1 Chance Test Pos A-a O2 Difference 188.0 Respiratory Index 1.5 Hgb O2 Saturation 96.8 Vent Mode Prvc Mechanical Rate 20 FiO2 50.0 Tidal Volume 500 PEEP 5 Sodium Potassium Chloride Carbon Dioxide Anion Gap BUN Creatinine Est GFR ( Amer) Est GFR (Non-Af Amer) POC Glucose (mg/dL) 136 H 143 H Random Glucose Calcium Phosphorus Magnesium Total Bilirubin AST ALT Alkaline Phosphatase Total Creatine Kinase Total Protein Albumin Globulin Albumin/Globulin Ratio [place] 07/06/17 07/06/17 07/06/17 06:14 06:16 06:17 WBC 10.5 RBC 3.80 L Hgb 12.4 Hct 37.6 MCV 98.9 H MCH 32.5 H MCHC 32.9 L RDW 14.8 H Plt Count 426 H MPV 8.3 Neut % (Auto) 81.0 H Lymph % (Auto) 8.8 L [place] % (Auto) 9.6 Eos % (Auto) 0.1 Baso % (Auto) 0.5 Neut # (Auto) 8.5 H Lymph # (Auto) 0.9 L [place] # (Auto) 1.0 H Eos # (Auto) 0.0 Baso # (Auto) 0.0 Neutrophils % (Manual) 85 H Lymphocytes % (Manual) 7 L Monocytes % (Manual) 8 Platelet Estimate Normal Puncture Site pCO2 pO2 HCO3 ABG pH ABG Total CO2 ABG O2 Saturation ABG Base Excess ABG Hemoglobin ABG Carboxyhemoglobin POC ABG HHb (Measured) ABG Methemoglobin Chance Test A-a O2 Difference Respiratory Index Hgb O2 Saturation Vent Mode Mechanical Rate FiO2 Tidal Volume PEEP Sodium 145 Potassium 3.4 L Chloride 109 H Carbon Dioxide 24 Anion Gap 15 BUN 16 Creatinine 1.0 Est GFR ( Amer) > 60 Est GFR (Non-Af Amer) > 60 POC Glucose (mg/dL) 152 H Random Glucose 155 H Calcium 8.1 L Phosphorus 3.0 Magnesium 1.9 Total Bilirubin 1.0 AST 68 H D ALT 152 H Alkaline Phosphatase 111 Total Creatine Kinase Total Protein 6.1 L Albumin 3.2 L Globulin 3.0 Albumin/Globulin Ratio 1.1 [place] 07/06/17 07:18 WBC RBC Hgb Hct MCV MCH MCHC RDW Plt Count MPV Neut % (Auto) Lymph % (Auto) [place] % (Auto) Eos % (Auto) Baso % (Auto) Neut # (Auto) Lymph # (Auto) [place] # (Auto) Eos # (Auto) Baso # (Auto) Neutrophils % (Manual) Lymphocytes % (Manual) Monocytes % (Manual) Platelet Estimate Puncture Site pCO2 pO2 HCO3 ABG pH ABG Total CO2 ABG O2 Saturation ABG Base Excess ABG Hemoglobin ABG Carboxyhemoglobin POC ABG HHb (Measured) ABG Methemoglobin Chance Test A-a O2 Difference Respiratory Index Hgb O2 Saturation Vent Mode Mechanical Rate FiO2 Tidal Volume PEEP Sodium Potassium Chloride Carbon Dioxide Anion Gap BUN Creatinine Est GFR ( Amer) Est GFR (Non-Af Amer) POC Glucose (mg/dL) 133 H Random Glucose Calcium Phosphorus Magnesium Total Bilirubin AST ALT Alkaline Phosphatase Total Creatine Kinase Total Protein Albumin Globulin Albumin/Globulin Ratio [place] EKG/Cardiology Studies: Cardiology / EKG Studies 07/06/17 10:09 EKG [ELECTROCARDIOGRAM] Stat Comment: Mode Of Transportation: Reason For Exam: qt interval Isolation: Contact Fingerstick Blood Sugar Results: 152 Review of Systems - EENT Eyes: absent: Blurred Vision, Discharge, Loss of Peripheral Vision, Sees Flashes Ears: absent: Ear Pain, Dizziness Nose/Mouth/Throat: absent: Nasal Congestion, Nose Pain, Neck Pain - Cardiovascular Cardiovascular: absent: Chest Pain, Leg Edema, Orthopnea, Syncope - Respiratory Respiratory: absent: Hemoptysis, Pain on Inspiration, Change in Mucous Color - Gastrointestinal Gastrointestinal: absent: Belching, Dysphagia, Heartburn, Nausea - Musculoskeletal Musculoskeletal: absent: Neck Pain, Stiffness - Integumentary Integumentary: absent: Bleeding Lesions, Dry Skin, Swelling - Neurological Neurological: absent: Confusion, Dizziness, Headaches, Tremor, Vertigo, Weakness - Endocrine Endocrine: absent: Polydipsia, Polyphagia, Polyuria - Hematologic/Lymphatic Hematologic: absent: Easy Bleeding, Easy Bruising Assessment/Plan - Assessment and Plan (Free Text) Assessment: Patient is a 51 year-old male with a past medical history of anxiety and depression who presented to the ER via EMS after being found with an altered mental status at home. He was transferred to ICU from the medical/surgical floor after becoming acutely tachycardic and hypoxemic. 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 ID: ?[id number] - Zosyn 3.375g in 0.9%NaCl @ 200ml/hr IVPB q8h - UA/UC - negative for growth - Blood (venous) culture negative x2 at 24h - RPR nonreactive; Hep panel negative; HIV negative -Repeat Procal ordered. Will f/u with results PPx: skin care; vitamin nutrition/diet - Cortizone 1% cream - Lotrimin 1% - Drisdol 50,000IU PO qwk - Protonix 40mg IVP qd - Multivitamin VitB1 100mg, Folic Acid 1mg in 0.9%NaCl @ 101.12 ml/hr IV qd - Heparin 5000u sc q8h - LR @ 100ml/hr IV q10h - HOB @ 30" <Eze Aguillon - Last Filed: 07/06/17 17:09> CCU Objective - Vital Signs / Intake & Output Intake and Output (Last 8hrs): Intake & Output 07/06/17 07/06/17 07/06/17 06:59 14:59 22:59 Intake Total 1683.7 1098 Output Total 460 170 Balance 1223.7 928 Weight 285 lb Intake: IV 300 400 Intake, IV Amount 983.7 548 Left Wrist 283.7 148 Left hand 2 700 400 Tube Feeding 400 150 Output: Urine 460 170 Urethral ([place]) 460 170 Other: # Bowel Movements 1 - Medications Active Medications: Active Medications Generic Name Dose Route Start Last Admin Trade Name Freq PRN Reason Stop Dose Admin Acetaminophen 650 mg 07/01/17 09:28 07/04/17 01:37 Tylenol 650 Mg Supp CA 650 mg Q6 PRN Administration Fever >100.4 F Albuterol/Ipratropium 3 ml 07/03/17 12:00 07/06/17 12:10 Duoneb 3 Mg/0.5 Mg (3 Ml) Ud INH 3 ml RQ4 EDIN Administration Clotrimazole 0 gm 06/27/17 10:00 07/06/17 09:43 Lotrimin 1% TOP 1 applic BID EDIN Administration Heparin Sodium (Porcine) 5,000 units 07/05/17 14:00 07/06/17 13:08 Heparin SC 5,000 units Q8 EDIN Administration Hydrocortisone 0 gm 06/27/17 10:00 07/06/17 09:43 Cortizone 1% Cream TOP 1 applic BID EDIN Administration Propofol 1,000 mg in 100 mls @ 4.11 mls/hr 07/03/17 12:07 07/06/17 14:46 Diprivan IV 50 mcg/kg/min .Q24H PRN 41.1 mls/hr TITRATE PER MD ORDER Administration Protocol 5 MCG/KG/MIN Lactated Ringer's 1,000 mls @ 100 mls/hr 07/05/17 15:15 07/06/17 13:16 Lactated Ringer's IV 100 mls/hr .Q10H EDIN Administration Piperacillin Sod/Tazobactam Sod 4.5 gm in 100 mls @ 200 mls/hr 07/06/17 18:00 Zosyn 4.5 Gm Iv Premix IVPB Q8H EDIN Lorazepam 2 mg 06/30/17 21:25 07/06/17 13:10 Ativan IVP 2 mg Q2H PRN Administration Agitation Methylprednisolone 40 mg 07/05/17 22:00 07/06/17 09:42 Solu-Medrol IVP 40 mg Q12 EDIN Administration Metoprolol Tartrate 50 mg 06/23/17 16:12 07/06/17 09:40 Lopressor PO 50 mg DAILY EDIN Administration Pantoprazole Sodium 40 mg 07/01/17 10:00 07/06/17 09:42 Protonix Inj IVP 40 mg DAILY EDIN Administration Quetiapine Fumarate 100 mg 07/06/17 11:45 07/06/17 10:53 Seroquel NG 100 mg BID EDIN Administration Thiamine HCl 200 mg 07/02/17 10:00 07/06/17 13:07 Vitamin B1 Inj IV 200 mg TID EDIN Administration - Patient Studies Lab Studies: Microbiology Studies 07/03/17 13:25 Blood Culture - Preliminary Blood NO GROWTH AFTER 3 DAYS 07/03/17 12:55 Blood Culture - Preliminary Blood NO GROWTH AFTER 3 DAYS 07/01/17 07:33 Blood Culture - Final Blood-Venous NO GROWTH AFTER 5 DAYS Gram Stain - Final TEST NOT PERFORMED 07/01/17 07:33 Blood Culture - Final Blood-Venous NO GROWTH AFTER 5 DAYS Gram Stain - Final TEST NOT PERFORMED Lab Studies 07/06/17 07/06/17 07/06/17 Range/Units 11:39 10:41 07:18 WBC (4.8-10.8) K/uL RBC (4.40-5.90) Mil/uL Hgb (12.0-18.0) g/dL Hct (35.0-51.0) % MCV (80.0-94.0) fL MCH (27.0-31.0) pg MCHC (33.0-37.0) g/dL RDW (11.5-14.5) % Plt Count (130-400) K/uL MPV (7.2-11.7) fL Neut % (Auto) (50.0-75.0) % Lymph % (Auto) (20.0-40.0) % [place] % (Auto) (0.0-10.0) % Eos % (Auto) (0.0-4.0) % Baso % (Auto) (0.0-2.0) % Neut # (Auto) (1.8-7.0) K/uL Lymph # (Auto) (1.0-4.3) K/uL [place] # (Auto) (0.0-0.8) K/uL Eos # (Auto) (0.0-0.7) K/uL Baso # (Auto) (0.0-0.2) K/uL Neutrophils % (Manual) (50-75) % Lymphocytes % (Manual) (20-40) % Monocytes % (Manual) (0-10) % Platelet Estimate (NORMAL) Puncture Site pCO2 (35-45) mm/Hg pO2 (80-100) mm/Hg HCO3 (21-28) mmol/L ABG pH (7.35-7.45) ABG Total CO2 (22-28) mmol/L ABG O2 Saturation (95-98) % ABG Base Excess (-2.0-3.0) mmol/L ABG Hemoglobin (11.7-17.4) g/dL ABG Carboxyhemoglobin (0.5-1.5) % POC ABG HHb (Measured) (0.0-5.0) % ABG Methemoglobin (0.0-3.0) % Chance Test A-a O2 Difference mm/Hg Respiratory Index Hgb O2 Saturation (95.0-98.0) % Vent Mode Mechanical Rate FiO2 % Tidal Volume PEEP Sodium (132-148) mmol/L Potassium (3.6-5.2) mmol/L Chloride (98-107) mmol/L Carbon Dioxide (22-30) mmol/L Anion Gap (10-20) BUN (9-20) mg/dL Creatinine (0.8-1.5) mg/dL Est GFR ( Amer) Est GFR (Non-Af Amer) POC Glucose (mg/dL) 140 H 133 H (65-110) mg/dL Random Glucose (75-110) mg/dL Calcium (8.6-10.4) mg/dl Phosphorus (2.5-4.5) mg/dL Magnesium (1.6-2.3) mg/dL Total Bilirubin (0.2-1.3) mg/dL AST (17-59) U/L ALT (21-72) U/L Alkaline Phosphatase (38-126) U/L Total Protein (6.3-8.3) g/dL Albumin (3.5-5.0) g/dL Globulin (2.2-3.9) gm/dL Albumin/Globulin Ratio (1.0-2.1) Procalcitonin 0.11 L (0.19-0.49) NG/ML 07/06/17 07/06/17 07/06/17 Range/Units 06:17 06:16 06:14 WBC 10.5 (4.8-10.8) K/uL RBC 3.80 L (4.40-5.90) Mil/uL Hgb 12.4 (12.0-18.0) g/dL Hct 37.6 (35.0-51.0) % MCV 98.9 H (80.0-94.0) fL MCH 32.5 H (27.0-31.0) pg MCHC 32.9 L (33.0-37.0) g/dL RDW 14.8 H (11.5-14.5) % Plt Count 426 H (130-400) K/uL MPV 8.3 (7.2-11.7) fL Neut % (Auto) 81.0 H (50.0-75.0) % Lymph % (Auto) 8.8 L (20.0-40.0) % [place] % (Auto) 9.6 (0.0-10.0) % Eos % (Auto) 0.1 (0.0-4.0) % Baso % (Auto) 0.5 (0.0-2.0) % Neut # (Auto) 8.5 H (1.8-7.0) K/uL Lymph # (Auto) 0.9 L (1.0-4.3) K/uL [place] # (Auto) 1.0 H (0.0-0.8) K/uL Eos # (Auto) 0.0 (0.0-0.7) K/uL Baso # (Auto) 0.0 (0.0-0.2) K/uL Neutrophils % (Manual) 85 H (50-75) % Lymphocytes % (Manual) 7 L (20-40) % Monocytes % (Manual) 8 (0-10) % Platelet Estimate Normal (NORMAL) Puncture Site pCO2 (35-45) mm/Hg pO2 (80-100) mm/Hg HCO3 (21-28) mmol/L ABG pH (7.35-7.45) ABG Total CO2 (22-28) mmol/L ABG O2 Saturation (95-98) % ABG Base Excess (-2.0-3.0) mmol/L ABG Hemoglobin (11.7-17.4) g/dL ABG Carboxyhemoglobin (0.5-1.5) % POC ABG HHb (Measured) (0.0-5.0) % ABG Methemoglobin (0.0-3.0) % Chance Test A-a O2 Difference mm/Hg Respiratory Index Hgb O2 Saturation (95.0-98.0) % Vent Mode Mechanical Rate FiO2 % Tidal Volume PEEP Sodium 145 (132-148) mmol/L Potassium 3.4 L (3.6-5.2) mmol/L Chloride 109 H (98-107) mmol/L Carbon Dioxide 24 (22-30) mmol/L Anion Gap 15 (10-20) BUN 16 (9-20) mg/dL Creatinine 1.0 (0.8-1.5) mg/dL Est GFR ( Amer) > 60 Est GFR (Non-Af Amer) > 60 POC Glucose (mg/dL) 152 H (65-110) mg/dL Random Glucose 155 H (75-110) mg/dL Calcium 8.1 L (8.6-10.4) mg/dl Phosphorus 3.0 (2.5-4.5) mg/dL Magnesium 1.9 (1.6-2.3) mg/dL Total Bilirubin 1.0 (0.2-1.3) mg/dL AST 68 H D (17-59) U/L ALT 152 H (21-72) U/L Alkaline Phosphatase 111 (38-126) U/L Total Protein 6.1 L (6.3-8.3) g/dL Albumin 3.2 L (3.5-5.0) g/dL Globulin 3.0 (2.2-3.9) gm/dL Albumin/Globulin Ratio 1.1 (1.0-2.1) Procalcitonin (0.19-0.49) NG/ML 07/06/17 07/06/17 07/05/17 Range/Units 05:13 00:14 17:52 WBC (4.8-10.8) K/uL RBC (4.40-5.90) Mil/uL Hgb (12.0-18.0) g/dL Hct (35.0-51.0) % MCV (80.0-94.0) fL MCH (27.0-31.0) pg MCHC (33.0-37.0) g/dL RDW (11.5-14.5) % Plt Count (130-400) K/uL MPV (7.2-11.7) fL Neut % (Auto) (50.0-75.0) % Lymph % (Auto) (20.0-40.0) % [place] % (Auto) (0.0-10.0) % Eos % (Auto) (0.0-4.0) % Baso % (Auto) (0.0-2.0) % Neut # (Auto) (1.8-7.0) K/uL Lymph # (Auto) (1.0-4.3) K/uL [place] # (Auto) (0.0-0.8) K/uL Eos # (Auto) (0.0-0.7) K/uL Baso # (Auto) (0.0-0.2) K/uL Neutrophils % (Manual) (50-75) % Lymphocytes % (Manual) (20-40) % Monocytes % (Manual) (0-10) % Platelet Estimate (NORMAL) Puncture Site Rr pCO2 36 (35-45) mm/Hg pO2 124 H (80-100) mm/Hg HCO3 27.5 (21-28) mmol/L ABG pH 7.48 H (7.35-7.45) ABG Total CO2 27.9 (22-28) mmol/L ABG O2 Saturation 99.4 H (95-98) % ABG Base Excess 3.3 H (-2.0-3.0) mmol/L ABG Hemoglobin 12.0 (11.7-17.4) g/dL ABG Carboxyhemoglobin 1.5 (0.5-1.5) % POC ABG HHb (Measured) 0.6 (0.0-5.0) % ABG Methemoglobin 1.1 (0.0-3.0) % Chance Test Pos A-a O2 Difference 188.0 mm/Hg Respiratory Index 1.5 Hgb O2 Saturation 96.8 (95.0-98.0) % Vent Mode Prvc Mechanical Rate 20 FiO2 50.0 % Tidal Volume 500 PEEP 5 Sodium (132-148) mmol/L Potassium (3.6-5.2) mmol/L Chloride (98-107) mmol/L Carbon Dioxide (22-30) mmol/L Anion Gap (10-20) BUN (9-20) mg/dL Creatinine (0.8-1.5) mg/dL Est GFR ( Amer) Est GFR (Non-Af Amer) POC Glucose (mg/dL) 143 H 136 H (65-110) mg/dL Random Glucose (75-110) mg/dL Calcium (8.6-10.4) mg/dl Phosphorus (2.5-4.5) mg/dL Magnesium (1.6-2.3) mg/dL Total Bilirubin (0.2-1.3) mg/dL AST (17-59) U/L ALT (21-72) U/L Alkaline Phosphatase (38-126) U/L Total Protein (6.3-8.3) g/dL Albumin (3.5-5.0) g/dL Globulin (2.2-3.9) gm/dL Albumin/Globulin Ratio (1.0-2.1) Procalcitonin (0.19-0.49) NG/ML Laboratory Results - last 24 hr 07/05/17 07/06/17 07/06/17 17:52 00:14 05:13 WBC RBC Hgb Hct MCV MCH MCHC RDW Plt Count MPV Neut % (Auto) Lymph % (Auto) [place] % (Auto) Eos % (Auto) Baso % (Auto) Neut # (Auto) Lymph # (Auto) [place] # (Auto) Eos # (Auto) Baso # (Auto) Neutrophils % (Manual) Lymphocytes % (Manual) Monocytes % (Manual) Platelet Estimate Puncture Site Rr pCO2 36 pO2 124 H HCO3 27.5 ABG pH 7.48 H ABG Total CO2 27.9 ABG O2 Saturation 99.4 H ABG Base Excess 3.3 H ABG Hemoglobin 12.0 ABG Carboxyhemoglobin 1.5 POC ABG HHb (Measured) 0.6 ABG Methemoglobin 1.1 Chance Test Pos A-a O2 Difference 188.0 Respiratory Index 1.5 Hgb O2 Saturation 96.8 Vent Mode Prvc Mechanical Rate 20 FiO2 50.0 Tidal Volume 500 PEEP 5 Sodium Potassium Chloride Carbon Dioxide Anion Gap BUN Creatinine Est GFR ( Amer) Est GFR (Non-Af Amer) POC Glucose (mg/dL) 136 H 143 H Random Glucose Calcium Phosphorus Magnesium Total Bilirubin AST ALT Alkaline Phosphatase Total Protein Albumin Globulin Albumin/Globulin Ratio Procalcitonin 07/06/17 07/06/17 07/06/17 06:14 06:16 06:17 WBC 10.5 RBC 3.80 L Hgb 12.4 Hct 37.6 MCV 98.9 H MCH 32.5 H MCHC 32.9 L RDW 14.8 H Plt Count 426 H MPV 8.3 Neut % (Auto) 81.0 H Lymph % (Auto) 8.8 L [place] % (Auto) 9.6 Eos % (Auto) 0.1 Baso % (Auto) 0.5 Neut # (Auto) 8.5 H Lymph # (Auto) 0.9 L [place] # (Auto) 1.0 H Eos # (Auto) 0.0 Baso # (Auto) 0.0 Neutrophils % (Manual) 85 H Lymphocytes % (Manual) 7 L Monocytes % (Manual) 8 Platelet Estimate Normal Puncture Site pCO2 pO2 HCO3 ABG pH ABG Total CO2 ABG O2 Saturation ABG Base Excess ABG Hemoglobin ABG Carboxyhemoglobin POC ABG HHb (Measured) ABG Methemoglobin Chance Test A-a O2 Difference Respiratory Index Hgb O2 Saturation Vent Mode Mechanical Rate FiO2 Tidal Volume PEEP Sodium 145 Potassium 3.4 L Chloride 109 H Carbon Dioxide 24 Anion Gap 15 BUN 16 Creatinine 1.0 Est GFR ( Amer) > 60 Est GFR (Non-Af Amer) > 60 POC Glucose (mg/dL) 152 H Random Glucose 155 H Calcium 8.1 L Phosphorus 3.0 Magnesium 1.9 Total Bilirubin 1.0 AST 68 H D ALT 152 H Alkaline Phosphatase 111 Total Protein 6.1 L Albumin 3.2 L Globulin 3.0 Albumin/Globulin Ratio 1.1 Procalcitonin 07/06/17 07/06/17 07/06/17 07:18 10:41 11:39 WBC RBC Hgb Hct MCV MCH MCHC RDW Plt Count MPV Neut % (Auto) Lymph % (Auto) [place] % (Auto) Eos % (Auto) Baso % (Auto) Neut # (Auto) Lymph # (Auto) [place] # (Auto) Eos # (Auto) Baso # (Auto) Neutrophils % (Manual) Lymphocytes % (Manual) Monocytes % (Manual) Platelet Estimate Puncture Site pCO2 pO2 HCO3 ABG pH ABG Total CO2 ABG O2 Saturation ABG Base Excess ABG Hemoglobin ABG Carboxyhemoglobin POC ABG HHb (Measured) ABG Methemoglobin Chance Test A-a O2 Difference Respiratory Index Hgb O2 Saturation Vent Mode Mechanical Rate FiO2 Tidal Volume PEEP Sodium Potassium Chloride Carbon Dioxide Anion Gap BUN Creatinine Est GFR ( Amer) Est GFR (Non-Af Amer) POC Glucose (mg/dL) 133 H 140 H Random Glucose Calcium Phosphorus Magnesium Total Bilirubin AST ALT Alkaline Phosphatase Total Protein Albumin Globulin Albumin/Globulin Ratio Procalcitonin 0.11 L EKG/Cardiology Studies: Cardiology / EKG Studies 07/06/17 10:09 EKG [ELECTROCARDIOGRAM] Stat Comment: Mode Of Transportation: Reason For Exam: qt interval Isolation: Contact Attending/Attestation - Attestation I have personally seen and examined this patient.: Yes I have fully participated in the care of the patient.: Yes I have reviewed all pertinent clinical information: Yes Notes (Text): 07/06/17 17:08 patient seen and examined in the intensive care unit. Case discussed with house staff in the morning. Patient remained intubated on ventilatory support Being treated for pneumonia/sepsis Continue IV sedation and Ativan for DTs
[2017-07-06] MEDS: Piperacill/Tazo 4.5gm in Dex 4.5 GM/100 ML BAG IVPB SCH (17:48)
--- NOTE | 2017-07-06 23:22 | CP.PCM.PN ---
Subjective - Date & Time of Evaluation Date of Evaluation: 07/06/17 Time of Evaluation: 18:00 - Subjective Subjective: Pt seen and examined in ICU, on ventilator , he is on 50% Fio2 sedated Objective - Vital Signs/Intake and Output Vital Signs (last 24 hours): Temp Pulse Resp BP Pulse Ox 98.8 F 65 20 128/71 98 07/06/17 16:00 07/06/17 19:00 07/06/17 19:00 07/06/17 18:37 07/06/17 19:00 Intake and Output: 07/06/17 07/07/17 18:59 06:59 Intake Total 2457 387 Output Total 530 60 Balance 1927 327 - Medications Medications: Current Medications Acetaminophen (Tylenol 650 Mg Supp) 650 mg [place] Q6 PRN PRN Reason: Fever >100.4 F Last Admin: 07/04/17 01:37 Dose: 650 mg Albuterol/Ipratropium (Duoneb 3 Mg/0.5 Mg (3 Ml) Ud) 3 ml INH RQ4 [facility] Last Admin: 07/06/17 21:40 Dose: 3 ml Clotrimazole (Lotrimin 1%) 0 gm TOP BID [facility] Last Admin: 07/06/17 17:49 Dose: 1 applic Heparin Sodium (Porcine) (Heparin) 5,000 units SC Q8 [facility] Last Admin: 07/06/17 21:31 Dose: 5,000 units Hydrocortisone (Cortizone 1% Cream) 0 gm TOP BID [facility] Last Admin: 07/06/17 17:49 Dose: 1 applic Propofol (Diprivan) 1,000 mg in 100 mls @ 4.11 mls/hr IV .Q24H PRN; Protocol; 5 MCG/KG/MIN PRN Reason: TITRATE PER MD ORDER Last Admin: 07/06/17 23:13 Dose: 45 mcg/kg/min, 36.99 mls/hr Lactated Ringer's (Lactated Ringer's) 1,000 mls @ 100 mls/hr IV .Q10H [facility] Last Admin: 07/06/17 21:36 Dose: Not Given Piperacillin Sod/Tazobactam Sod (Zosyn 4.5 Gm Iv Premix) 4.5 gm in 100 mls @ 200 mls/hr IVPB Q8H [facility] Last Admin: 07/06/17 17:48 Dose: 200 mls/hr Lorazepam (Ativan) 2 mg IVP Q2H PRN PRN Reason: Agitation Last Admin: 07/06/17 13:10 Dose: 2 mg Methylprednisolone (Solu-Medrol) 40 mg IVP Q12 [facility] Last Admin: 07/06/17 21:40 Dose: 40 mg Metoprolol Tartrate (Lopressor) 50 mg PO DAILY [facility] Last Admin: 07/06/17 09:40 Dose: 50 mg Pantoprazole Sodium (Protonix Inj) 40 mg IVP DAILY [facility] Last Admin: 07/06/17 09:42 Dose: 40 mg Quetiapine Fumarate (Seroquel) 100 mg NG BID [facility] Last Admin: 07/06/17 17:50 Dose: 100 mg Thiamine HCl (Vitamin B1 Inj) 200 mg IV TID [facility] Last Admin: 07/06/17 17:48 Dose: 200 mg - Labs Labs: 07/06/17 06:17 07/06/17 06:16 - Constitutional Appears: No Acute Distress, Chronically Ill - Head Exam Head Exam: ATRAUMATIC, NORMAL INSPECTION, NORMOCEPHALIC - Eye Exam Eye Exam: EOMI, Normal appearance, PERRL Pupil Exam: NORMAL ACCOMODATION, PERRL - Respiratory Exam Respiratory Exam: Decreased Breath Sounds, Rhonchi, Respiratory Distress - Cardiovascular Exam Cardiovascular Exam: REGULAR RHYTHM, +S1, +S2. absent: Murmur - GI/Abdominal Exam GI & Abdominal Exam: Soft, Normal Bowel Sounds. absent: Tenderness Assessment and Plan (1) Acute confusion Status: Acute (2) Benzodiazepine abuse Status: Acute (3) Withdrawal from benzodiazepine Status: Acute (4) Respiratory failure Assessment & Plan: etiology unclear can be due to benzodiazepine withdrawl Status: Acute
[2017-07-07] MEDS: Albuterol-Ipratrop 3 mg / 0.5 (3 ml) UD INH SCH ×6 (00:20→20:10)
[2017-07-07] MEDS: Lactated Ringer's 1,000 ML IV SCH ×4 (01:00→17:59)
[2017-07-07] MEDS: Piperacill/Tazo 4.5gm in Dex 4.5 GM/100 ML BAG IVPB SCH ×3 (01:15→18:06)
[2017-07-07] MEDS: Propofol 10 mg/ml 1,000 MG/100 ML VIAL IV PRN ×9 (01:30→22:28)
[2017-07-07 04:59] LABS: ABG ALLEN TEST POS; ARTERIAL BLOOD GAS HCO3 27.5 mmol/L (21-28); ARTERIAL BLOOD GAS HEMOGLOBIN 13.8 g/dL (11.7-17.4); ARTERIAL BLOOD GAS O2 SAT 98.9 % (95-98); ARTERIAL BLOOD GAS PCO2 44 mm/Hg (35-45); ARTERIAL BLOOD GAS PH 7.42 (7.35-7.45); ARTERIAL BLOOD GAS PO2 111 mm/Hg (80-100); ARTERIAL BLOOD GAS TCO2 29.9 mmol/L (22-28)
[2017-07-07 06:46] LABS: BASO # 0.1 K/uL (0.0-0.2); BASO % 0.8 % (0.0-2.0); EOS % 0.1 % (0.0-4.0); HEMOGLOBIN 12.6 g/dL (12.0-18.0); LYMPH % 9.2 % (20.0-40.0); MEAN CELL VOLUME 98.9 fL (80.0-94.0); MEAN CORPUSCULAR HEMOGLOBIN 33.1 pg (27.0-31.0); MEAN CORPUSCULAR HGB CONC 33.5 g/dL (33.0-37.0); MEAN PLATELET VOLUME 8.5 fL (7.2-11.7); MONO # 0.9 K/uL (0.0-0.8); MONO % 8.2 % (0.0-10.0); NEUT # 8.9 K/uL (1.8-7.0); NEUT % 81.7 % (50.0-75.0); PLATELET COUNT 383 K/uL (130-400); RBC 3.79 Mil/uL (4.40-5.90); RED CELL DISTRIBUTION WIDTH 14.8 % (11.5-14.5); WHITE BLOOD COUNT 10.9 K/uL (4.8-10.8)
[2017-07-07 07:06] LABS: ALBUMIN 3.1 g/dL (3.5-5.0); ALT/SGPT 158 U/L (21-72); AST/SGOT 76 U/L (17-59); BLOOD UREA NITROGEN 16 mg/dL (9-20); CALCIUM 9.1 mg/dl (8.6-10.4); GFR AFRICAN-AMERICAN > 60; GFR NON-AFRICAN AMERICAN > 60
[2017-07-07 08:23] LABS: LYMPHOCYTE 10 % (20-40); MONOCYTE 3 % (0-10); NEUTROPHIL 87 % (50-75); PLATELET ESTIMATE NORMAL (NORMAL); TOTAL CELLS COUNTED 100
[2017-07-07 08:24] LABS: LARGE PLATELETS PRESENT
--- NOTE | 2017-07-07 09:10 | RAD ---
Chest x-ray single frontal view History: Vent patient Comparison: 07/06/2017 Findings: Lines and tubes are in stable position. Diffuse increased interstitial lung markings. Right hilar prominence. Patchy bibasilar airspace opacities. Small bilateral pleural effusions. Mild cardiomegaly. Degenerative changes in the spine and shoulders. Productive change at the ends of the 1st ribs. Impression: Lines and tubes are in stable position. Diffuse increased interstitial lung markings. Right hilar prominence. Patchy bibasilar airspace opacities. Small bilateral pleural effusions. Mild cardiomegaly.
[2017-07-07] MEDS: MethylPREDNISolone 40 mg Vial IVP SCH ×2 (10:33→21:41)
[2017-07-07] MEDS: Thiamine 100 mg/ml Inj IV SCH ×3 (10:34→18:04)
[2017-07-07] MEDS: Hydrocortisone 1% Cream (30 GM) TOP SCH ×2 (11:00→18:07)
[2017-07-07] MEDS: Clotrimazole 1% Cream(30 gm) TOP SCH ×2 (11:00→18:06)
--- NOTE | 2017-07-07 11:52 | CARD ---
APPROVED REPORT EKG Measurement Heart [id number] <Conclusion> Sinus bradycardia Inferior infarct, age undetermined Abnormal ECG
--- NOTE | 2017-07-07 14:41 | CP.CCUPN ---
<AndreasMerlinn - Last Filed: 07/07/17 18:16> CCU Subjective - Physician Review Events Since Last Encounter (Free Text): 07/07/17 14:41 Patient seen and examined at bedside .Per nursing no acute events occurred overnight. Subjective (Free Text): 07/01/17 17:53 Patient seen and examined at bedside. Per nursing no other events besides the stated event above occurred. Critical Care Time Spent (in minutes): 45 CCU Objective - Vital Signs / Intake & Output Vital Signs (Last 4 hours): Vital Signs Pulse Resp BP Pulse Ox 07/07/17 13:00 66 14 96 07/07/17 12:36 66 16 160/92 H 96 07/07/17 12:00 69 15 95 07/07/17 11:37 65 16 161/96 H 96 07/07/17 11:00 63 21 96 Intake and Output (Last 8hrs): Intake & Output 07/06/17 07/07/17 07/07/17 22:59 06:59 14:59 Intake Total 1796 1696 487 Output Total 800 500 500 Balance 996 1196 -13 Intake: IV 300 200 300 Intake, IV Amount 1096 1096 137 Left Wrist 185 Left hand 2 500 Right Antecubital 111 296 37 right lower arm 300 800 100 Tube Feeding 400 400 50 Output: Urine 800 500 500 Urethral (Acosta) 800 500 500 Stool 0 0 - Physical Exam Head: Positive for: Atraumatic, Normocephalic, Other (intubated) Pupils: Positive for: PERRL Extroacular Muscles: Positive for: EOMI Conjunctiva: Positive for: Normal Mouth: Positive for: Moist Mucous Membranes Neck: Positive for: Normal Range of Motion. Negative for: Meningeal Signs, JVD Respiratory/Chest: Positive for: Clear to Auscultation, Good Air Exchange, Respiratory Distress Cardiovascular: Positive for: Regular Rate and Rhythm, Normal S1, S2 Abdomen: Positive for: Normal Bowel Sounds. Negative for: Tenderness Upper Extremity: Positive for: Normal Inspection. Negative for: Edema Lower Extremity: Positive for: Edema Skin: Positive for: Warm, Dry - Medications Active Medications: Active Medications Generic Name Dose Route Start Last Admin Trade Name Freq PRN Reason Stop Dose Admin Acetaminophen 650 mg 07/01/17 09:28 07/04/17 01:37 Tylenol 650 Mg Supp ND 650 mg Q6 PRN Administration Fever >100.4 F Albuterol/Ipratropium 3 ml 07/03/17 12:00 07/07/17 11:27 Duoneb 3 Mg/0.5 Mg (3 Ml) Ud INH 3 ml RQ4 EDIN Administration Clotrimazole 0 gm 06/27/17 10:00 07/07/17 11:00 Lotrimin 1% TOP 1 applic BID EDIN Administration Heparin Sodium (Porcine) 5,000 units 07/05/17 14:00 07/07/17 06:06 Heparin SC 5,000 units Q8 EDIN Administration Hydrocortisone 0 gm 06/27/17 10:00 07/07/17 11:00 Cortizone 1% Cream TOP 1 applic BID EDIN Administration Propofol 1,000 mg in 100 mls @ 4.11 mls/hr 07/03/17 12:07 07/07/17 13:50 Diprivan IV 45 mcg/kg/min .Q24H PRN 36.99 mls/hr TITRATE PER MD ORDER Administration Protocol 5 MCG/KG/MIN Lactated Ringer's 1,000 mls @ 100 mls/hr 07/05/17 15:15 07/07/17 08:32 Lactated Ringer's IV Not Given .Q10H EDIN Piperacillin Sod/Tazobactam Sod 4.5 gm in 100 mls @ 200 mls/hr 07/06/17 18:00 07/07/17 09:34 Zosyn 4.5 Gm Iv Premix IVPB 200 mls/hr Q8H EDIN Administration Lorazepam 2 mg 06/30/17 21:25 07/07/17 02:10 Ativan IVP 2 mg Q2H PRN Administration Agitation Methylprednisolone 40 mg 07/05/17 22:00 07/07/17 10:33 Solu-Medrol IVP 40 mg Q12 EDIN Administration Metoprolol Tartrate 50 mg 06/23/17 16:12 07/07/17 09:34 Lopressor PO 50 mg DAILY EDIN Administration Pantoprazole Sodium 40 mg 07/01/17 10:00 07/07/17 10:28 Protonix Inj IVP 40 mg DAILY EDIN Administration Quetiapine Fumarate 100 mg 07/06/17 11:45 07/07/17 09:33 Seroquel NG 100 mg BID EDIN Administration Thiamine HCl 200 mg 07/02/17 10:00 07/07/17 10:34 Vitamin B1 Inj IV 200 mg TID EDIN Administration - Patient Studies Lab Studies: Microbiology Studies 07/03/17 12:55 Blood Culture - Preliminary Blood NO GROWTH AFTER 4 DAYS 07/03/17 13:25 Blood Culture - Preliminary Blood NO GROWTH AFTER 3 DAYS Lab Studies 07/07/17 07/07/17 07/07/17 Range/Units 06:40 06:37 06:11 WBC 10.9 H (4.8-10.8) K/uL RBC 3.79 L (4.40-5.90) Mil/uL Hgb 12.6 (12.0-18.0) g/dL Hct 37.5 (35.0-51.0) % MCV 98.9 H (80.0-94.0) fL MCH 33.1 H (27.0-31.0) pg MCHC 33.5 (33.0-37.0) g/dL RDW 14.8 H (11.5-14.5) % Plt Count 383 (130-400) K/uL MPV 8.5 (7.2-11.7) fL Neut % (Auto) 81.7 H (50.0-75.0) % Lymph % (Auto) 9.2 L (20.0-40.0) % [place] % (Auto) 8.2 (0.0-10.0) % Eos % (Auto) 0.1 (0.0-4.0) % Baso % (Auto) 0.8 (0.0-2.0) % Neut # (Auto) 8.9 H (1.8-7.0) K/uL Lymph # (Auto) 1.0 (1.0-4.3) K/uL [place] # (Auto) 0.9 H (0.0-0.8) K/uL Eos # (Auto) 0.0 (0.0-0.7) K/uL Baso # (Auto) 0.1 (0.0-0.2) K/uL Neutrophils % (Manual) 87 H (50-75) % Lymphocytes % (Manual) 10 L (20-40) % Monocytes % (Manual) 3 (0-10) % Platelet Estimate Normal (NORMAL) Large Platelets Present RBC Morphology Normal Puncture Site pCO2 (35-45) mm/Hg pO2 (80-100) mm/Hg HCO3 (21-28) mmol/L ABG pH (7.35-7.45) ABG Total CO2 (22-28) mmol/L ABG O2 Saturation (95-98) % ABG Base Excess (-2.0-3.0) mmol/L ABG Hemoglobin (11.7-17.4) g/dL ABG Carboxyhemoglobin (0.5-1.5) % POC ABG HHb (Measured) (0.0-5.0) % ABG Methemoglobin (0.0-3.0) % Chance Test A-a O2 Difference mm/Hg Respiratory Index Hgb O2 Saturation (95.0-98.0) % Vent Mode Mechanical Rate FiO2 % Tidal Volume PEEP Sodium 144 (132-148) mmol/L Potassium 3.6 (3.6-5.2) mmol/L Chloride 108 H (98-107) mmol/L Carbon Dioxide 27 (22-30) mmol/L Anion Gap 12 (10-20) BUN 16 (9-20) mg/dL Creatinine 1.0 (0.8-1.5) mg/dL Est GFR ( Amer) > 60 Est GFR (Non-Af Amer) > 60 POC Glucose (mg/dL) 136 H (65-110) mg/dL Random Glucose 165 H (75-110) mg/dL Calcium 9.1 (8.6-10.4) mg/dl Phosphorus 4.1 (2.5-4.5) mg/dL Magnesium 2.0 (1.6-2.3) mg/dL Total Bilirubin 1.1 (0.2-1.3) mg/dL AST 76 H (17-59) U/L ALT 158 H (21-72) U/L Alkaline Phosphatase 107 (38-126) U/L Total Protein 6.2 L (6.3-8.3) g/dL Albumin 3.1 L (3.5-5.0) g/dL Globulin 3.1 (2.2-3.9) gm/dL Albumin/Globulin Ratio 1.0 (1.0-2.1) 07/07/17 07/07/17 07/06/17 Range/Units 04:45 00:29 17:31 WBC (4.8-10.8) K/uL RBC (4.40-5.90) Mil/uL Hgb (12.0-18.0) g/dL Hct (35.0-51.0) % MCV (80.0-94.0) fL MCH (27.0-31.0) pg MCHC (33.0-37.0) g/dL RDW (11.5-14.5) % Plt Count (130-400) K/uL MPV (7.2-11.7) fL Neut % (Auto) (50.0-75.0) % Lymph % (Auto) (20.0-40.0) % [place] % (Auto) (0.0-10.0) % Eos % (Auto) (0.0-4.0) % Baso % (Auto) (0.0-2.0) % Neut # (Auto) (1.8-7.0) K/uL Lymph # (Auto) (1.0-4.3) K/uL [place] # (Auto) (0.0-0.8) K/uL Eos # (Auto) (0.0-0.7) K/uL Baso # (Auto) (0.0-0.2) K/uL Neutrophils % (Manual) (50-75) % Lymphocytes % (Manual) (20-40) % Monocytes % (Manual) (0-10) % Platelet Estimate (NORMAL) Large Platelets RBC Morphology Puncture Site Rr pCO2 44 (35-45) mm/Hg pO2 111 H (80-100) mm/Hg HCO3 27.5 (21-28) mmol/L ABG pH 7.42 (7.35-7.45) ABG Total CO2 29.9 H (22-28) mmol/L ABG O2 Saturation 98.9 H (95-98) % ABG Base Excess 3.4 H (-2.0-3.0) mmol/L ABG Hemoglobin 13.8 (11.7-17.4) g/dL ABG Carboxyhemoglobin 1.4 (0.5-1.5) % POC ABG HHb (Measured) 1.1 (0.0-5.0) % ABG Methemoglobin 1.2 (0.0-3.0) % Chance Test Pos A-a O2 Difference 191.0 mm/Hg Respiratory Index 1.7 Hgb O2 Saturation 96.3 (95.0-98.0) % Vent Mode Prvc Mechanical Rate 20 FiO2 50.0 % Tidal Volume 500 PEEP 5 Sodium (132-148) mmol/L Potassium (3.6-5.2) mmol/L Chloride (98-107) mmol/L Carbon Dioxide (22-30) mmol/L Anion Gap (10-20) BUN (9-20) mg/dL Creatinine (0.8-1.5) mg/dL Est GFR ( Amer) Est GFR (Non-Af Amer) POC Glucose (mg/dL) 156 H 157 H (65-110) mg/dL Random Glucose (75-110) mg/dL Calcium (8.6-10.4) mg/dl Phosphorus (2.5-4.5) mg/dL Magnesium (1.6-2.3) mg/dL Total Bilirubin (0.2-1.3) mg/dL AST (17-59) U/L ALT (21-72) U/L Alkaline Phosphatase (38-126) U/L Total Protein (6.3-8.3) g/dL Albumin (3.5-5.0) g/dL Globulin (2.2-3.9) gm/dL Albumin/Globulin Ratio (1.0-2.1) Laboratory Results - last 24 hr 07/06/17 07/07/17 07/07/17 17:31 00:29 04:45 WBC RBC Hgb Hct MCV MCH MCHC RDW Plt Count MPV Neut % (Auto) Lymph % (Auto) [place] % (Auto) Eos % (Auto) Baso % (Auto) Neut # (Auto) Lymph # (Auto) [place] # (Auto) Eos # (Auto) Baso # (Auto) Neutrophils % (Manual) Lymphocytes % (Manual) Monocytes % (Manual) Platelet Estimate Large Platelets RBC Morphology Puncture Site Rr pCO2 44 pO2 111 H HCO3 27.5 ABG pH 7.42 ABG Total CO2 29.9 H ABG O2 Saturation 98.9 H ABG Base Excess 3.4 H ABG Hemoglobin 13.8 ABG Carboxyhemoglobin 1.4 POC ABG HHb (Measured) 1.1 ABG Methemoglobin 1.2 Chance Test Pos A-a O2 Difference 191.0 Respiratory Index 1.7 Hgb O2 Saturation 96.3 Vent Mode Prvc Mechanical Rate 20 FiO2 50.0 Tidal Volume 500 PEEP 5 Sodium Potassium Chloride Carbon Dioxide Anion Gap BUN Creatinine Est GFR ( Amer) Est GFR (Non-Af Amer) POC Glucose (mg/dL) 157 H 156 H Random Glucose Calcium Phosphorus Magnesium Total Bilirubin AST ALT Alkaline Phosphatase Total Protein Albumin Globulin Albumin/Globulin Ratio 07/07/17 07/07/17 07/07/17 06:11 06:37 06:40 WBC 10.9 H RBC 3.79 L Hgb 12.6 Hct 37.5 MCV 98.9 H MCH 33.1 H MCHC 33.5 RDW 14.8 H Plt Count 383 MPV 8.5 Neut % (Auto) 81.7 H Lymph % (Auto) 9.2 L [place] % (Auto) 8.2 Eos % (Auto) 0.1 Baso % (Auto) 0.8 Neut # (Auto) 8.9 H Lymph # (Auto) 1.0 [place] # (Auto) 0.9 H Eos # (Auto) 0.0 Baso # (Auto) 0.1 Neutrophils % (Manual) 87 H Lymphocytes % (Manual) 10 L Monocytes % (Manual) 3 Platelet Estimate Normal Large Platelets Present RBC Morphology Normal Puncture Site pCO2 pO2 HCO3 ABG pH ABG Total CO2 ABG O2 Saturation ABG Base Excess ABG Hemoglobin ABG Carboxyhemoglobin POC ABG HHb (Measured) ABG Methemoglobin Chance Test A-a O2 Difference Respiratory Index Hgb O2 Saturation Vent Mode Mechanical Rate FiO2 Tidal Volume PEEP Sodium 144 Potassium 3.6 Chloride 108 H Carbon Dioxide 27 Anion Gap 12 BUN 16 Creatinine 1.0 Est GFR ( Amer) > 60 Est GFR (Non-Af Amer) > 60 POC Glucose (mg/dL) 136 H Random Glucose 165 H Calcium 9.1 Phosphorus 4.1 Magnesium 2.0 Total Bilirubin 1.1 AST 76 H ALT 158 H Alkaline Phosphatase 107 Total Protein 6.2 L Albumin 3.1 L Globulin 3.1 Albumin/Globulin Ratio 1.0 EKG/Cardiology Studies: Cardiology / EKG Studies 07/07/17 06:00 EKG [ELECTROCARDIOGRAM] Routine Comment: Mode Of Transportation: PORTABLE Reason For Exam: QT INTERVAL Isolation: Contact Fingerstick Blood Sugar Results: 136 Review of Systems - Review of Systems Systems not reviewed;Unavailable: Acuity of Condition Assessment/Plan - Assessment and Plan (Free Text) Assessment: Patient is a 51 year-old male with a past medical history of anxiety and depression who presented to the ER via EMS after being found with an altered mental status at home. He was transferred to ICU from the medical/surgical floor after becoming acutely tachycardic and hypoxemic. 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 Pulm: SOB --> in2b8 (07/03) - prvc, 20rr, 50%FiO2, TV 500, PEEP 5 - Duoneb 3ml - Solu-medrol 40mg IVP q12 ID: ?sepsis - Zosyn 4.5g in dex @ 200ml/hr IVPB q8h - procalcitonin 0.11 wnl - UA/UC - negative for growth - Trach asp - negative for growth - Blood culture negative PPx: skin care; vitamin nutrition/diet - Cortizone 1% cream - Lotrimin 1% - Protonix 40mg IVP qd - Multivitamin VitB1 200mg IV TID, Folic Acid 1mg in 0.9%NaCl @ 101.12 ml/hr IV qd - Heparin 5000u sc q8h - LR @ 100ml/hr IV q10h <Eze Aguillon - Last Filed: 07/07/17 18:42> CCU Subjective - Physician Review Critical Care Time Spent (in minutes): 35 CCU Objective - Vital Signs / Intake & Output Vital Signs (Last 4 hours): Vital Signs Temp Pulse Resp BP Pulse Ox 07/07/17 16:00 100.3 F H 78 22 97 07/07/17 15:36 64 17 161/92 H 07/07/17 15:00 64 10 L Intake and Output (Last 8hrs): Intake & Output 07/07/17 07/07/17 07/07/17 06:59 14:59 22:59 Intake Total 1696 1896 474 Output Total 031 516 7125 Balance 1196 1396 -701 Intake: IV 200 300 100 Intake, IV Amount 1096 1096 274 Right Antecubital 296 296 74 right lower arm 800 800 200 Oral 100 Tube Feeding 400 400 100 Output: Urine 867 623 0666 Urethral (Acosta) 926 096 7294 Stool 0 - Medications Active Medications: Active Medications Generic Name Dose Route Start Last Admin Trade Name Freq PRN Reason Stop Dose Admin Acetaminophen 650 mg 07/01/17 09:28 07/04/17 01:37 Tylenol 650 Mg Supp ND 650 mg Q6 PRN Administration Fever >100.4 F Albuterol/Ipratropium 3 ml 07/03/17 12:00 07/07/17 16:03 Duoneb 3 Mg/0.5 Mg (3 Ml) Ud INH 3 ml RQ4 EDIN Administration Clotrimazole 0 gm 06/27/17 10:00 07/07/17 18:06 Lotrimin 1% TOP 1 applic BID EDIN Administration Heparin Sodium (Porcine) 5,000 units 07/05/17 14:00 07/07/17 14:59 Heparin SC 5,000 units Q8 EDIN Administration Hydrocortisone 0 gm 06/27/17 10:00 07/07/17 18:07 Cortizone 1% Cream TOP 1 applic BID EDIN Administration Propofol 1,000 mg in 100 mls @ 4.11 mls/hr 07/03/17 12:07 07/07/17 16:35 Diprivan IV 45 mcg/kg/min .Q24H PRN 36.99 mls/hr TITRATE PER MD ORDER Administration Protocol 5 MCG/KG/MIN Lactated Ringer's 1,000 mls @ 100 mls/hr 07/05/17 15:15 07/07/17 17:59 Lactated Ringer's IV Not Given .Q10H EDIN Piperacillin Sod/Tazobactam Sod 4.5 gm in 100 mls @ 200 mls/hr 07/06/17 18:00 07/07/17 18:06 Zosyn 4.5 Gm Iv Premix IVPB 200 mls/hr Q8H EDIN Administration Lorazepam 2 mg 06/30/17 21:25 07/07/17 02:10 Ativan IVP 2 mg Q2H PRN Administration Agitation Methylprednisolone 40 mg 07/05/17 22:00 02/21/18 10:33 Solu-Medrol IVP 40 mg Q12 EDIN Administration Metoprolol Tartrate 50 mg 06/23/17 16:12 07/07/17 09:34 Lopressor PO 50 mg DAILY EDIN Administration Pantoprazole Sodium 40 mg 07/01/17 10:00 07/07/17 10:28 Protonix Inj IVP 40 mg DAILY EDIN Administration Quetiapine Fumarate 100 mg 07/06/17 11:45 07/07/17 18:07 Seroquel NG 100 mg BID EDIN Administration Thiamine HCl 200 mg 07/02/17 10:00 07/07/17 18:04 Vitamin B1 Inj IV 200 mg TID EDIN Administration - Patient Studies Lab Studies: Microbiology Studies 07/03/17 13:25 Blood Culture - Preliminary Blood NO GROWTH AFTER 4 DAYS 07/03/17 12:55 Blood Culture - Preliminary Blood NO GROWTH AFTER 4 DAYS Lab Studies 07/07/17 07/07/17 07/07/17 Range/Units 17:42 11:15 06:40 WBC 10.9 H (4.8-10.8) K/uL RBC 3.79 L (4.40-5.90) Mil/uL Hgb 12.6 (12.0-18.0) g/dL Hct 37.5 (35.0-51.0) % MCV 98.9 H (80.0-94.0) fL MCH 33.1 H (27.0-31.0) pg MCHC 33.5 (33.0-37.0) g/dL RDW 14.8 H (11.5-14.5) % Plt Count 383 (130-400) K/uL MPV 8.5 (7.2-11.7) fL Neut % (Auto) 81.7 H (50.0-75.0) % Lymph % (Auto) 9.2 L (20.0-40.0) % [place] % (Auto) 8.2 (0.0-10.0) % Eos % (Auto) 0.1 (0.0-4.0) % Baso % (Auto) 0.8 (0.0-2.0) % Neut # (Auto) 8.9 H (1.8-7.0) K/uL Lymph # (Auto) 1.0 (1.0-4.3) K/uL [place] # (Auto) 0.9 H (0.0-0.8) K/uL Eos # (Auto) 0.0 (0.0-0.7) K/uL Baso # (Auto) 0.1 (0.0-0.2) K/uL Neutrophils % (Manual) 87 H (50-75) % Lymphocytes % (Manual) 10 L (20-40) % Monocytes % (Manual) 3 (0-10) % Platelet Estimate Normal (NORMAL) Large Platelets Present RBC Morphology Normal Puncture Site pCO2 (35-45) mm/Hg pO2 (80-100) mm/Hg HCO3 (21-28) mmol/L ABG pH (7.35-7.45) ABG Total CO2 (22-28) mmol/L ABG O2 Saturation (95-98) % ABG Base Excess (-2.0-3.0) mmol/L ABG Hemoglobin (11.7-17.4) g/dL ABG Carboxyhemoglobin (0.5-1.5) % POC ABG HHb (Measured) (0.0-5.0) % ABG Methemoglobin (0.0-3.0) % Chance Test A-a O2 Difference mm/Hg Respiratory Index Hgb O2 Saturation (95.0-98.0) % Vent Mode Mechanical Rate FiO2 % Tidal Volume PEEP Sodium (132-148) mmol/L Potassium (3.6-5.2) mmol/L Chloride (98-107) mmol/L Carbon Dioxide (22-30) mmol/L Anion Gap (10-20) BUN (9-20) mg/dL Creatinine (0.8-1.5) mg/dL Est GFR ( Amer) Est GFR (Non-Af Amer) POC Glucose (mg/dL) 128 H 129 H (65-110) mg/dL Random Glucose (75-110) mg/dL Calcium (8.6-10.4) mg/dl Phosphorus (2.5-4.5) mg/dL Magnesium (1.6-2.3) mg/dL Total Bilirubin (0.2-1.3) mg/dL AST (17-59) U/L ALT (21-72) U/L Alkaline Phosphatase (38-126) U/L Total Protein (6.3-8.3) g/dL Albumin (3.5-5.0) g/dL Globulin (2.2-3.9) gm/dL Albumin/Globulin Ratio (1.0-2.1) 07/07/17 07/07/17 07/07/17 Range/Units 06:37 06:11 04:45 WBC (4.8-10.8) K/uL RBC (4.40-5.90) Mil/uL Hgb (12.0-18.0) g/dL Hct (35.0-51.0) % MCV (80.0-94.0) fL MCH (27.0-31.0) pg MCHC (33.0-37.0) g/dL RDW (11.5-14.5) % Plt Count (130-400) K/uL MPV (7.2-11.7) fL Neut % (Auto) (50.0-75.0) % Lymph % (Auto) (20.0-40.0) % [place] % (Auto) (0.0-10.0) % Eos % (Auto) (0.0-4.0) % Baso % (Auto) (0.0-2.0) % Neut # (Auto) (1.8-7.0) K/uL Lymph # (Auto) (1.0-4.3) K/uL [place] # (Auto) (0.0-0.8) K/uL Eos # (Auto) (0.0-0.7) K/uL Baso # (Auto) (0.0-0.2) K/uL Neutrophils % (Manual) (50-75) % Lymphocytes % (Manual) (20-40) % Monocytes % (Manual) (0-10) % Platelet Estimate (NORMAL) Large Platelets RBC Morphology Puncture Site Rr pCO2 44 (35-45) mm/Hg pO2 111 H (80-100) mm/Hg HCO3 27.5 (21-28) mmol/L ABG pH 7.42 (7.35-7.45) ABG Total CO2 29.9 H (22-28) mmol/L ABG O2 Saturation 98.9 H (95-98) % ABG Base Excess 3.4 H (-2.0-3.0) mmol/L ABG Hemoglobin 13.8 (11.7-17.4) g/dL ABG Carboxyhemoglobin 1.4 (0.5-1.5) % POC ABG HHb (Measured) 1.1 (0.0-5.0) % ABG Methemoglobin 1.2 (0.0-3.0) % Chance Test Pos A-a O2 Difference 191.0 mm/Hg Respiratory Index 1.7 Hgb O2 Saturation 96.3 (95.0-98.0) % Vent Mode Prvc Mechanical Rate 20 FiO2 50.0 % Tidal Volume 500 PEEP 5 Sodium 144 (132-148) mmol/L Potassium 3.6 (3.6-5.2) mmol/L Chloride 108 H (98-107) mmol/L Carbon Dioxide 27 (22-30) mmol/L Anion Gap 12 (10-20) BUN 16 (9-20) mg/dL Creatinine 1.0 (0.8-1.5) mg/dL Est GFR ( Amer) > 60 Est GFR (Non-Af Amer) > 60 POC Glucose (mg/dL) 136 H (65-110) mg/dL Random Glucose 165 H (75-110) mg/dL Calcium 9.1 (8.6-10.4) mg/dl Phosphorus 4.1 (2.5-4.5) mg/dL Magnesium 2.0 (1.6-2.3) mg/dL Total Bilirubin 1.1 (0.2-1.3) mg/dL AST 76 H (17-59) U/L ALT 158 H (21-72) U/L Alkaline Phosphatase 107 (38-126) U/L Total Protein 6.2 L (6.3-8.3) g/dL Albumin 3.1 L (3.5-5.0) g/dL Globulin 3.1 (2.2-3.9) gm/dL Albumin/Globulin Ratio 1.0 (1.0-2.1) 07/07/17 Range/Units 00:29 WBC (4.8-10.8) K/uL RBC (4.40-5.90) Mil/uL Hgb (12.0-18.0) g/dL Hct (35.0-51.0) % MCV (80.0-94.0) fL MCH (27.0-31.0) pg MCHC (33.0-37.0) g/dL RDW (11.5-14.5) % Plt Count (130-400) K/uL MPV (7.2-11.7) fL Neut % (Auto) (50.0-75.0) % Lymph % (Auto) (20.0-40.0) % [place] % (Auto) (0.0-10.0) % Eos % (Auto) (0.0-4.0) % Baso % (Auto) (0.0-2.0) % Neut # (Auto) (1.8-7.0) K/uL Lymph # (Auto) (1.0-4.3) K/uL [place] # (Auto) (0.0-0.8) K/uL Eos # (Auto) (0.0-0.7) K/uL Baso # (Auto) (0.0-0.2) K/uL Neutrophils % (Manual) (50-75) % Lymphocytes % (Manual) (20-40) % Monocytes % (Manual) (0-10) % Platelet Estimate (NORMAL) Large Platelets RBC Morphology Puncture Site pCO2 (35-45) mm/Hg pO2 (80-100) mm/Hg HCO3 (21-28) mmol/L ABG pH (7.35-7.45) ABG Total CO2 (22-28) mmol/L ABG O2 Saturation (95-98) % ABG Base Excess (-2.0-3.0) mmol/L ABG Hemoglobin (11.7-17.4) g/dL ABG Carboxyhemoglobin (0.5-1.5) % POC ABG HHb (Measured) (0.0-5.0) % ABG Methemoglobin (0.0-3.0) % Chance Test A-a O2 Difference mm/Hg Respiratory Index Hgb O2 Saturation (95.0-98.0) % Vent Mode Mechanical Rate FiO2 % Tidal Volume PEEP Sodium (132-148) mmol/L Potassium (3.6-5.2) mmol/L Chloride (98-107) mmol/L Carbon Dioxide (22-30) mmol/L Anion Gap (10-20) BUN (9-20) mg/dL Creatinine (0.8-1.5) mg/dL Est GFR ( Amer) Est GFR (Non-Af Amer) POC Glucose (mg/dL) 156 H (65-110) mg/dL Random Glucose (75-110) mg/dL Calcium (8.6-10.4) mg/dl Phosphorus (2.5-4.5) mg/dL Magnesium (1.6-2.3) mg/dL Total Bilirubin (0.2-1.3) mg/dL AST (17-59) U/L ALT (21-72) U/L Alkaline Phosphatase (38-126) U/L Total Protein (6.3-8.3) g/dL Albumin (3.5-5.0) g/dL Globulin (2.2-3.9) gm/dL Albumin/Globulin Ratio (1.0-2.1) Laboratory Results - last 24 hr 07/07/17 07/07/17 07/07/17 00:29 04:45 06:11 WBC RBC Hgb Hct MCV MCH MCHC RDW Plt Count MPV Neut % (Auto) Lymph % (Auto) [place] % (Auto) Eos % (Auto) Baso % (Auto) Neut # (Auto) Lymph # (Auto) [place] # (Auto) Eos # (Auto) Baso # (Auto) Neutrophils % (Manual) Lymphocytes % (Manual) Monocytes % (Manual) Platelet Estimate Large Platelets RBC Morphology Puncture Site Rr pCO2 44 pO2 111 H HCO3 27.5 ABG pH 7.42 ABG Total CO2 29.9 H ABG O2 Saturation 98.9 H ABG Base Excess 3.4 H ABG Hemoglobin 13.8 ABG Carboxyhemoglobin 1.4 POC ABG HHb (Measured) 1.1 ABG Methemoglobin 1.2 Chance Test Pos A-a O2 Difference 191.0 Respiratory Index 1.7 Hgb O2 Saturation 96.3 Vent Mode Prvc Mechanical Rate 20 FiO2 50.0 Tidal Volume 500 PEEP 5 Sodium Potassium Chloride Carbon Dioxide Anion Gap BUN Creatinine Est GFR ( Amer) Est GFR (Non-Af Amer) POC Glucose (mg/dL) 156 H 136 H Random Glucose Calcium Phosphorus Magnesium Total Bilirubin AST ALT Alkaline Phosphatase Total Protein Albumin Globulin Albumin/Globulin Ratio 07/07/17 07/07/17 07/07/17 06:37 06:40 11:15 WBC 10.9 H RBC 3.79 L Hgb 12.6 Hct 37.5 MCV 98.9 H MCH 33.1 H MCHC 33.5 RDW 14.8 H Plt Count 383 MPV 8.5 Neut % (Auto) 81.7 H Lymph % (Auto) 9.2 L [place] % (Auto) 8.2 Eos % (Auto) 0.1 Baso % (Auto) 0.8 Neut # (Auto) 8.9 H Lymph # (Auto) 1.0 [place] # (Auto) 0.9 H Eos # (Auto) 0.0 Baso # (Auto) 0.1 Neutrophils % (Manual) 87 H Lymphocytes % (Manual) 10 L Monocytes % (Manual) 3 Platelet Estimate Normal Large Platelets Present RBC Morphology Normal Puncture Site pCO2 pO2 HCO3 ABG pH ABG Total CO2 ABG O2 Saturation ABG Base Excess ABG Hemoglobin ABG Carboxyhemoglobin POC ABG HHb (Measured) ABG Methemoglobin Chance Test A-a O2 Difference Respiratory Index Hgb O2 Saturation Vent Mode Mechanical Rate FiO2 Tidal Volume PEEP Sodium 144 Potassium 3.6 Chloride 108 H Carbon Dioxide 27 Anion Gap 12 BUN 16 Creatinine 1.0 Est GFR ( Amer) > 60 Est GFR (Non-Af Amer) > 60 POC Glucose (mg/dL) 129 H Random Glucose 165 H Calcium 9.1 Phosphorus 4.1 Magnesium 2.0 Total Bilirubin 1.1 AST 76 H ALT 158 H Alkaline Phosphatase 107 Total Protein 6.2 L Albumin 3.1 L Globulin 3.1 Albumin/Globulin Ratio 1.0 07/07/17 17:42 WBC RBC Hgb Hct MCV MCH MCHC RDW Plt Count MPV Neut % (Auto) Lymph % (Auto) [place] % (Auto) Eos % (Auto) Baso % (Auto) Neut # (Auto) Lymph # (Auto) [place] # (Auto) Eos # (Auto) Baso # (Auto) Neutrophils % (Manual) Lymphocytes % (Manual) Monocytes % (Manual) Platelet Estimate Large Platelets RBC Morphology Puncture Site pCO2 pO2 HCO3 ABG pH ABG Total CO2 ABG O2 Saturation ABG Base Excess ABG Hemoglobin ABG Carboxyhemoglobin POC ABG HHb (Measured) ABG Methemoglobin Chance Test A-a O2 Difference Respiratory Index Hgb O2 Saturation Vent Mode Mechanical Rate FiO2 Tidal Volume PEEP Sodium Potassium Chloride Carbon Dioxide Anion Gap BUN Creatinine Est GFR ( Amer) Est GFR (Non-Af Amer) POC Glucose (mg/dL) 128 H Random Glucose Calcium Phosphorus Magnesium Total Bilirubin AST ALT Alkaline Phosphatase Total Protein Albumin Globulin Albumin/Globulin Ratio EKG/Cardiology Studies: Cardiology / EKG Studies 07/07/17 06:00 EKG [ELECTROCARDIOGRAM] Routine Comment: Mode Of Transportation: PORTABLE Reason For Exam: QT INTERVAL Isolation: Contact Attending/Attestation - Attestation I have personally seen and examined this patient.: Yes I have fully participated in the care of the patient.: Yes I have reviewed all pertinent clinical information: Yes Notes (Text): 07/07/17 18:41 patient seen and examined in the intensive care unit. Patient remained intubated on ventilatory support with poor weaning parameters continue antibiotics for pneumonia Continue IV sedation Potassium and magnesium supplement Continue NGT feeding
[2017-07-07] MEDS ORDERED: Potassium Chloride 20 mEq/15 ml LIQ UD NG ONE (16:54)
[2017-07-07] MEDS: QUEtiapine 200 mg XR Tab PO SCH (18:05)
--- NOTE | 2017-07-07 23:26 | CP.PCM.PN ---
Subjective - Date & Time of Evaluation Date of Evaluation: 07/07/17 Time of Evaluation: 19:55 - Subjective Subjective: Pt seen and examined in ICU, is having low grade fever, he is on ventilator and his saturation is improving. CXR looks like possibility of pneumonia ,which could be ventilator related Objective - Vital Signs/Intake and Output Vital Signs (last 24 hours): Temp Pulse Resp BP Pulse Ox 99.8 F H 69 19 133/70 96 07/07/17 20:00 07/07/17 22:00 07/07/17 22:00 07/07/17 21:59 07/07/17 20:00 Intake and Output: 07/07/17 07/08/17 18:59 06:59 Intake Total 2770 924.4 Output Total 1825 290 Balance 945 634.4 - Medications Medications: Current Medications Acetaminophen (Tylenol 650 Mg Supp) 650 mg CA Q6 PRN PRN Reason: Fever >100.4 F Last Admin: 07/04/17 01:37 Dose: 650 mg Albuterol/Ipratropium (Duoneb 3 Mg/0.5 Mg (3 Ml) Ud) 3 ml INH RQ4 [facility] Last Admin: 07/07/17 20:10 Dose: 3 ml Clotrimazole (Lotrimin 1%) 0 gm TOP BID [facility] Last Admin: 07/07/17 18:06 Dose: 1 applic Heparin Sodium (Porcine) (Heparin) 5,000 units SC Q8 [facility] Last Admin: 07/07/17 21:41 Dose: 5,000 units Hydrocortisone (Cortizone 1% Cream) 0 gm TOP BID [facility] Last Admin: 07/07/17 18:07 Dose: 1 applic Propofol (Diprivan) 1,000 mg in 100 mls @ 4.11 mls/hr IV .Q24H PRN; Protocol; 5 MCG/KG/MIN PRN Reason: TITRATE PER MD ORDER Last Titration: 07/07/17 22:55 Dose: 50 mcg/kg/min, 41.1 mls/hr Lactated Ringer's (Lactated Ringer's) 1,000 mls @ 100 mls/hr IV .Q10H [facility] Last Admin: 07/07/17 17:59 Dose: Not Given Piperacillin Sod/Tazobactam Sod (Zosyn 4.5 Gm Iv Premix) 4.5 gm in 100 mls @ 200 mls/hr IVPB Q8H [facility] Last Admin: 07/07/17 18:06 Dose: 200 mls/hr Lorazepam (Ativan) 2 mg IVP Q2H PRN PRN Reason: Agitation Last Admin: 07/07/17 21:52 Dose: 2 mg Methylprednisolone (Solu-Medrol) 40 mg IVP Q12 [facility] Last Admin: 07/07/17 21:41 Dose: 40 mg Metoprolol Tartrate (Lopressor) 50 mg PO DAILY [facility] Last Admin: 07/07/17 09:34 Dose: 50 mg Pantoprazole Sodium (Protonix Inj) 40 mg IVP DAILY [facility] Last Admin: 07/07/17 10:28 Dose: 40 mg Quetiapine Fumarate (Seroquel) 100 mg NG BID [facility] Last Admin: 07/07/17 18:07 Dose: 100 mg Thiamine HCl (Vitamin B1 Inj) 200 mg IV TID [facility] Last Admin: 07/07/17 18:04 Dose: 200 mg - Labs Labs: 07/07/17 06:40 07/07/17 06:37 - Constitutional Appears: No Acute Distress - Head Exam Head Exam: ATRAUMATIC, NORMAL INSPECTION, NORMOCEPHALIC - Eye Exam Eye Exam: EOMI, Normal appearance, PERRL Pupil Exam: NORMAL ACCOMODATION, PERRL - Respiratory Exam Respiratory Exam: Decreased Breath Sounds, Rales, Rhonchi - Cardiovascular Exam Cardiovascular Exam: REGULAR RHYTHM, +S1, +S2. absent: Murmur - GI/Abdominal Exam GI & Abdominal Exam: Soft, Normal Bowel Sounds. absent: Tenderness - Neurological Exam Neurological Exam: Alert, Awake, CN II-XII Intact, Normal Gait, Oriented x3 - Psychiatric Exam Psychiatric exam: Normal Affect, Normal Mood Assessment and Plan (1) Acute confusion Status: Acute (2) Benzodiazepine abuse Status: Acute (3) Withdrawal from benzodiazepine Status: Acute (4) Respiratory failure Assessment & Plan: continue mechanical ventilator attempt weaning Status: Acute
[2017-07-08] MEDS: Albuterol-Ipratrop 3 mg / 0.5 (3 ml) UD INH SCH ×6 (00:10→23:56)
[2017-07-08] MEDS: Propofol 10 mg/ml 1,000 MG/100 ML VIAL IV PRN ×6 (00:29→18:36)
[2017-07-08] MEDS: Piperacill/Tazo 4.5gm in Dex 4.5 GM/100 ML BAG IVPB SCH ×2 (02:01→09:20)
[2017-07-08] MEDS: Lactated Ringer's 1,000 ML IV SCH ×2 (03:12→13:51)
[2017-07-08 05:49] LABS: ARTERIAL BLOOD GAS HCO3 28.2 mmol/L (21-28); ARTERIAL BLOOD GAS HEMOGLOBIN 11.2 g/dL (11.7-17.4); ARTERIAL BLOOD GAS PCO2 40 mm/Hg (35-45); ARTERIAL BLOOD GAS PH 7.46 (7.35-7.45); ARTERIAL BLOOD GAS PO2 156 mm/Hg (80-100); ARTERIAL BLOOD GAS TCO2 29.6 mmol/L (22-28)
[2017-07-08 06:16] LABS: HEMOGLOBIN 12.3 g/dL (12.0-18.0); MEAN CELL VOLUME 99.2 fL (80.0-94.0); MEAN CORPUSCULAR HEMOGLOBIN 34.1 pg (27.0-31.0); MEAN CORPUSCULAR HGB CONC 34.4 g/dL (33.0-37.0); MEAN PLATELET VOLUME 8.3 fL (7.2-11.7); RBC 3.61 Mil/uL (4.40-5.90); RED CELL DISTRIBUTION WIDTH 15.2 % (11.5-14.5); WHITE BLOOD COUNT 10.9 K/uL (4.8-10.8)
[2017-07-08 06:41] LABS: ALB/GLOB RATIO 0.9 (1.0-2.1); ALBUMIN 2.8 g/dL (3.5-5.0); ALT/SGPT 189 U/L (21-72); AST/SGOT 93 U/L (17-59); BLOOD UREA NITROGEN 18 mg/dL (9-20); CALCIUM 8.2 mg/dl (8.6-10.4); GFR AFRICAN-AMERICAN > 60; GFR NON-AFRICAN AMERICAN > 60; MAGNESIUM 1.9 mg/dL (1.6-2.3)
--- NOTE | 2017-07-08 08:44 | RAD ---
Chest x-ray single frontal view History: Infiltrate. Comparison: 07/07/2017 Findings: Lines and tubes in stable position. Biapical pleural thickening with upper lobe granulomatous changes. Right hilar prominence. Patchy bibasilar airspace opacities with small left pleural effusion. Cardiomegaly. Degenerative changes in the spine and shoulders. Impression: Lines and tubes in stable position. Biapical pleural thickening with upper lobe granulomatous changes. Right hilar prominence. Patchy bibasilar airspace opacities with small left pleural effusion. Cardiomegaly.
--- NOTE | 2017-07-08 09:06 | CP.CCUPN ---
<AndreasMerlinn - Last Filed: 07/08/17 17:22> CCU Subjective - Physician Review Subjective (Free Text): 07/08/17 09:05 Patient seen and examined at bedside. Per nursing no acute events occurred overnight. Critical Care Time Spent (in minutes): 45 CCU Objective - Vital Signs / Intake & Output Vital Signs (Last 4 hours): Vital Signs Temp Pulse Resp BP Pulse Ox 07/08/17 08:59 170/91 H 07/08/17 08:58 77 21 95 07/08/17 08:00 98.8 F 07/08/17 07:59 78 20 123/80 96 07/08/17 07:00 77 21 96 07/08/17 06:59 157/90 H 07/08/17 06:07 163/86 H 07/08/17 06:00 84 19 96 Intake and Output (Last 8hrs): Intake & Output 07/07/17 07/08/17 07/08/17 22:59 06:59 14:59 Intake Total 1798.4 1831.9 548.7 Output Total 1615 585 300 Balance 183.4 1246.9 248.7 Weight 299 lb 2 oz Intake: IV 410 290 Intake, IV Amount 938.4 1091.9 398.7 Right Antecubital 374 800 300 right lower arm 564.4 291.9 98.7 Oral 100 Tube Feeding 350 400 150 Other 50 Output: Urine 1615 585 300 Urethral ([place]) 1615 585 300 Other: # Bowel Movements 0 0 - Physical Exam Head: Positive for: Atraumatic, Normocephalic, Other (intubated) Pupils: Positive for: PERRL Extroacular Muscles: Positive for: EOMI Conjunctiva: Positive for: Normal Mouth: Positive for: Moist Mucous Membranes Neck: Positive for: Normal Range of Motion. Negative for: Meningeal Signs, JVD Respiratory/Chest: Positive for: Clear to Auscultation, Good Air Exchange, Respiratory Distress Cardiovascular: Positive for: Regular Rate and Rhythm, Normal S1, S2 Abdomen: Positive for: Normal Bowel Sounds. Negative for: Tenderness Upper Extremity: Positive for: Normal Inspection. Negative for: Edema Lower Extremity: Positive for: Edema Skin: Positive for: Warm, Dry - Medications Active Medications: Active Medications Generic Name Dose Route Start Last Admin Trade Name Freq PRN Reason Stop Dose Admin Acetaminophen 650 mg 07/01/17 09:28 07/04/17 01:37 Tylenol 650 Mg Supp NE 650 mg Q6 PRN Administration Fever >100.4 F Albuterol/Ipratropium 3 ml 07/03/17 12:00 07/08/17 07:48 Duoneb 3 Mg/0.5 Mg (3 Ml) Ud INH 3 ml RQ4 EDIN Administration Clotrimazole 0 gm 06/27/17 10:00 07/07/17 18:06 Lotrimin 1% TOP 1 applic BID EDIN Administration Heparin Sodium (Porcine) 5,000 units 07/05/17 14:00 07/08/17 05:35 Heparin SC 5,000 units Q8 EDIN Administration Hydrocortisone 0 gm 06/27/17 10:00 07/07/17 18:07 Cortizone 1% Cream TOP 1 applic BID EDIN Administration Propofol 1,000 mg in 100 mls @ 4.11 mls/hr 07/03/17 12:07 07/08/17 06:23 Diprivan IV 40 mcg/kg/min .Q24H PRN 32.88 mls/hr TITRATE PER MD ORDER Administration Protocol 5 MCG/KG/MIN Lactated Ringer's 1,000 mls @ 100 mls/hr 07/05/17 15:15 07/08/17 03:12 Lactated Ringer's IV 100 mls/hr .Q10H EDIN Administration Piperacillin Sod/Tazobactam Sod 4.5 gm in 100 mls @ 200 mls/hr 07/06/17 18:00 07/08/17 02:01 Zosyn 4.5 Gm Iv Premix IVPB 200 mls/hr Q8H EDIN Administration Lorazepam 2 mg 06/30/17 21:25 07/08/17 06:46 Ativan IVP 2 mg Q2H PRN Administration Agitation Methylprednisolone 40 mg 07/05/17 22:00 07/07/17 21:41 Solu-Medrol IVP 40 mg Q12 EDIN Administration Metoprolol Tartrate 50 mg 06/23/17 16:12 07/07/17 09:34 Lopressor PO 50 mg DAILY EDIN Administration Pantoprazole Sodium 40 mg 07/01/17 10:00 07/07/17 10:28 Protonix Inj IVP 40 mg DAILY EDIN Administration Quetiapine Fumarate 100 mg 07/06/17 11:45 07/07/17 18:07 Seroquel NG 100 mg BID EDIN Administration Thiamine HCl 200 mg 07/02/17 10:00 07/07/17 18:04 Vitamin B1 Inj IV 200 mg TID EDIN Administration - Patient Studies Lab Studies: Microbiology Studies 07/03/17 13:25 Blood Culture - Preliminary Blood NO GROWTH AFTER 4 DAYS 07/03/17 12:55 Blood Culture - Preliminary Blood NO GROWTH AFTER 4 DAYS Lab Studies 07/08/17 07/08/17 07/08/17 Range/Units 06:07 06:05 06:05 WBC 10.9 H (4.8-10.8) K/uL RBC 3.61 L (4.40-5.90) Mil/uL Hgb 12.3 (12.0-18.0) g/dL Hct 35.8 (35.0-51.0) % MCV 99.2 H (80.0-94.0) fL MCH 34.1 H (27.0-31.0) pg MCHC 34.4 (33.0-37.0) g/dL RDW 15.2 H (11.5-14.5) % Plt Count 336 (130-400) K/uL MPV 8.3 (7.2-11.7) fL Puncture Site pCO2 (35-45) mm/Hg pO2 (80-100) mm/Hg HCO3 (21-28) mmol/L ABG pH (7.35-7.45) ABG Total CO2 (22-28) mmol/L ABG O2 Saturation (95-98) % ABG Base Excess (-2.0-3.0) mmol/L ABG Hemoglobin (11.7-17.4) g/dL ABG Carboxyhemoglobin (0.5-1.5) % POC ABG HHb (Measured) (0.0-5.0) % ABG Methemoglobin (0.0-3.0) % Chance Test A-a O2 Difference mm/Hg Respiratory Index Hgb O2 Saturation (95.0-98.0) % Vent Mode Mechanical Rate FiO2 % Tidal Volume PEEP Sodium 138 (132-148) mmol/L Potassium 4.1 (3.6-5.2) mmol/L Chloride 107 (98-107) mmol/L Carbon Dioxide 26 (22-30) mmol/L Anion Gap 10 (10-20) BUN 18 (9-20) mg/dL Creatinine 0.9 (0.8-1.5) mg/dL Est GFR ( Amer) > 60 Est GFR (Non-Af Amer) > 60 POC Glucose (mg/dL) (65-110) mg/dL Random Glucose 143 H (75-110) mg/dL Calcium 8.2 L (8.6-10.4) mg/dl Phosphorus 4.2 (2.5-4.5) mg/dL Magnesium 1.9 (1.6-2.3) mg/dL Total Bilirubin 0.8 (0.2-1.3) mg/dL AST 93 H D (17-59) U/L ALT 189 H (21-72) U/L Alkaline Phosphatase 81 (38-126) U/L Ammonia 37 H D (9-33) umol/L Total Protein 5.9 L (6.3-8.3) g/dL Albumin 2.8 L (3.5-5.0) g/dL Globulin 3.1 (2.2-3.9) gm/dL Albumin/Globulin Ratio 0.9 L (1.0-2.1) 07/08/17 07/08/17 07/07/17 Range/Units 05:26 05:23 23:35 WBC (4.8-10.8) K/uL RBC (4.40-5.90) Mil/uL Hgb (12.0-18.0) g/dL Hct (35.0-51.0) % MCV (80.0-94.0) fL MCH (27.0-31.0) pg MCHC (33.0-37.0) g/dL RDW (11.5-14.5) % Plt Count (130-400) K/uL MPV (7.2-11.7) fL Puncture Site Lb pCO2 40 (35-45) mm/Hg pO2 156 H (80-100) mm/Hg HCO3 28.2 H (21-28) mmol/L ABG pH 7.46 H (7.35-7.45) ABG Total CO2 29.6 H (22-28) mmol/L ABG O2 Saturation 100.0 H (95-98) % ABG Base Excess 4.2 H (-2.0-3.0) mmol/L ABG Hemoglobin 11.2 L (11.7-17.4) g/dL ABG Carboxyhemoglobin 1.6 H (0.5-1.5) % POC ABG HHb (Measured) 0.0 (0.0-5.0) % ABG Methemoglobin 1.0 (0.0-3.0) % Chance Test Na A-a O2 Difference 151.0 mm/Hg Respiratory Index 1.0 Hgb O2 Saturation 97.4 (95.0-98.0) % Vent Mode Prvc Mechanical Rate 20 FiO2 50.0 % Tidal Volume 500 PEEP 5 Sodium (132-148) mmol/L Potassium (3.6-5.2) mmol/L Chloride (98-107) mmol/L Carbon Dioxide (22-30) mmol/L Anion Gap (10-20) BUN (9-20) mg/dL Creatinine (0.8-1.5) mg/dL Est GFR ( Amer) Est GFR (Non-Af Amer) POC Glucose (mg/dL) 146 H 152 H (65-110) mg/dL Random Glucose (75-110) mg/dL Calcium (8.6-10.4) mg/dl Phosphorus (2.5-4.5) mg/dL Magnesium (1.6-2.3) mg/dL Total Bilirubin (0.2-1.3) mg/dL AST (17-59) U/L ALT (21-72) U/L Alkaline Phosphatase (38-126) U/L Ammonia (9-33) umol/L Total Protein (6.3-8.3) g/dL Albumin (3.5-5.0) g/dL Globulin (2.2-3.9) gm/dL Albumin/Globulin Ratio (1.0-2.1) 07/07/17 07/07/17 Range/Units 17:42 11:15 WBC (4.8-10.8) K/uL RBC (4.40-5.90) Mil/uL Hgb (12.0-18.0) g/dL Hct (35.0-51.0) % MCV (80.0-94.0) fL MCH (27.0-31.0) pg MCHC (33.0-37.0) g/dL RDW (11.5-14.5) % Plt Count (130-400) K/uL MPV (7.2-11.7) fL Puncture Site pCO2 (35-45) mm/Hg pO2 (80-100) mm/Hg HCO3 (21-28) mmol/L ABG pH (7.35-7.45) ABG Total CO2 (22-28) mmol/L ABG O2 Saturation (95-98) % ABG Base Excess (-2.0-3.0) mmol/L ABG Hemoglobin (11.7-17.4) g/dL ABG Carboxyhemoglobin (0.5-1.5) % POC ABG HHb (Measured) (0.0-5.0) % ABG Methemoglobin (0.0-3.0) % Chance Test A-a O2 Difference mm/Hg Respiratory Index Hgb O2 Saturation (95.0-98.0) % Vent Mode Mechanical Rate FiO2 % Tidal Volume PEEP Sodium (132-148) mmol/L Potassium (3.6-5.2) mmol/L Chloride (98-107) mmol/L Carbon Dioxide (22-30) mmol/L Anion Gap (10-20) BUN (9-20) mg/dL Creatinine (0.8-1.5) mg/dL Est GFR ( Amer) Est GFR (Non-Af Amer) POC Glucose (mg/dL) 128 H 129 H (65-110) mg/dL Random Glucose (75-110) mg/dL Calcium (8.6-10.4) mg/dl Phosphorus (2.5-4.5) mg/dL Magnesium (1.6-2.3) mg/dL Total Bilirubin (0.2-1.3) mg/dL AST (17-59) U/L ALT (21-72) U/L Alkaline Phosphatase (38-126) U/L Ammonia (9-33) umol/L Total Protein (6.3-8.3) g/dL Albumin (3.5-5.0) g/dL Globulin (2.2-3.9) gm/dL Albumin/Globulin Ratio (1.0-2.1) Laboratory Results - last 24 hr 07/07/17 07/07/17 07/07/17 11:15 17:42 23:35 WBC RBC Hgb Hct MCV MCH MCHC RDW Plt Count MPV Puncture Site pCO2 pO2 HCO3 ABG pH ABG Total CO2 ABG O2 Saturation ABG Base Excess ABG Hemoglobin ABG Carboxyhemoglobin POC ABG HHb (Measured) ABG Methemoglobin Chance Test A-a O2 Difference Respiratory Index Hgb O2 Saturation Vent Mode Mechanical Rate FiO2 Tidal Volume PEEP Sodium Potassium Chloride Carbon Dioxide Anion Gap BUN Creatinine Est GFR ( Amer) Est GFR (Non-Af Amer) POC Glucose (mg/dL) 129 H 128 H 152 H Random Glucose Calcium Phosphorus Magnesium Total Bilirubin AST ALT Alkaline Phosphatase Ammonia Total Protein Albumin Globulin Albumin/Globulin Ratio 07/08/17 07/08/17 07/08/17 05:23 05:26 06:05 WBC RBC Hgb Hct MCV MCH MCHC RDW Plt Count MPV Puncture Site Lb pCO2 40 pO2 156 H HCO3 28.2 H ABG pH 7.46 H ABG Total CO2 29.6 H ABG O2 Saturation 100.0 H ABG Base Excess 4.2 H ABG Hemoglobin 11.2 L ABG Carboxyhemoglobin 1.6 H POC ABG HHb (Measured) 0.0 ABG Methemoglobin 1.0 Chance Test Na A-a O2 Difference 151.0 Respiratory Index 1.0 Hgb O2 Saturation 97.4 Vent Mode Prvc Mechanical Rate 20 FiO2 50.0 Tidal Volume 500 PEEP 5 Sodium 138 Potassium 4.1 Chloride 107 Carbon Dioxide 26 Anion Gap 10 BUN 18 Creatinine 0.9 Est GFR ( Amer) > 60 Est GFR (Non-Af Amer) > 60 POC Glucose (mg/dL) 146 H Random Glucose 143 H Calcium 8.2 L Phosphorus 4.2 Magnesium 1.9 Total Bilirubin 0.8 AST 93 H D ALT 189 H Alkaline Phosphatase 81 Ammonia Total Protein 5.9 L Albumin 2.8 L Globulin 3.1 Albumin/Globulin Ratio 0.9 L 07/08/17 07/08/17 06:05 06:07 WBC 10.9 H RBC 3.61 L Hgb 12.3 Hct 35.8 MCV 99.2 H MCH 34.1 H MCHC 34.4 RDW 15.2 H Plt Count 336 MPV 8.3 Puncture Site pCO2 pO2 HCO3 ABG pH ABG Total CO2 ABG O2 Saturation ABG Base Excess ABG Hemoglobin ABG Carboxyhemoglobin POC ABG HHb (Measured) ABG Methemoglobin Chance Test A-a O2 Difference Respiratory Index Hgb O2 Saturation Vent Mode Mechanical Rate FiO2 Tidal Volume PEEP Sodium Potassium Chloride Carbon Dioxide Anion Gap BUN Creatinine Est GFR ( Amer) Est GFR (Non-Af Amer) POC Glucose (mg/dL) Random Glucose Calcium Phosphorus Magnesium Total Bilirubin AST ALT Alkaline Phosphatase Ammonia 37 H D Total Protein Albumin Globulin Albumin/Globulin Ratio Fingerstick Blood Sugar Results: 146 Review of Systems - Review of Systems Systems not reviewed;Unavailable: Acuity of Condition Assessment/Plan - Assessment and Plan (Free Text) Assessment: Patient is a 51 year-old male with a past medical history of anxiety and depression who presented to the ER via EMS after being found with an altered mental status at home. He was transferred to ICU from the medical/surgical floor after becoming acutely tachycardic and hypoxemic. 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 ID: ?[id number] - Zosyn discontinued. - procalcitonin 0.11 wnl - UA/UC - negative for growth - Trach asp - negative for growth - Blood culture negative PPx: skin care; vitamin nutrition/diet - Cortizone 1% cream - Lotrimin 1% - Protonix 40mg IVP qd Disposition: Patient drips will be titrated down. Pressure support to be provided. <Montez Nieto - Last Filed: 07/08/17 18:16> CCU Objective - Vital Signs / Intake & Output Vital Signs (Last 4 hours): Vital Signs Temp Pulse Resp BP Pulse Ox 07/08/17 16:11 93 H 16 163/91 H 95 07/08/17 16:00 99.9 F H 07/08/17 15:59 95 H 18 184/87 H 95 07/08/17 15:00 82 26 H 181/91 H 97 Intake and Output (Last 8hrs): Intake & Output 07/08/17 07/08/17 07/08/17 06:59 14:59 22:59 Intake Total 1831.9 708.7 Output Total 585 300 Balance 1246.9 408.7 Weight 299 lb 2 oz Intake: IV 290 160 Intake, IV Amount 1091.9 398.7 Right Antecubital 800 300 right lower arm 291.9 98.7 Tube Feeding 400 150 Other 50 Output: Urine 585 300 Urethral ([place]) 585 300 Other: # Bowel Movements 0 - Medications Active Medications: Active Medications Generic Name Dose Route Start Last Admin Trade Name Freq PRN Reason Stop Dose Admin Acetaminophen 650 mg 07/01/17 09:28 07/04/17 01:37 Tylenol 650 Mg Supp NE 650 mg Q6 PRN Administration Fever >100.4 F Clotrimazole 0 gm 06/27/17 10:00 07/08/17 09:47 Lotrimin 1% TOP 1 applic BID EDIN Administration Hydrocortisone 0 gm 06/27/17 10:00 07/08/17 09:48 Cortizone 1% Cream TOP 1 applic BID EDIN Administration Propofol 1,000 mg in 100 mls @ 4.11 mls/hr 07/03/17 12:07 07/08/17 11:00 Diprivan IV 10 mcg/kg/min .Q24H PRN 8.22 mls/hr TITRATE PER MD ORDER Titration Protocol 5 MCG/KG/MIN Lorazepam 2 mg 06/30/17 21:25 07/08/17 13:52 Ativan IVP 2 mg Q2H PRN Administration Agitation Methylprednisolone 40 mg 07/05/17 22:00 07/08/17 09:19 Solu-Medrol IVP 40 mg Q12 EDIN Administration Metoprolol Tartrate 50 mg 06/23/17 16:12 07/08/17 09:19 Lopressor PO 50 mg DAILY EDIN Administration Pantoprazole Sodium 40 mg 07/01/17 10:00 07/08/17 09:19 Protonix Inj IVP 40 mg DAILY EDIN Administration Quetiapine Fumarate 100 mg 07/06/17 11:45 07/08/17 09:19 Seroquel NG 100 mg BID EDIN Administration Thiamine HCl 200 mg 07/02/17 10:00 07/08/17 13:52 Vitamin B1 Inj IV 200 mg TID EDIN Administration - Patient Studies Lab Studies: Microbiology Studies 07/03/17 13:25 Blood Culture - Final Blood NO GROWTH AFTER 5 DAYS Gram Stain - Final TEST NOT PERFORMED 07/03/17 12:55 Blood Culture - Final Blood NO GROWTH AFTER 5 DAYS Gram Stain - Final TEST NOT PERFORMED Lab Studies 07/08/17 07/08/17 07/08/17 Range/Units 17:25 11:34 06:07 WBC 10.9 H (4.8-10.8) K/uL RBC 3.61 L (4.40-5.90) Mil/uL Hgb 12.3 (12.0-18.0) g/dL Hct 35.8 (35.0-51.0) % MCV 99.2 H (80.0-94.0) fL MCH 34.1 H (27.0-31.0) pg MCHC 34.4 (33.0-37.0) g/dL RDW 15.2 H (11.5-14.5) % Plt Count 336 (130-400) K/uL MPV 8.3 (7.2-11.7) fL Puncture Site pCO2 (35-45) mm/Hg pO2 (80-100) mm/Hg HCO3 (21-28) mmol/L ABG pH (7.35-7.45) ABG Total CO2 (22-28) mmol/L ABG O2 Saturation (95-98) % ABG Base Excess (-2.0-3.0) mmol/L ABG Hemoglobin (11.7-17.4) g/dL ABG Carboxyhemoglobin (0.5-1.5) % POC ABG HHb (Measured) (0.0-5.0) % ABG Methemoglobin (0.0-3.0) % Chance Test A-a O2 Difference mm/Hg Respiratory Index Hgb O2 Saturation (95.0-98.0) % Vent Mode Mechanical Rate FiO2 % Tidal Volume PEEP Sodium (132-148) mmol/L Potassium (3.6-5.2) mmol/L Chloride (98-107) mmol/L Carbon Dioxide (22-30) mmol/L Anion Gap (10-20) BUN (9-20) mg/dL Creatinine (0.8-1.5) mg/dL Est GFR ( Amer) Est GFR (Non-Af Amer) POC Glucose (mg/dL) 153 H 140 H (65-110) mg/dL Random Glucose (75-110) mg/dL Calcium (8.6-10.4) mg/dl Phosphorus (2.5-4.5) mg/dL Magnesium (1.6-2.3) mg/dL Total Bilirubin (0.2-1.3) mg/dL AST (17-59) U/L ALT (21-72) U/L Alkaline Phosphatase (38-126) U/L Ammonia (9-33) umol/L Total Protein (6.3-8.3) g/dL Albumin (3.5-5.0) g/dL Globulin (2.2-3.9) gm/dL Albumin/Globulin Ratio (1.0-2.1) 07/08/17 07/08/17 07/08/17 Range/Units 06:05 06:05 05:26 WBC (4.8-10.8) K/uL RBC (4.40-5.90) Mil/uL Hgb (12.0-18.0) g/dL Hct (35.0-51.0) % MCV (80.0-94.0) fL MCH (27.0-31.0) pg MCHC (33.0-37.0) g/dL RDW (11.5-14.5) % Plt Count (130-400) K/uL MPV (7.2-11.7) fL Puncture Site pCO2 (35-45) mm/Hg pO2 (80-100) mm/Hg HCO3 (21-28) mmol/L ABG pH (7.35-7.45) ABG Total CO2 (22-28) mmol/L ABG O2 Saturation (95-98) % ABG Base Excess (-2.0-3.0) mmol/L ABG Hemoglobin (11.7-17.4) g/dL ABG Carboxyhemoglobin (0.5-1.5) % POC ABG HHb (Measured) (0.0-5.0) % ABG Methemoglobin (0.0-3.0) % Chance Test A-a O2 Difference mm/Hg Respiratory Index Hgb O2 Saturation (95.0-98.0) % Vent Mode Mechanical Rate FiO2 % Tidal Volume PEEP Sodium 138 (132-148) mmol/L Potassium 4.1 (3.6-5.2) mmol/L Chloride 107 (98-107) mmol/L Carbon Dioxide 26 (22-30) mmol/L Anion Gap 10 (10-20) BUN 18 (9-20) mg/dL Creatinine 0.9 (0.8-1.5) mg/dL Est GFR ( Amer) > 60 Est GFR (Non-Af Amer) > 60 POC Glucose (mg/dL) 146 H (65-110) mg/dL Random Glucose 143 H (75-110) mg/dL Calcium 8.2 L (8.6-10.4) mg/dl Phosphorus 4.2 (2.5-4.5) mg/dL Magnesium 1.9 (1.6-2.3) mg/dL Total Bilirubin 0.8 (0.2-1.3) mg/dL AST 93 H D (17-59) U/L ALT 189 H (21-72) U/L Alkaline Phosphatase 81 (38-126) U/L Ammonia 37 H D (9-33) umol/L Total Protein 5.9 L (6.3-8.3) g/dL Albumin 2.8 L (3.5-5.0) g/dL Globulin 3.1 (2.2-3.9) gm/dL Albumin/Globulin Ratio 0.9 L (1.0-2.1) 07/08/17 07/07/17 Range/Units 05:23 23:35 WBC (4.8-10.8) K/uL RBC (4.40-5.90) Mil/uL Hgb (12.0-18.0) g/dL Hct (35.0-51.0) % MCV (80.0-94.0) fL MCH (27.0-31.0) pg MCHC (33.0-37.0) g/dL RDW (11.5-14.5) % Plt Count (130-400) K/uL MPV (7.2-11.7) fL Puncture Site Lb pCO2 40 (35-45) mm/Hg pO2 156 H (80-100) mm/Hg HCO3 28.2 H (21-28) mmol/L ABG pH 7.46 H (7.35-7.45) ABG Total CO2 29.6 H (22-28) mmol/L ABG O2 Saturation 100.0 H (95-98) % ABG Base Excess 4.2 H (-2.0-3.0) mmol/L ABG Hemoglobin 11.2 L (11.7-17.4) g/dL ABG Carboxyhemoglobin 1.6 H (0.5-1.5) % POC ABG HHb (Measured) 0.0 (0.0-5.0) % ABG Methemoglobin 1.0 (0.0-3.0) % Chance Test Na A-a O2 Difference 151.0 mm/Hg Respiratory Index 1.0 Hgb O2 Saturation 97.4 (95.0-98.0) % Vent Mode Prvc Mechanical Rate 20 FiO2 50.0 % Tidal Volume 500 PEEP 5 Sodium (132-148) mmol/L Potassium (3.6-5.2) mmol/L Chloride (98-107) mmol/L Carbon Dioxide (22-30) mmol/L Anion Gap (10-20) BUN (9-20) mg/dL Creatinine (0.8-1.5) mg/dL Est GFR ( Amer) Est GFR (Non-Af Amer) POC Glucose (mg/dL) 152 H (65-110) mg/dL Random Glucose (75-110) mg/dL Calcium (8.6-10.4) mg/dl Phosphorus (2.5-4.5) mg/dL Magnesium (1.6-2.3) mg/dL Total Bilirubin (0.2-1.3) mg/dL AST (17-59) U/L ALT (21-72) U/L Alkaline Phosphatase (38-126) U/L Ammonia (9-33) umol/L Total Protein (6.3-8.3) g/dL Albumin (3.5-5.0) g/dL Globulin (2.2-3.9) gm/dL Albumin/Globulin Ratio (1.0-2.1) Laboratory Results - last 24 hr 07/07/17 07/08/17 07/08/17 23:35 05:23 05:26 WBC RBC Hgb Hct MCV MCH MCHC RDW Plt Count MPV Puncture Site Lb pCO2 40 pO2 156 H HCO3 28.2 H ABG pH 7.46 H ABG Total CO2 29.6 H ABG O2 Saturation 100.0 H ABG Base Excess 4.2 H ABG Hemoglobin 11.2 L ABG Carboxyhemoglobin 1.6 H POC ABG HHb (Measured) 0.0 ABG Methemoglobin 1.0 Chance Test Na A-a O2 Difference 151.0 Respiratory Index 1.0 Hgb O2 Saturation 97.4 Vent Mode Prvc Mechanical Rate 20 FiO2 50.0 Tidal Volume 500 PEEP 5 Sodium Potassium Chloride Carbon Dioxide Anion Gap BUN Creatinine Est GFR ( Amer) Est GFR (Non-Af Amer) POC Glucose (mg/dL) 152 H 146 H Random Glucose Calcium Phosphorus Magnesium Total Bilirubin AST ALT Alkaline Phosphatase Ammonia Total Protein Albumin Globulin Albumin/Globulin Ratio 07/08/17 07/08/17 07/08/17 06:05 06:05 06:07 WBC 10.9 H RBC 3.61 L Hgb 12.3 Hct 35.8 MCV 99.2 H MCH 34.1 H MCHC 34.4 RDW 15.2 H Plt Count 336 MPV 8.3 Puncture Site pCO2 pO2 HCO3 ABG pH ABG Total CO2 ABG O2 Saturation ABG Base Excess ABG Hemoglobin ABG Carboxyhemoglobin POC ABG HHb (Measured) ABG Methemoglobin Chance Test A-a O2 Difference Respiratory Index Hgb O2 Saturation Vent Mode Mechanical Rate FiO2 Tidal Volume PEEP Sodium 138 Potassium 4.1 Chloride 107 Carbon Dioxide 26 Anion Gap 10 BUN 18 Creatinine 0.9 Est GFR ( Amer) > 60 Est GFR (Non-Af Amer) > 60 POC Glucose (mg/dL) Random Glucose 143 H Calcium 8.2 L Phosphorus 4.2 Magnesium 1.9 Total Bilirubin 0.8 AST 93 H D ALT 189 H Alkaline Phosphatase 81 Ammonia 37 H D Total Protein 5.9 L Albumin 2.8 L Globulin 3.1 Albumin/Globulin Ratio 0.9 L 07/08/17 07/08/17 11:34 17:25 WBC RBC Hgb Hct MCV MCH MCHC RDW Plt Count MPV Puncture Site pCO2 pO2 HCO3 ABG pH ABG Total CO2 ABG O2 Saturation ABG Base Excess ABG Hemoglobin ABG Carboxyhemoglobin POC ABG HHb (Measured) ABG Methemoglobin Chance Test A-a O2 Difference Respiratory Index Hgb O2 Saturation Vent Mode Mechanical Rate FiO2 Tidal Volume PEEP Sodium Potassium Chloride Carbon Dioxide Anion Gap BUN Creatinine Est GFR ( Amer) Est GFR (Non-Af Amer) POC Glucose (mg/dL) 140 H 153 H Random Glucose Calcium Phosphorus Magnesium Total Bilirubin AST ALT Alkaline Phosphatase Ammonia Total Protein Albumin Globulin Albumin/Globulin Ratio Attending/Attestation - Attestation I have personally seen and examined this patient.: Yes I have fully participated in the care of the patient.: Yes I have reviewed all pertinent clinical information: Yes Notes (Text): 07/08/17 18:13 I have seen and examined the patient. Medical records, lab studies, and imaging were reviewed by me and a management plan was formulated on multidisciplinary rounds with resident Dr. Johns. I agree with their documented assessment and plan. Will start weaning trials, stop sedation. continue seroquel. Will use precedex to help wean. Critical Care Time 35 minutes. Multi-disciplinary rounds were performed with house staff, nursing, speech therapy, respiratory therapy, pharmacy and nutrition with integrated input from the primary team/attending and other consulting services. The documented time is cumulative and includes review of patient data/exams/labs/chart review and examination of the patient on rounds and throughout the day; time is exclusive of any procedures or teaching time.
[2017-07-08] MEDS: MethylPREDNISolone 40 mg Vial IVP SCH ×2 (09:19→21:33)
[2017-07-08] MEDS: Thiamine 100 mg/ml Inj IV SCH ×3 (09:20→18:31)
[2017-07-08] MEDS: Clotrimazole 1% Cream(30 gm) TOP SCH ×2 (09:47→18:37)
[2017-07-08] MEDS: Hydrocortisone 1% Cream (30 GM) TOP SCH ×2 (09:48→18:37)
[2017-07-08] MEDS: Dexmedetomidine Hydrochloride 200 MCG in Sodium Chloride 0.9% 48 ML IV PRN ×2 (18:48→23:50)
--- NOTE | 2017-07-08 20:16 | CP.PCM.PN ---
Subjective - Date & Time of Evaluation Date of Evaluation: 07/08/17 Time of Evaluation: 18:00 - Subjective Subjective: PT SEEN AND EXAMINED AT BEDSIDE, PT REMAINS ON MECHANICAL VENTILATOR, CXR SHOWED B/L INFILTARTE SEEM STO BE VENTILATOR ASSOCIATED PNEMONIA Objective - Vital Signs/Intake and Output Vital Signs (last 24 hours): Temp Pulse Resp BP Pulse Ox 99.9 F H 80 19 129/80 98 07/08/17 16:00 07/08/17 18:59 07/08/17 18:59 07/08/17 18:59 07/08/17 18:59 Intake and Output: 07/08/17 07/09/17 18:59 06:59 Intake Total 2381.6 178.2 Output Total 1290 110 Balance 1091.6 68.2 - Medications Medications: Current Medications Acetaminophen (Tylenol 650 Mg Supp) 650 mg TX Q6 PRN PRN Reason: Fever >100.4 F Last Admin: 07/04/17 01:37 Dose: 650 mg Albuterol/Ipratropium (Duoneb 3 Mg/0.5 Mg (3 Ml) Ud) 3 ml INH RQ4 EDIN Clotrimazole (Lotrimin 1%) 0 gm TOP BID EDIN Last Admin: 07/08/17 18:37 Dose: 1 applic Hydrocortisone (Cortizone 1% Cream) 0 gm TOP BID [facility] Last Admin: 07/08/17 18:37 Dose: 1 applic Propofol (Diprivan) 1,000 mg in 100 mls @ 4.11 mls/hr IV .Q24H PRN; Protocol; 5 MCG/KG/MIN PRN Reason: TITRATE PER MD ORDER Last Titration: 07/08/17 20:05 Dose: 20 mcg/kg/min, 16.44 mls/hr Dexmedetomidine HCl 200 mcg/ (Sodium Chloride) 50 mls @ 6.78 mls/hr IV TITR PRN ; Protocol; 0.2 MCG/KG/HR PRN Reason: Agitation Last Admin: 07/08/17 18:48 Dose: 0.2 mcg/kg/hr, 6.78 mls/hr Lorazepam (Ativan) 2 mg IVP Q2H PRN PRN Reason: Agitation Last Admin: 07/08/17 13:52 Dose: 2 mg Methylprednisolone (Solu-Medrol) 40 mg IVP Q12 EDIN Last Admin: 07/08/17 09:19 Dose: 40 mg Metoprolol Tartrate (Lopressor) 50 mg PO DAILY [facility] Last Admin: 07/08/17 09:19 Dose: 50 mg Pantoprazole Sodium (Protonix Inj) 40 mg IVP DAILY [facility] Last Admin: 07/08/17 09:19 Dose: 40 mg Quetiapine Fumarate (Seroquel) 100 mg NG BID [facility] Last Admin: 07/08/17 18:31 Dose: 100 mg Thiamine HCl (Vitamin B1 Inj) 200 mg IV TID [facility] Last Admin: 07/08/17 18:31 Dose: 200 mg - Labs Labs: 07/08/17 06:07 07/08/17 06:05 - Constitutional Appears: No Acute Distress, Chronically Ill - Eye Exam Eye Exam: EOMI, Normal appearance, PERRL Pupil Exam: NORMAL ACCOMODATION, PERRL - ENT Exam ENT Exam: Mucous Membranes Moist, Normal Exam - Respiratory Exam Respiratory Exam: Decreased Breath Sounds, Rales, Rhonchi - Cardiovascular Exam Cardiovascular Exam: REGULAR RHYTHM, +S1, +S2. absent: Murmur - GI/Abdominal Exam GI & Abdominal Exam: Soft, Normal Bowel Sounds. absent: Tenderness - Rectal Exam Rectal Exam: Deferred Assessment and Plan (1) Acute confusion Status: Acute (2) Benzodiazepine abuse Status: Acute (3) Withdrawal from benzodiazepine Status: Acute (4) Respiratory failure Status: Acute
[2017-07-09] MEDS: Albuterol-Ipratrop 3 mg / 0.5 (3 ml) UD INH SCH ×5 (03:05→20:06)
[2017-07-09] MEDS: Propofol 10 mg/ml 1,000 MG/100 ML VIAL IV PRN (03:59)
[2017-07-09 05:50] LABS: ABG ALLEN TEST POS; ARTERIAL BLOOD GAS HCO3 30.3 mmol/L (21-28); ARTERIAL BLOOD GAS HEMOGLOBIN 13.5 g/dL (11.7-17.4); ARTERIAL BLOOD GAS O2 SAT 98.6 % (95-98); ARTERIAL BLOOD GAS PCO2 46 mm/Hg (35-45); ARTERIAL BLOOD GAS PH 7.45 (7.35-7.45); ARTERIAL BLOOD GAS PO2 91 mm/Hg (80-100); ARTERIAL BLOOD GAS TCO2 33.4 mmol/L (22-28)
[2017-07-09 06:30] LABS: BASO % 0.1 % (0.0-2.0); EOS % 0.2 % (0.0-4.0); LYMPH % 6.7 % (20.0-40.0); MEAN CELL VOLUME 98.3 fL (80.0-94.0); MEAN CORPUSCULAR HEMOGLOBIN 32.9 pg (27.0-31.0); MEAN CORPUSCULAR HGB CONC 33.4 g/dL (33.0-37.0); MEAN PLATELET VOLUME 8.8 fL (7.2-11.7); MONO # 1.4 K/uL (0.0-0.8); MONO % 9.4 % (0.0-10.0); NEUT # 12.4 K/uL (1.8-7.0); NEUT % 83.6 % (50.0-75.0); PLATELET COUNT 346 K/uL (130-400); RBC 3.97 Mil/uL (4.40-5.90); WHITE BLOOD COUNT 14.9 K/uL (4.8-10.8)
[2017-07-09 06:46] LABS: ALB/GLOB RATIO 0.9 (1.0-2.1); ALT/SGPT 260 U/L (21-72); AST/SGOT 115 U/L (17-59); BLOOD UREA NITROGEN 22 mg/dL (9-20); CALCIUM 8.8 mg/dl (8.6-10.4); GFR AFRICAN-AMERICAN > 60; GFR NON-AFRICAN AMERICAN > 60; MAGNESIUM 1.9 mg/dL (1.6-2.3)
[2017-07-09] MEDS: Dexmedetomidine Hydrochloride 200 MCG in Sodium Chloride 0.9% 48 ML IV PRN ×5 (07:56→23:31)
--- NOTE | 2017-07-09 08:39 | RAD ---
HISTORY: vented COMPARISON: 07/08/2017 FINDINGS: LUNGS: No active pulmonary disease. PLEURA: No significant pleural effusion identified, no pneumothorax apparent. CARDIOVASCULAR: Normal heart size. ET tube and NG tube unchanged. No congestive change. OSSEOUS STRUCTURES: No significant abnormalities. VISUALIZED UPPER ABDOMEN: Normal. OTHER FINDINGS: None. IMPRESSION: No active disease.
[2017-07-09 09:14] LABS: BANDS 1 % (0-2); LYMPHOCYTE 12 % (20-40); MONOCYTE 6 % (0-10); NEUTROPHIL 81 % (50-75); TOTAL CELLS COUNTED 100
[2017-07-09 09:15] LABS: PLATELET ESTIMATE NORMAL (NORMAL)
[2017-07-09] MEDS: Thiamine 100 mg/ml Inj IV SCH ×3 (09:56→19:13)
[2017-07-09] MEDS: MethylPREDNISolone 40 mg Vial IVP SCH ×2 (09:57→21:29)
[2017-07-09] MEDS: Hydrocortisone 1% Cream (30 GM) TOP SCH ×2 (09:58→18:47)
[2017-07-09] MEDS: Clotrimazole 1% Cream(30 gm) TOP SCH ×2 (09:58→18:48)
--- NOTE | 2017-07-09 11:37 | CP.CCUPN ---
<AndreasMerlinn - Last Filed: 07/09/17 16:40> CCU Subjective - Physician Review Subjective (Free Text): 07/08/17 09:05 Patient seen and examined at bedside. Per nursing no acute events occurred overnight. Critical Care Time Spent (in minutes): 45 CCU Objective - Vital Signs / Intake & Output Vital Signs (Last 4 hours): Vital Signs Temp Pulse Resp BP Pulse Ox 07/09/17 11:13 163/95 H 07/09/17 11:02 76 19 163/95 H 98 07/09/17 11:00 70 21 97 07/09/17 10:50 78 18 175/103 H 98 07/09/17 10:00 99 H 23 133/106 H 93 L 07/09/17 09:00 83 12 96 07/09/17 08:59 75 22 151/99 H 95 07/09/17 08:00 99.4 F 75 19 97 07/09/17 07:59 82 25 H 134/92 H 97 Intake and Output (Last 8hrs): Intake & Output 07/08/17 07/09/17 07/09/17 22:59 06:59 14:59 Intake Total 1503.0 849.2 191.7 Output Total 900 2180 435 Balance 603.0 -1330.8 -243.3 Intake: IV 135 130 50 Intake, IV Amount 968.0 319.2 41.7 Right Antecubital 500 right lower arm 147.9 65.6 8.2 right shoulder 300 200 right shoulder distal 20.1 53.6 33.5 Tube Feeding 400 400 100 Output: Urine 900 2180 435 Urethral (Velázquez) 900 2180 435 Other: # Bowel Movements 0 - Physical Exam Head: Positive for: Atraumatic, Normocephalic, Other (intubated) Pupils: Positive for: PERRL Extroacular Muscles: Positive for: EOMI Conjunctiva: Positive for: Normal Mouth: Positive for: Moist Mucous Membranes Neck: Positive for: Normal Range of Motion. Negative for: Meningeal Signs, JVD Respiratory/Chest: Positive for: Clear to Auscultation, Good Air Exchange, Respiratory Distress Cardiovascular: Positive for: Regular Rate and Rhythm, Normal S1, S2 Abdomen: Positive for: Normal Bowel Sounds. Negative for: Tenderness Upper Extremity: Positive for: Normal Inspection. Negative for: Edema Lower Extremity: Positive for: Edema Skin: Positive for: Warm, Dry - Medications Active Medications: Active Medications Generic Name Dose Route Start Last Admin Trade Name Freq PRN Reason Stop Dose Admin Acetaminophen 650 mg 07/01/17 09:28 07/04/17 01:37 Tylenol 650 Mg Supp NE 650 mg Q6 PRN Administration Fever >100.4 F Albuterol/Ipratropium 3 ml 07/08/17 20:00 07/09/17 11:32 Duoneb 3 Mg/0.5 Mg (3 Ml) Ud INH 3 ml RQ4 EDIN Administration Clotrimazole 0 gm 06/27/17 10:00 07/09/17 09:58 Lotrimin 1% TOP 1 applic BID EDIN Administration Hydrocortisone 0 gm 06/27/17 10:00 07/09/17 09:58 Cortizone 1% Cream TOP 1 applic BID EDIN Administration Propofol 1,000 mg in 100 mls @ 4.11 mls/hr 07/03/17 12:07 07/09/17 03:59 Diprivan IV 10 mcg/kg/min .Q24H PRN 8.22 mls/hr TITRATE PER MD ORDER Administration Protocol 5 MCG/KG/MIN Dexmedetomidine HCl 200 mcg/ 50 mls @ 6.78 mls/hr 07/08/17 18:17 07/09/17 07: 56 Sodium Chloride IV 0.2 mcg/kg/hr TITR PRN 6.78 mls/hr Agitation Administration Protocol 0.2 MCG/KG/HR Lorazepam 2 mg 06/30/17 21:25 07/09/17 02:39 Ativan IVP 2 mg Q2H PRN Administration Agitation Methylprednisolone 40 mg 07/05/17 22:00 07/09/17 09:57 Solu-Medrol IVP 40 mg Q12 EDIN Administration Metoprolol Tartrate 50 mg 06/23/17 16:12 07/09/17 09:56 Lopressor PO 50 mg DAILY EDIN Administration Pantoprazole Sodium 40 mg 07/01/17 10:00 07/09/17 09:56 Protonix Inj IVP 40 mg DAILY EDIN Administration Quetiapine Fumarate 100 mg 07/06/17 11:45 07/09/17 09:56 Seroquel NG 100 mg BID EDIN Administration Thiamine HCl 200 mg 07/02/17 10:00 07/09/17 09:56 Vitamin B1 Inj IV 200 mg TID EDIN Administration - Patient Studies Lab Studies: Microbiology Studies 07/03/17 13:25 Blood Culture - Final Blood NO GROWTH AFTER 5 DAYS Gram Stain - Final TEST NOT PERFORMED 07/03/17 12:55 Blood Culture - Final Blood NO GROWTH AFTER 5 DAYS Gram Stain - Final TEST NOT PERFORMED Lab Studies 07/09/17 07/09/17 07/09/17 Range/Units 11:03 06:24 06:24 WBC 14.9 H (4.8-10.8) K/uL RBC 3.97 L (4.40-5.90) Mil/uL Hgb 13.0 (12.0-18.0) g/dL Hct 39.0 (35.0-51.0) % MCV 98.3 H (80.0-94.0) fL MCH 32.9 H (27.0-31.0) pg MCHC 33.4 (33.0-37.0) g/dL RDW 15.0 H (11.5-14.5) % Plt Count 346 (130-400) K/uL MPV 8.8 (7.2-11.7) fL Neut % (Auto) 83.6 H (50.0-75.0) % Lymph % (Auto) 6.7 L (20.0-40.0) % Bibb % (Auto) 9.4 (0.0-10.0) % Eos % (Auto) 0.2 (0.0-4.0) % Baso % (Auto) 0.1 (0.0-2.0) % Neut # (Auto) 12.4 H (1.8-7.0) K/uL Lymph # (Auto) 1.0 (1.0-4.3) K/uL Bibb # (Auto) 1.4 H (0.0-0.8) K/uL Eos # (Auto) 0.0 (0.0-0.7) K/uL Baso # (Auto) 0.0 (0.0-0.2) K/uL Neutrophils % (Manual) 81 H (50-75) % Band Neutrophils % 1 (0-2) % Lymphocytes % (Manual) 12 L (20-40) % Monocytes % (Manual) 6 (0-10) % Platelet Estimate Normal (NORMAL) RBC Morphology Normal Puncture Site pCO2 (35-45) mm/Hg pO2 (80-100) mm/Hg HCO3 (21-28) mmol/L ABG pH (7.35-7.45) ABG Total CO2 (22-28) mmol/L ABG O2 Saturation (95-98) % ABG Base Excess (-2.0-3.0) mmol/L ABG Hemoglobin (11.7-17.4) g/dL ABG Carboxyhemoglobin (0.5-1.5) % POC ABG HHb (Measured) (0.0-5.0) % ABG Methemoglobin (0.0-3.0) % Chance Test A-a O2 Difference mm/Hg Respiratory Index Hgb O2 Saturation (95.0-98.0) % Vent Mode Mechanical Rate FiO2 % Tidal Volume PEEP Sodium 138 (132-148) mmol/L Potassium 4.0 (3.6-5.2) mmol/L Chloride 103 (98-107) mmol/L Carbon Dioxide 27 (22-30) mmol/L Anion Gap 12 (10-20) BUN 22 H (9-20) mg/dL Creatinine 0.8 (0.8-1.5) mg/dL Est GFR ( Amer) > 60 Est GFR (Non-Af Amer) > 60 POC Glucose (mg/dL) 112 H (65-110) mg/dL Random Glucose 133 H (75-110) mg/dL Calcium 8.8 (8.6-10.4) mg/dl Phosphorus 4.4 (2.5-4.5) mg/dL Magnesium 1.9 (1.6-2.3) mg/dL Total Bilirubin 0.9 (0.2-1.3) mg/dL AST 115 H D (17-59) U/L ALT 260 H D (21-72) U/L Alkaline Phosphatase 82 (38-126) U/L Total Protein 6.3 (6.3-8.3) g/dL Albumin 3.0 L (3.5-5.0) g/dL Globulin 3.2 (2.2-3.9) gm/dL Albumin/Globulin Ratio 0.9 L (1.0-2.1) 02/23/18 02/23/18 02/23/18 Range/Units 05:52 05:20 00:01 WBC (4.8-10.8) K/uL RBC (4.40-5.90) Mil/uL Hgb (12.0-18.0) g/dL Hct (35.0-51.0) % MCV (80.0-94.0) fL MCH (27.0-31.0) pg MCHC (33.0-37.0) g/dL RDW (11.5-14.5) % Plt Count (130-400) K/uL MPV (7.2-11.7) fL Neut % (Auto) (50.0-75.0) % Lymph % (Auto) (20.0-40.0) % Bibb % (Auto) (0.0-10.0) % Eos % (Auto) (0.0-4.0) % Baso % (Auto) (0.0-2.0) % Neut # (Auto) (1.8-7.0) K/uL Lymph # (Auto) (1.0-4.3) K/uL Bibb # (Auto) (0.0-0.8) K/uL Eos # (Auto) (0.0-0.7) K/uL Baso # (Auto) (0.0-0.2) K/uL Neutrophils % (Manual) (50-75) % Band Neutrophils % (0-2) % Lymphocytes % (Manual) (20-40) % Monocytes % (Manual) (0-10) % Platelet Estimate (NORMAL) RBC Morphology Puncture Site Rr pCO2 46 H (35-45) mm/Hg pO2 91 (80-100) mm/Hg HCO3 30.3 H (21-28) mmol/L ABG pH 7.45 (7.35-7.45) ABG Total CO2 33.4 H (22-28) mmol/L ABG O2 Saturation 98.6 H (95-98) % ABG Base Excess 6.9 H (-2.0-3.0) mmol/L ABG Hemoglobin 13.5 (11.7-17.4) g/dL ABG Carboxyhemoglobin 1.6 H (0.5-1.5) % POC ABG HHb (Measured) 1.4 (0.0-5.0) % ABG Methemoglobin 1.4 (0.0-3.0) % Chance Test Pos A-a O2 Difference 208.0 mm/Hg Respiratory Index 2.3 Hgb O2 Saturation 95.6 (95.0-98.0) % Vent Mode Prvc Mechanical Rate 20 FiO2 50.0 % Tidal Volume 500 PEEP 5 Sodium (132-148) mmol/L Potassium (3.6-5.2) mmol/L Chloride (98-107) mmol/L Carbon Dioxide (22-30) mmol/L Anion Gap (10-20) BUN (9-20) mg/dL Creatinine (0.8-1.5) mg/dL Est GFR ( Amer) Est GFR (Non-Af Amer) POC Glucose (mg/dL) 141 H 159 H (65-110) mg/dL Random Glucose (75-110) mg/dL Calcium (8.6-10.4) mg/dl Phosphorus (2.5-4.5) mg/dL Magnesium (1.6-2.3) mg/dL Total Bilirubin (0.2-1.3) mg/dL AST (17-59) U/L ALT (21-72) U/L Alkaline Phosphatase (38-126) U/L Total Protein (6.3-8.3) g/dL Albumin (3.5-5.0) g/dL Globulin (2.2-3.9) gm/dL Albumin/Globulin Ratio (1.0-2.1) 07/08/17 07/08/17 Range/Units 17:25 11:34 WBC (4.8-10.8) K/uL RBC (4.40-5.90) Mil/uL Hgb (12.0-18.0) g/dL Hct (35.0-51.0) % MCV (80.0-94.0) fL MCH (27.0-31.0) pg MCHC (33.0-37.0) g/dL RDW (11.5-14.5) % Plt Count (130-400) K/uL MPV (7.2-11.7) fL Neut % (Auto) (50.0-75.0) % Lymph % (Auto) (20.0-40.0) % Bibb % (Auto) (0.0-10.0) % Eos % (Auto) (0.0-4.0) % Baso % (Auto) (0.0-2.0) % Neut # (Auto) (1.8-7.0) K/uL Lymph # (Auto) (1.0-4.3) K/uL Bibb # (Auto) (0.0-0.8) K/uL Eos # (Auto) (0.0-0.7) K/uL Baso # (Auto) (0.0-0.2) K/uL Neutrophils % (Manual) (50-75) % Band Neutrophils % (0-2) % Lymphocytes % (Manual) (20-40) % Monocytes % (Manual) (0-10) % Platelet Estimate (NORMAL) RBC Morphology Puncture Site pCO2 (35-45) mm/Hg pO2 (80-100) mm/Hg HCO3 (21-28) mmol/L ABG pH (7.35-7.45) ABG Total CO2 (22-28) mmol/L ABG O2 Saturation (95-98) % ABG Base Excess (-2.0-3.0) mmol/L ABG Hemoglobin (11.7-17.4) g/dL ABG Carboxyhemoglobin (0.5-1.5) % POC ABG HHb (Measured) (0.0-5.0) % ABG Methemoglobin (0.0-3.0) % Chance Test A-a O2 Difference mm/Hg Respiratory Index Hgb O2 Saturation (95.0-98.0) % Vent Mode Mechanical Rate FiO2 % Tidal Volume PEEP Sodium (132-148) mmol/L Potassium (3.6-5.2) mmol/L Chloride (98-107) mmol/L Carbon Dioxide (22-30) mmol/L Anion Gap (10-20) BUN (9-20) mg/dL Creatinine (0.8-1.5) mg/dL Est GFR ( Amer) Est GFR (Non-Af Amer) POC Glucose (mg/dL) 153 H 140 H (65-110) mg/dL Random Glucose (75-110) mg/dL Calcium (8.6-10.4) mg/dl Phosphorus (2.5-4.5) mg/dL Magnesium (1.6-2.3) mg/dL Total Bilirubin (0.2-1.3) mg/dL AST (17-59) U/L ALT (21-72) U/L Alkaline Phosphatase (38-126) U/L Total Protein (6.3-8.3) g/dL Albumin (3.5-5.0) g/dL Globulin (2.2-3.9) gm/dL Albumin/Globulin Ratio (1.0-2.1) Laboratory Results - last 24 hr 07/08/17 07/08/17 07/09/17 11:34 17:25 00:01 WBC RBC Hgb Hct MCV MCH MCHC RDW Plt Count MPV Neut % (Auto) Lymph % (Auto) Bibb % (Auto) Eos % (Auto) Baso % (Auto) Neut # (Auto) Lymph # (Auto) Bibb # (Auto) Eos # (Auto) Baso # (Auto) Neutrophils % (Manual) Band Neutrophils % Lymphocytes % (Manual) Monocytes % (Manual) Platelet Estimate RBC Morphology Puncture Site pCO2 pO2 HCO3 ABG pH ABG Total CO2 ABG O2 Saturation ABG Base Excess ABG Hemoglobin ABG Carboxyhemoglobin POC ABG HHb (Measured) ABG Methemoglobin Chance Test A-a O2 Difference Respiratory Index Hgb O2 Saturation Vent Mode Mechanical Rate FiO2 Tidal Volume PEEP Sodium Potassium Chloride Carbon Dioxide Anion Gap BUN Creatinine Est GFR ( Amer) Est GFR (Non-Af Amer) POC Glucose (mg/dL) 140 H 153 H 159 H Random Glucose Calcium Phosphorus Magnesium Total Bilirubin AST ALT Alkaline Phosphatase Total Protein Albumin Globulin Albumin/Globulin Ratio 07/09/17 07/09/17 07/09/17 05:20 05:52 06:24 WBC 14.9 H RBC 3.97 L Hgb 13.0 Hct 39.0 MCV 98.3 H MCH 32.9 H MCHC 33.4 RDW 15.0 H Plt Count 346 MPV 8.8 Neut % (Auto) 83.6 H Lymph % (Auto) 6.7 L Bibb % (Auto) 9.4 Eos % (Auto) 0.2 Baso % (Auto) 0.1 Neut # (Auto) 12.4 H Lymph # (Auto) 1.0 Bibb # (Auto) 1.4 H Eos # (Auto) 0.0 Baso # (Auto) 0.0 Neutrophils % (Manual) 81 H Band Neutrophils % 1 Lymphocytes % (Manual) 12 L Monocytes % (Manual) 6 Platelet Estimate Normal RBC Morphology Normal Puncture Site Rr pCO2 46 H pO2 91 HCO3 30.3 H ABG pH 7.45 ABG Total CO2 33.4 H ABG O2 Saturation 98.6 H ABG Base Excess 6.9 H ABG Hemoglobin 13.5 ABG Carboxyhemoglobin 1.6 H POC ABG HHb (Measured) 1.4 ABG Methemoglobin 1.4 Chance Test Pos A-a O2 Difference 208.0 Respiratory Index 2.3 Hgb O2 Saturation 95.6 Vent Mode Prvc Mechanical Rate 20 FiO2 50.0 Tidal Volume 500 PEEP 5 Sodium Potassium Chloride Carbon Dioxide Anion Gap BUN Creatinine Est GFR ( Amer) Est GFR (Non-Af Amer) POC Glucose (mg/dL) 141 H Random Glucose Calcium Phosphorus Magnesium Total Bilirubin AST ALT Alkaline Phosphatase Total Protein Albumin Globulin Albumin/Globulin Ratio 07/09/17 07/09/17 06:24 11:03 WBC RBC Hgb Hct MCV MCH MCHC RDW Plt Count MPV Neut % (Auto) Lymph % (Auto) Bibb % (Auto) Eos % (Auto) Baso % (Auto) Neut # (Auto) Lymph # (Auto) Bibb # (Auto) Eos # (Auto) Baso # (Auto) Neutrophils % (Manual) Band Neutrophils % Lymphocytes % (Manual) Monocytes % (Manual) Platelet Estimate RBC Morphology Puncture Site pCO2 pO2 HCO3 ABG pH ABG Total CO2 ABG O2 Saturation ABG Base Excess ABG Hemoglobin ABG Carboxyhemoglobin POC ABG HHb (Measured) ABG Methemoglobin Chance Test A-a O2 Difference Respiratory Index Hgb O2 Saturation Vent Mode Mechanical Rate FiO2 Tidal Volume PEEP Sodium 138 Potassium 4.0 Chloride 103 Carbon Dioxide 27 Anion Gap 12 BUN 22 H Creatinine 0.8 Est GFR ( Amer) > 60 Est GFR (Non-Af Amer) > 60 POC Glucose (mg/dL) 112 H Random Glucose 133 H Calcium 8.8 Phosphorus 4.4 Magnesium 1.9 Total Bilirubin 0.9 AST 115 H D ALT 260 H D Alkaline Phosphatase 82 Total Protein 6.3 Albumin 3.0 L Globulin 3.2 Albumin/Globulin Ratio 0.9 L Fingerstick Blood Sugar Results: 141 Review of Systems - Review of Systems Systems not reviewed;Unavailable: Acuity of Condition Assessment/Plan - Assessment and Plan (Free Text) Assessment: Patient is a 51 year-old male with a past medical history of anxiety and depression who presented to the ER via EMS after being found with an altered mental status at home. He was transferred to ICU from the medical/surgical floor after becoming acutely tachycardic and hypoxemic. Plan: Neuro/Psych: Anxiety, Depression, BZD/etOH w/d, sz precautions - Seroquel 100mg BID - Tylenol 650mg NE q6h PRN - Propofol drip at 5mcg/kg/min discontinued -Precedex drip discontinued. 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 Will begin diet and advance as tolerated. <Montez Nieto - Last Filed: 07/09/17 17:26> CCU Objective - Vital Signs / Intake & Output Vital Signs (Last 4 hours): Vital Signs Temp Pulse Resp BP Pulse Ox 07/09/17 16:00 98.7 F 07/09/17 14:14 82 14 161/110 H 94 L 07/09/17 14:10 86 10 L 155/113 H 96 07/09/17 14:08 88 19 172/112 H 93 L 07/09/17 14:00 80 24 94 L 07/09/17 13:41 82 14 175/101 H 92 L 07/09/17 13:39 99 H 13 183/111 H 93 L Intake and Output (Last 8hrs): Intake & Output 07/09/17 07/09/17 07/09/17 06:59 14:59 22:59 Intake Total 849.2 211.8 63.3 Output Total 2180 1500 Balance -1330.8 -1288.2 63.3 Intake: IV 130 50 50 Intake, IV Amount 319.2 61.8 13.3 right lower arm 65.6 8.2 right shoulder 200 right shoulder distal 53.6 53.6 13.3 Tube Feeding 400 100 Output: Urine 2180 1500 Urethral (Velázquez) 2180 1500 - Medications Active Medications: Active Medications Generic Name Dose Route Start Last Admin Trade Name Freq PRN Reason Stop Dose Admin Acetaminophen 650 mg 07/01/17 09:28 07/04/17 01:37 Tylenol 650 Mg Supp NE 650 mg Q6 PRN Administration Fever >100.4 F Albuterol/Ipratropium 3 ml 07/08/17 20:00 07/09/17 16:25 Duoneb 3 Mg/0.5 Mg (3 Ml) Ud INH 3 ml RQ4 EDIN Administration Clotrimazole 0 gm 06/27/17 10:00 07/09/17 09:58 Lotrimin 1% TOP 1 applic BID EDIN Administration Hydrocortisone 0 gm 06/27/17 10:00 07/09/17 09:58 Cortizone 1% Cream TOP 1 applic BID EDIN Administration Propofol 1,000 mg in 100 mls @ 4.11 mls/hr 07/03/17 12:07 07/09/17 03:59 Diprivan IV 10 mcg/kg/min .Q24H PRN 8.22 mls/hr TITRATE PER MD ORDER Administration Protocol 5 MCG/KG/MIN Dexmedetomidine HCl 200 mcg/ 50 mls @ 6.78 mls/hr 07/08/17 18:17 07/09/17 16: 08 Sodium Chloride IV 0.4 mcg/kg/hr TITR PRN 13.56 mls/hr Agitation Administration Protocol 0.2 MCG/KG/HR Lorazepam 2 mg 06/30/17 21:25 07/09/17 02:39 Ativan IVP 2 mg Q2H PRN Administration Agitation Methylprednisolone 40 mg 07/05/17 22:00 07/09/17 09:57 Solu-Medrol IVP 40 mg Q12 EDIN Administration Metoprolol Tartrate 50 mg 06/23/17 16:12 07/09/17 09:56 Lopressor PO 50 mg DAILY EDIN Administration Pantoprazole Sodium 40 mg 07/01/17 10:00 07/09/17 09:56 Protonix Inj IVP 40 mg DAILY EDIN Administration Quetiapine Fumarate 100 mg 07/06/17 11:45 07/09/17 09:56 Seroquel NG 100 mg BID EDIN Administration Thiamine HCl 200 mg 07/02/17 10:00 07/09/17 09:56 Vitamin B1 Inj IV 200 mg TID EDIN Administration - Patient Studies Lab Studies: Microbiology Studies 07/03/17 13:25 Blood Culture - Final Blood NO GROWTH AFTER 5 DAYS Gram Stain - Final TEST NOT PERFORMED 07/03/17 12:55 Blood Culture - Final Blood NO GROWTH AFTER 5 DAYS Gram Stain - Final TEST NOT PERFORMED Lab Studies 07/09/17 07/09/17 07/09/17 Range/Units 11:03 06:24 06:24 WBC 14.9 H (4.8-10.8) K/uL RBC 3.97 L (4.40-5.90) Mil/uL Hgb 13.0 (12.0-18.0) g/dL Hct 39.0 (35.0-51.0) % MCV 98.3 H (80.0-94.0) fL MCH 32.9 H (27.0-31.0) pg MCHC 33.4 (33.0-37.0) g/dL RDW 15.0 H (11.5-14.5) % Plt Count 346 (130-400) K/uL MPV 8.8 (7.2-11.7) fL Neut % (Auto) 83.6 H (50.0-75.0) % Lymph % (Auto) 6.7 L (20.0-40.0) % Bibb % (Auto) 9.4 (0.0-10.0) % Eos % (Auto) 0.2 (0.0-4.0) % Baso % (Auto) 0.1 (0.0-2.0) % Neut # (Auto) 12.4 H (1.8-7.0) K/uL Lymph # (Auto) 1.0 (1.0-4.3) K/uL Bibb # (Auto) 1.4 H (0.0-0.8) K/uL Eos # (Auto) 0.0 (0.0-0.7) K/uL Baso # (Auto) 0.0 (0.0-0.2) K/uL Neutrophils % (Manual) 81 H (50-75) % Band Neutrophils % 1 (0-2) % Lymphocytes % (Manual) 12 L (20-40) % Monocytes % (Manual) 6 (0-10) % Platelet Estimate Normal (NORMAL) RBC Morphology Normal Puncture Site pCO2 (35-45) mm/Hg pO2 (80-100) mm/Hg HCO3 (21-28) mmol/L ABG pH (7.35-7.45) ABG Total CO2 (22-28) mmol/L ABG O2 Saturation (95-98) % ABG Base Excess (-2.0-3.0) mmol/L ABG Hemoglobin (11.7-17.4) g/dL ABG Carboxyhemoglobin (0.5-1.5) % POC ABG HHb (Measured) (0.0-5.0) % ABG Methemoglobin (0.0-3.0) % Chance Test A-a O2 Difference mm/Hg Respiratory Index Hgb O2 Saturation (95.0-98.0) % Vent Mode Mechanical Rate FiO2 % Tidal Volume PEEP Sodium 138 (132-148) mmol/L Potassium 4.0 (3.6-5.2) mmol/L Chloride 103 (98-107) mmol/L Carbon Dioxide 27 (22-30) mmol/L Anion Gap 12 (10-20) BUN 22 H (9-20) mg/dL Creatinine 0.8 (0.8-1.5) mg/dL Est GFR ( Amer) > 60 Est GFR (Non-Af Amer) > 60 POC Glucose (mg/dL) 112 H (65-110) mg/dL Random Glucose 133 H (75-110) mg/dL Calcium 8.8 (8.6-10.4) mg/dl Phosphorus 4.4 (2.5-4.5) mg/dL Magnesium 1.9 (1.6-2.3) mg/dL Total Bilirubin 0.9 (0.2-1.3) mg/dL AST 115 H D (17-59) U/L ALT 260 H D (21-72) U/L Alkaline Phosphatase 82 (38-126) U/L Total Protein 6.3 (6.3-8.3) g/dL Albumin 3.0 L (3.5-5.0) g/dL Globulin 3.2 (2.2-3.9) gm/dL Albumin/Globulin Ratio 0.9 L (1.0-2.1) 07/09/17 07/09/17 07/09/17 Range/Units 05:52 05:20 00:01 WBC (4.8-10.8) K/uL RBC (4.40-5.90) Mil/uL Hgb (12.0-18.0) g/dL Hct (35.0-51.0) % MCV (80.0-94.0) fL MCH (27.0-31.0) pg MCHC (33.0-37.0) g/dL RDW (11.5-14.5) % Plt Count (130-400) K/uL MPV (7.2-11.7) fL Neut % (Auto) (50.0-75.0) % Lymph % (Auto) (20.0-40.0) % Bibb % (Auto) (0.0-10.0) % Eos % (Auto) (0.0-4.0) % Baso % (Auto) (0.0-2.0) % Neut # (Auto) (1.8-7.0) K/uL Lymph # (Auto) (1.0-4.3) K/uL Bibb # (Auto) (0.0-0.8) K/uL Eos # (Auto) (0.0-0.7) K/uL Baso # (Auto) (0.0-0.2) K/uL Neutrophils % (Manual) (50-75) % Band Neutrophils % (0-2) % Lymphocytes % (Manual) (20-40) % Monocytes % (Manual) (0-10) % Platelet Estimate (NORMAL) RBC Morphology Puncture Site Rr pCO2 46 H (35-45) mm/Hg pO2 91 (80-100) mm/Hg HCO3 30.3 H (21-28) mmol/L ABG pH 7.45 (7.35-7.45) ABG Total CO2 33.4 H (22-28) mmol/L ABG O2 Saturation 98.6 H (95-98) % ABG Base Excess 6.9 H (-2.0-3.0) mmol/L ABG Hemoglobin 13.5 (11.7-17.4) g/dL ABG Carboxyhemoglobin 1.6 H (0.5-1.5) % POC ABG HHb (Measured) 1.4 (0.0-5.0) % ABG Methemoglobin 1.4 (0.0-3.0) % Chance Test Pos A-a O2 Difference 208.0 mm/Hg Respiratory Index 2.3 Hgb O2 Saturation 95.6 (95.0-98.0) % Vent Mode Prvc Mechanical Rate 20 FiO2 50.0 % Tidal Volume 500 PEEP 5 Sodium (132-148) mmol/L Potassium (3.6-5.2) mmol/L Chloride (98-107) mmol/L Carbon Dioxide (22-30) mmol/L Anion Gap (10-20) BUN (9-20) mg/dL Creatinine (0.8-1.5) mg/dL Est GFR ( Amer) Est GFR (Non-Af Amer) POC Glucose (mg/dL) 141 H 159 H (65-110) mg/dL Random Glucose (75-110) mg/dL Calcium (8.6-10.4) mg/dl Phosphorus (2.5-4.5) mg/dL Magnesium (1.6-2.3) mg/dL Total Bilirubin (0.2-1.3) mg/dL AST (17-59) U/L ALT (21-72) U/L Alkaline Phosphatase (38-126) U/L Total Protein (6.3-8.3) g/dL Albumin (3.5-5.0) g/dL Globulin (2.2-3.9) gm/dL Albumin/Globulin Ratio (1.0-2.1) 07/08/17 Range/Units 17:25 WBC (4.8-10.8) K/uL RBC (4.40-5.90) Mil/uL Hgb (12.0-18.0) g/dL Hct (35.0-51.0) % MCV (80.0-94.0) fL MCH (27.0-31.0) pg MCHC (33.0-37.0) g/dL RDW (11.5-14.5) % Plt Count (130-400) K/uL MPV (7.2-11.7) fL Neut % (Auto) (50.0-75.0) % Lymph % (Auto) (20.0-40.0) % Bibb % (Auto) (0.0-10.0) % Eos % (Auto) (0.0-4.0) % Baso % (Auto) (0.0-2.0) % Neut # (Auto) (1.8-7.0) K/uL Lymph # (Auto) (1.0-4.3) K/uL Bibb # (Auto) (0.0-0.8) K/uL Eos # (Auto) (0.0-0.7) K/uL Baso # (Auto) (0.0-0.2) K/uL Neutrophils % (Manual) (50-75) % Band Neutrophils % (0-2) % Lymphocytes % (Manual) (20-40) % Monocytes % (Manual) (0-10) % Platelet Estimate (NORMAL) RBC Morphology Puncture Site pCO2 (35-45) mm/Hg pO2 (80-100) mm/Hg HCO3 (21-28) mmol/L ABG pH (7.35-7.45) ABG Total CO2 (22-28) mmol/L ABG O2 Saturation (95-98) % ABG Base Excess (-2.0-3.0) mmol/L ABG Hemoglobin (11.7-17.4) g/dL ABG Carboxyhemoglobin (0.5-1.5) % POC ABG HHb (Measured) (0.0-5.0) % ABG Methemoglobin (0.0-3.0) % Chance Test A-a O2 Difference mm/Hg Respiratory Index Hgb O2 Saturation (95.0-98.0) % Vent Mode Mechanical Rate FiO2 % Tidal Volume PEEP Sodium (132-148) mmol/L Potassium (3.6-5.2) mmol/L Chloride (98-107) mmol/L Carbon Dioxide (22-30) mmol/L Anion Gap (10-20) BUN (9-20) mg/dL Creatinine (0.8-1.5) mg/dL Est GFR ( Amer) Est GFR (Non-Af Amer) POC Glucose (mg/dL) 153 H (65-110) mg/dL Random Glucose (75-110) mg/dL Calcium (8.6-10.4) mg/dl Phosphorus (2.5-4.5) mg/dL Magnesium (1.6-2.3) mg/dL Total Bilirubin (0.2-1.3) mg/dL AST (17-59) U/L ALT (21-72) U/L Alkaline Phosphatase (38-126) U/L Total Protein (6.3-8.3) g/dL Albumin (3.5-5.0) g/dL Globulin (2.2-3.9) gm/dL Albumin/Globulin Ratio (1.0-2.1) Laboratory Results - last 24 hr 07/08/17 07/09/17 07/09/17 17:25 00:01 05:20 WBC RBC Hgb Hct MCV MCH MCHC RDW Plt Count MPV Neut % (Auto) Lymph % (Auto) Bibb % (Auto) Eos % (Auto) Baso % (Auto) Neut # (Auto) Lymph # (Auto) Bibb # (Auto) Eos # (Auto) Baso # (Auto) Neutrophils % (Manual) Band Neutrophils % Lymphocytes % (Manual) Monocytes % (Manual) Platelet Estimate RBC Morphology Puncture Site Rr pCO2 46 H pO2 91 HCO3 30.3 H ABG pH 7.45 ABG Total CO2 33.4 H ABG O2 Saturation 98.6 H ABG Base Excess 6.9 H ABG Hemoglobin 13.5 ABG Carboxyhemoglobin 1.6 H POC ABG HHb (Measured) 1.4 ABG Methemoglobin 1.4 Chance Test Pos A-a O2 Difference 208.0 Respiratory Index 2.3 Hgb O2 Saturation 95.6 Vent Mode Prvc Mechanical Rate 20 FiO2 50.0 Tidal Volume 500 PEEP 5 Sodium Potassium Chloride Carbon Dioxide Anion Gap BUN Creatinine Est GFR ( Amer) Est GFR (Non-Af Amer) POC Glucose (mg/dL) 153 H 159 H Random Glucose Calcium Phosphorus Magnesium Total Bilirubin AST ALT Alkaline Phosphatase Total Protein Albumin Globulin Albumin/Globulin Ratio 07/09/17 07/09/17 07/09/17 05:52 06:24 06:24 WBC 14.9 H RBC 3.97 L Hgb 13.0 Hct 39.0 MCV 98.3 H MCH 32.9 H MCHC 33.4 RDW 15.0 H Plt Count 346 MPV 8.8 Neut % (Auto) 83.6 H Lymph % (Auto) 6.7 L Bibb % (Auto) 9.4 Eos % (Auto) 0.2 Baso % (Auto) 0.1 Neut # (Auto) 12.4 H Lymph # (Auto) 1.0 Bibb # (Auto) 1.4 H Eos # (Auto) 0.0 Baso # (Auto) 0.0 Neutrophils % (Manual) 81 H Band Neutrophils % 1 Lymphocytes % (Manual) 12 L Monocytes % (Manual) 6 Platelet Estimate Normal RBC Morphology Normal Puncture Site pCO2 pO2 HCO3 ABG pH ABG Total CO2 ABG O2 Saturation ABG Base Excess ABG Hemoglobin ABG Carboxyhemoglobin POC ABG HHb (Measured) ABG Methemoglobin Chance Test A-a O2 Difference Respiratory Index Hgb O2 Saturation Vent Mode Mechanical Rate FiO2 Tidal Volume PEEP Sodium 138 Potassium 4.0 Chloride 103 Carbon Dioxide 27 Anion Gap 12 BUN 22 H Creatinine 0.8 Est GFR ( Amer) > 60 Est GFR (Non-Af Amer) > 60 POC Glucose (mg/dL) 141 H Random Glucose 133 H Calcium 8.8 Phosphorus 4.4 Magnesium 1.9 Total Bilirubin 0.9 AST 115 H D ALT 260 H D Alkaline Phosphatase 82 Total Protein 6.3 Albumin 3.0 L Globulin 3.2 Albumin/Globulin Ratio 0.9 L 07/09/17 11:03 WBC RBC Hgb Hct MCV MCH MCHC RDW Plt Count MPV Neut % (Auto) Lymph % (Auto) Bibb % (Auto) Eos % (Auto) Baso % (Auto) Neut # (Auto) Lymph # (Auto) Bibb # (Auto) Eos # (Auto) Baso # (Auto) Neutrophils % (Manual) Band Neutrophils % Lymphocytes % (Manual) Monocytes % (Manual) Platelet Estimate RBC Morphology Puncture Site pCO2 pO2 HCO3 ABG pH ABG Total CO2 ABG O2 Saturation ABG Base Excess ABG Hemoglobin ABG Carboxyhemoglobin POC ABG HHb (Measured) ABG Methemoglobin Chance Test A-a O2 Difference Respiratory Index Hgb O2 Saturation Vent Mode Mechanical Rate FiO2 Tidal Volume PEEP Sodium Potassium Chloride Carbon Dioxide Anion Gap BUN Creatinine Est GFR ( Amer) Est GFR (Non-Af Amer) POC Glucose (mg/dL) 112 H Random Glucose Calcium Phosphorus Magnesium Total Bilirubin AST ALT Alkaline Phosphatase Total Protein Albumin Globulin Albumin/Globulin Ratio Critical Care Progress Note - Nutrition Nutrition: Nutrition Category Date Time Status Liquid Diet [DIET] Diets 02/23/18 Dinner Active Attending/Attestation - Attestation I have personally seen and examined this patient.: Yes I have fully participated in the care of the patient.: Yes I have reviewed all pertinent clinical information: Yes Notes (Text): 07/09/17 17:16 I have seen and examined the patient. Medical records, lab studies, and imaging were reviewed by me and a management plan was formulated on multidisciplinary rounds with resident Dr. Johns. I agree with their documented assessment and plan. Neuro: alert and oriented. anxious, continue precedex gtt, adding xanax tid. Pulm: acute respiratory failure, extubating today. CV: hemodynamically stable. Hem: no acute issues Renal: no acute issues, urine output wnl, will monitor Endo: no acute issues GI: soft mechanical diet with thin liquids, once extubated. ID: no acute issues DVT proph - lovenox GI proph - protonix velázquez for strict I/O's during acute illness Code status - full code Critical Care Time 35 minutes. Multi-disciplinary rounds were performed with house staff, nursing, speech therapy, respiratory therapy, pharmacy and nutrition with integrated input from the primary team/attending and other consulting services. The documented time is cumulative and includes review of patient data/exams/labs/chart review and examination of the patient on rounds and throughout the day; time is exclusive of any procedures or teaching time. 07/09/17 17:25
[2017-07-09] MEDS: Enoxaparin 40 mg Syringe SC SCH (18:44)
--- NOTE | 2017-07-09 23:39 | CP.PCM.PN ---
Subjective - Date & Time of Evaluation Date of Evaluation: 07/09/17 Time of Evaluation: 19:40 - Subjective Subjective: Pt seen and examined at bedside, remains on ventilator, pt is improving clinically Objective - Vital Signs/Intake and Output Vital Signs (last 24 hours): Temp Pulse Resp BP Pulse Ox 98.2 F 53 L 24 162/99 H 95 07/09/17 20:00 07/09/17 23:34 07/09/17 23:34 07/09/17 23:34 07/09/17 23:34 Intake and Output: 07/09/17 07/10/17 18:59 06:59 Intake Total 1914.4 773.1 Output Total 2700 Balance -785.6 773.1 - Medications Medications: Current Medications Acetaminophen (Tylenol 650 Mg Supp) 650 mg [place] Q6 PRN PRN Reason: Fever >100.4 F Last Admin: 07/04/17 01:37 Dose: 650 mg Albuterol/Ipratropium (Duoneb 3 Mg/0.5 Mg (3 Ml) Ud) 3 ml INH RQ4 [facility] Last Admin: 07/09/17 20:06 Dose: 3 ml Alprazolam (Xanax) 0.5 mg PO TID PRN PRN Reason: Anxiety Last Admin: 07/09/17 18:50 Dose: 0.5 mg Clotrimazole (Lotrimin 1%) 0 gm TOP BID [facility] Last Admin: 07/09/17 18:48 Dose: 1 applic Enoxaparin Sodium (Lovenox) 40 mg SC DAILY [facility] Last Admin: 07/09/17 18:44 Dose: 40 mg Hydrocortisone (Cortizone 1% Cream) 0 gm TOP BID [facility] Last Admin: 07/09/17 18:47 Dose: 1 applic Dexmedetomidine HCl 200 mcg/ (Sodium Chloride) 50 mls @ 6.78 mls/hr IV TITR PRN ; Protocol; 0.2 MCG/KG/HR PRN Reason: Agitation Last Admin: 07/09/17 23:31 Dose: 1 mcg/kg/hr, 34 mls/hr Lorazepam (Ativan) 2 mg IVP Q2H PRN PRN Reason: Agitation Last Admin: 07/09/17 02:39 Dose: 2 mg Methylprednisolone (Solu-Medrol) 40 mg IVP Q12 [facility] Last Admin: 07/09/17 21:29 Dose: 40 mg Metoprolol Tartrate (Lopressor) 50 mg PO DAILY [facility] Last Admin: 07/09/17 09:56 Dose: 50 mg Pantoprazole Sodium (Protonix Inj) 40 mg IVP DAILY [facility] Last Admin: 07/09/17 09:56 Dose: 40 mg Quetiapine Fumarate (Seroquel) 100 mg NG BID [facility] Last Admin: 07/09/17 18:46 Dose: 100 mg - Labs Labs: 07/09/17 06:24 07/09/17 06:24 - Constitutional Appears: No Acute Distress, Chronically Ill - Head Exam Head Exam: ATRAUMATIC, NORMAL INSPECTION, NORMOCEPHALIC - Eye Exam Eye Exam: EOMI, Normal appearance, PERRL Pupil Exam: NORMAL ACCOMODATION, PERRL - Respiratory Exam Respiratory Exam: Decreased Breath Sounds, Rales, Rhonchi - Cardiovascular Exam Cardiovascular Exam: REGULAR RHYTHM, +S1, +S2. absent: Murmur - GI/Abdominal Exam GI & Abdominal Exam: Soft, Normal Bowel Sounds. absent: Tenderness - Neurological Exam Neurological Exam: Alert, Awake, CN II-XII Intact, Normal Gait, Oriented x3 Assessment and Plan (1) Acute confusion Status: Acute (2) Benzodiazepine abuse Status: Acute (3) Withdrawal from benzodiazepine Status: Acute (4) Respiratory failure Status: Acute
[2017-07-10] MEDS: Albuterol-Ipratrop 3 mg / 0.5 (3 ml) UD INH SCH ×7 (00:10→23:33)
[2017-07-10] MEDS: Dexmedetomidine Hydrochloride 200 MCG in Sodium Chloride 0.9% 48 ML IV PRN ×11 (01:12→22:36)
[2017-07-10 06:54] LABS: BASO # 0.1 K/uL (0.0-0.2); BASO % 0.4 % (0.0-2.0); HEMOGLOBIN 13.3 g/dL (12.0-18.0); LYMPH % 7.8 % (20.0-40.0); MEAN CELL VOLUME 98.6 fL (80.0-94.0); MEAN CORPUSCULAR HEMOGLOBIN 32.7 pg (27.0-31.0); MEAN CORPUSCULAR HGB CONC 33.2 g/dL (33.0-37.0); MEAN PLATELET VOLUME 8.6 fL (7.2-11.7); MONO # 0.7 K/uL (0.0-0.8); MONO % 5.2 % (0.0-10.0); NEUT # 11.2 K/uL (1.8-7.0); NEUT % 86.6 % (50.0-75.0); PLATELET COUNT 338 K/uL (130-400); RBC 4.05 Mil/uL (4.40-5.90); RED CELL DISTRIBUTION WIDTH 14.9 % (11.5-14.5)
[2017-07-10 07:24] LABS: ALBUMIN 3.3 g/dL (3.5-5.0); ALT/SGPT 339 U/L (21-72); AST/SGOT 131 U/L (17-59); BLOOD UREA NITROGEN 29 mg/dL (9-20); GFR AFRICAN-AMERICAN > 60; GFR NON-AFRICAN AMERICAN > 60; MAGNESIUM 1.9 mg/dL (1.6-2.3)
[2017-07-10] MEDS: MethylPREDNISolone 40 mg Vial IVP SCH ×2 (09:21→21:56)
[2017-07-10] MEDS: Clotrimazole 1% Cream(30 gm) TOP SCH (09:27)
[2017-07-10] MEDS: Hydrocortisone 1% Cream (30 GM) TOP SCH (09:27)
[2017-07-10] MEDS: Enoxaparin 40 mg Syringe SC SCH (09:28)
[2017-07-10 09:54] LABS: LYMPHOCYTE 6 % (20-40); MONOCYTE 5 % (0-10); NEUTROPHIL 89 % (50-75); PLATELET ESTIMATE NORMAL (NORMAL); TOTAL CELLS COUNTED 100
[2017-07-10 09:55] LABS: ANISOCYTOSIS SLIGHT; LARGE PLATELETS PRESENT; POLYCHROMIC SLIGHT; TOXIC GRANULATION PRESENT
--- NOTE | 2017-07-10 23:32 | CP.PCM.PN ---
Subjective - Date & Time of Evaluation Date of Evaluation: 07/10/17 Time of Evaluation: 13:51 Objective - Vital Signs/Intake and Output Vital Signs (last 24 hours): Temp Pulse Resp BP Pulse Ox 98.1 F 90 26 H 91/55 L 97 07/10/17 20:00 07/10/17 17:43 07/10/17 15:00 07/10/17 17:43 07/10/17 20:00 Intake and Output: 07/10/17 07/11/17 18:59 06:59 Intake Total 1800.4 235.2 Output Total 800 850 Balance 1000.4 -614.8 - Medications Medications: Current Medications Acetaminophen (Tylenol 650 Mg Supp) 650 mg [place] Q6 PRN PRN Reason: Fever >100.4 F Last Admin: 07/04/17 01:37 Dose: 650 mg Albuterol/Ipratropium (Duoneb 3 Mg/0.5 Mg (3 Ml) Ud) 3 ml INH RQ4 [facility] Last Admin: 07/10/17 19:48 Dose: Not Given Alprazolam (Xanax) 0.5 mg PO TID PRN PRN Reason: Anxiety Last Admin: 07/10/17 23:09 Dose: 0.5 mg Clotrimazole (Lotrimin 1%) 0 gm TOP BID [facility] Last Admin: 07/10/17 09:27 Dose: 1 applic Enoxaparin Sodium (Lovenox) 40 mg SC DAILY [facility] Last Admin: 07/10/17 09:28 Dose: 40 mg Hydrocortisone (Cortizone 1% Cream) 0 gm TOP BID [facility] Last Admin: 07/10/17 09:27 Dose: 1 applic Dexmedetomidine HCl 400 mcg/ (Sodium Chloride) 100 mls @ 6.78 mls/hr IV TITR PRN; Protocol; 0.2 MCG/KG/HR PRN Reason: Agitation Lorazepam (Ativan) 2 mg IVP Q2H PRN PRN Reason: Agitation Last Admin: 07/09/17 02:39 Dose: 2 mg Methylprednisolone (Solu-Medrol) 40 mg IVP Q12 [facility] Last Admin: 07/10/17 21:56 Dose: 40 mg Metoprolol Tartrate (Lopressor) 50 mg PO DAILY [facility] Last Admin: 07/10/17 09:30 Dose: 50 mg Pantoprazole Sodium (Protonix Inj) 40 mg IVP DAILY [facility] Last Admin: 07/10/17 09:22 Dose: 40 mg Quetiapine Fumarate (Seroquel) 100 mg NG BID [facility] Last Admin: 07/10/17 17:38 Dose: 100 mg - Labs Labs: 07/10/17 06:47 07/10/17 06:47 Assessment and Plan (1) Acute confusion Status: Acute (2) Benzodiazepine abuse Status: Acute (3) Withdrawal from benzodiazepine Status: Acute (4) Respiratory failure Status: Acute
[2017-07-10] MEDS: Dexmedetomidine Hydrochloride 400 MCG in Sodium Chloride 0.9% 96 ML IV PRN (23:46)
[2017-07-11] MEDS: Dexmedetomidine Hydrochloride 400 MCG in Sodium Chloride 0.9% 96 ML IV PRN ×6 (03:15→22:33)
[2017-07-11] MEDS: Albuterol-Ipratrop 3 mg / 0.5 (3 ml) UD INH SCH ×6 (03:28→23:41)
[2017-07-11] MEDS: Clotrimazole 1% Cream(30 gm) TOP SCH ×3 (10:31→17:26)
[2017-07-11] MEDS: Hydrocortisone 1% Cream (30 GM) TOP SCH ×2 (10:32→17:23)
[2017-07-11] MEDS: Enoxaparin 40 mg Syringe SC SCH (10:37)
[2017-07-11] MEDS: MethylPREDNISolone 40 mg Vial IVP SCH ×2 (10:38→23:00)
--- NOTE | 2017-07-11 23:47 | CP.PCM.PN ---
Subjective - Date & Time of Evaluation Date of Evaluation: 07/11/17 Time of Evaluation: 18:00 - Subjective Subjective: pt is anxious, off ventilator, on medical management, vitals stable Objective - Vital Signs/Intake and Output Vital Signs (last 24 hours): Temp Pulse Resp BP Pulse Ox 98.1 F 64 22 121/76 96 07/11/17 16:00 07/11/17 16:00 07/11/17 16:00 07/11/17 04:00 07/11/17 16:00 Intake and Output: 07/11/17 07/12/17 18:59 06:59 Intake Total 711 105.3 Balance 711 105.3 - Medications Medications: Current Medications Acetaminophen (Tylenol 650 Mg Supp) 650 mg [place] Q6 PRN PRN Reason: Fever >100.4 F Last Admin: 07/04/17 01:37 Dose: 650 mg Albuterol/Ipratropium (Duoneb 3 Mg/0.5 Mg (3 Ml) Ud) 3 ml INH RQ4 [facility] Last Admin: 07/11/17 23:41 Dose: Not Given Alprazolam (Xanax) 0.5 mg PO TID PRN PRN Reason: Anxiety Last Admin: 07/11/17 22:25 Dose: 0.5 mg Clotrimazole (Lotrimin 1%) 0 gm TOP BID [facility] Last Admin: 07/11/17 17:26 Dose: 1 applic Enoxaparin Sodium (Lovenox) 40 mg SC DAILY [facility] Last Admin: 07/11/17 10:37 Dose: 40 mg Hydrocortisone (Cortizone 1% Cream) 0 gm TOP BID [facility] Last Admin: 07/11/17 17:23 Dose: 1 applic Dexmedetomidine HCl 400 mcg/ (Sodium Chloride) 100 mls @ 6.78 mls/hr IV TITR PRN; Protocol; 0.2 MCG/KG/HR PRN Reason: Agitation Last Admin: 07/11/17 22:33 Dose: 0.29 mcg/kg/hr, 10 mls/hr Lorazepam (Ativan) 2 mg IVP Q2H PRN PRN Reason: Agitation Last Admin: 07/09/17 02:39 Dose: 2 mg Methylprednisolone (Solu-Medrol) 40 mg IVP Q12 [facility] Last Admin: 07/11/17 10:38 Dose: 40 mg Metoprolol Tartrate (Lopressor) 50 mg PO DAILY [facility] Last Admin: 07/11/17 10:37 Dose: 50 mg Pantoprazole Sodium (Protonix Inj) 40 mg IVP DAILY [facility] Last Admin: 07/11/17 10:37 Dose: 40 mg Quetiapine Fumarate (Seroquel) 100 mg NG BID [facility] Last Admin: 07/11/17 17:31 Dose: 100 mg - Labs Labs: 07/10/17 06:47 07/10/17 06:47 - Constitutional Appears: No Acute Distress - Head Exam Head Exam: ATRAUMATIC, NORMAL INSPECTION, NORMOCEPHALIC - ENT Exam ENT Exam: Mucous Membranes Moist, Normal Exam - Respiratory Exam Respiratory Exam: Clear to Ausculation Bilateral, NORMAL BREATHING PATTERN - Cardiovascular Exam Cardiovascular Exam: REGULAR RHYTHM, +S1, +S2. absent: Murmur - GI/Abdominal Exam GI & Abdominal Exam: Soft, Normal Bowel Sounds. absent: Tenderness Assessment and Plan (1) Acute confusion Status: Acute (2) Benzodiazepine abuse Status: Acute (3) Withdrawal from benzodiazepine Status: Acute (4) Respiratory failure Status: Acute
[2017-07-12] MEDS: Albuterol-Ipratrop 3 mg / 0.5 (3 ml) UD INH SCH ×5 (03:12→19:13)
[2017-07-12] MEDS: MethylPREDNISolone 40 mg Vial IVP SCH ×2 (09:18→21:57)
[2017-07-12] MEDS: Enoxaparin 40 mg Syringe SC SCH (09:20)
[2017-07-12] MEDS: Clotrimazole 1% Cream(30 gm) TOP SCH (09:27)
[2017-07-12] MEDS: Hydrocortisone 1% Cream (30 GM) TOP SCH (09:27)
--- NOTE | 2017-07-12 12:46 | CP.PCM.PN ---
Subjective - Date & Time of Evaluation Date of Evaluation: 07/12/17 Time of Evaluation: 18:00 - Subjective Subjective: pt seen and examined Objective - Vital Signs/Intake and Output Vital Signs (last 24 hours): Temp Pulse Resp BP Pulse Ox 97.8 F 89 22 114/71 97 07/12/17 08:00 07/12/17 08:00 07/12/17 08:00 07/12/17 04:00 07/12/17 08:00 Intake and Output: 07/12/17 07/12/17 06:59 18:59 Intake Total 297.4 250 Output Total 3200 500 Balance -2902.6 -250 - Medications Medications: Current Medications Acetaminophen (Tylenol 650 Mg Supp) 650 mg [place] Q6 PRN PRN Reason: Fever >100.4 F Last Admin: 07/04/17 01:37 Dose: 650 mg Albuterol/Ipratropium (Duoneb 3 Mg/0.5 Mg (3 Ml) Ud) 3 ml INH RQ4 [facility] Last Admin: 07/12/17 07:10 Dose: 3 ml Alprazolam (Xanax) 0.5 mg PO TID PRN PRN Reason: Anxiety Last Admin: 07/12/17 02:56 Dose: 0.5 mg Enoxaparin Sodium (Lovenox) 40 mg SC DAILY [facility] Last Admin: 07/12/17 09:20 Dose: 40 mg Dexmedetomidine HCl 400 mcg/ (Sodium Chloride) 100 mls @ 6.78 mls/hr IV TITR PRN; Protocol; 0.2 MCG/KG/HR PRN Reason: Agitation Last Titration: 07/12/17 02:00 Dose: 0.59 mcg/kg/hr, 20.3 mls/hr Lorazepam (Ativan) 2 mg IVP Q2H PRN PRN Reason: Agitation Last Admin: 07/12/17 00:44 Dose: 2 mg Methylprednisolone (Solu-Medrol) 40 mg IVP Q12 [facility] Last Admin: 07/12/17 09:18 Dose: 40 mg Metoprolol Tartrate (Lopressor) 50 mg PO DAILY [facility] Last Admin: 07/12/17 09:19 Dose: 50 mg Pantoprazole Sodium (Protonix Inj) 40 mg IVP DAILY [facility] Last Admin: 07/12/17 09:19 Dose: 40 mg Quetiapine Fumarate (Seroquel) 100 mg NG BID [facility] Last Admin: 07/12/17 09:19 Dose: 100 mg - Labs Labs: 07/10/17 06:47 07/10/17 06:47 Assessment and Plan (1) Acute confusion Status: Acute (2) Benzodiazepine abuse Status: Acute (3) Withdrawal from benzodiazepine Status: Acute (4) Respiratory failure Status: Acute
[2017-07-13] MEDS: Albuterol-Ipratrop 3 mg / 0.5 (3 ml) UD INH SCH ×6 (00:13→15:51)
[2017-07-13] MEDS: Enoxaparin 40 mg Syringe SC SCH (09:12)
[2017-07-13] MEDS: MethylPREDNISolone 40 mg Vial IVP SCH (09:14)
[2017-07-13 12:17] LABS: BASO # 0.1 K/uL (0.0-0.2); BASO % 0.4 % (0.0-2.0); HEMOGLOBIN 12.9 g/dL (12.0-18.0); LYMPH # 0.6 K/uL (1.0-4.3); LYMPH % 2.7 % (20.0-40.0); MEAN CELL VOLUME 97.3 fL (80.0-94.0); MEAN CORPUSCULAR HEMOGLOBIN 32.8 pg (27.0-31.0); MEAN CORPUSCULAR HGB CONC 33.7 g/dL (33.0-37.0); MEAN PLATELET VOLUME 8.1 fL (7.2-11.7); MONO # 1.2 K/uL (0.0-0.8); MONO % 5.5 % (0.0-10.0); NEUT # 19.6 K/uL (1.8-7.0); NEUT % 91.4 % (50.0-75.0); PLATELET COUNT 372 K/uL (130-400); RBC 3.94 Mil/uL (4.40-5.90); RED CELL DISTRIBUTION WIDTH 15.3 % (11.5-14.5)
[2017-07-13 12:20] LABS: WHITE BLOOD COUNT 21.4 K/uL (4.8-10.8)
[2017-07-13 12:38] LABS: ALBUMIN 3.5 g/dL (3.5-5.0); ALT/SGPT 369 U/L (21-72); AST/SGOT 110 U/L (17-59); BLOOD UREA NITROGEN 20 mg/dL (9-20); CALCIUM 9.3 mg/dl (8.6-10.4); GFR AFRICAN-AMERICAN > 60; GFR NON-AFRICAN AMERICAN > 60; MAGNESIUM 1.8 mg/dL (1.6-2.3)
[2017-07-13 12:47] LABS: LYMPHOCYTE 1 % (20-40); MONOCYTE 2 % (0-10); NEUTROPHIL 97 % (50-75); PLATELET ESTIMATE NORMAL (NORMAL); TOTAL CELLS COUNTED 100
--- NOTE | 2017-07-13 16:09 | PCM.PYCHPN ---
Psychiatric Progress Note - Psychiatric Progress Note Patient seen today, length of contact: 16 min Patient Chief Complaint: "I'm feeling netter." Problems Identified/Issues Discussed: Patient seen and evaluated, chart reviewed and discussed with the nurse. Today patient appears much better than before. He is alert awake oriented to time place and person. He reports improvement in his mood and improvement in the agitation. However he denies any auditory or visual hallucinations. He is compliant with the medications and denies any side effects. he needs more time for stabilization Medication Change: Yes (ativan taper, start [place]) Medical Record Reviewed: Yes Mental Status Examination - Cognitive Function Orientation: Person, Place, Situation, Time Memory: Intact Attention: WNL Concentration: WNL Association: WNL Fund of Knowledge: WNL - Mood Mood: Anxious - Affect Affect: Constricted - Speech Speech: Appropriate - Formal Thought Process Formal Thought Process: No Impairment - Suicidal Ideation Suicidal Ideation: No - Homicidal Ideation Homicidal Ideation: No Goal/Treatment Plan - Goal/Treatment Plan Need for Continued Stay: Severe depression anxiety, Discharge may exacerbated symptoms, Severe functional impairment Progress Toward Problem(s) and Goals/Treatment Plan: Monitor patient's vital signs Monitor patient's mood and behavior Seroquel 100 mg PO BID Pt psychiatrically stable and clear for discharge. - Smoking Cessation Smoking Cessation Initiated: No
[2017-07-13 16:18] VITALS: BP 145/82; PULSE 95; RESP 22; TEMP 98.3; O2SAT 93
--- NOTE | 2017-07-13 16:24 | CP.PCM.PN ---
Subjective - Date & Time of Evaluation Date of Evaluation: 07/13/17 Time of Evaluation: 16:23 - Subjective Subjective: PATIENT IS ADMITTING FOR AM; AAOX3 ABLE TO ANSWER ALL QUESTION CORRECTLY; DENIES CHEST PAIN, SOB OR HALLUCINATION NO SIGN OF DISTRESS NOTED Objective - Vital Signs/Intake and Output Vital Signs (last 24 hours): Temp Pulse Resp BP Pulse Ox 98.3 F 95 H 22 145/82 93 L 07/13/17 16:00 07/13/17 16:00 07/13/17 16:00 07/13/17 16:00 07/13/17 16:00 Intake and Output: 07/13/17 07/13/17 06:59 18:59 Intake Total 700 450 Output Total 1700 850 Balance -1000 -400 - Medications Medications: Current Medications Acetaminophen (Tylenol 650 Mg Supp) 650 mg [place] Q6 PRN PRN Reason: Fever >100.4 F Last Admin: 07/04/17 01:37 Dose: 650 mg Albuterol/Ipratropium (Duoneb 3 Mg/0.5 Mg (3 Ml) Ud) 3 ml INH RQ4 [facility] Last Admin: 07/13/17 15:51 Dose: 3 ml Alprazolam (Xanax) 0.5 mg PO TID PRN PRN Reason: Anxiety Last Admin: 07/13/17 14:33 Dose: 0.5 mg Enoxaparin Sodium (Lovenox) 40 mg SC DAILY [facility] Last Admin: 07/13/17 09:12 Dose: 40 mg Dexmedetomidine HCl 400 mcg/ (Sodium Chloride) 100 mls @ 6.78 mls/hr IV TITR PRN; Protocol; 0.2 MCG/KG/HR PRN Reason: Agitation Last Titration: 07/12/17 02:00 Dose: 0.59 mcg/kg/hr, 20.3 mls/hr Lorazepam (Ativan) 2 mg IVP Q2H PRN PRN Reason: Agitation Last Admin: 07/13/17 01:37 Dose: 2 mg Methylprednisolone (Solu-Medrol) 40 mg IVP Q12 [facility] Last Admin: 07/13/17 09:14 Dose: 40 mg Metoprolol Tartrate (Lopressor) 50 mg PO DAILY [facility] Last Admin: 07/13/17 09:13 Dose: 50 mg Pantoprazole Sodium (Protonix Inj) 40 mg IVP DAILY [facility] Last Admin: 07/13/17 09:13 Dose: 40 mg Quetiapine Fumarate (Seroquel) 100 mg NG BID [facility] Last Admin: 07/13/17 09:13 Dose: 100 mg - Labs Labs: 07/13/17 12:08 07/13/17 12:08 Assessment and Plan - Assessment and Plan (Free Text) Assessment: PATIENT IS SEEN AND EXAMINED AT THE BEDSIDE NO TREMOR NOTED LUNG SOUND CLEAR PATIENT REFUSE TO GO PSYCH UNIT AND STATE THAT HE WILL GO HOME AND STOP DRINKING DISCUSS WITH DR BARKSDALE AND DR ELLISON WHO AGREE AND CLEAR PATIEN FOR DC FOLLOW UP WITH DR ELLISON IN 1-2 WEEK AT HIS OFFICE---CALL FOR APOINTMENT FOLLOW UP WITH YOUR PSYCHIATRIST IN 1 WEEK ---CALL FOR APPOINTMENT FOLLOW UP AT THE [facility] [address] [place] [id number] TEL [phone] CONTINUE ALL YOUR HOME MEDICATION ORDER ACTIVITY TOLERATED CALL DR ELLISON OR GO TO THE EMERGENCY ROOM IF SYMPTOMS RETURN OR WORSENING DISCUSS WITH PATIENT WHO AGREE AND VERBALIZED UNDERSTANDING
--- NOTE | 2017-07-13 22:57 | CP.PCM.DIS ---
Provider - Provider Date of Admission: 06/22/17 05:42 Attending physician: Estevan Agustin MD Diagnosis - Discharge Diagnosis (1) Acute confusion Status: Acute (2) Benzodiazepine abuse Status: Acute (3) Withdrawal from benzodiazepine Status: Acute (4) Respiratory failure Status: Acute Hospital Course - Lab Results Lab Results: Micro Results 07/03/17 13:25 Blood Blood Culture - Final NO GROWTH AFTER 5 DAYS 07/03/17 13:25 Blood Gram Stain - Final TEST NOT PERFORMED 07/03/17 12:55 Blood Blood Culture - Final NO GROWTH AFTER 5 DAYS 07/03/17 12:55 Blood Gram Stain - Final TEST NOT PERFORMED 07/01/17 07:33 Blood-Venous Blood Culture - Final NO GROWTH AFTER 5 DAYS 07/01/17 07:33 Blood-Venous Gram Stain - Final TEST NOT PERFORMED 07/01/17 07:33 Blood-Venous Blood Culture - Final NO GROWTH AFTER 5 DAYS 07/01/17 07:33 Blood-Venous Gram Stain - Final TEST NOT PERFORMED 07/03/17 12:26 Trachasp Gram Stain - Final 07/03/17 12:26 Trachasp Sputum Culture - Final No growth. 07/03/17 12:26 Urine,Catheterized Urine Culture - Final No Growth (<1,000 CFU/ML) 07/01/17 09:26 Urine,Catheterized Urine Culture - Final No Growth (<1,000 CFU/ML) Most Recent Lab Values WBC 21.4 K/uL (4.8-10.8) H D 07/13/17 12:08 RBC 3.94 Mil/uL (4.40-5.90) L 07/13/17 12:08 Hgb 12.9 g/dL (12.0-18.0) 07/13/17 12:08 Hct 38.3 % (35.0-51.0) 07/13/17 12:08 MCV 97.3 fL (80.0-94.0) H 07/13/17 12:08 MCH 32.8 pg (27.0-31.0) H 07/13/17 12:08 MCHC 33.7 g/dL (33.0-37.0) 07/13/17 12:08 RDW 15.3 % (11.5-14.5) H 07/13/17 12:08 Plt Count 372 K/uL (130-400) 07/13/17 12:08 MPV 8.1 fL (7.2-11.7) 07/13/17 12:08 Neut % (Auto) 91.4 % (50.0-75.0) H 07/13/17 12:08 Lymph % (Auto) 2.7 % (20.0-40.0) L 07/13/17 12:08 [place] % (Auto) 5.5 % (0.0-10.0) 07/13/17 12:08 Eos % (Auto) 0.0 % (0.0-4.0) 07/13/17 12:08 Baso % (Auto) 0.4 % (0.0-2.0) 07/13/17 12:08 Neut # (Auto) 19.6 K/uL (1.8-7.0) H 07/13/17 12:08 Lymph # (Auto) 0.6 K/uL (1.0-4.3) L 07/13/17 12:08 [place] # (Auto) 1.2 K/uL (0.0-0.8) H 07/13/17 12:08 Eos # (Auto) 0.0 K/uL (0.0-0.7) 07/13/17 12:08 Baso # (Auto) 0.1 K/uL (0.0-0.2) 07/13/17 12:08 Neutrophils % (Manual) 97 % (50-75) H 07/13/17 12:08 Band Neutrophils % 1 % (0-2) 07/09/17 06:24 Lymphocytes % (Manual) 1 % (20-40) L 07/13/17 12:08 Monocytes % (Manual) 2 % (0-10) 07/13/17 12:08 Eosinophils % (Manual) 5 % (0-4) H 06/25/17 08:05 Basophils % (Manual) 2 % (0-2) 06/25/17 08:05 Toxic Granulation Present 07/10/17 06:47 Platelet Estimate Normal (NORMAL) 07/13/17 12:08 Large Platelets Present 07/10/17 06:47 RBC Morphology Normal 07/13/17 12:08 Polychromasia Slight 07/10/17 06:47 Anisocytosis (manual) Slight 07/10/17 06:47 Macrocytosis (manual) Slight 07/10/17 06:47 Ovalocytes Slight 07/04/17 06:21 Puncture Site Rr 07/09/17 05:20 pCO2 46 mm/Hg (35-45) H 07/09/17 05:20 pO2 91 mm/Hg (80-100) 07/09/17 05:20 HCO3 30.3 mmol/L (21-28) H 07/09/17 05:20 ABG pH 7.45 (7.35-7.45) 07/09/17 05:20 ABG Total CO2 33.4 mmol/L (22-28) H 07/09/17 05:20 ABG O2 Saturation 98.6 % (95-98) H 07/09/17 05:20 ABG Base Excess 6.9 mmol/L (-2.0-3.0) H 07/09/17 05:20 ABG Hemoglobin 13.5 g/dL (11.7-17.4) 07/09/17 05:20 ABG Carboxyhemoglobin 1.6 % (0.5-1.5) H 07/09/17 05:20 POC ABG HHb (Measured) 1.4 % (0.0-5.0) 07/09/17 05:20 ABG Methemoglobin 1.4 % (0.0-3.0) 07/09/17 05:20 Chance Test Pos 07/09/17 05:20 ABG Potassium 3.4 mmol/L (3.6-5.2) L 07/05/17 05:09 VBG pH 7.40 (7.32-7.43) 06/30/17 18:35 VBG pCO2 33 mmHg (40-60) L 06/30/17 18:35 VBG HCO3 21.9 mmol/L 06/30/17 18:35 VBG Total CO2 21.4 mmol/L (22-28) L 06/30/17 18:35 VBG O2 Sat (Calc) 91.3 % (40-65) H 06/30/17 18:35 VBG Base Excess -3.6 mmol/L (0.0-2.0) L 06/30/17 18:35 VBG Potassium 2.8 mmol/L (3.6-5.2) L 06/30/17 18:35 A-a O2 Difference 208.0 mm/Hg 07/09/17 05:20 Respiratory Index 2.3 07/09/17 05:20 Hgb O2 Saturation 95.6 % (95.0-98.0) 07/09/17 05:20 Sodium 146.0 mmol/l (132-148) 07/05/17 05:09 Chloride 114.0 mmol/L (98-107) H 07/05/17 05:09 Glucose 167 mg/dl (75-110) H 07/05/17 05:09 Lactate 0.9 mmol/L (0.7-2.1) 07/05/17 05:09 Liter Flow 15.0 07/01/17 07:26 Vent Mode Prvc 07/09/17 05:20 Mechanical Rate 20 07/09/17 05:20 FiO2 50.0 % 07/09/17 05:20 Tidal Volume 500 07/09/17 05:20 PEEP 5 07/09/17 05:20 Crit Value Called To ,samaria 07/03/17 10:12 Crit Value Called By Compa mckeon,prosper 07/03/17 10:12 Crit Value Read Back Y 07/03/17 10:12 Blood Gas Notified Time 1030 07/03/17 10:12 Sodium 140 mmol/L (132-148) 07/13/17 12:08 Potassium 4.2 mmol/L (3.6-5.2) 07/13/17 12:08 Chloride 101 mmol/L (98-107) 07/13/17 12:08 Carbon Dioxide 27 mmol/L (22-30) 07/13/17 12:08 Anion Gap 16 (10-20) 07/13/17 12:08 BUN 20 mg/dL (9-20) 07/13/17 12:08 Creatinine 0.7 mg/dL (0.8-1.5) L 07/13/17 12:08 Est GFR ( Amer) > 60 07/13/17 12:08 Est GFR (Non-Af Amer) > 60 07/13/17 12:08 POC Glucose (mg/dL) 156 mg/dL (65-110) H 07/13/17 16:14 Random Glucose 139 mg/dL (75-110) H 07/13/17 12:08 Lactic Acid 0.8 mmol/L (0.7-2.1) 07/03/17 20:37 Calcium 9.3 mg/dl (8.6-10.4) 07/13/17 12:08 Phosphorus 3.1 mg/dL (2.5-4.5) 07/13/17 12:08 Magnesium 1.8 mg/dL (1.6-2.3) 07/13/17 12:08 Total Bilirubin 1.9 mg/dL (0.2-1.3) H 07/13/17 12:08 AST 110 U/L (17-59) H 07/13/17 12:08 ALT 369 U/L (21-72) H 07/13/17 12:08 Alkaline Phosphatase 155 U/L (38-126) H D 07/13/17 12:08 Ammonia 37 umol/L (9-33) H D 07/08/17 06:05 Total Creatine Kinase 89 U/L (55-170) 07/05/17 12:07 CK-MB (Mass) 2.10 ng/mL (0.0-3.38) 07/03/17 06:21 Troponin I < 0.0120 ng/mL (0.00-0.120) 07/03/17 12:30 NT-Pro-B Natriuret Pep 110 pg/mL (0-900) 07/01/17 07:45 Total Protein 7.0 g/dL (6.3-8.3) 07/13/17 12:08 Albumin 3.5 g/dL (3.5-5.0) 07/13/17 12:08 Globulin 3.4 gm/dL (2.2-3.9) 07/13/17 12:08 Albumin/Globulin Ratio 1.0 (1.0-2.1) 07/13/17 12:08 Procalcitonin 0.11 NG/ML (0.19-0.49) L 07/06/17 10:41 Prolactin 13.8 ng/mL (3.7-17.9) 06/30/17 18:53 Arterial Blood Potassium 3.4 mmol/L (3.6-5.2) L 07/05/17 05:09 Venous Blood Potassium 2.8 mmol/L (3.6-5.2) L 06/30/17 18:35 Urine Color Yellow (YELLOW) 07/03/17 13:07 Urine Clarity Hazy (Clear) 07/03/17 13:07 Urine pH 5.0 (5.0-8.0) 07/03/17 13:07 Ur Specific [place] 1.021 (1.003-1.030) 07/03/17 13:07 Urine Protein Negative mg/dL (NEGATIVE) 07/03/17 13:07 Urine Glucose (UA) Normal mg/dL (Normal) 07/03/17 13:07 Urine Ketones Negative mg/dL (NEGATIVE) 07/03/17 13:07 Urine Blood 1+ (NEGATIVE) H 07/03/17 13:07 Urine Nitrate Negative (NEGATIVE) 07/03/17 13:07 Urine Bilirubin Negative (NEGATIVE) 07/03/17 13:07 Urine Urobilinogen Normal mg/dL (0.2-1.0) 07/03/17 13:07 Ur Leukocyte Esterase Neg Donn/uL (Negative) 07/03/17 13:07 Urine WBC (Auto) 4 /hpf (0-5) 07/03/17 13:07 Urine RBC (Auto) 9 /hpf (0-3) H 07/03/17 13:07 Ur Squamous Epith Cells < 1 /hpf (0-5) 07/03/17 13:07 Hyaline Casts >20 /lpf (0-2) H 07/01/17 09:36 Urine Osmolality 612 mosm/kg (300-1000) 07/02/17 12:32 Ur Random Sodium 163 mmol/L 07/02/17 12:32 Urine Chloride 161 mmol/L (32-290) 07/02/17 12:32 Urine Opiates Screen Negative (NEGATIVE) 06/22/17 02:25 Urine Methadone Screen Negative (NEGATIVE) 06/22/17 02:25 Ur Barbiturates Screen Negative (NEGATIVE) 06/22/17 02:25 Ur Phencyclidine Scrn Negative (NEGATIVE) 06/22/17 02:25 Ur Amphetamines Screen Negative (NEGATIVE) 06/22/17 02:25 U Benzodiazepines Scrn Positive (NEGATIVE) 06/22/17 02:25 [place] 1.0 mmol/L (0.6-1.2) 07/05/17 13:55 U Oth Cocaine Metabols Negative (NEGATIVE) 06/22/17 02:25 U Cannabinoids Screen Negative (NEGATIVE) 06/22/17 02:25 Alcohol, Quantitative < 10 mg/dl (0-10) 06/21/17 23:33 RPR Nonreactive (NONREACTIVE) 07/01/17 09:00 Hepatitis A IgM Ab Negative (NEGATIVE) 07/01/17 09:00 Hep Bs Antigen Negative (NEGATIVE) 07/01/17 09:00 Hep B Core IgM Ab Negative (NEGATIVE) 07/01/17 09:00 Hepatitis C Antibody Negative (NEGATIVE) 07/01/17 09:00 HIV 1&2 Antibody Screen Negative (NEGATIVE) 07/01/17 08:53 - Hospital Course Hospital Course: Patient seen and evaluated,Pt is clear for discharge today Today patient appears much better than before. He is alert awake oriented to time place and person. He reports improvement in his mood and improvement in the agitation. However he denies any auditory or visual hallucinations. He is compliant with the medications and denies any side effects. he needs more time for stabilization Discharge Exam - Head Exam Head Exam: ATRAUMATIC, NORMAL INSPECTION, NORMOCEPHALIC Discharge Plan - Follow Up Plan Condition: STABLE Disposition: HOME/ ROUTINE Instructions: Alcohol Intoxication (DC), Alcohol Withdrawal (DC), Hypertension (DC), Hypertension (GEN) Additional Instructions: FOLLOW UP WITH DR AGUSTIN IN 1-2 WEEK AT HIS OFFICE---CALL FOR APOINTMENT FOLLOW UP WITH YOUR PSYCHIATRIST IN 1 WEEK ---CALL FOR APPOINTMENT FOLLOW UP AT THE [place] [phone] TEL [phone] CONTINUE ALL YOUR HOME MEDICATION ORDER ACTIVITY TOLERATED CALL DR AGUSTIN OR GO TO THE EMERGENCY ROOM IF SYMPTOMS RETURN OR WORSENING Referrals: Jethro Mejia MD [Staff Provider] - Estevan Agustin MD [Staff Provider] -
== END 2017-07-13 18:00 | disposition home or self-care (01) | DRG 747 ==
LOC: C.ER 22:48 → C.9E 06-22 05:42 → C.6T 06-22 13:24 → C.9E 06-22 13:37 → C.5S 06-22 19:25 → C.5E 06-25 13:19 → UNDODISIN 06-25 16:48 → C.5S 06-30 18:11 → C.9I 07-01 08:19
PROVIDERS: ADMIT Internal Medicine; ATTEND Internal Medicine
PROC: GZ58ZZZ Individual Psychotherapy, Cognitive-Behavioral (ICD-10-PCS; principal; 2017-06-22)
PROC: HZ2ZZZZ Detoxification Services for Substance Abuse Treatment (ICD-10-PCS; 2017-06-22)
PROC: 0BH17EZ Insertion of Endotracheal Airway into Trachea, Via Natural or Artificial Opening (ICD-10-PCS; 2017-07-03)
PROC: 5A1955Z Respiratory Ventilation, Greater than 96 Consecutive Hours (ICD-10-PCS; 2017-07-03)
PROC: GZ56ZZZ Individual Psychotherapy, Supportive (ICD-10-PCS; 2017-07-05)
DX: F13.2 Sedative, hypnotic or anxiolytic-related dependence (principal); E86.0 Dehydration; F10.231 Alcohol dependence with withdrawal delirium; N17.0 Acute kidney failure with tubular necrosis; J96.01 Acute respiratory failure with hypoxia; A41.9 Sepsis, unspecified organism; I95.9 Hypotension, unspecified; J18.9 Pneumonia, unspecified organism; M62.82 Rhabdomyolysis; F31.9 Bipolar disorder, unspecified; F41.9 Anxiety disorder, unspecified; I10 Essential (primary) hypertension; F41.8 Other specified anxiety disorders; R94.5 Abnormal results of liver function studies; E66.9 Obesity, unspecified; E78.00 Pure hypercholesterolemia, unspecified; J45.909 Unspecified asthma, uncomplicated; L29.9 Pruritus, unspecified; Z79.899 Other long term (current) drug therapy

== ENCOUNTER 2017-07-16 12:29 | Inpatient (IN) | payer MEDICAID ==
[2017-07-16 12:30] VITALS: BMI 28.0
[2017-07-16] MEDS ORDERED: Albuterol-Ipratrop 3 mg / 0.5 (3 ml) UD INH STA ×2 (14:05→16:30)
--- NOTE | 2017-07-16 14:05 | C.PDOC ---
History Of Present Illness <Paul Olguin - Last Filed: 07/16/17 16:17> <KristenNenita payton - Last Filed: 07/16/17 16:31> Patient is a 51 year old male with a history of HTN, asthma, depression, schizophrenia, bipolar disorder, and alcohol abuse, who presents with complaints of shortness of breath, decrease urination, vomiting, and dizziness. Patient says he has been short of breath since recently being discharged from [facility] a few days ago, but has worsened 4 days ago. His breathing worsens with laying down and with exertion. Patient says he has used his nebulizer 4 times today and his inhaler once with minimal relief. He also states he has been vomiting for the past two days and unable to eat due to vomiting. The patient also states that he became dizzy while walking to the bathroom and then fell onto a coffee table today. The patient states he took an extra metoprolol and xanax today because he measured his blood pressure and it read 140/110 (he later said his measured BP reading was 160/120). He also states his mother locks his medications in a box to keep him from taking additional xanax, but today, was able to find an extra pill. The patient states he has a short term memory and does not remember things after about 5 minutes. Patient currently feels short of breath (slightly improved since being in ER), dizzy, headache, complains of a "churning stomach" but has been constipated for 4 days, and has decreased urination (denies dysuria, hematuria). The patient denies chest pain, palpitations, fevers, chills, leg pain. PMHx: HTN, depression, asthma, schizophrenia, bipolar disorder, alcohol abuse ( former heavy drinker, last drink 1 year ago) FamHx: Father- sarcoma; Mother- breast cancer SocHx: denies tobacco and drug use; former heavy alcohol user (1 case of beer and a 1/5 of vodka daily); last drink 1 year ago. Lives with his mother at home ; Uses a walker to ambulate -"something wrong with my feet" but unsure the diagnosis. Allergies: peanut (per EMR); patient says NKDA Medications: Metoprolol 50mg PO daily, Lisinopril 20mg PO daily, Xanax 0.5mg PO TID, Quetipine 300mg PO HS, Vitamin D2, B1 (100mg daily), Folic acid, multivitamins. (Nenita Hanna) <Paul Olguin - Last Filed: 07/16/17 16:17> History Per: Patient History/Exam Limitations: other ("short term memory") Onset/Duration Of Symptoms: Days Current Symptoms Are (Timing): Still Present Quality: Tightness (wheezing) Exacerbating Factor(s): Exertion, Laying Flat, Coughing Current Respiratory Medications: Albuterol Associated Symptoms: Productive Cough (clear sputum), Dizziness. denies: Fever , Chills Reports Recently: Hospitalized (hopsitalized for AMS, intubated and transferred to ICU for hypoxia, respiratory distress. Dx w/pneumonia and sepsis per EMR.) Additional History Per: Patient, Prior Records <Nenita Hanna - Last Filed: 07/16/17 16:31> Time Seen by Provider: 07/16/17 13:20 Chief Complaint (Nursing): Shortness Of Breath Past Medical History - Medical History PMH: Arthritis (B/L KNEES), Asthma, Bipolar Disorder, Depression, HTN, Hypercholesterolemia, Schizophrenia Denies: Diabetes, Hepatitis, HIV, Chronic Kidney Disease, Seizures, Sexually Transmitted Disease Family History: States: Unknown Family Hx - Social History Hx Tobacco Use: No (DENIES) Hx Alcohol Use: Yes (FORMER heavy alcohol use) Hx Substance Use: No (DENIES) <Nenita Hanna - Last Filed: 07/16/17 16:31> Vital Signs: Last Vital Signs Temp 98.4 F 07/16/17 12:39 Pulse 96 H 07/16/17 12:39 Resp 20 07/16/17 12:53 BP 109/62 07/16/17 12:39 Pulse Ox 96 07/16/17 16:29 - [facility] Procedures ALCOHOL DETOXIFICATION (02/24/14) Review Of Systems Constitutional: Negative for: Fever, Chills Cardiovascular: Positive for: Orthopnea, Light Headedness. Negative for: Chest Pain, Palpitations Respiratory: Positive for: Cough, Shortness of Breath, SOB with Excertion, Sputum (clear), Wheezing. Negative for: Hemoptysis Gastrointestinal: Positive for: Nausea, Vomiting, Abdominal Pain, Constipation. Negative for: Diarrhea, Melena, Hematochezia, Hematemesis Genitourinary: Positive for: Other (decreased urinary frequency) <Nenita Hanna - Last Filed: 07/16/17 16:31> Physical Exam - Physical Exam Appears: No Acute Distress Skin: Normal Color, Warm, Dry, Ecchymosis (left abdomen from falling) Head: Atraumatic, Normacephalic Eye(s): bilateral: Normal Inspection, PERRL, EOMI Teeth: Other (poor dentition) Cardiovascular: Rhythm Regular, No Edema, No Murmur Respiratory: No Normal Breath Sounds, Rales, Rhonchi, Wheezing Gastrointestinal/Abdominal: Bowel Sounds, Soft, No Tenderness, No Mass, No Distention, No Guarding Extremity: No Tenderness, No Pedal Edema, No Swelling Pulses: Left Dorsalis Pedis: Normal, Right Dorsalis Pedis: Normal Neurological/Psych: Oriented x3, Normal Speech <Nenita Hanna - Last Filed: 07/16/17 16:31> ED Course And Treatment - Laboratory Results Result Diagrams: 07/16/17 14:28 07/16/17 14:28 Lab Interpretation: Abnormal (UA 500 wbc's) ECG: Interpreted By Al ECG Rhythm: Sinus Rhythm ECG Interpretation: Normal Rate From EC Pulse Ox Interpretation: Normal - Radiology CXR: Interpreted by Al CXR Interpretation: Yes: No Acute Disease Reevaluation Time: 16:23 Reassessment Condition: Improved - Physician Consult Information Outcome Of Conversation: 1500: d/w Dr. Agustin ok to admit <Paul Olguin - Last Filed: 07/16/17 16:17> - Laboratory Results Result Diagrams: 07/16/17 14:28 07/16/17 14:28 O2 Sat by Pulse Oximetry: 96 <Nenita Hanna - Last Filed: 07/16/17 16:31> Medical Decision Making <Paul Olguin - Last Filed: 07/16/17 16:17> <Nenita Hanna - Last Filed: 07/16/17 16:31> Medical Decision Making: Ordered: - Nebulizer stat x2, solumedrol 125mg IV once, Ativan 1mg IV once - Labs - Chest xray - Blood cx x2 - Serum alcohol - UDS - Bladder scan Urinary retention: may be due to medications; bladder scan 200-235cc; consider urology consult. UTI: LE+ on UA; given one dose of Rocephin 1gm IV. Dyspnea: Hx of intubation, pneumonia; Hx of asthma; Nebulizer treatment x2. Solu -medrol 125mg IV once. History of alcohol abuse: last drink 1 year ago; serum alcohol <10. Benzodiazepine use and abuse: takes xanax 0.5mg TID at home. Took an extra pill today. Monitor for signs of withdrawal. History of depression, schizophrenia, bipolar disorder; takes Quetapine 300mg at home; consider psychiatry consult. (Nenita Hanna) Disposition Doctor Will See Patient In The: Hospital Counseled Patient/Family Regarding: Studies Performed, Diagnosis - Disposition Disposition Time: 16:23 <Paul Olguin - Last Filed: 07/16/17 16:17> <Nenita Hanna - Last Filed: 07/16/17 16:31> - Disposition Forms: GOOM (Swedish) - Clinical Impression Clinical Impression: Bipolar 1 disorder, Withdrawal from benzodiazepine, Dyspnea, Bronchitis, UTI ( urinary tract infection), Acute urinary retention
[2017-07-16] MEDS ORDERED: Albuterol-Ipratrop 3 mg / 0.5 (3 ml) UD ONE ×2 (14:13→16:56)
[2017-07-16 14:35] LABS: BASO # 0.1 K/uL (0.0-0.2); BASO % 0.5 % (0.0-2.0); EOS # 0.5 K/uL (0.0-0.7); EOS % 3.2 % (0.0-4.0); HEMOGLOBIN 13.7 g/dL (12.0-18.0); LYMPH # 1.9 K/uL (1.0-4.3); LYMPH % 11.7 % (20.0-40.0); MEAN CELL VOLUME 98.1 fL (80.0-94.0); MEAN CORPUSCULAR HEMOGLOBIN 33.5 pg (27.0-31.0); MEAN CORPUSCULAR HGB CONC 34.2 g/dL (33.0-37.0); MEAN PLATELET VOLUME 9.1 fL (7.2-11.7); MONO # 1.1 K/uL (0.0-0.8); MONO % 6.9 % (0.0-10.0); NEUT # 12.8 K/uL (1.8-7.0); NEUT % 77.7 % (50.0-75.0); RBC 4.08 Mil/uL (4.40-5.90); RED CELL DISTRIBUTION WIDTH 15.1 % (11.5-14.5); WHITE BLOOD COUNT 16.5 K/uL (4.8-10.8)
[2017-07-16 14:44] LABS: ALB/GLOB RATIO 0.9 (1.0-2.1); ALBUMIN 3.6 g/dL (3.5-5.0); ALT/SGPT 287 U/L (21-72); AST/SGOT 96 U/L (17-59); BLOOD UREA NITROGEN 13 mg/dL (9-20); CALCIUM 9.1 mg/dl (8.6-10.4); GFR AFRICAN-AMERICAN > 60; GFR NON-AFRICAN AMERICAN > 60; MAGNESIUM 1.8 mg/dL (1.6-2.3)
[2017-07-16 14:44] LABS: SQUAMOUS EPITHIAL < 1 /hpf (0-5); URINE BACTERIA RARE (<OCC); URINE BILIRUBIN NEGATIVE (NEGATIVE); URINE BLOOD 1+ (NEGATIVE); URINE CLARITY Hazy (Clear); URINE COLOR Amber (YELLOW); URINE GLUCOSE (UA) NORMAL (Normal); URINE LEUKOCYTE ESTERASE 3+ Leu/uL (Negative); URINE NITRATE NEGATIVE (NEGATIVE); URINE PROTEIN 2+ mg/dL (NEGATIVE)
[2017-07-16 15:08] LABS: BARBITURATES, UR NEGATIVE (NEGATIVE); OPIATES, UR NEGATIVE (NEGATIVE); PHENCYCLIDINE, UR NEGATIVE (NEGATIVE)
[2017-07-16] MEDS ORDERED: cefTRIAXone IV 1 gm in Dextros 50 ML IVPB ONE (15:29)
[2017-07-16 15:33] LABS: BENZODIAZEPINES, UR POSITIVE (NEGATIVE)
--- NOTE | 2017-07-16 15:50 | RAD ---
HISTORY: Shortness of breath in COMPARISON: Comparison made with chest radiograph dated 07/09/2017. FINDINGS: LUNGS: Suspect minor bibasilar atelectasis. PLEURA: No significant pleural effusion identified, no pneumothorax apparent. CARDIOVASCULAR: Heart appears mildly enlarged. OSSEOUS STRUCTURES: No significant abnormalities. VISUALIZED UPPER ABDOMEN: Normal. OTHER FINDINGS: None. IMPRESSION: Suspect minor bibasilar atelectasis.
[2017-07-16] MEDS ORDERED: QUETIAPINE FUMARATE 300 MG PO SCH (22:00)
--- NOTE | 2017-07-16 23:00 | CP.PCM.HP ---
History of Present Illness - History of Present Illness History of Present Illness: CC: shortness of breath HPI: Patient is a 51 year old morbidly obese male with a history of HTN, asthma , depression, schizophrenia, bipolar disorder, and alcohol and benzo abuse, who presents with complaints of shortness of breath, decrease urination, vomiting, and dizziness. Patient says he has been short of breath since recently being discharged from [facility] a few days ago, but has worsened 4 days ago. His breathing worsens with laying down and with exertion. Patient says he has used his nebulizer 4 times today and his inhaler once with minimal relief. He also states he has been vomiting for the past two days and unable to eat due to vomiting. The patient also states that he became dizzy while walking to the bathroom and then fell onto a coffee table today. The patient states he took an extra metoprolol and xanax today because he measured his blood pressure and it read 140/110 (he later said his measured BP reading was 160/120). He also states his mother locks his medications in a box to keep him from taking additional xanax, but today, was able to find an extra pill. The patient states he has a short term memory and does not remember things after about 5 minutes. Patient currently feels short of breath (slightly improved since being in ER), dizzy, headache, complains of a "churning stomach" but has been constipated for 4 days, and has decreased urination (denies dysuria, hematuria). The patient denies chest pain, palpitations, fevers, chills, leg pain. PMHx: HTN, depression, asthma, schizophrenia, bipolar disorder, alcohol abuse ( former heavy drinker, last drink 1 year ago) FamHx: Father- sarcoma; Mother- breast cancer SocHx: denies tobacco and drug use; former heavy alcohol user (1 case of beer and a 1/5 of vodka daily); last drink 1 year ago. Lives with his mother at home ; Uses a walker to ambulate -"something wrong with my feet" but unsure the diagnosis. Allergies: peanut (per EMR); patient says NKDA Medications: Metoprolol 50mg PO daily, Lisinopril 20mg PO daily, Xanax 0.5mg PO TID, Quetipine 300mg PO HS, Vitamin D2, B1 (100mg daily), Folic acid, multivitamins. Present on Admission - Present on Admission Any Indicators Present on Admission: Yes Review of Systems - Review of Systems Systems not reviewed;Unavailable: Acuity of Condition, Intoxicated - Constitutional Constitutional: Fatigue, Lethargy, Malaise, Weakness - EENT Eyes: absent: As Per HPI, Blind Spots, Blurred Vision, Change in Vision, Decreased Night Vision, Diplopia, Discharge, Dry Eye, Exophthalmos, Floaters, Irritation, Itchy Eyes, Loss of Peripheral Vision, Pain, Photophobia, Requires Corrective Lenses, Sees Flashes, Spots in Vision, Tunnel Vision, Other Visual Disturbances, Loss of Vision, Other - Cardiovascular Cardiovascular: Dyspnea, Orthopnea, Palpitations - Respiratory Respiratory: Dyspnea, Dyspnea on Exertion - Gastrointestinal Gastrointestinal: absent: As Per HPI, Abdominal Pain, Belching, Bloating, Change in Bowel Habits, Change in Stool Character, Coffee Ground Emesis, Constipation, Cramping, Diarrhea, Dyspepsia, Dysphagia, Early Satiety, Excessive Flatus, Fecal Incontinence, Heartburn, Hematemesis, Hematochezia, Loose Stools, Melena, Nausea, Odynophagia, Temesmus, Vomiting, Other - Genitourinary Genitourinary: absent: As Per HPI, Change in Urinary Stream, Difficulty Urinating, Dysuria, Flank Pain, Hematuria, Pyuria, Nocturia, Urinary Incontinence, Urinary Frequency, Urinary Hesitance, Urinary Urgency, Voiding Freq/Small Amts, Freq UTI, Hx Renal/Bladder Calculi, Hx /Renal Surgery, Bladder Distension, Other Past Patient History - Infectious Disease Hx of Infectious Diseases: None - Past Medical History & Family History Past Medical History?: Yes - Past Social History Smoking Status: Never Smoked - CARDIAC Hx Hypercholesterolemia: Yes Hx Hypertension: Yes - PULMONARY Hx Asthma: Yes - NEUROLOGICAL Hx Seizures: No - HEENT Hx HEENT Problems: No - RENAL Hx Chronic Kidney Disease: No - ENDOCRINE/METABOLIC Hx Endocrine Disorders: No - HEMATOLOGICAL/ONCOLOGICAL Hx Human Immunodeficiency Virus (HIV): No - INTEGUMENTARY Hx Eczema: Yes - MUSCULOSKELETAL/RHEUMATOLOGICAL Hx Arthritis: Yes (B/L KNEES) - GASTROINTESTINAL Hx Gastrointestinal Disorders: No Hx Fatty Liver Disease: Yes - GENITOURINARY/GYNECOLOGICAL Hx Sexually Transmitted Disorders: No - PSYCHIATRIC Hx Bipolar Disorder: Yes Hx Depression: Yes Hx Schizophrenia: Yes Hx Substance Use: No (DENIES) - SURGICAL HISTORY Hx Surgeries: Yes (right pointer finger fixed due to deteriotion) - ANESTHESIA Hx Anesthesia: No Hx Anesthesia Reactions: No Meds Allergies/Adverse Reactions: Allergies Allergy/AdvReac Type Severity Reaction Status Date / Time peanut Allergy SWELLING Verified 06/22/17 04:18 Physical Exam - Constitutional Appears: No Acute Distress - Eye Exam Eye Exam: EOMI, Normal appearance, PERRL Pupil Exam: NORMAL ACCOMODATION, PERRL - Respiratory Exam Respiratory Exam: Decreased Breath Sounds, Rales, Rhonchi - Cardiovascular Exam Cardiovascular Exam: REGULAR RHYTHM - GI/Abdominal Exam GI & Abdominal Exam: Distended, Normal Bowel Sounds, Soft - Rectal Exam Rectal Exam: Deferred - Psychiatric Exam Psychiatric exam: Anxious Additional comments: restless, tremoulous Results - Vital Signs Recent Vital Signs: Last Vital Signs Temp 97.5 F L 07/16/17 22:25 Pulse 97 H 07/16/17 22:25 Resp 20 07/16/17 22:25 BP 122/87 07/16/17 22:25 Pulse Ox 92 L 07/16/17 22:25 - Labs Result Diagrams: 07/18/17 07:51 07/18/17 07:51 Labs: Laboratory Results - last 24 hr 07/16/17 07/16/17 07/16/17 14:28 14:28 14:34 WBC 16.5 H RBC 4.08 L Hgb 13.7 Hct 40.0 MCV 98.1 H MCH 33.5 H MCHC 34.2 RDW 15.1 H Plt Count 242 D MPV 9.1 Neut % (Auto) 77.7 H Lymph % (Auto) 11.7 L Alexander % (Auto) 6.9 Eos % (Auto) 3.2 Baso % (Auto) 0.5 Neut # (Auto) 12.8 H Lymph # (Auto) 1.9 [place] # (Auto) 1.1 H Eos # (Auto) 0.5 Baso # (Auto) 0.1 Sodium 136 Potassium 4.2 Chloride 99 Carbon Dioxide 28 Anion Gap 14 BUN 13 Creatinine 0.9 Est GFR ( Amer) > 60 Est GFR (Non-Af Amer) > 60 Random Glucose 88 Calcium 9.1 Phosphorus 3.3 Magnesium 1.8 Total Bilirubin 3.3 H AST 96 H ALT 287 H D Alkaline Phosphatase 198 H D Ammonia Total Protein 7.6 Albumin 3.6 Globulin 4.0 H Albumin/Globulin Ratio 0.9 L Urine Color Lauren Urine Clarity Hazy Urine pH 6.0 Ur Specific [place] 1.011 Urine Protein 2+ H Urine Glucose (UA) Normal Urine Ketones Negative Urine Blood 1+ H Urine Nitrate Negative Urine Bilirubin Negative Urine Urobilinogen 4.0 Ur Leukocyte Esterase 3+ H Urine WBC (Auto) 512 H Urine RBC (Auto) 5 H Ur Squamous Epith Cells < 1 Urine Bacteria Rare Hyaline Casts 3-5 H Urine Opiates Screen Urine Methadone Screen Ur Barbiturates Screen Ur Phencyclidine Scrn Ur Amphetamines Screen U Benzodiazepines Scrn [place] U Oth Cocaine Metabols U Cannabinoids Screen Alcohol, Quantitative < 10 07/16/17 07/16/17 07/16/17 14:34 15:48 15:48 WBC RBC Hgb Hct MCV MCH MCHC RDW Plt Count MPV Neut % (Auto) Lymph % (Auto) [place] % (Auto) Eos % (Auto) Baso % (Auto) Neut # (Auto) Lymph # (Auto) [place] # (Auto) Eos # (Auto) Baso # (Auto) Sodium Potassium Chloride Carbon Dioxide Anion Gap BUN Creatinine Est GFR ( Amer) Est GFR (Non-Af Amer) Random Glucose Calcium Phosphorus Magnesium Total Bilirubin AST ALT Alkaline Phosphatase Ammonia 27 D Total Protein Albumin Globulin Albumin/Globulin Ratio Urine Color Urine Clarity Urine pH Ur Specific [place] Urine Protein Urine Glucose (UA) Urine Ketones Urine Blood Urine Nitrate Urine Bilirubin Urine Urobilinogen Ur Leukocyte Esterase Urine WBC (Auto) Urine RBC (Auto) Ur Squamous Epith Cells Urine Bacteria Hyaline Casts Urine Opiates Screen Negative Urine Methadone Screen Negative Ur Barbiturates Screen Negative Ur Phencyclidine Scrn Negative Ur Amphetamines Screen Negative U Benzodiazepines Scrn Positive [place] < 0.2 L U Oth Cocaine Metabols Negative U Cannabinoids Screen Negative Alcohol, Quantitative Assessment & Plan (1) Shortness of breath Status: Acute (2) Anxiety Status: Acute (3) Withdrawal from benzodiazepine Status: Acute
[2017-07-17] MEDS: QUEtiapine 150 mg XR Tab PO SCH ×2 (00:19→21:09)
--- NOTE | 2017-07-17 08:28 | PCM.PSYCH ---
Initial Psychiatric Evaluation - Initial Psychiatric Evaluation Type of Admission: Voluntary Legal Status: Capacity Current Medications: Active Medications Generic Name Dose Route Start Last Admin Trade Name Jovannyq PRN Reason Stop Dose Admin Alprazolam 0.5 mg 07/17/17 06:45 07/17/17 06:46 Xanax PO 0.5 mg Q8 EDIN Administration Enoxaparin Sodium 40 mg 07/17/17 10:00 Lovenox SC DAILY EDIN Ergocalciferol 1 cap 07/23/17 10:00 Drisdol 50,000 Intl Units Cap PO QWK EDIN Folic Acid 1 mg 07/17/17 10:00 Folic Acid PO DAILY EDIN Ceftriaxone Sodium 1 gm/ 100 mls @ 100 mls/hr 07/17/17 10:00 Sodium Chloride IVPB DAILY EDIN Lisinopril 20 mg 07/17/17 10:00 Zestril PO DAILY EDIN Metoprolol Tartrate 50 mg 07/17/17 10:00 Lopressor PO DAILY EDIN Quetiapine Fumarate 300 mg 07/17/17 00:00 07/17/17 00:19 Seroquel Xr PO 300 mg HS EDIN Administration Thiamine HCl 100 mg 07/17/17 10:00 Vitamin B1 Tab PO DAILY EDIN Past Psychiatric History - Past Psychiatric History Pertinent Medical Hx (Current Medical&Sleep Prob, Allergies): Allergies Allergy/AdvReac Type Severity Reaction Status Date / Time peanut Allergy SWELLING Verified 06/22/17 04:18 Alprazolam [Xanax] 0.5 mg PO TID 06/23/17 Ergocalciferol (Vitamin D2) [Vitamin D2] 50,000 units PO QWK 06/23/17 Folic Acid 1 mg PO DAILY 06/23/17 Lisinopril [Zestril] 20 mg PO DAILY 06/23/17 Metoprolol Tartrate [Lopressor] 50 mg PO DAILY 06/23/17 Quetiapine Fumarate [Seroquel] 300 mg PO HS 06/23/17 Thiamine [Vitamin B1 Tab] 100 mg PO DAILY 06/23/17
[2017-07-17] MEDS: Enoxaparin 40 mg Syringe SC SCH (10:53)
--- NOTE | 2017-07-17 17:40 | CP.PCM.PN ---
Subjective - Date & Time of Evaluation Date of Evaluation: 07/17/17 Time of Evaluation: 19:00 - Subjective Subjective: Pt seen and examined today, still short of breath, anxious, tremoulois Objective - Vital Signs/Intake and Output Vital Signs (last 24 hours): Temp Pulse Resp BP Pulse Ox 97.6 F 80 19 114/78 95 07/17/17 15:00 07/17/17 16:00 07/17/17 15:00 07/17/17 15:00 07/17/17 15:00 Intake and Output: 07/17/17 07/17/17 06:59 18:59 Intake Total 740 Balance 740 - Medications Medications: Current Medications Alprazolam (Xanax) 0.5 mg PO Q8 [facility] Last Admin: 07/17/17 14:36 Dose: 0.5 mg Enoxaparin Sodium (Lovenox) 40 mg SC DAILY [facility] Last Admin: 07/17/17 10:53 Dose: 40 mg Ergocalciferol (Drisdol 50,000 Intl Units Cap) 1 cap PO QWK [facility] Folic Acid (Folic Acid) 1 mg PO DAILY [facility] Last Admin: 07/17/17 10:53 Dose: 1 mg Ceftriaxone Sodium 1 gm/ (Sodium Chloride) 100 mls @ 100 mls/hr IVPB DAILY [facility] Last Admin: 07/17/17 10:58 Dose: 100 mls/hr Lisinopril (Zestril) 10 mg PO DAILY [facility] Metoprolol Tartrate (Lopressor) 50 mg PO DAILY [facility] Last Admin: 07/17/17 10:57 Dose: 50 mg Quetiapine Fumarate (Seroquel Xr) 300 mg PO HS [facility] Last Admin: 07/17/17 00:19 Dose: 300 mg Thiamine HCl (Vitamin B1 Tab) 100 mg PO DAILY [facility] Last Admin: 07/17/17 10:53 Dose: 100 mg - Labs Labs: 07/16/17 14:28 07/16/17 14:28 - Constitutional Appears: No Acute Distress - Head Exam Head Exam: ATRAUMATIC, NORMAL INSPECTION, NORMOCEPHALIC - Eye Exam Eye Exam: EOMI, Normal appearance, PERRL Pupil Exam: NORMAL ACCOMODATION, PERRL - Respiratory Exam Respiratory Exam: Decreased Breath Sounds, Rales, Rhonchi - Cardiovascular Exam Cardiovascular Exam: REGULAR RHYTHM, +S1, +S2. absent: Murmur - GI/Abdominal Exam GI & Abdominal Exam: Soft, Normal Bowel Sounds. absent: Tenderness Assessment and Plan (1) Anxiety Status: Acute (2) Shortness of breath Status: Acute (3) Withdrawal from benzodiazepine Status: Acute (4) Hypertension Status: Acute
[2017-07-17 23:25] VITALS: RESP 20
[2017-07-18 08:06] LABS: BASO % 0.3 % (0.0-2.0); EOS # 0.1 K/uL (0.0-0.7); EOS % 1.1 % (0.0-4.0); HEMOGLOBIN 12.2 g/dL (12.0-18.0); LYMPH # 2.8 K/uL (1.0-4.3); LYMPH % 23.9 % (20.0-40.0); MEAN CELL VOLUME 98.6 fL (80.0-94.0); MEAN CORPUSCULAR HEMOGLOBIN 33.5 pg (27.0-31.0); MEAN PLATELET VOLUME 7.7 fL (7.2-11.7); MONO % 8.5 % (0.0-10.0); NEUT # 7.9 K/uL (1.8-7.0); NEUT % 66.2 % (50.0-75.0); RBC 3.64 Mil/uL (4.40-5.90); RED CELL DISTRIBUTION WIDTH 15.1 % (11.5-14.5); WHITE BLOOD COUNT 11.9 K/uL (4.8-10.8)
[2017-07-18 08:25] LABS: ALB/GLOB RATIO 0.9 (1.0-2.1); ALBUMIN 3.2 g/dL (3.5-5.0); ALT/SGPT 243 U/L (21-72); AST/SGOT 82 U/L (17-59); BLOOD UREA NITROGEN 21 mg/dL (9-20); CALCIUM 9.2 mg/dl (8.6-10.4); GFR AFRICAN-AMERICAN > 60; GFR NON-AFRICAN AMERICAN > 60
[2017-07-18] MEDS: Enoxaparin 40 mg Syringe SC SCH (10:35)
--- NOTE | 2017-07-18 14:56 | PCM.PYCHPN ---
Psychiatric Progress Note - Psychiatric Progress Note Patient seen today, length of contact: 15 min Medication Change: No Medical Record Reviewed: Yes Mental Status Examination - Cognitive Function Orientation: Person, Place, Situation, Time Memory: Intact Attention: WNL Concentration: Poor Association: WNL Fund of Knowledge: Poor - Mood Mood: Anxious - Affect Affect: Constricted - Speech Speech: Soft - Formal Thought Process Formal Thought Process: No Impairment - Suicidal Ideation Suicidal Ideation: No - Homicidal Ideation Homicidal Ideation: No Goal/Treatment Plan - Goal/Treatment Plan Need for Continued Stay: Other Progress Toward Problem(s) and Goals/Treatment Plan: Pt psychiatrically stable and clear for discharge - Smoking Cessation Smoking Cessation Initiated: No
--- NOTE | 2017-07-18 17:59 | CP.PCM.CON ---
History of Present Illness - History of Present Illness History of Present Illness: Mr. Holcomb is a 51-year-old man with multiple medical and psychiatric co- morbidities, who recently started to drink alcohol again ("fell off the wagon") , after being sober for several months. He also takes Xanax and Seroquel and was noted to have some "shakiness". He states that it was probably when he was detoxing. When I saw the patient, he did not have any shakes and no tremor was noted. Review of Systems - Review of Systems All systems: reviewed and no additional remarkable complaints except Past Patient History - Infectious Disease Hx of Infectious Diseases: None - Past Medical History & Family History Past Medical History?: Yes - Past Social History Smoking Status: Never Smoked - CARDIAC Hx Hypercholesterolemia: Yes Hx Hypertension: Yes - PULMONARY Hx Asthma: Yes - NEUROLOGICAL Hx Seizures: No - HEENT Hx HEENT Problems: No - RENAL Hx Chronic Kidney Disease: No - ENDOCRINE/METABOLIC Hx Endocrine Disorders: No - HEMATOLOGICAL/ONCOLOGICAL Hx Human Immunodeficiency Virus (HIV): No - INTEGUMENTARY Hx Eczema: Yes - MUSCULOSKELETAL/RHEUMATOLOGICAL Hx Falls: Yes - GASTROINTESTINAL Hx Gastrointestinal Disorders: No Hx Fatty Liver Disease: Yes - GENITOURINARY/GYNECOLOGICAL Hx Sexually Transmitted Disorders: No - PSYCHIATRIC Hx Substance Use: Yes - SURGICAL HISTORY Hx Surgeries: Yes (right pointer finger fixed due to deteriotion) - ANESTHESIA Hx Anesthesia: No Hx Anesthesia Reactions: No Hx Malignant Hyperthermia: No Has any member of the family had a problem w/ anesthesia?: No Meds Allergies/Adverse Reactions: Allergies Allergy/AdvReac Type Severity Reaction Status Date / Time peanut Allergy SWELLING Verified 06/22/17 04:18 - Medications Medications: Current Medications Alprazolam (Xanax) 0.5 mg PO Q8 [facility] Last Admin: 07/18/17 13:42 Dose: 0.5 mg Enoxaparin Sodium (Lovenox) 40 mg SC DAILY [facility] Last Admin: 07/18/17 10:35 Dose: 40 mg Ergocalciferol (Drisdol 50,000 Intl Units Cap) 1 cap PO QWK [facility] Folic Acid (Folic Acid) 1 mg PO DAILY [facility] Last Admin: 07/18/17 10:35 Dose: 1 mg Ceftriaxone Sodium 1 gm/ (Sodium Chloride) 100 mls @ 100 mls/hr IVPB DAILY [facility] Last Admin: 07/18/17 10:36 Dose: 100 mls/hr Lisinopril (Zestril) 10 mg PO DAILY [facility] Last Admin: 07/18/17 10:35 Dose: 10 mg Metoprolol Tartrate (Lopressor) 50 mg PO DAILY [facility] Last Admin: 07/18/17 10:35 Dose: 50 mg Quetiapine Fumarate (Seroquel Xr) 300 mg PO HS [facility] Last Admin: 07/17/17 21:09 Dose: 300 mg Thiamine HCl (Vitamin B1 Tab) 100 mg PO DAILY [facility] Last Admin: 07/18/17 10:35 Dose: 100 mg Physical Exam - Neurological Exam Neurological exam: Alert, CN II-XII Intact, Normal Gait, Oriented x3, Reflexes Normal Results - Vital Signs Recent Vital Signs: Last Vital Signs Temp 97.8 F 07/18/17 15:31 Pulse 84 07/18/17 16:00 Resp 20 07/18/17 15:31 BP 128/81 07/18/17 15:31 Pulse Ox 95 07/18/17 15:31 - Labs Result Diagrams: 07/18/17 07:51 07/18/17 07:51 Labs: Laboratory Results - last 24 hr 07/18/17 07/18/17 07:51 07:51 WBC 11.9 H RBC 3.64 L Hgb 12.2 Hct 35.9 MCV 98.6 H MCH 33.5 H MCHC 34.0 RDW 15.1 H Plt Count 291 MPV 7.7 Neut % (Auto) 66.2 Lymph % (Auto) 23.9 [place] % (Auto) 8.5 Eos % (Auto) 1.1 Baso % (Auto) 0.3 Neut # (Auto) 7.9 H Lymph # (Auto) 2.8 [place] # (Auto) 1.0 H Eos # (Auto) 0.1 Baso # (Auto) 0.0 Sodium 141 Potassium 3.6 Chloride 105 Carbon Dioxide 26 Anion Gap 14 BUN 21 H Creatinine 0.8 Est GFR ( Amer) > 60 Est GFR (Non-Af Amer) > 60 Random Glucose 104 Calcium 9.2 Total Bilirubin 1.0 AST 82 H ALT 243 H Alkaline Phosphatase 185 H Total Protein 6.5 Albumin 3.2 L Globulin 3.4 Albumin/Globulin Ratio 0.9 L Assessment & Plan (1) Tremor Assessment and Plan: Continue monitoring the patient's benzodiazepine dosing per psychiatry. No further recommendations at this time. If the patient has tremor and would like outpatient care, he may see an outpatient neurologist. Thank you. Status: Resolved
[2017-07-18] MEDS: QUEtiapine 150 mg XR Tab PO SCH (21:24)
--- NOTE | 2017-07-18 21:38 | CP.PCM.PN ---
Subjective - Date & Time of Evaluation Date of Evaluation: 07/18/17 Time of Evaluation: 18:00 - Subjective Subjective: Patient seen and evaluated at bedside Objective - Vital Signs/Intake and Output Vital Signs (last 24 hours): Temp Pulse Resp BP Pulse Ox 97.8 F 84 20 128/81 95 07/18/17 15:31 07/18/17 16:00 07/18/17 15:31 07/18/17 15:31 07/18/17 15:31 Intake and Output: 07/18/17 07/19/17 18:59 06:59 Intake Total 720 Balance 720 - Medications Medications: Current Medications Alprazolam (Xanax) 0.5 mg PO Q8 [facility] Last Admin: 07/18/17 21:24 Dose: 0.5 mg Enoxaparin Sodium (Lovenox) 40 mg SC DAILY [facility] Last Admin: 07/18/17 10:35 Dose: 40 mg Ergocalciferol (Drisdol 50,000 Intl Units Cap) 1 cap PO QWK [facility] Folic Acid (Folic Acid) 1 mg PO DAILY [facility] Last Admin: 07/18/17 10:35 Dose: 1 mg Ceftriaxone Sodium 1 gm/ (Sodium Chloride) 100 mls @ 100 mls/hr IVPB DAILY [facility] Last Admin: 07/18/17 10:36 Dose: 100 mls/hr Lisinopril (Zestril) 10 mg PO DAILY [facility] Last Admin: 07/18/17 10:35 Dose: 10 mg Metoprolol Tartrate (Lopressor) 50 mg PO DAILY [facility] Last Admin: 07/18/17 10:35 Dose: 50 mg Quetiapine Fumarate (Seroquel Xr) 300 mg PO HS [facility] Last Admin: 07/18/17 21:24 Dose: 300 mg Thiamine HCl (Vitamin B1 Tab) 100 mg PO DAILY [facility] Last Admin: 07/18/17 10:35 Dose: 100 mg - Labs Labs: 07/18/17 07:51 07/18/17 07:51
--- NOTE | 2017-07-19 09:35 | CARD ---
APPROVED REPORT EKG Measurement Heart [id number] <Conclusion> Sinus rhythm with 1st degree AV block Anterior infarct, age undetermined Abnormal ECG
[2017-07-19] MEDS: Enoxaparin 40 mg Syringe SC SCH (10:01)
[2017-07-19 15:33] VITALS: BP 113/75; PULSE 87; TEMP 97.7; O2SAT 95
--- NOTE | 2017-07-19 16:27 | CP.PCM.PN ---
Subjective - Date & Time of Evaluation Date of Evaluation: 07/19/17 Time of Evaluation: 16:25 - Subjective Subjective: PT CLEARED BY NEURO AND PSYCH. OK TO D/C PER DR. ELLISON. D/C HOME TODAY. DISCUSSED WITH THE PT AND HE IS IN AGREEMENT. VERBALIZES UNDERSTANDING OF D/.C PLAN AND OF NEW RX (KEFLEX). RX SENT TO PT'S PHARMACY, HE WILL HAVE IT DELIVERED TONIGHT. NO FURTHER ORDERS. -FOLLOW UP WITH DR. ELLISON IN THE OFFICE WITHIN 5-7 DAYS OF DISCHARGE---CALL THE OFFICE TODAY TO MAKE YOUR APPOINTMENT. -FOLLOW UP WITH DR. ZULETA (NEUROLOGY) IN THE OFFICE WITHIN 7-10 DAYS OF DISCHARGE---CALL THE OFFICE TODAY TO MAKE YOUR APPOINTMENT. -CONTINUE HOME MEDICATIONS USUAL. NEW PRESCRIPTION SENT TO YOUR PHARMACY: 1) KELFEX (ANTIBIOTIC) 500 MG BY MOUTH EVERY 8 HOURS (7 AM, 3PM, 11 PM) FOR 5 MORE DAYS. START TOMORROW, 07/20/17. TAKE PRESCRIBED. -FOR FURTHER QUESTIONS OR CONCERNS, CONTACT DR. ELLISON'S OFFICE. Objective - Vital Signs/Intake and Output Vital Signs (last 24 hours): Temp Pulse Resp BP Pulse Ox 97.7 F 87 20 113/75 95 07/19/17 15:32 07/19/17 15:32 07/19/17 15:32 07/19/17 15:32 07/19/17 15:32 Intake and Output: 07/19/17 07/19/17 06:59 18:59 Intake Total 550 Balance 550 - Medications Medications: Current Medications Alprazolam (Xanax) 0.5 mg PO Q8 [facility] Last Admin: 07/19/17 14:00 Dose: 0.5 mg Enoxaparin Sodium (Lovenox) 40 mg SC DAILY [facility] Last Admin: 07/19/17 10:01 Dose: 40 mg Ergocalciferol (Drisdol 50,000 Intl Units Cap) 1 cap PO QWK [facility] Folic Acid (Folic Acid) 1 mg PO DAILY [facility] Last Admin: 07/19/17 10:01 Dose: 1 mg Ceftriaxone Sodium 1 gm/ (Sodium Chloride) 100 mls @ 100 mls/hr IVPB DAILY [facility] Last Admin: 07/19/17 10:01 Dose: 100 mls/hr Lisinopril (Zestril) 10 mg PO DAILY [facility] Last Admin: 07/19/17 10:01 Dose: 10 mg Metoprolol Tartrate (Lopressor) 50 mg PO DAILY [facility] Last Admin: 07/19/17 10:01 Dose: 50 mg Quetiapine Fumarate (Seroquel Xr) 300 mg PO HS [facility] Last Admin: 07/18/17 21:24 Dose: 300 mg Thiamine HCl (Vitamin B1 Tab) 100 mg PO DAILY [facility] Last Admin: 07/19/17 10:01 Dose: 100 mg - Labs Labs: 07/18/17 07:51 07/18/17 07:51
--- NOTE | 2017-07-19 23:11 | CP.PCM.DIS ---
Provider - Provider Date of Admission: 07/16/17 16:25 Attending physician: Estevan Agustin MD Time Spent in preparation of Discharge (in minutes): 45 Diagnosis - Discharge Diagnosis (1) Anxiety Status: Acute (2) Shortness of breath Status: Acute (3) Withdrawal from benzodiazepine Status: Acute (4) Hypertension Status: Acute Hospital Course - Lab Results Lab Results: Micro Results 07/16/17 14:33 Blood Blood Culture - Preliminary NO GROWTH AFTER 48 HOURS 07/16/17 15:10 Blood Blood Culture - Preliminary NO GROWTH AFTER 48 HOURS Most Recent Lab Values WBC 11.9 K/uL (4.8-10.8) H 07/18/17 07:51 RBC 3.64 Mil/uL (4.40-5.90) L 07/18/17 07:51 Hgb 12.2 g/dL (12.0-18.0) 07/18/17 07:51 Hct 35.9 % (35.0-51.0) 07/18/17 07:51 MCV 98.6 fL (80.0-94.0) H 07/18/17 07:51 MCH 33.5 pg (27.0-31.0) H 07/18/17 07:51 MCHC 34.0 g/dL (33.0-37.0) 07/18/17 07:51 RDW 15.1 % (11.5-14.5) H 07/18/17 07:51 Plt Count 291 K/uL (130-400) 07/18/17 07:51 MPV 7.7 fL (7.2-11.7) 07/18/17 07:51 Neut % (Auto) 66.2 % (50.0-75.0) 07/18/17 07:51 Lymph % (Auto) 23.9 % (20.0-40.0) 07/18/17 07:51 [place] % (Auto) 8.5 % (0.0-10.0) 07/18/17 07:51 Eos % (Auto) 1.1 % (0.0-4.0) 07/18/17 07:51 Baso % (Auto) 0.3 % (0.0-2.0) 07/18/17 07:51 Neut # (Auto) 7.9 K/uL (1.8-7.0) H 07/18/17 07:51 Lymph # (Auto) 2.8 K/uL (1.0-4.3) 07/18/17 07:51 [place] # (Auto) 1.0 K/uL (0.0-0.8) H 07/18/17 07:51 Eos # (Auto) 0.1 K/uL (0.0-0.7) 07/18/17 07:51 Baso # (Auto) 0.0 K/uL (0.0-0.2) 07/18/17 07:51 Sodium 141 mmol/L (132-148) 07/18/17 07:51 Potassium 3.6 mmol/L (3.6-5.2) 07/18/17 07:51 Chloride 105 mmol/L (98-107) 07/18/17 07:51 Carbon Dioxide 26 mmol/L (22-30) 07/18/17 07:51 Anion Gap 14 (10-20) 07/18/17 07:51 BUN 21 mg/dL (9-20) H 07/18/17 07:51 Creatinine 0.8 mg/dL (0.8-1.5) 07/18/17 07:51 Est GFR ( Amer) > 60 07/18/17 07:51 Est GFR (Non-Af Amer) > 60 07/18/17 07:51 Random Glucose 104 mg/dL (75-110) 07/18/17 07:51 Calcium 9.2 mg/dl (8.6-10.4) 07/18/17 07:51 Phosphorus 3.3 mg/dL (2.5-4.5) 07/16/17 14:28 Magnesium 1.8 mg/dL (1.6-2.3) 07/16/17 14:28 Total Bilirubin 1.0 mg/dL (0.2-1.3) 07/18/17 07:51 AST 82 U/L (17-59) H 07/18/17 07:51 ALT 243 U/L (21-72) H 07/18/17 07:51 Alkaline Phosphatase 185 U/L (38-126) H 07/18/17 07:51 Ammonia 27 umol/L (9-33) D 07/16/17 15:48 Total Protein 6.5 g/dL (6.3-8.3) 07/18/17 07:51 Albumin 3.2 g/dL (3.5-5.0) L 07/18/17 07:51 Globulin 3.4 gm/dL (2.2-3.9) 07/18/17 07:51 Albumin/Globulin Ratio 0.9 (1.0-2.1) L 07/18/17 07:51 Urine Color Lauren (YELLOW) 07/16/17 14:34 Urine Clarity Hazy (Clear) 07/16/17 14:34 Urine pH 6.0 (5.0-8.0) 07/16/17 14:34 Ur Specific [place] 1.011 (1.003-1.030) 07/16/17 14:34 Urine Protein 2+ mg/dL (NEGATIVE) H 07/16/17 14:34 Urine Glucose (UA) Normal mg/dL (Normal) 07/16/17 14:34 Urine Ketones Negative mg/dL (NEGATIVE) 07/16/17 14:34 Urine Blood 1+ (NEGATIVE) H 07/16/17 14:34 Urine Nitrate Negative (NEGATIVE) 07/16/17 14:34 Urine Bilirubin Negative (NEGATIVE) 07/16/17 14:34 Urine Urobilinogen 4.0 mg/dL (0.2-1.0) 07/16/17 14:34 Ur Leukocyte Esterase 3+ Donn/uL (Negative) H 07/16/17 14:34 Urine WBC (Auto) 512 /hpf (0-5) H 07/16/17 14:34 Urine RBC (Auto) 5 /hpf (0-3) H 07/16/17 14:34 Ur Squamous Epith Cells < 1 /hpf (0-5) 07/16/17 14:34 Urine Bacteria Rare (<OCC) 07/16/17 14:34 Hyaline Casts 3-5 /lpf (0-2) H 07/16/17 14:34 Urine Opiates Screen Negative (NEGATIVE) 07/16/17 14:34 Urine Methadone Screen Negative (NEGATIVE) 07/16/17 14:34 Ur Barbiturates Screen Negative (NEGATIVE) 07/16/17 14:34 Ur Phencyclidine Scrn Negative (NEGATIVE) 07/16/17 14:34 Ur Amphetamines Screen Negative (NEGATIVE) 07/16/17 14:34 U Benzodiazepines Scrn Positive (NEGATIVE) 07/16/17 14:34 [place] < 0.2 mmol/L (0.6-1.2) L 07/16/17 15:48 U Oth Cocaine Metabols Negative (NEGATIVE) 07/16/17 14:34 U Cannabinoids Screen Negative (NEGATIVE) 07/16/17 14:34 Alcohol, Quantitative < 10 mg/dl (0-10) 07/16/17 14:28 - Hospital Course Hospital Course: pt is seen and examined pt is feeling better stable for discharge afberile, calm, quite Discharge Exam - Head Exam Head Exam: ATRAUMATIC, NORMAL INSPECTION, NORMOCEPHALIC - Eye Exam Eye Exam: EOMI, Normal appearance, PERRL Pupil Exam: NORMAL ACCOMODATION, PERRL - ENT Exam ENT Exam: Mucous Membranes Moist - Respiratory Exam Respiratory Exam: Clear to PA & Lateral, NORMAL BREATHING PATTERN - Cardiovascular Exam Cardiovascular Exam: REGULAR RHYTHM, +S1, +S2 - GI/Abdominal Exam GI & Abdominal Exam: Normal Bowel Sounds - Rectal Exam Rectal Exam: Deferred - Psychiatric Exam Psychiatric exam: Anxious - Skin Skin Exam: Dry, Intact, Normal Color, Warm Discharge Plan - Discharge Medications Prescriptions: Cephalexin [cephalexin] 500 mg PO Q8 #15 cap - Follow Up Plan Condition: GOOD Disposition: HOME/ ROUTINE Instructions: Tremor, Acute Bronchitis, Adult (DC), Shortness of Breath ( Dyspnea) (DC), Bipolar Disorder (DC), Cephalexin, Urinary Retention (DC), Urinary Tract Infection in Men (DC), Dyspnea (GEN), Anxiety (DC) Additional Instructions: -FOLLOW UP WITH DR. AGUSTIN IN THE OFFICE WITHIN 5-7 DAYS OF DISCHARGE---CALL THE OFFICE TODAY TO MAKE YOUR APPOINTMENT. -FOLLOW UP WITH DR. ZULETA (NEUROLOGY) IN THE OFFICE WITHIN 7-10 DAYS OF DISCHARGE---CALL THE OFFICE TODAY TO MAKE YOUR APPOINTMENT. -CONTINUE HOME MEDICATIONS USUAL. NEW PRESCRIPTION SENT TO YOUR PHARMACY: 1) KELFEX (ANTIBIOTIC) 500 MG BY MOUTH EVERY 8 HOURS (7 AM, 3PM, 11 PM) FOR 5 MORE DAYS. START TOMORROW, 07/20/17. TAKE PRESCRIBED. -FOR FURTHER QUESTIONS OR CONCERNS, CONTACT DR. AGUSTIN'S OFFICE. Referrals: Jethro Mejia MD [Staff Provider] - Bridger Zuleta MD [Staff Provider] - Estevan Agustin MD [Staff Provider] -
[2017-07-23] MEDS ORDERED: Ergocalciferol 50,000 Intl Units Cap PO SCH (10:00)
== END 2017-07-19 17:37 | disposition home or self-care (01) | DRG 425 ==
LOC: C.ER 12:29 → C.9E 16:25 → C.5S 21:37
PROVIDERS: ADMIT Internal Medicine; ATTEND Internal Medicine
DX: F41.9 Anxiety disorder, unspecified (principal); F20.9 Schizophrenia, unspecified; F19.230 Other psychoactive substance dependence with withdrawal, uncomplicated; N39.0 Urinary tract infection, site not specified; R06.02 Shortness of breath; F10.10 Alcohol abuse, uncomplicated; I10 Essential (primary) hypertension; F31.9 Bipolar disorder, unspecified; E78.00 Pure hypercholesterolemia, unspecified; M17.0 Bilateral primary osteoarthritis of knee; R33.8 Other retention of urine; R25.1 Tremor, unspecified; J45.909 Unspecified asthma, uncomplicated